=== PATIENT | male | born 1990 | race Caucasian/White ===

== ENCOUNTER 2021-06-26 12:03 | Inpatient (IN) | payer OTHER, SELFPAY ==
--- NOTE | 2021-06-26 12:58 | ED_ITS ---
HPI - General Adult General Chief complaint: Psychiatric Symptoms Stated complaint: SI Time Seen by Provider: 06/26/21 12:54 Source: patient Mode of arrival: ambulatory Limitations: no limitations History of Present Illness HPI narrative: 30-year-old male presents to ED for suicidal ideation with no plan. Patient states history of depression. Patient admits to stop taking his meds. Patient likes to be placed in halfway, of psych was dental program. Related Data Allergies Allergy/AdvReac Type Severity Reaction Status Date / Time No Known Allergies Allergy Verified 06/26/21 12:54 Review of Systems Review of Systems: Suicidal ideation. depression Yes all other systems are reviewed and are negative [facility] Social History Social History Advance Directives: No Advance Directives Information Provided: No Physical Exam ED Vital Signs: Vital Signs - 24 hr 06/26/21 13:13 Temperature 98 F Pulse Rate 65 Respiratory Rate 18 Blood Pressure 99/65 Pulse Oximetry 96 BMI result Body Mass Index 22.0 Const General: cooperative, healthy appearing, comfortable, no acute distress, well developed, alert, awake and Physically active Orientation/consciousness: patient oriented x3 HENMT Head: Yes normal to inspection, Yes No palpable skull fracture present, Yes normocephalic, Yes atraumatic and No abrasion Eyes General: appearance normal, both eyes and all related structures Neck Neck: Yes normal visual inspection, Yes full ROM, Yes no lymphadenopathy, Yes no meningeal signs, Yes trachea midline, Yes supple, No anterior neck swelling and No tender Chest Chest palpation & inspection: normal inspection of the chest and normal palpation of entire chest wall Resp Effort & Inspection: normal respiratory effort and able to speak in complete sentences Auscultation: clear to auscultation bilaterally Cardio Jugular venous distension: no JVD Heart sounds: S1 normal heart sound present and S2 normal heart sound present GI Inspection: Yes normal to inspection and No abdominal wall ecchymosis Palpation (GI): Soft to palpation, not firm, nontender, no guarding and not rigid General: No CVA tenderness and Yes no CVA tenderness Back/Spine/Pelvis Back: no CVA tenderness, No CVA tenderness and No back tenderness Skin General skin exam: no rashes or lesions noted and elasticity normal Neuro General: patient oriented x3, gait normal, no meningeal signs and CN's II-XI intact bilaterally Cranial nerves: Yes CN's II-XII intact bilaterally Extrem General: Yes normal to inspection and Yes full ROM Psych Appearance: grossly normal, well kempt and not disheveled Course Course Course Narrative: Will order basic labs and N consutl Reevaluation(s) Reevaluation #1: Patient was seen in the community by [facility] and is a bed search Section 12 Time: 17:00 Medical Decision Making MDM Narrative Medical decision making narrative: Depression Lab Data Labs: Lab Results 06/26/21 Range/Units 16:32 Urine Opiates Screen Not Detected (Not Detect) Urine Fentanyl Screen Not Detected (Not Detect) Ur Barbiturates Screen Not Detected (Not Detect) Ur Phencyclidine Scrn Not Detected (Not Detect) Ur Amphetamines Screen Not Detected (Not Detect) U Benzodiazepines Scrn Not Detected (Not Detect) Urine Cocaine Screen POSITIVE H (Not Detect) U Marijuana (THC) Screen Not Detected (Not Detect) Discharge Plan Discharge Clinical Impression: Depression Patient Disposition: Still a Patient Instructions: Depression (DC)
[2021-06-26 13:13] VITALS: BP 107/64; BP 99/65; PULSE 65; PULSE 84; RESP 18; TEMP 36.6; O2SAT 96; O2SAT 97; BMI 22.0
--- NOTE | 2021-06-26 16:35 | PC.NURSE ---
t/w was informed pt refused all labs upon arriving to the pod. t/w approached pt and asked consent to get covid swab, urine sample, and bloodwork. pt agreed to provide swab and urine. pt refused bloodwork. josey.
[2021-06-26 16:52] LABS: Amphetamine Screen Urine Not Detected (Not Detect); Barbiturates, Urine Not Detected (Not Detect); Benzodiazepines Screen Urine Not Detected (Not Detect); Cannabinoid Screen Urine Not Detected (Not Detect); Cocaine Screen Urine POSITIVE (Not Detect); Fentanyl, urine Not Detected (Not Detect); Opiate Screen Urine Not Detected (Not Detect); Phencyclidine Screen Urine Not Detected (Not Detect)
[2021-06-26 17:07] LABS: COVID-19 Test Negative (Negative)
--- NOTE | 2021-06-26 21:07 | PC.NURSE ---
Patient refused lab draw times 3.
[2021-06-26 23:36] LABS: MANUAL DIFF FLAG NO
[2021-06-26 23:37] LABS: Basophils Percent Auto 0.5 % (0-2); Eosinophils Absolute Auto 0.2 X10*3/uL (0.0-0.4); Eosinophils Percent Auto 2.5 % (0-4); Hematocrit 41.2 % (42.0-52.0); Hemoglobin 13.3 g/dl (14.0-18.0); Imm Gran Abs Auto 0.01 X10*3/uL (0.00-0.03); Imm Gran Pct Auto 0.1 % (0.0-0.4); Lymphocytes Absolute Auto 2.6 X10*3/uL (1.2-4.9); Lymphocytes Percent Auto 34.3 % (20-40); Mean Corpuscular HGB Conc 32.3 g/dl (31.0-36.0); Mean Corpuscular Hemoglobin 29.6 pg (27.0-33.0); Mean Corpuscular Volume 91.6 fL (80.0-98.0); Mean Platelet Volume 10.7 fL (9.4-12.4); Monocytes Absolute Auto 0.8 X10*3/uL (0.1-1.2); Monocytes Percent Auto 10.4 % (2-11); Neutrophils Absolute Auto 3.9 x10*3/uL (2.0-8.3); Neutrophils Percent Auto 52.2 % (45-73); Platelet Count 271 X10*3/uL (160-400); Red Cell Distribution Width 13.4 % (11.0-16.0); White Blood Count 7.6 X10*3/uL (4.8-10.8)
[2021-06-26 23:55] LABS: Ethanol < 10 mg/dL
[2021-06-26 23:56] LABS: Anion Gap 12 (12-20); Blood Urea Nitrogen 14 mg/dL (9-16); Carbon Dioxide 28 mmol/L (22-29); Chloride 104 mmol/L (96-108); Creatinine Clr Calc Pharmacy 115.5; Estimated Glomerular Filt Rate > 60; Glucose Random 117 mg/dL (60-115); Potassium 4.1 mmol/L (3.3-5.1); Sodium 140 mmol/L (135-145)
--- NOTE | 2021-06-27 05:36 | PC.NURSE ---
Patient slept though the night, no distress observed/reported, finally agreed to lab draw, patient's disposition per [facility] is section 12 inpatient bed search, behavior non concerning, will continue to monitor.
--- NOTE | 2021-06-27 11:15 | PC.NURSE ---
Pt calm, cooperative. TO GO TO M5 LATER
[2021-06-27 12:33] VITALS: BP 113/68; PULSE 63; RESP 16; O2SAT 97
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
[2021-06-27 20:25] VITALS: BP 96/51; PULSE 86; RESP 16; TEMP 36.4; O2SAT 97
--- NOTE | 2021-06-27 21:57 | PC.NURSE ---
Pt signed 3 day notice up on 07/02/2021
--- NOTE | 2021-06-28 | ECG_ITS ---
Test Reason : cp Blood Pressure : / mmHG Vent. Rate : 061 BPM Atrial Rate : 061 BPM P-R Int : 138 ms QRS Dur : 088 ms QT Int : 386 ms P-R-T Axes : 043 068 042 degrees QTc Int : 388 ms Normal sinus rhythm Normal ECG When compared with ECG of 27-JUN-2021 12:32, No significant change was found Referred By: Sandra Espino Electronically Signed By:Job Thomson
[2021-06-28 06:00] VITALS: BP 112/75; PULSE 78; RESP 16; TEMP 36.6; O2SAT 100
[2021-06-28 19:30] VITALS: BP 109/55; PULSE 73; TEMP 36.9
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
[2021-06-29 09:08] VITALS: BP 107/57; PULSE 90; RESP 18; TEMP 36.4; O2SAT 99
--- NOTE | 2021-06-29 09:28 | P.PNPSI_ITS ---
Subjective Subjective Date of Service: 06/29/21 Reason For Visit: Depression, SI, cocaine use disorder Subjective Notes: Conditional Voluntary and 3 Day Interim History: Patient was seen and discussed in rounds today. She is settling in. She has been visible blood mostly in her room. Attending some groups. Little communication. She has been refusing meds and labs. Eating and sleeping adequately. She has a 3 day notice in. Not to open in discussing medications, stating that she is not going to be here long. No changes were made today Mental Status Exam Mental Status Exam Narrative: In today's visit she is alert, oriented and pleasant. Speech is normal. Little to no eye contact. Affect is appropriate and subdued. Mood is constricted. No acute signs of psychosis. No SI/HI. Cognitively she has slow thought processes. Judgment is mostly intact Diagnostics Vital Signs (24Hr): Vital Signs - 24 hr 06/28/21 19:30 06/29/21 09:08 Temperature 98.4 F 97.6 F Pulse Rate 73 90 Respiratory Rate 18 Blood Pressure 109/55 L 107/57 L Pulse Oximetry 99 BMI result Body Mass Index 22.0 Labs Results: 06/26/21 23:31 06/26/21 23:31 Medications Medications Current Medications Acetaminophen (Acetaminophen 325 Mg Tablet) 650 mg PO Q6H PRN PRN Reason: Headache/Pain Mild Scale (1-3) Al Hydroxide/Mg Hydroxide (Magnesium Hydrox/Alum Hydrox 30 Ml Oral.Susp) 30 ml PO Q6H PRN PRN Reason: Heartburn/Nausea Hydroxyzine HCl (Hydroxyzine Hcl 25 Mg Tablet) 25 mg PO BEDTIME PRN PRN Reason: Anxiety Ibuprofen (Ibuprofen 600 Mg Tablet) 600 mg PO Q6H PRN PRN Reason: mild-mod pain Magnesium Hydroxide (Milk Of Magnesia 30 Ml Oral.Susp) 30 ml PO DAILY PRN PRN Reason: Constipation Olanzapine (Olanzapine 10 Mg Tablet) 10 mg PO BEDTIME JAKE Last Admin: 06/28/21 22:43 Dose: Not Given Documented by: Trazodone HCl (Trazodone Hcl 50 Mg Tablet) 50 mg PO BEDTIME PRN PRN Reason: Insomnia Allergies Allergies Allergy/AdvReac Type Severity Reaction Status Date / Time No Known Allergies Allergy Verified 06/26/21 12:54 Assessment & Plan Assessment & Plan (1) Bipolar 1 disorder: Status: Acute Code(s): F31.9 - Bipolar disorder, unspecified Plan Nicole is a 30 y.o. Male, prefers he/ him pronouns, who carries a dx of Bipolar I DO. He presented to [facility] on 06/26/21 after calling 911 due to SI, depression, and paranoid ideation that someone is following him but unable to state who this person is. Pt says he only takes psych medications while inpatient. Utox was positive for crack cocaine, uses daily. Per crisis eval, pt?s Mom reports that he has been off his meds and ?causing havoc in the house,? i.e. throwing her things away, wont let her sleep. Plan: Will restart zyprexa at 10 mg QHS for sx of depression, paranoia, as pt reports this has helped him in the past and he tolerates it. Pt declined to meet with addiction specilaists. 06/29/2021: Continue current regimen and plans. Encouraged to be compliant with her medication. No changes implemented today I spent minutes with the patient and/or on the patient floor today, greater than?50% of which was spent counseling/coordinating care. Reason for contiued inpatient stay Substantial Risk for: other
[2021-06-29 18:00] VITALS: BP 112/55; PULSE 58; RESP 18; TEMP 37.2
[2021-06-29] MEDS: OLANZapine 10 MG TABLET PO (21:03)
[2021-06-30 06:00] VITALS: BP 110/63; PULSE 69; RESP 18; TEMP 36.7; O2SAT 100
--- NOTE | 2021-06-30 09:26 | P.PNPSI_ITS ---
Subjective Subjective Date of Service: 06/30/21 Reason For Visit: Depression, SI, cocaine use disorder Subjective Notes: Conditional Voluntary and 3 Day Interim History: Patient was seen and discussed in rounds today. Records were reviewed. He has been stating that he would like to remain ?mail?. He has been a little more social and less isolative but still in his room a lot. Depression persisting. No auditory or visual hallucinations. No suicidal ideations. No medications taken. No changes were implemented today Medication Compliance: No Review of Systems Review of Systems Depression Yes all other systems are reviewed and are negative Diagnostics Vital Signs (24Hr): Vital Signs - 24 hr 06/29/21 18:00 06/30/21 06:00 Temperature 99 F 98.1 F Pulse Rate 58 69 Respiratory Rate 18 18 Blood Pressure 112/55 L 110/63 Pulse Oximetry 100 BMI result Body Mass Index 22.0 Labs Results: 06/26/21 23:31 06/26/21 23:31 Medications Medications Current Medications Acetaminophen (Acetaminophen 325 Mg Tablet) 650 mg PO Q6H PRN PRN Reason: Headache/Pain Mild Scale (1-3) Al Hydroxide/Mg Hydroxide (Magnesium Hydrox/Alum Hydrox 30 Ml Oral.Susp) 30 ml PO Q6H PRN PRN Reason: Heartburn/Nausea Hydroxyzine HCl (Hydroxyzine Hcl 25 Mg Tablet) 25 mg PO BEDTIME PRN PRN Reason: Anxiety Ibuprofen (Ibuprofen 600 Mg Tablet) 600 mg PO Q6H PRN PRN Reason: mild-mod pain Magnesium Hydroxide (Milk Of Magnesia 30 Ml Oral.Susp) 30 ml PO DAILY PRN PRN Reason: Constipation Olanzapine (Olanzapine 10 Mg Tablet) 10 mg PO BEDTIME JAKE Last Admin: 06/29/21 21:03 Dose: 10 mg Documented by: Trazodone HCl (Trazodone Hcl 50 Mg Tablet) 50 mg PO BEDTIME PRN PRN Reason: Insomnia Allergies Allergies Allergy/AdvReac Type Severity Reaction Status Date / Time No Known Allergies Allergy Verified 06/26/21 12:54 Assessment & Plan Assessment & Plan (1) Bipolar 1 disorder: Status: Acute Code(s): F31.9 - Bipolar disorder, unspecified Plan Nicole is a 30 y.o. Male, prefers he/ him pronouns, who carries a dx of Bipolar I DO. He presented to [facility] on 06/26/21 after calling 911 due to SI, depression, and paranoid ideation that someone is following him but unable to state who this person is. Pt says he only takes psych medications while inpatient. Utox was positive for crack cocaine, uses daily. Per crisis eval, pt?s Mom reports that he has been off his meds and ?causing havoc in the house,? i.e. throwing her things away, wont let her sleep. Plan: Will restart zyprexa at 10 mg QHS for sx of depression, paranoia, as pt reports this has helped him in the past and he tolerates it. Pt declined to meet with addiction specilaists. 06/29/2021: Continue current regimen and plans. Encouraged to be compliant with her medication. No changes implemented today 06/30/2021: Continue plans and regimen. No changes were done today I spent minutes with the patient and/or on the patient floor today, greater than?50% of which was spent counseling/coordinating care. Reason for contiued inpatient stay Substantial Risk for: harm to self
[2021-06-30 18:00] VITALS: BP 103/66; PULSE 60; RESP 18; TEMP 36.8; O2SAT 98
[2021-06-30] MEDS: OLANZapine 10 MG TABLET PO (20:49)
[2021-07-01 06:00] VITALS: BP 106/58; PULSE 67; RESP 18; TEMP 37; O2SAT 100
--- NOTE | 2021-07-01 09:31 | PC.NURSE ---
Pt retracted 3-day notice today - Thursday, July 01, 2021
[2021-07-01 17:35] VITALS: BP 114/71; PULSE 69; TEMP 37.1
[2021-07-01] MEDS: OLANZapine 7.5 MG TABLET 15 MG PO (21:46)
[2021-07-01] MEDS: Melatonin 3 MG TABLET 6 MG PO (21:47)
--- NOTE | 2021-07-01 21:59 | HO.PSYCHPN ---
Subjective Subjective Date of Service: 07/01/21 Reason For Visit: Depression, SI, cocaine use disorder Interim History: pt reports that he is still depressed and that he feels no better than on admission. He says he still has depression and that he goes deep into his negative thoughts and has a lot of negativity. Pt said he is not suicidal now however to another staff person he mentioned he still felt suicidal. Patient did tell typewriter repairer he thinks that the food might be poisoned sometimes and so he is careful about what he eats. [employer] discussed medications and patient said he would like his Zyprexa dose increased. Mental Status Exam Mental Status Exam Narrative: Pt is alert and oriented; behavior is cooperative, friendly and calm; patient is not in distress; dressed in casual attire, lying on bed, tatoo neck, dyed blond hair; mood is described as not that good and affect odd; eye contact adequate; Speech is normal rate, volume and prosody and not pressured; no psychomotor agitation/retardation present; thought process is goal directed; Thought content is on depression, delusional ideas of poisoned food; otherwise pertinent to relevant topics; intermittent SI, sometimes with plan; Denies AVH. Patients insight and judgment are impaired Diagnostics Vital Signs (24Hr): Vital Signs - 24 hr 07/01/21 06:00 Temperature 98.6 F Pulse Rate 67 Respiratory Rate 18 Blood Pressure 106/58 L Pulse Oximetry 100 BMI result Body Mass Index 22.0 Labs Results: 06/26/21 23:31 06/26/21 23:31 Medications Medications Current Medications Acetaminophen (Acetaminophen 325 Mg Tablet) 650 mg PO Q6H PRN PRN Reason: Headache/Pain Mild Scale (1-3) Al Hydroxide/Mg Hydroxide (Magnesium Hydrox/Alum Hydrox 30 Ml Oral.Susp) 30 ml PO Q6H PRN PRN Reason: Heartburn/Nausea Hydroxyzine HCl (Hydroxyzine Hcl 25 Mg Tablet) 25 mg PO BEDTIME PRN PRN Reason: Anxiety Ibuprofen (Ibuprofen 600 Mg Tablet) 600 mg PO Q6H PRN PRN Reason: mild-mod pain Magnesium Hydroxide (Milk Of Magnesia 30 Ml Oral.Susp) 30 ml PO DAILY PRN PRN Reason: Constipation Melatonin (Melatonin 3 Mg Tablet) 6 mg PO BEDTIME PRN PRN Reason: insomnia Last Admin: 07/01/21 21:47 Dose: 6 mg Documented by: Olanzapine (Olanzapine 7.5 Mg Tablet) 15 mg PO BEDTIME JAKE Last Admin: 07/01/21 21:46 Dose: 15 mg Documented by: Trazodone HCl (Trazodone Hcl 50 Mg Tablet) 50 mg PO BEDTIME PRN PRN Reason: Insomnia Allergies Allergies Allergy/AdvReac Type Severity Reaction Status Date / Time No Known Allergies Allergy Verified 06/26/21 12:54 Assessment & Plan Assessment & Plan (1) Bipolar 1 disorder: Status: Acute Code(s): F31.9 - Bipolar disorder, unspecified Plan Nicole is a 30 y.o. Male, prefers he/ him pronouns, who carries a dx of Bipolar I DO. He presented to [facility] on 06/26/21 after calling 911 due to SI, depression, and paranoid ideation that someone is following him but unable to state who this person is. Pt says he only takes psych medications while inpatient. Utox was positive for crack cocaine, uses daily. Per crisis eval, pt?s Mom reports that he has been off his meds and ?causing havoc in the house,? i.e. throwing her things away, wont let her sleep. 07/01 continue paranoid, odd affect, intermittent SI sometimes reporting plans [employer] needs additional collateral to better understand patient's presentation Plan: Increased zyprexa to 15 mg QHS for sx of depression, paranoia, as pt reports this has helped him in the past and he tolerates it. Pt declined to meet with addiction specilaists. I spent minutes with the patient and/or on the patient floor today, greater than?50% of which was spent counseling/coordinating care. Reason for contiued inpatient stay Substantial Risk for: harm to self and rapid decompensation
[2021-07-02 18:00] VITALS: BP 112/69; PULSE 92; RESP 16; TEMP 36.4; O2SAT 99
--- NOTE | 2021-07-02 18:04 | P.PNPSI_ITS ---
Subjective Subjective Date of Service: 07/02/21 Reason For Visit: Depression, SI, cocaine use disorder Interim History: Patient said that he thinks he needs to be committed to a state hospital. He says that he is not able to be be in the community but has difficult time articulating why this is so. At 1st, He says that he is suicidal with a plan to hurt himself however upon further inquiry he says that he would only be suicidal if he went back into the community and things did not go well. Patient denies any AVH and he says he is sleeping well. Mental Status Exam Mental Status Exam Narrative: Pt is alert and oriented; behavior is cooperative, friendly and calm; patient is not in distress; dressed in casual attire, tatoo neck, dyed blond hair; mood is described as depressed and affect odd; eye contact adequate; Speech is normal rate, volume and prosody and not pressured; no psychomotor agitation/retardation present; thought process is goal directed; Thought content is on depression, delusional ideas of poisoned food; otherwise pertinent to relevant topics; intermittent SI, sometimes with plan; Denies AVH. Patients insight and judgment are impaired Diagnostics Vital Signs (24Hr): BMI result Body Mass Index 22.0 Labs Results: 06/26/21 23:31 06/26/21 23:31 Medications Medications Current Medications Acetaminophen (Acetaminophen 325 Mg Tablet) 650 mg PO Q6H PRN PRN Reason: Headache/Pain Mild Scale (1-3) Al Hydroxide/Mg Hydroxide (Magnesium Hydrox/Alum Hydrox 30 Ml Oral.Susp) 30 ml PO Q6H PRN PRN Reason: Heartburn/Nausea Hydroxyzine HCl (Hydroxyzine Hcl 25 Mg Tablet) 25 mg PO BEDTIME PRN PRN Reason: Anxiety Ibuprofen (Ibuprofen 600 Mg Tablet) 600 mg PO Q6H PRN PRN Reason: mild-mod pain Magnesium Hydroxide (Milk Of Magnesia 30 Ml Oral.Susp) 30 ml PO DAILY PRN PRN Reason: Constipation Melatonin (Melatonin 3 Mg Tablet) 6 mg PO BEDTIME PRN PRN Reason: insomnia Last Admin: 07/01/21 21:47 Dose: 6 mg Documented by: Olanzapine (Olanzapine 7.5 Mg Tablet) 15 mg PO BEDTIME JAKE Last Admin: 07/01/21 21:46 Dose: 15 mg Documented by: Trazodone HCl (Trazodone Hcl 50 Mg Tablet) 50 mg PO BEDTIME PRN PRN Reason: Insomnia Allergies Allergies Allergy/AdvReac Type Severity Reaction Status Date / Time No Known Allergies Allergy Verified 06/26/21 12:54 Assessment & Plan Assessment & Plan (1) Bipolar 1 disorder: Status: Acute Code(s): F31.9 - Bipolar disorder, unspecified Plan Niocle is a 30 y.o. Male, prefers he/ him pronouns, who carries a dx of Bipolar I DO. He presented to [facility] on 06/26/21 after calling 911 due to SI, depression, and paranoid ideation that someone is following him but unable to st ate who this person is. Pt says he only takes psych medications while inpatient. Utox was positive for crack cocaine, uses daily. Per crisis eval, pt?s Mom reports that he has been off his meds and ?causing havoc in the house,? i.e. throwing her things away, wont let her sleep. 07/01 continue paranoid, odd affect, intermittent SI sometimes reporting plans Recreation Therapist needs additional collateral to better understand patient's presentation Plan: Increased zyprexa to 15 mg QHS for sx of depression, paranoia, as pt reports this has helped him in the past and he tolerates it. Pt declined to meet with addiction specilaists. I spent minutes with the patient and/or on the patient floor today, greater than?50% of which was spent counseling/coordinating care. Reason for contiued inpatient stay Substantial Risk for: harm to self and rapid decompensation
[2021-07-02] MEDS: OLANZapine 7.5 MG TABLET 15 MG PO (22:13)
[2021-07-03 06:55] VITALS: BP 118/54; PULSE 58; RESP 16; TEMP 36.8; O2SAT 98
--- NOTE | 2021-07-03 11:31 | HO.PSYCHPN ---
Subjective Subjective Date of Service: 07/03/21 Reason For Visit: Depression, SI, cocaine use disorder Interim History: met with pt and sw pt gave pt/sw permission to discuss case with his 3 sisters, Tiffanie, Coreen and Manohar (and gave phone number); however he says that they will say he is crazy; he then says They envy me..twin me a little bit. He says that he is stressed a lot and not ready to go to the Community. He says he the [facility]. Patient talked about when crisis and the police came that another car pulled up and drove by slowly that was iffy. He said are they recording me? are they taking pictures of me. Patient endorses parnaoid delusions about being attacked spiritually; he thinks that there is a presence that comes to the unit and may be poisoning food; thus he is careful about what he eats and so only eat things in small portions. He denies any AVH, though can appear internally preoccupied. He reiterates however that this is serous that his life is in danger because someone is following him or that they are persecuting him; when promotion writer asked to who they refers to, patient vaguely indicates that they is some spiritual force. He says that he is so scared to go out into the community. He repeats this is serious...this is not a joke... this is serious. River Boat Captain asked if patient ever felt more calm or less anxious or worried or more stable at some point and whether medications were helpful. Patient is willing to continue taking medication and agrees to increase Zyprexa however he says this is not just about medication. . . I still need to think to stay safe... Indicating he does not want medication to curb his ability to think since he relies on this to avoid persecution. Patient could not really articulate a time in the past where he felt a relief from these current symptoms and even struggled to understand the question. He endorses intermittent SI worried about suffering alone in this world, but does not want to kill himself; rather wants to be able to work, have an apartment, adopt some day. He says he wants to be sober and to stop prostituting himself for drugs. He says that killing himself would be an option if he was feeling unsafe in the community. Mental Status Exam Mental Status Exam Narrative: Pt is alert and oriented; behavior is cooperative, mostly calm; he has dyed blond hair, neck tatoo; dressed in casual attire with adequate; mood is described as depressed. He has an affect odd and sometimes laughs innappropriately; eye contact adequate; Speech is affected, but with normal rate, volume and prosody and not pressured; no psychomotor agitation/retardation present; thought process is goal directed; Thought content is on depression and delusional, persecutory fears of a spiritual threatening force; delusional ideas that food is poisoned;otherwise pertinent to relevant topics; intermittent SI, sometimes with plan as an option if unsafe in the community; no HI. Denies AVH. Patients insight and judgment are impaired Diagnostics Vital Signs (24Hr): Vital Signs - 24 hr 07/02/21 18:00 07/03/21 06:55 Temperature 97.6 F 98.2 F Pulse Rate 92 58 Respiratory Rate 16 16 Blood Pressure 112/69 118/54 L Pulse Oximetry 99 98 BMI result Body Mass Index 22.0 Labs Results: 06/26/21 23:31 06/26/21 23:31 Medications Medications Current Medications Acetaminophen (Acetaminophen 325 Mg Tablet) 650 mg PO Q6H PRN PRN Reason: Headache/Pain Mild Scale (1-3) Al Hydroxide/Mg Hydroxide (Magnesium Hydrox/Alum Hydrox 30 Ml Oral.Susp) 30 ml PO Q6H PRN PRN Reason: Heartburn/Nausea Hydroxyzine HCl (Hydroxyzine Hcl 25 Mg Tablet) 25 mg PO BEDTIME PRN PRN Reason: Anxiety Ibuprofen (Ibuprofen 600 Mg Tablet) 600 mg PO Q6H PRN PRN Reason: mild-mod pain Magnesium Hydroxide (Milk Of Magnesia 30 Ml Oral.Susp) 30 ml PO DAILY PRN PRN Reason: Constipation Melatonin (Melatonin 3 Mg Tablet) 6 mg PO BEDTIME PRN PRN Reason: insomnia Last Admin: 07/01/21 21:47 Dose: 6 mg Documented by: Olanzapine (Olanzapine 10 Mg Tablet) 20 mg PO BEDTIME JAKE Trazodone HCl (Trazodone Hcl 50 Mg Tablet) 50 mg PO BEDTIME PRN PRN Reason: Insomnia Allergies Allergies Allergy/AdvReac Type Severity Reaction Status Date / Time No Known Allergies Allergy Verified 06/26/21 12:54 Assessment & Plan Assessment & Plan (1) Schizoaffective disorder: Status: Acute Code(s): F25.9 - Schizoaffective disorder, unspecified Plan Nicole is a 30 y.o. Male, prefers he/ him pronouns, who carries a dx of Bipolar I DO. He presented to [facility] on 06/26/21 after calling 911 due to SI, depression, and paranoid ideation that someone is following him but unable to state who this person is. Pt says he only takes psych medications while inpatient. Utox was positive for crack cocaine, uses daily. Per crisis eval, pt?s Mom reports that he has been off his meds and ?causing havoc in the house,? i.e. throwing her things away, wont let her sleep. On the unit, patient remained with psychotic symptoms. Diagnosis however changed to schizoaffective disorder to incorporate other providers concern for history of manic behavior, however given that psychotic symptoms remain independent of kanwal or organic depression, schizoaffective disorder is more likely (patient does report he feels depressed, however depression is moderate and seems to be due to feeling exhausted from chronic delusional worries about being persecuted; similarly his intermittent SI seems to be due to his way of escaping his imagined persecutors). 07/01 continue paranoid, odd affect, intermittent SI sometimes reporting plans River Boat Captain needs additional collateral to better understand patient's presentation 07/02 patient gave verbal permission to this promotion writer and professor of social work Finn to discuss his case with his 3 sisters, providing the phone number; he remains with paranoid persecutory delusions and intermittent SI with a plan if he feels unsafe in the community. Patient has no insight. He denies AVH. Patient does not present with any manic symptoms, is generally sleeping at night, though with some nightmares. River Boat Captain will change diagnosis to schizoaffective disorder to incorporate other providers concern for history of manic behavior, however given that psychotic symptoms remain independent of kanwal or organic depression, schizoaffective disorder is more likely. Patient could not articulate a time in the past where he felt a relief from these current symptoms and even struggled to understand the question. -likely PtSD but so far difficult to discuss with patient who is focused on spiritual persecution. Plan: -Increased zyprexa to 20 mg QHS for sx of depression, paranoia, as pt reports this has helped him in the past and he tolerates it; however if there is no symptom relief, will consider a higher potency antipsychotic Prazosin for nightmares -Pt declined to meet with addiction specilaists. I spent minutes with the patient and/or on the patient floor today, greater than?50% of which was spent counseling/coordinating care. Patient educated on: diagnosis and substance abuse Informed Consent: further education needed Reason for contiued inpatient stay Substantial Risk for: harm to self, inability to function and rapid decompensation
[2021-07-03 20:22] VITALS: BP 106/67; PULSE 71; TEMP 36.6; O2SAT 97
[2021-07-03] MEDS: Melatonin 3 MG TABLET 6 MG PO (21:55)
[2021-07-03] MEDS: OLANZapine 10 MG TABLET 20 MG PO (21:55)
[2021-07-04 06:00] VITALS: BP 114/73; PULSE 62; RESP 18; TEMP 36.9; O2SAT 97
[2021-07-04 18:00] VITALS: BP 133/72; PULSE 64
[2021-07-04] MEDS: OLANZapine 10 MG TABLET 20 MG PO (21:10)
[2021-07-05 06:00] VITALS: BP 121/77; PULSE 68; RESP 18; TEMP 36.6; O2SAT 97
--- NOTE | 2021-07-05 11:56 | HO.PSYCHPN ---
Subjective Subjective Date of Service: 07/05/21 Reason For Visit: Depression, SI, cocaine use disorder Interim History: Late entry for patient seen on 07/04 Patient remains with delusional persecutory worries. He says he is overall sleeping for long enough but has nightmares and agrees to prazosin. Patient says he does not feel safe to leave and reiterates he thinks he needs a state hospital. 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 Patient reports he is no longer taking spironolactone or Valcyclovir. Patient said he wanted to discuss his orientation and said that I am now a boy...i'm not transexual anymore...i'm parks... Mental Status Exam Mental Status Exam Narrative: Pt is alert and oriented; behavior is cooperative, mostly calm; he has dyed blond hair, neck tatoo; dressed in casual attire with adequate; mood is described as depressed. He has an affect odd and sometimes laughs inappropriately; eye contact adequate; Speech is affected, but with normal rate, volume and prosody and not pressured; no psychomotor agitation/retardation present; thought process is goal directed; Thought content is on depression and delusional, persecutory fears of a spiritual threatening force; delusional ideas that food is poisoned;otherwise pertinent to relevant topics; intermittent SI, sometimes with plan as an option if unsafe in the community; no HI.? Denies AVH. Patients insight and judgment are impaired Diagnostics Vital Signs (24Hr): Vital Signs - 24 hr 07/04/21 18:00 07/05/21 06:00 Temperature 97.9 F Pulse Rate 64 68 Respiratory Rate 18 Blood Pressure 133/72 121/77 Pulse Oximetry 97 BMI result Body Mass Index 22.0 Labs Results: 06/26/21 23:31 06/26/21 23:31 Medications Medications Current Medications Acetaminophen (Acetaminophen 325 Mg Tablet) 650 mg PO Q6H PRN PRN Reason: Headache/Pain Mild Scale (1-3) Al Hydroxide/Mg Hydroxide (Magnesium Hydrox/Alum Hydrox 30 Ml Oral.Susp) 30 ml PO Q6H PRN PRN Reason: Heartburn/Nausea Hydroxyzine HCl (Hydroxyzine Hcl 25 Mg Tablet) 25 mg PO BEDTIME PRN PRN Reason: Anxiety Ibuprofen (Ibuprofen 600 Mg Tablet) 600 mg PO Q6H PRN PRN Reason: mild-mod pain Magnesium Hydroxide (Milk Of Magnesia 30 Ml Oral.Susp) 30 ml PO DAILY PRN PRN Reason: Constipation Melatonin (Melatonin 3 Mg Tablet) 6 mg PO BEDTIME PRN PRN Reason: insomnia Last Admin: 07/03/21 21:55 Dose: 6 mg Documented by: Olanzapine (Olanzapine 10 Mg Tablet) 20 mg PO BEDTIME JAKE Last Admin: 07/04/21 21:10 Dose: 20 mg Documented by: Trazodone HCl (Trazodone Hcl 50 Mg Tablet) 50 mg PO BEDTIME PRN PRN Reason: Insomnia Allergies Allergies Allergy/AdvReac Type Severity Reaction Status Date / Time No Known Allergies Allergy Verified 06/26/21 12:54 Assessment & Plan Assessment & Plan (1) Schizoaffective disorder: Status: Acute Code(s): F25.9 - Schizoaffective disorder, unspecified Plan Nicole is a 30 y.o. Male, prefers he/ him pronouns, who carries a dx of Bipolar I DO. He presented to [facility] on 06/26/21 after calling 911 due to SI, depression, and paranoid ideation that someone is following him but unable to state who this person is. Pt says he only takes psych medications while inpatient. Utox was positive for crack cocaine, uses daily. Per crisis eval, pt?s Mom reports that he has been off his meds and ?causing havoc in the house,? i.e. throwing her things away, wont let her sleep. On the unit, patient remained with psychotic symptoms. Diagnosis however changed to schizoaffective disorder to incorporate other providers concern for history of manic behavior, however given that psychotic symptoms remain independent of kanwal or organic depression, schizoaffective disorder is more likely (patient does report he feels depressed, however depression is moderate and seems to be due to feeling exhausted from chronic delusional worries about being persecuted; similarly his intermittent SI seems to be due to his way of escaping his imagined persecutors). 07/01 continue paranoid, odd affect, intermittent SI sometimes reporting plans Leather Cutter needs additional collateral to better understand patient's presentation 07/03 (not 07/02) patient gave verbal permission to this marine underwriter and social and human services assistant Finn to discuss his case with his 3 sisters, providing the phone number; he remains with paranoid persecutory delusions and intermittent SI with a plan if he feels unsafe in the community. Patient has no insight. He denies AVH. Patient does not present with any manic symptoms, is generally sleeping at night, though with some nightmares. Leather Cutter will change diagnosis to schizoaffective disorder to incorporate other providers concern for history of manic behavior, however given that psychotic symptoms remain independent of kanwal or organic depression, schizoaffective disorder is more likely. Patient could not articulate a time in the past where he felt a relief from these current symptoms and even struggled to understand the question. -likely PtSD but so far difficult to discuss with patient who is focused on spiritual persecution. 07/04 remains with psychotic, paranoid delusions; patient volunteers that he is no longer transsexual but that he is a boy and parks. Plan: -Increased zyprexa to 20 mg QHS for sx of depression, paranoia, as pt reports this has helped him in the past and he tolerates it; however if there is no symptom relief, will consider a higher potency antipsychotic Prazosin for nightmares -Pt declined to meet with addiction specilaists. I spent minutes with the patient and/or on the patient floor today, greater than?50% of which was spent counseling/coordinating care. Patient educated on: medication risk/benefits and substance abuse Informed Consent: understands Reason for contiued inpatient stay Substantial Risk for: harm to self and inability to function
--- NOTE | 2021-07-05 12:02 | P.PNPSI_ITS ---
Subjective Subjective Date of Service: 07/05/21 Reason For Visit: Depression, SI, cocaine use disorder Subjective Notes: Section 8 Interim History: Pt says he's not good and i don't think i'm going to be ready to go out into the community... He reports ongoing worries about being followed, persecuted; still worried that food on unit is intermittently getting poisoned. Pt also says he does not know where apple juice is coming from and worries that it might be distilled from someone's pee. Field Services Director does some reality testing about source of apple juice but pt responds with an emphatic i dont' want to drink someones pee. Field Services Director discussed how patients psychiatric illness can cause the mind to play tricks (cause delusions) and seemed to entertain this as an actuality, agreeing that some of his worries might not be true, however, he quickly reverts back to concern for his safety. Denies any AVH or hx of. Despite continued delusions, pt feels zyprexa is helping him be calmer and not as anxious Review of med hx, pt says abilify was helpful but on it, still had persecutory delusions (max dose was 15mg); Risperdal doesn't help and he does not like it. Pt asked to get back on Spirinolactone for it's androgen blocking properities and valcyclovir. Discusse addiction issues more Mental Status Exam Mental Status Exam Narrative: Pt is alert and oriented; behavior is cooperative, mostly calm; he has dyed blond hair, neck tatoo; dressed in casual attire with adequate; mood is described as depressed. He has an affect odd and sometimes laughs inapp ropriately; eye contact adequate; Speech is affected, but with normal rate, volume and prosody and not pressured; no psychomotor agitation/retardation present; thought process is goal directed; Thought content is on depression and delusional, persecutory fears of a spiritual threatening force; delusional ideas that food is poisoned;otherwise pertinent to relevant topics; intermittent SI, sometimes with plan as an option if unsafe in the community; no HI.? Denies AVH. Patients insight and judgment are impaired Diagnostics Vital Signs (24Hr): Vital Signs - 24 hr 07/04/21 18:00 07/05/21 06:00 Temperature 97.9 F Pulse Rate 64 68 Respiratory Rate 18 Blood Pressure 133/72 121/77 Pulse Oximetry 97 BMI result Body Mass Index 22.0 Labs Results: 06/26/21 23:31 06/26/21 23:31 Medications Medications Current Medications Acetaminophen (Acetaminophen 325 Mg Tablet) 650 mg PO Q6H PRN PRN Reason: Headache/Pain Mild Scale (1-3) Al Hydroxide/Mg Hydroxide (Magnesium Hydrox/Alum Hydrox 30 Ml Oral.Susp) 30 ml PO Q6H PRN PRN Reason: Heartburn/Nausea Hydroxyzine HCl (Hydroxyzine Hcl 25 Mg Tablet) 25 mg PO BEDTIME PRN PRN Reason: Anxiety Ibuprofen (Ibuprofen 600 Mg Tablet) 600 mg PO Q6H PRN PRN Reason: mild-mod pain Magnesium Hydroxide (Milk Of Magnesia 30 Ml Oral.Susp) 30 ml PO DAILY PRN PRN Reason: Constipation Melatonin (Melatonin 3 Mg Tablet) 6 mg PO BEDTIME PRN PRN Reason: insomnia Last Admin: 07/03/21 21:55 Dose: 6 mg Documented by: Olanzapine (Olanzapine 10 Mg Tablet) 20 mg PO BEDTIME JAKE Last Admin: 07/04/21 21:10 Dose: 20 mg Documented by: Trazodone HCl (Trazodone Hcl 50 Mg Tablet) 50 mg PO BEDTIME PRN PRN Reason: Insomnia Allergies Allergies Allergy/AdvReac Type Severity Reaction Status Date / Time No Known Allergies Allergy Verified 06/26/21 12:54 Assessment & Plan Assessment & Plan (1) Schizoaffective disorder: Status: Acute Code(s): F25.9 - Schizoaffective disorder, unspecified Plan Nicole is a 30 y.o. Male, prefers he/ him pronouns, who carries a dx of Bipolar I DO. He presented to [facility] on 06/26/21 after calling 911 due to SI, depression, and paranoid ideation that someone is following him but unable to state who this person is. Pt says he only takes psych medications while inpatient. Utox was positive for crack cocaine, uses daily. Per crisis eval, pt?s Mom reports that he has been off his meds and ?causing havoc in the house,? i.e. throwing her things away, wont let her sleep. On the unit, patient remained with psychotic symptoms. Diagnosis however changed to schizoaffective disorder to incorporate other providers concern for history of manic behavior, however given that psychotic symptoms remain independent of kanwal or organic depression, schizoaffective disorder is more likely (patient does report he feels depressed, however depression is moderate and seems to be due to feeling exhausted from chronic delusional worries about being persecuted; similarly his intermittent SI seems to be due to his way of escaping his imagined persecutors). 07/01 continue paranoid, odd affect, intermittent SI sometimes reporting plans Field Services Director needs additional collateral to better understand patient's presentation 07/03 (not 07/02) patient gave verbal permission to this lead technical writer and social service agency director Finn to discuss his case with his 3 sisters, providing the phone number; he remains with paranoid persecutory delusions and intermittent SI with a plan if he feels unsafe in the community. Patient has no insight. He denies AVH. Patient does not present with any manic symptoms, is generally sleeping at night, though with some nightmares. Field Services Director will change diagnosis to schizoaffective disorder to incorporate other providers concern for history of manic behavior, however given that psychotic symptoms remain independent of kanwal or organic depression, schizoaffective disorder is more likely. Patient could not articulate a time in the past where he felt a relief from these current symptoms and even struggled to understand the question. -likely PtSD but so far difficult to discuss with patient who is focused on spiritual persecution. 07/04 remains with psychotic, paranoid delusions; patient volunteers that he is no longer transsexual but that he is a boy and parks. Plan: -Increased zyprexa to 25 mg QHS for sx of depression, paranoia, as pt reports this has helped him in the past and he tolerates it; however if there is no symptom relief, will consider a higher potency antipsychotic or retrial of Abilfy Prazosin for nightmares -Pt declined to meet with addiction specialists. I spent minutes with the patient and/or on the patient floor today, greater than?50% of which was spent counseling/coordinating care. Patient educated on: diagnosis and substance abuse Informed Consent: understands Reason for contiued inpatient stay Substantial Risk for: harm to self, inability to function and rapid decompensation
[2021-07-05 16:38] VITALS: BP 128/77; PULSE 63; RESP 14; TEMP 36.8; O2SAT 98
[2021-07-05] MEDS: Prazosin HCL 1 MG CAPSULE PO (21:07)
[2021-07-05] MEDS: OLANZapine 5 MG TABLET 25 MG PO (21:08)
[2021-07-05] MEDS: Melatonin 3 MG TABLET 6 MG PO (21:09)
[2021-07-06 10:02] VITALS: BP 143/70; PULSE 83; TEMP 36.9; O2SAT 98
--- NOTE | 2021-07-06 17:53 | P.PNPSI_ITS ---
Subjective Subjective Date of Service: 07/06/21 Reason For Visit: Depression, SI, cocaine use disorder Interim History: Patient seen and discussed with team. Patient evaluated today and upon interview he reports he is still depressed, doesnt want to talk about why. Per RN, pt was tearful during interview. Sleep and appetite are good. No questions or concerns. Says he is feeling safe and otherwise fine. In the milieu, patient is safe in behavior. Denies SI/SIB/HI upon inquiry. De nies irritability or assaultive ideation. Says he feels safe. Medication Compliance: Yes Side effects from medications: No Attending Groups: Yes Review of Systems Acute medical concerns: No Medical Review of Systems: unchanged Mental Status Exam Mental Status Exam Narrative: Pt is alert and oriented; behavior is cooperative, mostly calm; he has dyed bl ond hair, neck tatoo; dressed in casual attire with adequate; mood is described as depressed. He has an affect odd and sometimes laughs inappropriately; eye contact adequate; Speech is affected, but with normal rate, volume and prosody and not pressured; no psychomotor agitation/retardation present; thought process is goal directed; Thought content is on depression and delusional, persecutory fears of a spiritual threatening force; delusional ideas that food is poisoned;otherwise pertinent to relevant topics; intermittent SI, sometimes with plan as an option if unsafe in the community; no HI.? Denies AVH. Patients insight and judgment are impaired Diagnostics Vital Signs (24Hr): Vital Signs - 24 hr 07/07/21 08:24 07/07/21 18:00 Temperature 98.5 F 98 F Pulse Rate 62 Respiratory Rate 16 Blood Pressure 119/73 132/71 Pulse Oximetry 98 99 BMI result Body Mass Index 22.0 Labs Results: 06/26/21 23:31 06/26/21 23:31 Medications Medications Current Medications Acetaminophen (Acetaminophen 325 Mg Tablet) 650 mg PO Q6H PRN PRN Reason: Headache/Pain Mild Scale (1-3) Al Hydroxide/Mg Hydroxide (Magnesium Hydrox/Alum Hydrox 30 Ml Oral.Susp) 30 ml PO Q6H PRN PRN Reason: Heartburn/Nausea Hydroxyzine HCl (Hydroxyzine Hcl 25 Mg Tablet) 25 mg PO BEDTIME PRN PRN Reason: Anxiety Ibuprofen (Ibuprofen 600 Mg Tablet) 600 mg PO Q6H PRN PRN Reason: mild-mod pain Magnesium Hydroxide (Milk Of Magnesia 30 Ml Oral.Susp) 30 ml PO DAILY PRN PRN Reason: Constipation Melatonin (Melatonin 3 Mg Tablet) 6 mg PO BEDTIME PRN PRN Reason: insomnia Last Admin: 07/05/21 21:09 Dose: 6 mg Documented by: Olanzapine (Olanzapine 10 Mg Tablet) 30 mg PO BEDTIME JAKE Last Admin: 07/07/21 20:27 Dose: 30 mg Documented by: Prazosin HCl (Prazosin Hcl 1 Mg Capsule) 1 mg PO BEDTIME JAKE; Protocol Last Admin: 07/07/21 20:26 Dose: 1 mg Documented by: Trazodone HCl (Trazodone Hcl 50 Mg Tablet) 50 mg PO BEDTIME PRN PRN Reason: Insomnia Allergies Allergies Allergy/AdvReac Type Severity Reaction Status Date / Time No Known Allergies Allergy Verified 06/26/21 12:54 Assessment & Plan Assessment & Plan (1) Schizoaffective disorder: Status: Acute Code(s): F25.9 - Schizoaffective disorder, unspecified Plan Nicole is a 30 y.o. Male, prefers he/ him pronouns, who carries a dx of Bipolar I DO. He presented to [facility] ED on 06/26/21 after calling 911 due to SI, depression, and paranoid ideation that someone is following him but unable to state who this person is. Pt says he only takes psych medications while inpatient. Utox was positive for crack cocaine, uses daily. Per crisis eval, pt?s Mom reports that he has been off his meds and ?causing havoc in the house,? i.e. throwing her things away, wont let her sleep. On the unit, patient remained with psychotic symptoms. Diagnosis however changed to schizoaffective disorder to incorporate other providers concern for history of manic behavior, however given that psychotic symptoms remain independent of kanwal or organic depression, schizoaffective disorder is more likely (patient does report he feels depressed, however depression is moderate and seems to be due to feeling exhausted from chronic delusional worries about being persecuted; similarly his intermittent SI seems to be due to his way of escaping his imagined persecutors). 07/01 continue paranoid, odd affect, intermittent SI sometimes reporting plans American Sign Language Interpreter needs additional collateral to better understand patient's presentation 07/03 (not 07/02) patient gave verbal permission to this loan underwriter and renal social worker Finn to discuss his case with his 3 sisters, providing the phone number; he r emains with paranoid persecutory delusions and intermittent SI with a plan if he feels unsafe in the community. Patient has no insight. He denies AVH. Patient does not present with any manic symptoms, is generally sleeping at night, though with some nightmares. American Sign Language Interpreter will change diagnosis to schizoaffective disorder to incorporate other providers concern for history of manic behavior, however given that psychotic symptoms remain independent of kanwal or organic depression, schizoaffective disorder is more likely. Patient could not articulate a time in the past where he felt a relief from these current symptoms and even struggled to understand the question. -likely PtSD but so far difficult to discuss with patient who is focused on spiritual persecution. 07/04 remains with psychotic, paranoid delusions; patient volunteers that he is no longer transsexual but that he is a boy and parks. 07/06 no medication changes, pt says he is depressed, tearful at times but does not want to engage in conversation. feels safe. Plan: -Increased zyprexa to 25 mg QHS for sx of depression, paranoia, as pt reports this has helped him in the past and he tolerates it; however if there is no symp caprice relief, will consider a higher potency antipsychotic or retrial of Abilfy Prazosin for nightmares -Pt declined to meet with addiction specialists. I spent minutes with the patient and/or on the patient floor today, greater than?50% of which was spent counseling/coordinating care. Reason for contiued inpatient stay Substantial Risk for: rapid decompensation and med/psych decompensation
[2021-07-06 18:00] VITALS: BP 140/84; PULSE 74; TEMP 37.1; O2SAT 97
[2021-07-06] MEDS: Prazosin HCL 1 MG CAPSULE PO (20:21)
[2021-07-06] MEDS: OLANZapine 5 MG TABLET 25 MG PO (20:22)
[2021-07-07 08:24] VITALS: BP 119/73; PULSE 62; TEMP 36.9; O2SAT 98
[2021-07-07 18:00] VITALS: BP 132/71; RESP 16; TEMP 36.6; O2SAT 99
--- NOTE | 2021-07-07 19:03 | HO.PSYCHPN ---
Subjective Subjective Date of Service: 07/07/21 Reason For Visit: Depression, SI, cocaine use disorder Interim History: Patient seen and discussed with team. Patient evaluated today and upon interview he reports he is feeling horrible, like there is a cloud on top of me. Says there is a cloud directly on top of the hospital. Pt has loose associations, delusional. Says the past few years has been extremely hard, the jerad has been absolutely yucky. I dont know whats going on, but i'm really scared. Says he is paranoid, thinks the creamer and coffee are poisoned on the unit, causing people to have nightmares. Worries there is a person who is behind this and who has access to the hospital, worried about if they are behind counter as staff person. Says he believes in humans, demons, and angels. Says his mind is all over the place right now. Sleep is okay. In the milieu, patient is safe and social in behavior, playing a board game with peers. Denies SI/SIB/HI upon inquiry. Says he feels safe. Medication Compliance: Yes Side effects from medications: No Attending Groups: Intermittent Review of Systems Acute medical concerns: No Medical Review of Systems: unchanged Mental Status Exam Mental Status Exam Narrative: Pt is alert and oriented; behavior is cooperative, mostly calm; he has dyed blond hair, neck tatoo; dressed in casual attire with adequate; mood is described as depressed. He has an affect odd and sometimes laughs inappropriately; eye contact adequate; Speech is affected, but with normal rate, volume and prosody and not pressured; no psychomotor agitation/retardation present; thought process is goal directed; Thought content is on depression and delusional, persecutory fears of a spiritual threatening force; delusional ideas that food is poisoned;otherwise pertinent to relevant topics; intermittent SI, sometimes with plan as an option if unsafe in the community; no HI.? Denies AVH. Patients insight and judgment are impaired Diagnostics Vital Signs (24Hr): Vital Signs - 24 hr 07/07/21 18:00 07/08/21 06:00 Temperature 98 F 98.5 F Pulse Rate 83 Respiratory Rate 16 Blood Pressure 132/71 134/71 Pulse Oximetry 99 99 BMI result Body Mass Index 22.0 Labs Results: 06/26/21 23:31 06/26/21 23:31 Medications Medications Current Medications Acetaminophen (Acetaminophen 325 Mg Tablet) 650 mg PO Q6H PRN PRN Reason: Headache/Pain Mild Scale (1-3) Al Hydroxide/Mg Hydroxide (Magnesium Hydrox/Alum Hydrox 30 Ml Oral.Susp) 30 ml PO Q6H PRN PRN Reason: Heartburn/Nausea Hydroxyzine HCl (Hydroxyzine Hcl 25 Mg Tablet) 25 mg PO BEDTIME PRN PRN Reason: Anxiety Ibuprofen (Ibuprofen 600 Mg Tablet) 600 mg PO Q6H PRN PRN Reason: mild-mod pain Magnesium Hydroxide (Milk Of Magnesia 30 Ml Oral.Susp) 30 ml PO DAILY PRN PRN Reason: Constipation Melatonin (Melatonin 3 Mg Tablet) 6 mg PO BEDTIME PRN PRN Reason: insomnia Last Admin: 07/05/21 21:09 Dose: 6 mg Documented by: Olanzapine (Olanzapine 10 Mg Tablet) 30 mg PO BEDTIME JAKE Last Admin: 07/07/21 20:27 Dose: 30 mg Documented by: Prazosin HCl (Prazosin Hcl 1 Mg Capsule) 1 mg PO BEDTIME JAKE; Protocol Last Admin: 07/07/21 20:26 Dose: 1 mg Documented by: Trazodone HCl (Trazodone Hcl 50 Mg Tablet) 50 mg PO BEDTIME PRN PRN Reason: Insomnia Allergies Allergies Allergy/AdvReac Type Severity Reaction Status Date / Time No Known Allergies Allergy Verified 06/26/21 12:54 Assessment & Plan Assessment & Plan (1) Schizoaffective disorder: Status: Acute Code(s): F25.9 - Schizoaffective disorder, unspecified Plan Nicole is a 30 y.o. Male, prefers he/ him pronouns, who carries a dx of Bipolar I DO. He presented to [facility] [place] [place] ED on 06/26/21 after calling 911 due to SI, depression, and paranoid ideation that someone is following him but unable to state who this person is. Pt says he only takes psych medications while inpatient. Utox was positive for crack cocaine, uses daily. Per crisis eval, pt?s Mom reports that he has been off his meds and ?causing havoc in the house,? i.e. throwing her things away, wont let her sleep. On the unit, patient remained with psychotic symptoms. Diagnosis however changed to schizoaffective disorder to incorporate other providers concern for history of manic behavior, however given that psychotic symptoms remain independent of kanwal or organic depression, schizoaffective disorder is more likely (patient does report he feels depressed, however depression is moderate and seems to be due to feeling exhausted from chronic delusional worries about being persecuted; similarly his intermittent SI seems to be due to his way of escaping his imagined persecutors). 07/01 continue paranoid, odd affect, intermittent SI sometimes reporting plans Fountain Roller Assembler needs additional collateral to better understand patient's presentation 07/03 (not 07/02) patient gave verbal permission to this life insurance underwriter and medical social worker Finn to discuss his case with his 3 sisters, providing the phone number; he remains with paranoid persecutory delusions and intermittent SI with a plan if he feels unsafe in the community. Patient has no insight. He denies AVH. Patient does not present with any manic symptoms, is generally sleeping at night, though with some nightmares. Fountain Roller Assembler will change diagnosis to schizoaffective disorder to incorporate other providers concern for history of manic behavior, however given that psychotic symptoms remain independent of kanwal or organic depression, schizoaffective disorder is more likely. Patient could not articulate a time in the past where he felt a relief from these current symptoms and even struggled to understand the question. -likely PtSD but so far difficult to discuss with patient who is focused on spiritual persecution. 07/04 remains with psychotic, paranoid delusions; patient volunteers that he is no longer transsexual but that he is a boy and parks. 07/06 no medication changes, pt says he is depressed, tearful at times but does not want to engage in conversation. feels safe. 07/07 increase olanzapine to 30 mg QHS for paranoid, disorganized thoughts Plan: -Increased zyprexa to 25 mg QHS for sx of depression, paranoia, as pt reports this has helped him in the past and he tolerates it; however if there is no symptom relief, will consider a higher potency antipsychotic or retrial of Abilfy Prazosin for nightmares -Pt declined to meet with addiction specialists. I spent minutes with the patient and/or on the patient floor today, greater than?50% of which was spent counseling/coordinating care. Patient educated on: medication risk/benefits Reason for contiued inpatient stay Substantial Risk for: inability to function, rapid decompensation and med/psych decompensation
[2021-07-07] MEDS: Prazosin HCL 1 MG CAPSULE PO (20:26)
[2021-07-07] MEDS: OLANZapine 10 MG TABLET 30 MG PO (20:27)
[2021-07-08 06:00] VITALS: BP 134/71; PULSE 83; TEMP 36.9; O2SAT 99
--- NOTE | 2021-07-08 17:06 | P.PNPSI_ITS ---
Subjective Subjective Date of Service: 07/08/21 Reason For Visit: Depression, SI, cocaine use disorder Interim History: Pt remains delusional; he expressed concerns that new patients on the unit might be possessed or somehow a part of the spiritual entity the stalks him. He says because of this he can't be himself, something he often says; he remains worried about poisoned food. He says he still has nightmares; his description is hard to follow as it's convoluted, rambly; he agrees to increase in Prazosin and agrees to trial of additional anti-psychotic, Prolixin but reminds magazine writer that this is serious and beyond a medication issue. Mental Status Exam Mental Status Exam Narrative: Pt is alert and oriented; behavior is cooperative, mostly calm; he has dyed blond hair, neck tatoo; dressed in casual attire with adequate; mood is described as depressed. He has an affect odd and laughs inappropriately; eye contact adequate; Speech is affected; pt is a little hyperverbal, but not really pressured and with normal volume and prosody; no psychomotor agitation/retardation present; thought process can be goal directed but also circumstantial and intermittently disorganized with loosely connected ideas; Thought content is on depression and bizzare, delusional, persecutory fears of a spiritual threatening force; delusional ideas that food is poisoned;otherwise pertinent to relevant topics; intermittent SI, sometimes with plan as an option if unsafe in the community; no HI.? Denies AVH. Patients insight and judgment are impaired Diagnostics Vital Signs (24Hr): Vital Signs - 24 hr 07/07/21 18:00 07/08/21 06:00 Temperature 98 F 98.5 F Pulse Rate 83 Respiratory Rate 16 Blood Pressure 132/71 134/71 Pulse Oximetry 99 99 BMI result Body Mass Index 22.0 Labs Results: 06/26/21 23:31 06/26/21 23:31 Medications Medications Current Medications Acetaminophen (Acetaminophen 325 Mg Tablet) 650 mg PO Q6H PRN PRN Reason: Headache/Pain Mild Scale (1-3) Al Hydroxide/Mg Hydroxide (Magnesium Hydrox/Alum Hydrox 30 Ml Oral.Susp) 30 ml PO Q6H PRN PRN Reason: Heartburn/Nausea Hydroxyzine HCl (Hydroxyzine Hcl 25 Mg Tablet) 25 mg PO BEDTIME PRN PRN Reason: Anxiety Ibuprofen (Ibuprofen 600 Mg Tablet) 600 mg PO Q6H PRN PRN Reason: mild-mod pain Magnesium Hydroxide (Milk Of Magnesia 30 Ml Oral.Susp) 30 ml PO DAILY PRN PRN Reason: Constipation Melatonin (Melatonin 3 Mg Tablet) 6 mg PO BEDTIME PRN PRN Reason: insomnia Last Admin: 07/05/21 21:09 Dose: 6 mg Documented by: Olanzapine (Olanzapine 10 Mg Tablet) 30 mg PO BEDTIME JAKE Last Admin: 07/07/21 20:27 Dose: 30 mg Documented by: Prazosin HCl (Prazosin Hcl 1 Mg Capsule) 2 mg PO BEDTIME JAKE; Protocol Trazodone HCl (Trazodone Hcl 50 Mg Tablet) 50 mg PO BEDTIME PRN PRN Reason: Insomnia Allergies Allergies Allergy/AdvReac Type Severity Reaction Status Date / Time No Known Allergies Allergy Verified 06/26/21 12:54 Assessment & Plan Assessment & Plan (1) Schizoaffective disorder: Status: Acute Code(s): F25.9 - Schizoaffective disorder, unspecified Plan Nicole is a 30 y.o. Male, prefers he/ him pronouns, who carries a dx of Bipolar I DO. He presented [place] [facility] [place] [facility] [place] on [place]21 after calling 911 due to SI, depres chichi, and paranoid ideation that someone is following him but unable to state who this person is. Pt says he only takes psych medications while inpatient. Utox was positive for crack cocaine, uses daily. Per crisis eval, pt?s Mom reports that he has been off his meds and ?causing havoc in the house,? i.e. throwing her things away, wont let her sleep. On the unit, patient remained with psychotic symptoms. Diagnosis however changed to schizoaffective disorder to incorporate other providers concern for history of manic behavior, however given that psychotic symptoms remain independent of kanwal or organic depression, schizoaffective disorder is more likely (patient does report he feels depressed, however depression is moderate and seems to be due to feeling exhausted from chronic delusional worries about being persecuted; similarly his intermittent SI seems to be due to his way of escaping his imagined persecutors). 07/01 continue paranoid, odd affect, intermittent SI sometimes reporting plans Bodywork Therapist needs additional collateral to better understand patient's presentation 07/03 (not 07/02) patient gave verbal permission to this magazine writer and social media strategist Finn to discuss his case with his 3 sisters, providing the phone number; he remains with paranoid persecutory delusions and intermittent SI with a plan if he feels unsafe in the community. Patient has no insight. He denies AVH. Ramirez anne does not present with any manic symptoms, is generally sleeping at night, though with some nightmares. Bodywork Therapist will change diagnosis to schizoaffective disorder to incorporate other providers concern for history of manic behavior, however given that psychotic symptoms remain independent of kanwal or organic depression, schizoaffective disorder is more likely. Patient could not articulate a time in the past where he felt a relief from these current symptoms and even struggled to understand the question. -likely PtSD but so far difficult to discuss with patient who is focused on spiritual persecution. 07/04 remains with psychotic, paranoid delusions; patient volunteers that he is no longer transsexual but that he is a boy and parks. 07/06 no medication changes, pt says he is depressed, tearful at times but does not want to engage in conversation. feels safe. 07/07 increase olanzapine to 30 mg QHS for paranoid, disorganized thoughts 07/08 remains floridly delusional; while he says he feels calmer on olanzapine, it has done nothing to reduce psychotic symptoms. He agrees to trial of Prolixin chosen since may respond better to higher potency medication which comes in [place] Plan: START Prolixin 1mg BID; will tritrate as clinically determined. If effective, will try to taper and dc zyprexa -weekend provider Increased zyprexa to 30 mg QHS for sx of depression, paranoia, as pt reports this has helped him in the past and he tolerates it; however if there is no symptom relief, will consider a higher potency antipsychotic or retrial of Abilfy Prazosin for nightmares -Pt declined to meet with addiction specialists. I spent minutes with the patient and/or on the patient floor today, greater than?50% of which was spent counseling/coordinating care. Patient educated on: diagnosis and medication risk/benefits Informed Consent: further education needed Reason for contiued inpatient stay Substantial Risk for: harm to self, rapid decompensation and med/psych decompensation
[2021-07-08 20:13] VITALS: BP 123/81; PULSE 78; RESP 18; TEMP 37.4; O2SAT 98
[2021-07-08 22:15] VITALS: BP 126/70
[2021-07-08] MEDS: OLANZapine 10 MG TABLET 30 MG PO (22:15)
[2021-07-08] MEDS: Prazosin HCL 1 MG CAPSULE 2 MG PO (22:16)
[2021-07-09 06:00] VITALS: BP 127/82; PULSE 64; RESP 16; TEMP 37.1; O2SAT 99
[2021-07-09] MEDS: fluPHENAZine HCl 1 MG TABLET PO (12:15)
--- NOTE | 2021-07-09 19:41 | P.PNPSI_ITS ---
Subjective Subjective Date of Service: 07/09/21 Reason For Visit: Depression, SI, cocaine use disorder Interim History: Before automobile service writer met with patient, he told staff that he wants to be a woman so he can be romantic with this automobile service writer and that also, he wants to rip writers face off. Patient has intermittently been sexually preoccupied on the unit and so automobile service writer only ever stood in doorway of patients room with the door open to talk or met in treatment room in [facility]. Cellar Packer met with patient in large interview room; pt was calm and in no way threatening. Cellar Packer gently broached this topic with patient who said he has no problem with this automobile service writer but wanted to explain his concerns, which he did in a disorganized way that was hard to follow, often did not make sense and involved references to being sexually possessed. He referred to [employer], a spiritual force in the cafeteria and the concern that someone could be filling the fruit with seemen. Earlier in day, pt observed by staff trying to make himself vomit which pt confirmed saying he was trying to vomit up an orange he had eaten concerned it was poisoned. Pt expressed gratitude for automobile service writer listening and for treatment, agreeing to medication regimen. Mental Status Exam Mental Status Exam Narrative: Pt is alert and oriented; behavior is cooperative, mostly calm; he has dyed blond hair, neck tatoo; dressed in casual attire with adequate; mood is described as ok. He has an affect odd and laughs inappropriately; eye contact adequate; Speech is affected; pt is a little hyperverbal, but not really pressured and with normal volume and prosody; no psychomotor agitation/retardation present; thought process can be goal directed but also circumstantial and intermittently disorganized with loosely connected ideas; Thought content is on depression and bizzare, delusional, persecutory fears of a spiritually threatening force; delusional ideas that food is poisoned,;otherwise pertinent to relevant topics; intermittent SI, sometimes with plan as an option if unsafe in the community; no HI.? Denies AVH. Patients insight and judgment are impaired Diagnostics Vital Signs (24Hr): Vital Signs - 24 hr 07/08/21 20:13 07/08/21 22:15 07/09/21 06:00 Temperature 99.4 F 98.7 F Pulse Rate 78 64 Respiratory Rate 18 16 Blood Pressure 123/81 126/70 127/82 Pulse Oximetry 98 99 BMI result Body Mass Index 22.0 Labs Results: 06/26/21 23:31 06/26/21 23:31 Medications Medications Current Medications Acetaminophen (Acetaminophen 325 Mg Tablet) 650 mg PO Q6H PRN PRN Reason: Headache/Pain Mild Scale (1-3) Al Hydroxide/Mg Hydroxide (Magnesium Hydrox/Alum Hydrox 30 Ml Oral.Susp) 30 ml PO Q6H PRN PRN Reason: Heartburn/Nausea Fluphenazine HCl (Fluphenazine Hcl 1 Mg Tablet) 1 mg PO BID JAKE Hydroxyzine HCl (Hydroxyzine Hcl 25 Mg Tablet) 25 mg PO BEDTIME PRN PRN Reason: Anxiety Ibuprofen (Ibuprofen 600 Mg Tablet) 600 mg PO Q6H PRN PRN Reason: mild-mod pain Magnesium Hydroxide (Milk Of Magnesia 30 Ml Oral.Susp) 30 ml PO DAILY PRN PRN Reason: Constipation Melatonin (Melatonin 3 Mg Tablet) 6 mg PO BEDTIME PRN PRN Reason: insomnia Last Admin: 07/05/21 21:09 Dose: 6 mg Documented by: Olanzapine (Olanzapine 10 Mg Tablet) 30 mg PO BEDTIME JAKE Last Admin: 07/08/21 22:15 Dose: 30 mg Documented by: Prazosin HCl (Prazosin Hcl 1 Mg Capsule) 2 mg PO BEDTIME JAKE; Protocol Last Admin: 07/08/21 22:16 Dose: 2 mg Documented by: Trazodone HCl (Trazodone Hcl 50 Mg Tablet) 50 mg PO BEDTIME PRN PRN Reason: Insomnia Allergies Allergies Allergy/AdvReac Type Severity Reaction Status Date / Time No Known Allergies Allergy Verified 06/26/21 12:54 Assessment & Plan Assessment & Plan (1) Schizoaffective disorder: Status: Acute Code(s): F25.9 - Schizoaffective disorder, unspecified Plan Nicole is a 30 y.o. Male, prefers he/ him pronouns, who carries a dx of Bipolar I DO. He presented to [facility] ED on 06/26/21 after calling 911 due to SI, depression, and paranoid ideation that someone is following him but unable to state who this person is. Pt says he only takes psych medications while inpatient. Utox was positive for crack cocaine, uses daily. Per crisis eval, pt?s Mom reports that he has been off his meds and ?causing havoc in the house,? i.e. throwing her things away, wont let her sleep. On the unit, patient remained with psychotic symptoms. Diagnosis however changed to schizoaffective disorder to incorporate other providers concern for history of manic behavior, however given that psychotic symptoms remain independent of kanwal or organic depression, schizoaffective disorder is more likely (patient does report he feels depressed, however depression is moderate and seems to be due to feeling exhausted from chronic delusional worries about being persecuted; similarly his intermittent SI seems to be due to his way of escaping his imagined persecutors). 07/01 continue paranoid, odd affect, intermittent SI sometimes reporting plans Cellar Packer needs additional collateral to better understand patient's presentation 07/03 (not 07/02) patient gave verbal permission to this automobile service writer and social worker aide Finn to discuss his case with his 3 sisters, providing the phone number; he remains with paranoid persecutory delusions and intermittent SI with a plan if he feels unsafe in the community. Patient has no insight. He denies AVH. Patient does not present with any manic symptoms, is generally sleeping at night, though with some nightmares. Cellar Packer will change diagnosis to schizoaffective disorder to incorporate other providers concern for history of manic behavior, however given that psychotic symptoms remain independent of kanwal or organic depression, schizoaffective disorder is more likely. Patient could not articulate a time in the past where he felt a relief from these current symptoms and even struggled to understand the question. -likely PtSD but so far difficult to discuss with patient who is focused on spiritual persecution. 07/04 remains with psychotic, paranoid delusions; patient volunteers that he is no longer transsexual but that he is a boy and parks. 07/06 no medication changes, pt says he is depressed, tearful at times but does not want to engage in conversation. feels safe. 07/07 increase olanzapine to 30 mg QHS for paranoid, disorganized thoughts 07/08 remains floridly delusional; while he says he feels calmer on olanzapine, it has done nothing to reduce psychotic symptoms. He agrees to trial of Prolixin chosen since may respond better to higher potency medication which comes in [place] 07/09 remains psychotic; some hostile sexualized feelings expressed toward TW, however pt remains in appropriate behavioral control. Agrees to titration of medication Plan:? Increase to Prolixin 1mg daily and 2mg Qhs; will tritrate as clinically determined. If effective, will try to taper and dc zyprexa -weekend provider Increased zyprexa to 30 mg QHS for sx of depression, paranoia, as pt reports this has helped him in the past and he tolerates it; however if there is no symptom relief, will consider a higher potency antipsychotic or retrial of Abilfy Prazosin for nightmares -Pt declined to meet with addiction specialists. I spent minutes with the patient and/or on the patient floor today, greater than?50% of which was spent counseling/coordinating care. Patient educated on: therapeutic strategies Informed Consent: understands Reason for contiued inpatient stay Substantial Risk for: harm to self and rapid decompensation
[2021-07-09 22:30] VITALS: BP 127/71; PULSE 63; TEMP 36.3
[2021-07-09] MEDS: fluPHENAZine HCl 1 MG TABLET 2 MG PO (22:46)
[2021-07-09] MEDS: Prazosin HCL 1 MG CAPSULE 2 MG PO (22:47)
[2021-07-09] MEDS: OLANZapine 10 MG TABLET 30 MG PO (22:48)
[2021-07-10] MEDS: fluPHENAZine HCl 1 MG TABLET PO (09:00)
[2021-07-10 09:02] VITALS: BP 120/70; PULSE 74; TEMP 36.9; O2SAT 99
[2021-07-10] MEDS: Throat Lozenge, Medicated LOZENGE 1 LOZENGE MUCOUS MEM ×2 (12:08→20:39)
[2021-07-10 12:56] LABS: COVID-19 Test Negative (Negative)
--- NOTE | 2021-07-10 18:24 | HO.PSYCHPN ---
Subjective Subjective Date of Service: 07/10/21 Reason For Visit: Depression, SI, cocaine use disorder Interim History: Pt says he's not good. Pt remains delusional, repeating his concerns that he is being spiritually attacked and duplicated by a spiritual force. Pt had sore throat (covid negative) which he thinks is from eating poisoned orange the other day. Continues to laugh inappropriately. Ambivalent about drinking Ensure, saying he is not sure if he should trust the people make it Mental Status Exam Mental Status Exam Narrative: Pt is alert and oriented; behavior is cooperative, mostly calm; he has dyed blond hair, neck tattoo; dressed in casual attire with adequate; mood is described as not good. He has an affect odd and laughs inappropriately; eye contact adequate; Speech is affected; pt is a little hyperverbal, but not really pressured and with normal volume and prosody; no psychomotor agitation/retardation present; thought process can be goal directed but also circumstantial and intermittently disorganized with loosely connected ideas; Thought content is on depression and bizzare, delusional, persecutory fears of a spiritually threatening force; delusional ideas that food is poisoned,;otherwise pertinent to relevant topics; intermittent SI, sometimes with plan as an option if unsafe in the community; no HI.? Denies AVH. Patients insight and judgment are impaired Diagnostics Vital Signs (24Hr): Vital Signs - 24 hr 07/09/21 22:30 07/10/21 09:02 Temperature 97.3 F 98.5 F Pulse Rate 63 74 Blood Pressure 127/71 120/70 Pulse Oximetry 99 BMI result Body Mass Index 22.0 Labs Results: 06/26/21 23:31 06/26/21 23:31 Labs: Laboratory Results - last 48 hr 07/10/21 12:25 COVID-19 ([facility]) Negative COVID-19 Clin Com See Note Medications Medications Current Medications Acetaminophen (Acetaminophen 325 Mg Tablet) 650 mg PO Q6H PRN PRN Reason: Headache/Pain Mild Scale (1-3) Al Hydroxide/Mg Hydroxide (Magnesium Hydrox/Alum Hydrox 30 Ml Oral.Susp) 30 ml PO Q6H PRN PRN Reason: Heartburn/Nausea Benzocaine (Throat Lozenge, Medicated Lozenge) 1 lozenge MUCOUS MEM Q2H PRN PRN Reason: Sore Throat Last Admin: 07/10/21 12:08 Dose: 1 lozenge Documented by: Fluphenazine HCl (Fluphenazine Hcl 1 Mg Tablet) 1 mg PO DAILY JAKE Last Admin: 07/10/21 09:00 Dose: 1 mg Documented by: Fluphenazine HCl (Fluphenazine Hcl 1 Mg Tablet) 4 mg PO BEDTIME JAKE Hydroxyzine HCl (Hydroxyzine Hcl 25 Mg Tablet) 25 mg PO BEDTIME PRN PRN Reason: Anxiety Ibuprofen (Ibuprofen 600 Mg Tablet) 600 mg PO Q6H PRN PRN Reason: mild-mod pain Magnesium Hydroxide (Milk Of Magnesia 30 Ml Oral.Susp) 30 ml PO DAILY PRN PRN Reason: Constipation Melatonin (Melatonin 3 Mg Tablet) 6 mg PO BEDTIME PRN PRN Reason: insomnia Last Admin: 07/05/21 21:09 Dose: 6 mg Documented by: Multi-Ingred Medicated Throat [place] (Throat [place], Medicated 20 Ml Bottle) 1 spray MUCOUS MEM Q2H PRN PRN Reason: Sore Throat Olanzapine (Olanzapine 10 Mg Tablet) 30 mg PO BEDTIME JAKE Last Admin: 07/09/21 22:48 Dose: 30 mg Documented by: Prazosin HCl (Prazosin Hcl 1 Mg Capsule) 2 mg PO BEDTIME JAKE; Protocol Last Admin: 07/09/21 22:47 Dose: 2 mg Documented by: Trazodone HCl (Trazodone Hcl 50 Mg Tablet) 50 mg PO BEDTIME PRN PRN Reason: Insomnia Allergies Allergies Allergy/AdvReac Type Severity Reaction Status Date / Time No Known Allergies Allergy Verified 06/26/21 12:54 Assessment & Plan Assessment & Plan (1) Schizoaffective disorder: Status: Acute Code(s): F25.9 - Schizoaffective disorder, unspecified Plan Nicole is a 30 y.o. Male, prefers he/ him pronouns, who carries a dx of Bipolar I DO. He presented to [facility] ED on 06/26/21 after calling 911 due to SI, depression, and paranoid ideation that someone is following him but unable to state who this person is. Pt says he only takes psych medications while inpatient. Utox was positive for crack cocaine, uses daily. Per crisis eval, pt?s Mom reports that he has been off his meds and ?causing havoc in the house,? i.e. throwing her things away, wont let her sleep. On the unit, patient remained with psychotic symptoms. Diagnosis however changed to schizoaffective disorder to incorporate other providers concern for history of manic behavior, however given that psychotic symptoms remain independent of kanwal or organic depression, schizoaffective disorder is more likely (patient does report he feels depressed, however depression is moderate and seems to be due to feeling exhausted from chronic delusional worries about being persecuted; similarly his intermittent SI seems to be due to his way of escaping his imagined persecutors). 07/01 continue paranoid, odd affect, intermittent SI sometimes reporting plans Folded Cloth Taper needs additional collateral to better understand patient's presentation 07/03 (not 07/02) patient gave verbal permission to this newspaper writer and social work faculty member Finn to discuss his case with his 3 sisters, providing the phone number; he remains with paranoid persecutory delusions and intermittent SI with a plan if he feels unsafe in the community. Patient has no insight. He denies AVH. Patient does not present with any manic symptoms, is generally sleeping at night, though with some nightmares. Folded Cloth Taper will change diagnosis to schizoaffective disorder to incorporate other providers concern for history of manic behavior, however given that psychotic symptoms remain independent of kanwal or organic depression, schizoaffective disorder is more likely. Patient could not articulate a time in the past where he felt a relief from these current symptoms and even struggled to understand the question. -likely PtSD but so far difficult to discuss with patient who is focused on spiritual persecution. 07/04 remains with psychotic, paranoid delusions; patient volunteers that he is no longer transsexual but that he is a boy and parks. 07/06 no medication changes, pt says he is depressed, tearful at times but does not want to engage in conversation. feels safe. 07/07 increase olanzapine to 30 mg QHS for paranoid, disorganized thoughts 07/08 remains floridly delusional; while he says he feels calmer on olanzapine, it has done nothing to reduce psychotic symptoms. He agrees to trial of Prolixin chosen since may respond better to higher potency medication which comes in [place] 07/09 remains psychotic; some hostile sexualized feelings expressed toward TW, however pt remains in appropriate behavioral control. Agrees to titration of medication Plan:? CV q15 min checks -Increased Prolixin to 10mg qhs; pt denies side-effects; If effective, will try to taper and dc zyprexa -Continue Zyprexa to 30 mg QHS for sx of depression, paranoia; pt reports feeling calmer on this but there is no reduction in psychotic symptoms; if Prolixin effective, will taper and plan to dc Zyprexa -Prazosin for nightmares -Pt declined to meet with addiction specialists. I spent minutes with the patient and/or on the patient floor today, greater than?50% of which was spent counseling/coordinating care. Patient educated on: diagnosis Informed Consent: further education needed Reason for contiued inpatient stay Substantial Risk for: harm to self and rapid decompensation
[2021-07-10 21:55] VITALS: BP 113/71; PULSE 65; TEMP 36.6; O2SAT 98
[2021-07-10] MEDS: fluPHENAZine HCl 1 MG TABLET 4 MG PO (22:07)
[2021-07-10] MEDS: OLANZapine 10 MG TABLET 30 MG PO (22:08)
[2021-07-10] MEDS: Prazosin HCL 1 MG CAPSULE 2 MG PO (22:08)
[2021-07-11] MEDS: fluPHENAZine HCl 1 MG TABLET PO (09:11)
[2021-07-11 18:00] VITALS: BP 118/75; PULSE 72; RESP 16; TEMP 36.4; O2SAT 99
--- NOTE | 2021-07-11 18:11 | P.PNPSI_ITS ---
Subjective Subjective Date of Service: 07/11/21 Reason For Visit: Depression, SI, cocaine use disorder Interim History: Continues with worried thoughts about spirits following him, duplicating him, laughing inappropriately Mental Status Exam Mental Status Exam Narrative: Pt is alert and oriented; behavior is cooperative, mostly calm; he has dyed blond hair, neck tattoo; dressed in casual attire with adequate; mood is described as not good. He has an affect odd and laughs inappropriately; eye contact adequate; Speech is affected; pt is a little hyperverbal, but not really pressured and with normal volume and prosody; no psychomotor agitation/retardation present; thought process can be goal directed but also circumstantial and intermittently disorganized with loosely connected ideas; Thought content is on depression and bizzare, delusional, persecutory fears of a spiritually threatening force; delusional ideas that food is poisoned,;otherwise pertinent to relevant topics; intermittent SI, sometimes with plan as an option if unsafe in the community; no HI.? Denies AVH. Patients insight and judgment are impaired Diagnostics Vital Signs (24Hr): Vital Signs - 24 hr 07/10/21 21:55 07/11/21 18:00 Temperature 98 F 97.6 F Pulse Rate 65 72 Respiratory Rate 16 Blood Pressure 113/71 118/75 Pulse Oximetry 98 99 BMI result Body Mass Index 22.0 Labs Results: 06/26/21 23:31 06/26/21 23:31 Labs: Laboratory Results - last 48 hr 07/10/21 12:25 COVID-19 ([facility]) Negative COVID-19 Clin Com See Note Medications Medications Current Medications Acetaminophen (Acetaminophen 325 Mg Tablet) 650 mg PO Q6H PRN PRN Reason: Headache/Pain Mild Scale (1-3) Al Hydroxide/Mg Hydroxide (Magnesium Hydrox/Alum Hydrox 30 Ml Oral.Susp) 30 ml PO Q6H PRN PRN Reason: Heartburn/Nausea Benzocaine (Throat Lozenge, Medicated Lozenge) 1 lozenge MUCOUS MEM Q2H PRN PRN Reason: Sore Throat Last Admin: 07/10/21 20:39 Dose: 1 lozenge Documented by: Fluphenazine HCl (Fluphenazine Hcl 5 Mg Tablet) 10 mg PO BEDTIME JAKE Hydroxyzine HCl (Hydroxyzine Hcl 25 Mg Tablet) 25 mg PO BEDTIME PRN PRN Reason: Anxiety Ibuprofen (Ibuprofen 600 Mg Tablet) 600 mg PO Q6H PRN PRN Reason: mild-mod pain Magnesium Hydroxide (Milk Of Magnesia 30 Ml Oral.Susp) 30 ml PO DAILY PRN PRN Reason: Constipation Melatonin (Melatonin 3 Mg Tablet) 6 mg PO BEDTIME PRN PRN Reason: insomnia Last Admin: 07/05/21 21:09 Dose: 6 mg Documented by: Multi-Ingred Medicated Throat [place] (Throat [place], Medicated 20 Ml Bottle) 1 spray MUCOUS MEM Q2H PRN PRN Reason: Sore Throat Olanzapine (Olanzapine 10 Mg Tablet) 30 mg PO BEDTIME JAKE Last Admin: 07/10/21 22:08 Dose: 30 mg Documented by: Prazosin HCl (Prazosin Hcl 1 Mg Capsule) 2 mg PO BEDTIME JAKE; Protocol Last Admin: 07/10/21 22:08 Dose: 2 mg Documented by: Trazodone HCl (Trazodone Hcl 50 Mg Tablet) 50 mg PO BEDTIME PRN PRN Reason: Insomnia Allergies Allergies Allergy/AdvReac Type Severity Reaction Status Date / Time No Known Allergies Allergy Verified 06/26/21 12:54 Assessment & Plan Assessment & Plan (1) Schizoaffective disorder: Status: Acute Code(s): F25.9 - Schizoaffective disorder, unspecified Plan Nicole is a 30 y.o. Male, prefers he/ him pronouns, who carries a dx of Bipolar I DO. He presented to [facility] ED on 06/26/21 after calling 911 due to SI, depression, and paranoid ideation that someone is following him but unable to state who this person is. Pt says he only takes psych medications while inpatient. Utox was positive for crack cocaine, uses daily. Per crisis eval, pt?s Mom reports that he has been off his meds and ?causing havoc in the house,? i.e. throwing her things away, wont let her sleep. On the unit, patient remain ed with psychotic symptoms. Diagnosis however changed to schizoaffective disorder to incorporate other providers concern for history of manic behavior, however given that psychotic symptoms remain independent of kanwal or organic depression, schizoaffective disorder is more likely (patient does report he feels depressed, however depression is moderate and seems to be due to feeling exhausted from chronic delusional worries about being persecuted; similarly his intermittent SI seems to be due to his way of escaping his imagined persecutors). 07/01 continue paranoid, odd affect, intermittent SI sometimes reporting plans [employer] needs additional collateral to better understand patient's presentation 07/03 (not 07/02) patient gave verbal permission to this group underwriter and child welfare social worker Finn to discuss his case with his 3 sisters, providing the phone number; he remains with paranoid persecutory delusions and intermittent SI with a plan if he feels unsafe in the community. Patient has no insight. He denies AVH. Patient does not present with any manic symptoms, is generally sleeping at night, though with some nightmares. [employer] will change diagnosis to schizoaffective disorder to incorporate other providers concern for history of manic behavior, however given that psychotic symptoms remain independent of kanwal or organic depression, schizoaffective disorder is more likely. Patient could not articulate a time in the past where he felt a relief from these current symptoms and even struggled to understand the question. -likely PtSD but so far difficult to discuss with patient who is focused on spiritual persecution. 07/04 remains with psychotic, paranoid delusions; patient volunteers that he is no longer transsexual but that he is a boy and parks. 07/06 no medication changes, pt says he is depressed, tearful at times but does not want to engage in conversation. feels safe. 07/07 increase olanzapine to 30 mg QHS for paranoid, disorganized thoughts 07/08 remains floridly delusional; while he says he feels calmer on olanzapine, it has done nothing to reduce psychotic symptoms. He agrees to trial of Prolixin chosen since may respond better to higher potency medication which comes in [place] 07/09 remains psychotic; some hostile sexualized feelings expressed toward TW, however pt remains in appropriate behavioral control. Agrees to titration of medication Plan:? CV q15 min checks -Increased Prolixin to 10mg qhs; pt denies side-effects; If effective, will try to taper and dc zyprexa -Continue Zyprexa to 30 mg QHS for sx of depression, paranoia; pt reports feeling calmer on this but there is no reduction in psychotic symptoms; if Prolixin effective, will taper and plan to dc Zyprexa -Prazosin for nightmares -Pt declined to meet with addiction specialists. I spent minutes with the patient and/or on the patient floor today, greater than?50% of which was spent counseling/coordinating care. Reason for contiued inpatient stay Substantial Risk for: inability to function and rapid decompensation
[2021-07-11] MEDS: Prazosin HCL 1 MG CAPSULE 2 MG PO (21:34)
[2021-07-11] MEDS: OLANZapine 10 MG TABLET 30 MG PO (21:35)
[2021-07-11] MEDS: fluPHENAZine HCl 5 MG TABLET 10 MG PO (21:35)
--- NOTE | 2021-07-12 11:40 | P.PNPSI_ITS ---
Subjective Subjective Date of Service: 07/12/21 Reason For Visit: Depression, SI, cocaine use disorder Interim History: LATE ENTRY NOTE FOR PATIENT SEEN BY WRAPPING MACHINE HELPER ON 07/12/21 pt remains delusional, focused on spirit possession; says certain staff are working with evil spirit. Staff reports patient testing some limits. he says he does not want to take Prolixin any more since when he took tablet yesterday it tasted like blood and so he spit it out (nursing corroborates). He agrees to trial of Haldol reviewed dc summary from [facility] last month Mental Status Exam Mental Status Exam Narrative: Pt is alert and oriented; behavior is cooperative, mostly calm; he has dyed blond hair, neck tattoo; dressed in casual attire with adequate; mood is described as not good. He has an affect odd and laughs inappropriately; eye contact adequate; Speech is affected; pt is a little hyperverbal, but not really pressured and with normal volume and prosody; no psychomotor agitation/retardat ion present; thought process can be goal directed but also circumstantial and intermittently disorganized with loosely connected ideas; Thought content is on depression and bizzare, delusional, persecutory fears of a spiritually threatening force; delusional ideas that food is poisoned,;otherwise pertinent to relevant topics; intermittent SI, sometimes with plan as an option if unsafe in the community; no HI.? Denies AVH. Patients insight and judgment are impaired Diagnostics Vital Signs (24Hr): Vital Signs - 24 hr 07/12/21 22:10 07/13/21 06:00 Temperature 98.4 F 98.1 F Pulse Rate 63 67 Respiratory Rate 18 Blood Pressure 121/63 120/67 Pulse Oximetry 98 BMI result Body Mass Index 22.0 Labs Results: 06/26/21 23:31 06/26/21 23:31 Medications Medications Current Medications Acetaminophen (Acetaminophen 325 Mg Tablet) 650 mg PO Q6H PRN PRN Reason: Headache/Pain Mild Scale (1-3) Al Hydroxide/Mg Hydroxide (Magnesium Hydrox/Alum Hydrox 30 Ml Oral.Susp) 30 ml PO Q6H PRN PRN Reason: Heartburn/Nausea Benzocaine (Throat Lozenge, Medicated Lozenge) 1 lozenge MUCOUS MEM Q2H PRN PRN Reason: Sore Throat Last Admin: 07/10/21 20:39 Dose: 1 lozenge Documented by: Haloperidol (Haloperidol 5 Mg Tablet) 5 mg PO BEDTIME JAKE Last Admin: 07/12/21 22:08 Dose: 5 mg Documented by: Hydroxyzine HCl (Hydroxyzine Hcl 25 Mg Tablet) 25 mg PO BEDTIME PRN PRN Reason: Anxiety Ibuprofen (Ibuprofen 600 Mg Tablet) 600 mg PO Q6H PRN PRN Reason: mild-mod pain Magnesium Hydroxide (Milk Of Magnesia 30 Ml Oral.Susp) 30 ml PO DAILY PRN PRN Reason: Constipation Melatonin (Melatonin 3 Mg Tablet) 6 mg PO BEDTIME PRN PRN Reason: insomnia Last Admin: 07/05/21 21:09 Dose: 6 mg Documented by: Multi-Ingred Medicated Throat [place] (Throat [place], Medicated 20 Ml Bottle) 1 spray MUCOUS MEM Q2H PRN PRN Reason: Sore Throat Olanzapine (Olanzapine 10 Mg Tablet) 30 mg PO BEDTIME JAKE Last Admin: 07/12/21 22:07 Dose: 30 mg Documented by: Prazosin HCl (Prazosin Hcl 1 Mg Capsule) 2 mg PO BEDTIME JAKE; Protocol Last Admin: 07/12/21 22:08 Dose: 2 mg Documented by: Trazodone HCl (Trazodone Hcl 50 Mg Tablet) 50 mg PO BEDTIME PRN PRN Reason: Insomnia Allergies Allergies Allergy/AdvReac Type Severity Reaction Status Date / Time No Known Allergies Allergy Verified 06/26/21 12:54 Assessment & Plan Assessment & Plan (1) Schizoaffective disorder: Status: Acute Code(s): F25.9 - Schizoaffective disorder, unspecified Plan Nicole is a 30 y.o. Male, prefers he/ him pronouns, who carries a dx of Bipolar I DO. He presented to [facility] ED on 06/26/21 after calling 911 due to SI, depression, and paranoid ideation that someone is following him but unable to state who this person is. Pt says he only takes psych medications while inpatient. Utox was positive for crack cocaine, uses daily. Per crisis eval, pt?s Mom reports that he has been off his meds and ?causing havoc in the house,? i.e. throwing her things away, wont let her sleep. On the unit, patient remained with psychotic symptoms. Diagnosis however changed to schizoaffective disorder to incorporate other providers concern for history of manic behavior, however given that psychotic symptoms remain independent of kanwal or organic depression, schizoaffective disorder is more likely (patient does report he fee ls depressed, however depression is moderate and seems to be due to feeling exhausted from chronic delusional worries about being persecuted; similarly his intermittent SI seems to be due to his way of escaping his imagined persecutors). 07/01 continue paranoid, odd affect, intermittent SI sometimes reporting plans Freight Unloader needs additional collateral to better understand patient's presentation 07/03 (not 07/02) patient gave verbal permission to this rfp writer and medical social worker Finn to discuss his case with his 3 sisters, providing the phone number; he remains with paranoid persecutory delusions and intermittent SI with a plan if he feels unsafe in the community. Patient has no insight. He denies AVH. Patient does not present with any manic symptoms, is generally sleeping at night, though with some nightmares. Freight Unloader will change diagnosis to schizoaffective disorder to incorporate other providers concern for history of manic behavior, however given that psychotic symptoms remain independent of kanwal or organic depression, schizoaffective disorder is more likely. Patient could not articulate a time in the past where he felt a relief from these current symptoms and even struggled to understand the question. -likely PtSD but so far difficult to discuss with patient who is focused on spiritual persecution. 07/04 remains with psychotic, paranoid delusions; patient volunteers that he is no longer transsexual but that he is a boy and parks. 07/06 no medication changes, pt says he is depressed, tearful at times but does not want to engage in conversation. feels safe. 07/07 increase olanzapine to 30 mg QHS for paranoid, disorganized thoughts 07/08 remains floridly delusional; while he says he feels calmer on olanzapine, it has done nothing to reduce psychotic symptoms. He agrees to trial of Prolixin chosen since may respond better to higher potency medication which comes in [place] 07/09 remains psychotic; some hostile sexualized feelings expressed toward TW, however pt remains in appropriate behavioral control. Agrees to titration of medication 07/12 remains delusional; agrees to trial of Haldol (refusing prolixin) reviewed DC summary from [facility] 04/25/21 to 05/09/21; summary mentions concerns for malingering, checking medication and additional dx of borderline personality disorder. Summary says staff did not think patient was psychotic or at least, that symptoms were not due to psychotic illness, but ptsd/personality disorder Plan:? CV q15 min checks -DC Prolixin: pt refuses to take; says taste like blood START Haldol 5mg qhs; If effective, will try to taper and dc zyprexa -Continue Zyprexa to 30 mg QHS for sx of depression, paranoia; pt reports feeling calmer on this but there is no reduction in psychotic symptoms; if Prolixin effective, will taper and plan to dc Zyprexa -Prazosin for nightmares -Pt declined to meet with addiction specialists. I spent minutes with the patient and/or on the patient floor today, greater than?50% of which was spent counseling/coordinating care. Patient educated on: medication risk/benefits Informed Consent: understands Reason for contiued inpatient stay Substantial Risk for: harm to self and rapid decompensation
[2021-07-12] MEDS: OLANZapine 10 MG TABLET 30 MG PO (22:07)
[2021-07-12] MEDS: HaloperidoL 5 MG TABLET PO (22:08)
[2021-07-12] MEDS: Prazosin HCL 1 MG CAPSULE 2 MG PO (22:08)
[2021-07-12 22:10] VITALS: BP 121/63; PULSE 63; TEMP 36.9
[2021-07-13 06:00] VITALS: BP 120/67; PULSE 67; RESP 18; TEMP 36.7; O2SAT 98
--- NOTE | 2021-07-13 13:07 | P.PNPSI_ITS ---
Subjective Subjective Date of Service: 07/13/21 Reason For Visit: Depression, SI, cocaine use disorder Interim History: Patient seen and discussed with nursing Patient reports he has a groin/left inner thigh rash that started 2 days ago. He says it is itchy. No fevers/chills/distress. He says he feels stressed with my thoughts sometimes and I think of things I shouldn't be thinking about . He reports these are spiritual thoughts and doesn't want to elaborate. pt remains delusional Says he feels the medications are helpful. Medication Compliance: Yes Review of Systems Review of Systems Depression Yes all other systems are reviewed and are negative Mental Status Exam Mental Status Exam Narrative: Pt is alert and oriented; behavior is cooperative, mostly calm; he has dyed blond hair, neck tattoo; dressed in casual attire with adequate; mood is described as stressed. He has an affect odd and laughs inappropriately; eye contact adequate; Speech is affected; pt is a little hyperverbal, but not really pressured and with normal volume and prosody; no psychomotor agitati on/retardation present; thought process can be goal directed but also circumstantial and intermittently disorganized with loosely connected ideas; Thought content is on depression and bizzare, delusional, persecutory fears of a spiritually threatening force; delusional ideas that food is poisoned,;otherwise pertinent to relevant topics; intermittent SI, sometimes with plan as an option if unsafe in the community; no HI.? Denies AVH. Patients insight and judgment are impaired Diagnostics Vital Signs (24Hr): Vital Signs - 24 hr 07/12/21 22:10 07/13/21 06:00 Temperature 98.4 F 98.1 F Pulse Rate 63 67 Respiratory Rate 18 Blood Pressure 121/63 120/67 Pulse Oximetry 98 BMI result Body Mass Index 22.0 Labs Results: 06/26/21 23:31 06/26/21 23:31 Medications Medications Current Medications Acetaminophen (Acetaminophen 325 Mg Tablet) 650 mg PO Q6H PRN PRN Reason: Headache/Pain Mild Scale (1-3) Al Hydroxide/Mg Hydroxide (Magnesium Hydrox/Alum Hydrox 30 Ml Oral.Susp) 30 ml PO Q6H PRN PRN Reason: Heartburn/Nausea Benzocaine (Throat Lozenge, Medicated Lozenge) 1 lozenge MUCOUS MEM Q2H PRN PRN Reason: Sore Throat Last Admin: 07/10/21 20:39 Dose: 1 lozenge Documented by: Haloperidol (Haloperidol 5 Mg Tablet) 5 mg PO BEDTIME JAKE Last Admin: 07/12/21 22:08 Dose: 5 mg Documented by: Hydroxyzine HCl (Hydroxyzine Hcl 25 Mg Tablet) 25 mg PO BEDTIME PRN PRN Reason: Anxiety Ibuprofen (Ibuprofen 600 Mg Tablet) 600 mg PO Q6H PRN PRN Reason: mild-mod pain Magnesium Hydroxide (Milk Of Magnesia 30 Ml Oral.Susp) 30 ml PO DAILY PRN PRN Reason: Constipation Melatonin (Melatonin 3 Mg Tablet) 6 mg PO BEDTIME PRN PRN Reason: insomnia Last Admin: 07/05/21 21:09 Dose: 6 mg Documented by: Multi-Ingred Medicated Throat [place] (Throat [place], Medicated 20 Ml Bottle) 1 spray MUCOUS MEM Q2H PRN PRN Reason: Sore Throat Olanzapine (Olanzapine 10 Mg Tablet) 30 mg PO BEDTIME JAKE Last Admin: 07/12/21 22:07 Dose: 30 mg Documented by: Prazosin HCl (Prazosin Hcl 1 Mg Capsule) 2 mg PO BEDTIME JAKE; Protocol Last Admin: 07/12/21 22:08 Dose: 2 mg Documented by: Trazodone HCl (Trazodone Hcl 50 Mg Tablet) 50 mg PO BEDTIME PRN PRN Reason: Insomnia Allergies Allergies Allergy/AdvReac Type Severity Reaction Status Date / Time No Known Allergies Allergy Verified 06/26/21 12:54 Assessment & Plan Assessment & Plan (1) Schizoaffective disorder: Status: Acute Code(s): F25.9 - Schizoaffective disorder, unspecified Plan Nicole is a 30 y.o. Male, prefers he/ him pronouns, who carries a dx of Bipolar I DO. He presented to [facility] on 06/26/21 after calling 911 due to SI, depression, and paranoid ideation that someone is following him but unable to state who this person is. Pt says he only takes psych medications while inpatient. Utox was positive for crack cocaine, uses daily. Per crisis eval, pt?s Mom reports that he has been off his meds and ?causing havoc in the house,? i.e. throwing her things away, wont let her sleep. On the unit, patient jessica ined with psychotic symptoms. Diagnosis however changed to schizoaffective disorder to incorporate other providers concern for history of manic behavior, however given that psychotic symptoms remain independent of kanwal or organic depression, schizoaffective disorder is more likely (patient does report he feels depressed, however depression is moderate and seems to be due to feeling exhausted from chronic delusional worries about being persecuted; similarly his intermittent SI seems to be due to his way of escaping his imagined persecutors). 07/01 continue paranoid, odd affect, intermittent SI sometimes reporting plans Mold Making Supervisor needs additional collateral to better understand patient's presentation 07/03 (not 07/02) patient gave verbal permission to this customs entry writer and social media strategist Finn to discuss his case with his 3 sisters, providing the phone number; he remains with paranoid persecutory delusions and intermittent SI with a plan if he feels unsafe in the community. Patient has no insight. He denies AVH. Patient does not present with any manic symptoms, is generally sleeping at night, though with some nightmares. Mold Making Supervisor will change diagnosis to schizoaffective disorder to incorporate other providers concern for history of manic behavior, however given that psychotic symptoms remain independent of kanwal or organic depression, schizoaffective disorder is more likely. Patient could not articulate a time in the past where he felt a relief from these current symptoms and even struggled to understand the question. -likely PtSD but so far difficult to discuss with patient who is focused on spiritual persecution. 07/04 remains with psychotic, paranoid delusions; patient volunteers that he is no longer transsexual but that he is a boy and parks. 07/06 no medication changes, pt says he is depressed, tearful at times but does not want to engage in conversation. feels safe. 07/07 increase olanzapine to 30 mg QHS for paranoid, disorganized thoughts 07/08 remains floridly delusional; while he says he feels calmer on olanzapine, it has done nothing to reduce psychotic symptoms. He agrees to trial of Prolixin chosen since may respond better to higher potency medication which comes in [place] 07/09 remains psychotic; some hostile sexualized feelings expressed toward TW, however pt remains in appropriate behavioral control. Agrees to titration of medication 07/12 remains delusional; agrees to trial of Haldol (refusing prolixin) reviewed DC summary from [facility] 04/25/21 to 05/09/21; summary mentions concerns for malingering, checking medication and additional dx of borderline personality disorder. Summary says staff did not think patient was psychotic or at least, that symptoms were not due to psychotic illness, but ptsd/personality disorder 07/13: Agreed to take Haldol last night. Denies side effects. Plan:? CV q15 min checks Haldol 5mg qhs; If effective, will try to taper and dc zyprexa -Continue Zyprexa to 30 mg QHS for sx of depression, paranoia; pt reports feeli ng calmer on this but there is no reduction in psychotic symptoms; -Prazosin for nightmares -Pt declined to meet with addiction specialists. I spent minutes with the patient and/or on the patient floor today, greater than?50% of which was spent counseling/coordinating care. Reason for contiued inpatient stay Substantial Risk for: harm to others and rapid decompensation
[2021-07-13 22:45] VITALS: BP 131/79; PULSE 64; TEMP 36.8
[2021-07-13] MEDS: OLANZapine 10 MG TABLET 30 MG PO (22:52)
[2021-07-13] MEDS: HaloperidoL 5 MG TABLET PO (22:52)
[2021-07-13] MEDS: Prazosin HCL 1 MG CAPSULE 2 MG PO (22:53)
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
[2021-07-14] MEDS: Divalproex Sodium ER 500 MG TAB.ER.24H PO (21:53)
[2021-07-14] MEDS: OLANZapine 10 MG TABLET 30 MG PO (21:54)
[2021-07-14] MEDS: HaloperidoL 5 MG TABLET PO (21:54)
[2021-07-14] MEDS: Prazosin HCL 1 MG CAPSULE 2 MG PO (21:54)
[2021-07-14 21:55] VITALS: BP 136/63; PULSE 60; TEMP 36.9
[2021-07-14] MEDS: Clotrimazole 1 % Cream 15 GM TUBE 1 APPL TOPICAL (22:01)
[2021-07-15] MEDS: Clotrimazole 1 % Cream 15 GM TUBE 1 APPL TOPICAL ×2 (09:02→22:47)
--- NOTE | 2021-07-15 21:24 | HO.PSYCHPN ---
Subjective Subjective Date of Service: 07/15/21 Reason For Visit: Depression, SI, cocaine use disorder Interim History: remains taking about spirits and is hard to follow, laughing inappropriately. He refused blood draw today after starting depakote and upon inquiry said he does not like to give his blood out because he does not know what is done with it; production underwriter explained but patient remained worried about it; however, when production underwriter said that this will get in the way of treatment w/ medication, pt said he would allow it. He said he thought about suicide today but did not elaborate. Mental Status Exam Mental Status Exam Narrative: Pt is alert and oriented; behavior is cooperative, mostly calm; he has dyed blond hair, neck tattoo; dressed in casual attire with adequate; mood is described as not good. He has an affect odd and laughs inappropriately; eye contact adequate; Speech is affected; pt is a little hyperverbal, but not really pressured and with normal volume and prosody; no psychomotor agitation/retardation present; thought process can be goal directed but also circumstantial and intermittently disorganized with loosely connected ideas; Thought content is on depression and bizzare, delusional, persecutory fears of a spiritually threatening force; delusional ideas that food is poisoned,;otherwise pertinent to relevant topics; intermittent SI, sometimes with plan as an option if unsafe in the community; no HI.? Denies AVH. Patients insight and judgment are impaired Diagnostics Vital Signs (24Hr): Vital Signs - 24 hr 07/14/21 21:55 Temperature 98.4 F Pulse Rate 60 Blood Pressure 136/63 BMI result Body Mass Index 22.0 Labs Results: 06/26/21 23:31 06/26/21 23:31 Medications Medications Current Medications Acetaminophen (Acetaminophen 325 Mg Tablet) 650 mg PO Q6H PRN PRN Reason: Headache/Pain Mild Scale (1-3) Al Hydroxide/Mg Hydroxide (Magnesium Hydrox/Alum Hydrox 30 Ml Oral.Susp) 30 ml PO Q6H PRN PRN Reason: Heartburn/Nausea Benzocaine (Throat Lozenge, Medicated Lozenge) 1 lozenge MUCOUS MEM Q2H PRN PRN Reason: Sore Throat Last Admin: 07/10/21 20:39 Dose: 1 lozenge Documented by: Clotrimazole (Clotrimazole 1 % Cream 15 Gm Tube) 1 appl TOPICAL BID JAKE; Protocol Last Admin: 07/15/21 09:02 Dose: 1 appl Documented by: Divalproex Sodium (Divalproex Sodium Er 500 Mg Tab.Er.24h) 500 mg PO BEDTIME JAKE Last Admin: 07/14/21 21:53 Dose: 500 mg Documented by: Haloperidol (Haloperidol 5 Mg Tablet) 10 mg PO BEDTIME JAKE Hydroxyzine HCl (Hydroxyzine Hcl 25 Mg Tablet) 25 mg PO BEDTIME PRN PRN Reason: Anxiety Ibuprofen (Ibuprofen 600 Mg Tablet) 600 mg PO Q6H PRN PRN Reason: mild-mod pain Magnesium Hydroxide (Milk Of Magnesia 30 Ml Oral.Susp) 30 ml PO DAILY PRN PRN Reason: Constipation Melatonin (Melatonin 3 Mg Tablet) 6 mg PO BEDTIME PRN PRN Reason: insomnia Last Admin: 07/05/21 21:09 Dose: 6 mg Documented by: Multi-Ingred Medicated Throat [place] (Throat [place], Medicated 20 Ml Bottle) 1 spray MUCOUS MEM Q2H PRN PRN Reason: Sore Throat Olanzapine (Olanzapine 10 Mg Tablet) 30 mg PO BEDTIME JAKE Last Admin: 07/14/21 21:54 Dose: 30 mg Documented by: Prazosin HCl (Prazosin Hcl 1 Mg Capsule) 2 mg PO BEDTIME JAKE; Protocol Last Admin: 07/14/21 21:54 Dose: 2 mg Documented by: Trazodone HCl (Trazodone Hcl 50 Mg Tablet) 50 mg PO BEDTIME PRN PRN Reason: Insomnia Allergies Allergies Allergy/AdvReac Type Severity Reaction Status Date / Time No Known Allergies Allergy Verified 06/26/21 12:54 Assessment & Plan Assessment & Plan (1) Schizoaffective disorder: Status: Acute Code(s): F25.9 - Schizoaffective disorder, unspecified Plan Nicole is a 30 y.o. Male, prefers he/ him pronouns, who carries a dx of Bipolar I DO. He presented to [facility] on 06/26/21 after calling 911 due to SI, depression, and paranoid ideation that someone is following him but unable to state who this person is. Pt says he only takes psych medications while inpatient. Utox was positive for crack cocaine, uses daily. Per crisis eval, pt?s Mom reports that he has been off his meds and ?causing havoc in the house,? i.e. throwing her things away, wont let her sleep. On the unit, patient remained with psychotic symptoms. Diagnosis however changed to schizoaffective disorder to incorporate other providers concern for history of manic behavior, however given that psychotic symptoms remain independent of kanwal or organic depression, schizoaffective disorder is more likely (patient does report he feels depressed, however depression is moderate and seems to be due to feeling exhausted from chronic delusional worries about being persecuted; similarly his intermittent SI seems to be due to his way of escaping his imagined persecutors). 07/01 continue paranoid, odd affect, intermittent SI sometimes reporting plans Vending Service Technician needs additional collateral to better understand patient's presentation 07/03 (not 07/02) patient gave verbal permission to this production underwriter and high school social science teacher Finn to discuss his case with his 3 sisters, providing the phone number; he remains with paranoid persecutory delusions and intermittent SI with a plan if he feels unsafe in the community. Patient has no insight. He denies AVH. Patient does not present with any manic symptoms, is generally sleeping at night, though with some nightmares. Vending Service Technician will change diagnosis to schizoaffective disorder to incorporate other providers concern for history of manic behavior, however given that psychotic symptoms remain independent of kanwal or organic depression, schizoaffective disorder is more likely. Patient could not articulate a time in the past where he felt a relief from these current symptoms and even struggled to understand the question. -likely PtSD but so far difficult to discuss with patient who is focused on spiritual persecution. 07/04 remains with psychotic, paranoid delusions; patient volunteers that he is no longer transsexual but that he is a boy and parks. 07/06 no medication changes, pt says he is depressed, tearful at times but does not want to engage in conversation. feels safe. 07/07 increase olanzapine to 30 mg QHS for paranoid, disorganized thoughts 07/08 remains floridly delusional; while he says he feels calmer on olanzapine, it has done nothing to reduce psychotic symptoms. He agrees to trial of Prolixin chosen since may respond better to higher potency medication which comes in [place] 07/09 remains psychotic; some hostile sexualized feelings expressed toward TW, however pt remains in appropriate behavioral control. Agrees to titration of medication 07/12 remains delusional; agrees to trial of Haldol (refusing prolixin) reviewed DC summary from [facility] 04/25/21 to 05/09/21; summary mentions concerns for malingering, checking medication and additional dx of borderline personality disorder. Summary says staff did not think patient was psychotic or at least, that symptoms were not due to psychotic illness, but ptsd/personality disorder 07/13: Agreed to take Haldol last night. Denies side effects. 07/14 Start Depakote ER 500 mg HS. . Add Clotrimazole for his rash. 07/15 refused labs but said he will get; Plan:? CV q15 min checks increased to Haldol 10mg qhs; If effective, will try to taper and dc zyprexa -Continue Zyprexa to 30 mg QHS for sx of depression, paranoia; pt reports feeling calmer on this but there is no reduction in psychotic symptoms; -Prazosin for nightmares -Pt declined to meet with addiction specialists. I spent minutes with the patient and/or on the patient floor today, greater than?50% of which was spent counseling/coordinating care. Patient educated on: medication risk/benefits Informed Consent: understands Reason for contiued inpatient stay Substantial Risk for: med/psych decompensation
[2021-07-15 22:30] VITALS: BP 148/97; PULSE 61; TEMP 36.9
[2021-07-15] MEDS: Prazosin HCL 1 MG CAPSULE 2 MG PO (22:45)
[2021-07-15] MEDS: Divalproex Sodium ER 500 MG TAB.ER.24H PO (22:46)
[2021-07-15] MEDS: OLANZapine 10 MG TABLET 30 MG PO (22:46)
[2021-07-15] MEDS: HaloperidoL 5 MG TABLET 10 MG PO (22:46)
[2021-07-16 06:00] VITALS: BP 120/68; PULSE 62; RESP 16; TEMP 37; O2SAT 97
--- NOTE | 2021-07-16 09:40 | HO.PSYCHPN ---
Subjective Subjective Date of Service: 07/16/21 Reason For Visit: Depression, SI, cocaine use disorder Interim History: Foreign Banknote Teller Trader met with patient and social studies department chair. Regarding patient's mood, he says i'm better. Patient says that he has to continue to fight through his issues but that he is no longer suicidal. Patient said that he would like to discharge to shelter and if 1 were available he feels safe to discharge this week. Patient continues to have paranoid delusions about food and about being attacked spiritually but he has increased confidence is inability to cope. Patient changed his mind again and says he does not want any blood draw. He said he is okay with going off the Depakote and the only reason he wanted to be on in the 1st place was to gain weight. He agrees to being on both Haldol and Zyprexa since he has been feeling better on this regimen. Patient still struggles with insight. He agrees that his mind might be playing some tricks on him but mostly he believes that his delusional worries are real threats and not delusions Mental Status Exam Mental Status Exam Narrative: Pt is alert and oriented; behavior is cooperative, mostly calm; he has dyed blond hair, neck tattoo; dressed in casual attire with adequate; mood is described as better. He has an affect odd and laughs inappropriately; eye contact adequate; Speech is affected; pt is a little hyperverbal, but not pressured and with normal volume and prosody; no psychomotor agitation/retardation present; thought process can be goal directed but also circumstantial; intermittently tangential but less so; Thought content is on treatment, aftercare and bizzare, delusional, worries about a spiritually threatening force; some remaining delusional ideas that food is poisoned,;otherwise pertinent to relevant topics; denies SI; no HI.? Denies AVH. Patients insight and judgment are impaired but improved. Diagnostics Vital Signs (24Hr): Vital Signs - 24 hr 07/15/21 22:30 07/16/21 06:00 Temperature 98.4 F 98.6 F Pulse Rate 61 62 Respiratory Rate 16 Blood Pressure 148/97 H 120/68 Pulse Oximetry 97 BMI result Body Mass Index 22.0 Labs Results: 06/26/21 23:31 06/26/21 23:31 Medications Medications Current Medications Acetaminophen (Acetaminophen 325 Mg Tablet) 650 mg PO Q6H PRN PRN Reason: Headache/Pain Mild Scale (1-3) Al Hydroxide/Mg Hydroxide (Magnesium Hydrox/Alum Hydrox 30 Ml Oral.Susp) 30 ml PO Q6H PRN PRN Reason: Heartburn/Nausea Benzocaine (Throat Lozenge, Medicated Lozenge) 1 lozenge MUCOUS MEM Q2H PRN PRN Reason: Sore Throat Last Admin: 07/10/21 20:39 Dose: 1 lozenge Documented by: Clotrimazole (Clotrimazole 1 % Cream 15 Gm Tube) 1 appl TOPICAL BID JAKE; Protocol Last Admin: 07/15/21 22:47 Dose: 1 appl Documented by: Divalproex Sodium (Divalproex Sodium Er 500 Mg Tab.Er.24h) 500 mg PO BEDTIME JAKE Last Admin: 07/15/21 22:46 Dose: 500 mg Documented by: Haloperidol (Haloperidol 5 Mg Tablet) 10 mg PO BEDTIME JAKE Last Admin: 07/15/21 22:46 Dose: 10 mg Documented by: Hydroxyzine HCl (Hydroxyzine Hcl 25 Mg Tablet) 25 mg PO BEDTIME PRN PRN Reason: Anxiety Ibuprofen (Ibuprofen 600 Mg Tablet) 600 mg PO Q6H PRN PRN Reason: mild-mod pain Magnesium Hydroxide (Milk Of Magnesia 30 Ml Oral.Susp) 30 ml PO DAILY PRN PRN Reason: Constipation Melatonin (Melatonin 3 Mg Tablet) 6 mg PO BEDTIME PRN PRN Reason: insomnia Last Admin: 07/05/21 21:09 Dose: 6 mg Documented by: Multi-Ingred Medicated Throat [place] (Throat [place], Medicated 20 Ml Bottle) 1 spray MUCOUS MEM Q2H PRN PRN Reason: Sore Throat Olanzapine (Olanzapine 10 Mg Tablet) 30 mg PO BEDTIME JAKE Last Admin: 07/15/21 22:46 Dose: 30 mg Documented by: Prazosin HCl (Prazosin Hcl 1 Mg Capsule) 2 mg PO BEDTIME JAKE; Protocol Last Admin: 07/15/21 22:45 Dose: 2 mg Documented by: Trazodone HCl (Trazodone Hcl 50 Mg Tablet) 50 mg PO BEDTIME PRN PRN Reason: Insomnia Allergies Allergies Allergy/AdvReac Type Severity Reaction Status Date / Time No Known Allergies Allergy Verified 06/26/21 12:54 Assessment & Plan Assessment & Plan (1) Schizoaffective disorder: Status: Acute Code(s): F25.9 - Schizoaffective disorder, unspecified Plan Nicole is a 30 y.o. Male, prefers he/ him pronouns, who carries a dx of Bipolar I DO. He presented to [facility] on 06/26/21 after calling 911 due to SI, depression, and paranoid ideation that someone is following him but unable to state who this person is. Pt says he only takes psych medications while inpatient. Utox was positive for crack cocaine, uses daily. Per crisis eval, pt?s Mom reports that he has been off his meds and ?causing havoc in the house,? i.e. throwing her things away, wont let her sleep. On the unit, patient remained with psychotic symptoms. Diagnosis however changed to schizoaffective disorder to incorporate other providers concern for history of manic behavior, however given that psychotic symptoms remain independent of kanwal or organic depression, schizoaffective disorder is more likely (patient does report he feels depressed, however depression is moderate and seems to be due to feeling exhausted from chronic delusional worries about being persecuted; similarly his intermittent SI seems to be due to his way of escaping his imagined persecutors). 07/01 continue paranoid, odd affect, intermittent SI sometimes reporting plans Foreign Banknote Teller Trader needs additional collateral to better understand patient's presentation 07/03 (not 07/02) patient gave verbal permission to this credit underwriter and social studies department chair Finn to discuss his case with his 3 sisters, providing the phone number; he remains with paranoid persecutory delusions and intermittent SI with a plan if he feels unsafe in the community. Patient has no insight. He denies AVH. Patient does not present with any manic symptoms, is generally sleeping at night, though with some nightmares. Foreign Banknote Teller Trader will change diagnosis to schizoaffective disorder to incorporate other providers concern for history of manic behavior, however given that psychotic symptoms remain independent of kanwal or organic depression, schizoaffective disorder is more likely. Patient could not articulate a time in the past where he felt a relief from these current symptoms and even struggled to understand the question. -likely PtSD but so far difficult to discuss with patient who is focused on spiritual persecution. 07/04 remains with psychotic, paranoid delusions; patient volunteers that he is no longer transsexual but that he is a boy and parks. 07/06 no medication changes, pt says he is depressed, tearful at times but does not want to engage in conversation. feels safe. 07/07 increase olanzapine to 30 mg QHS for paranoid, disorganized thoughts 07/08 remains floridly delusional; while he says he feels calmer on olanzapine, it has done nothing to reduce psychotic symptoms. He agrees to trial of Prolixin chosen since may respond better to higher potency medication which comes in [place] 07/09 remains psychotic; some hostile sexualized feelings expressed toward TW, however pt remains in appropriate behavioral control. Agrees to titration of medication 07/12 remains delusional; agrees to trial of Haldol (refusing prolixin) -reviewed DC summary from [facility] 04/25/21 to 05/09/21; summary mentions concerns for malingering, checking medication and additional dx of borderline personality disorder. Summary says staff did not think patient was psychotic or at least, that symptoms were not due to psychotic illness, but ptsd/personality disorder 07/13: Agreed to take Haldol last night. Denies side effects. 07/14 Start Depakote ER 500 mg HS. . Add Clotrimazole for? his rash. 07/15 refused labs but said he will get; 07/16 patient remains with delusion all ideas a being persecuted. However he says his mood is better and he denies any SI. He also says that if he were able to go to a shelter he believes he would be safe and would not be at risk for self-harm. Will discontinue Depakote since patient refuses labs, anxious about giving blood; he agrees to continue with both Haldol and Zyprexa. Will see if Haldol can be lowered back to 20 mg since the jump from 20 to 30mg did not seem to make much difference and lowest dose needed is preferable. Foreign Banknote Teller Trader and and team, including social studies department chair Finn Freitas discussed case and have a different conclusion than summary from [facility]; team agrees that patient does have psychotic symptoms and is struggling with paranoid delusions. It is also agreed that there is likely a personality component that complicates his presentation. Patient's suicidality seems only related to his housing situation. Foreign Banknote Teller Trader does not conclude the patient is malingering; rather it seems that this patient has limited coping skills and is doing his best to get his needs met. Foreign Banknote Teller Trader is discontinuing Depakote since patient refuses labs; also will lower Zyprexa. Hopefully patient's improved mood and resolution of SI will remain given this med change and will be monitored over the next couple days. Patient remains with limited insight but agrees medications are helpful. Plan:? CV q15 min checks -Continue to Haldol 10mg qhs; If effective, will try to taper and dc zyprexa -LOWER Zyprexa to 20 mg QHS; this medication has been partially effective so given patient's stability, do not want to discontinue it in favor of Haldol at least not at this time. However there does not seem to have been much improvement going from 20 mg to 30 mg and further improvement seems only to have been made with addition of Haldol. -Prazosin for nightmares -DC'd Prolixin due to paranoid ideation about the taste of this particular medication -DC'd depakote: Refuses blood draws due to paranoid ideation; it's unclear if this was helpful or if the increase in Haldol is what helped patient's stability -Pt declined to meet with addiction specialists. -continue to work on getting [facility] services -struggling to connect with patient's mother for more collateral I spent minutes with the patient and/or on the patient floor today, greater than?50% of which was spent counseling/coordinating care. Patient educated on: medication risk/benefits Informed Consent: understands Reason for contiued inpatient stay Substantial Risk for: rapid decompensation
[2021-07-16] MEDS: Clotrimazole 1 % Cream 15 GM TUBE 1 APPL TOPICAL (11:24)
[2021-07-16 18:00] VITALS: BP 123/75; PULSE 70; RESP 14; TEMP 36.9; O2SAT 97
[2021-07-16] MEDS: Prazosin HCL 1 MG CAPSULE 2 MG PO (21:21)
[2021-07-16] MEDS: OLANZapine 10 MG TABLET 20 MG PO (21:21)
[2021-07-16] MEDS: HaloperidoL 5 MG TABLET 10 MG PO (21:21)
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
[2021-07-17] MEDS: Clotrimazole 1 % Cream 15 GM TUBE 1 APPL TOPICAL ×2 (13:00→22:08)
[2021-07-17] MEDS: HaloperidoL 1 MG TABLET 2 MG PO (13:04)
[2021-07-17 21:35] VITALS: BP 131/71; PULSE 67; TEMP 36.7
[2021-07-17] MEDS: OLANZapine 10 MG TABLET 20 MG PO (22:00)
[2021-07-17] MEDS: Prazosin HCL 1 MG CAPSULE 2 MG PO (22:01)
[2021-07-17] MEDS: HaloperidoL 5 MG TABLET 10 MG PO (22:01)
[2021-07-18 09:00] VITALS: BP 116/71; PULSE 78; TEMP 37.1
[2021-07-18] MEDS: Clotrimazole 1 % Cream 15 GM TUBE 1 APPL TOPICAL (11:40)
[2021-07-18] MEDS: HaloperidoL 5 MG TABLET PO (11:40)
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
[2021-07-18 22:55] VITALS: BP 121/56; PULSE 61; RESP 16; TEMP 36.7; O2SAT 98
[2021-07-18] MEDS: Prazosin HCL 1 MG CAPSULE 2 MG PO (23:03)
[2021-07-18] MEDS: HaloperidoL 5 MG TABLET 10 MG PO (23:04)
[2021-07-18] MEDS: OLANZapine 10 MG TABLET 20 MG PO (23:04)
[2021-07-19 06:00] VITALS: BP 116/73; PULSE 66; RESP 16; TEMP 36.9; O2SAT 97
[2021-07-19] MEDS: HaloperidoL 5 MG TABLET PO (08:59)
[2021-07-19 18:00] VITALS: BP 114/72; PULSE 61; TEMP 36.8
[2021-07-19] MEDS: Prazosin HCL 1 MG CAPSULE 2 MG PO (20:28)
[2021-07-19] MEDS: HaloperidoL 5 MG TABLET 15 MG PO (20:29)
[2021-07-19] MEDS: OLANZapine 10 MG TABLET 20 MG PO (20:29)
[2021-07-20 08:30] VITALS: BP 90/56; PULSE 59; TEMP 36.6
[2021-07-20] MEDS: Clotrimazole 1 % Cream 15 GM TUBE 1 APPL TOPICAL (09:21)
[2021-07-20] MEDS: HaloperidoL 5 MG TABLET PO (09:21)
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
[2021-07-20 18:00] VITALS: BP 116/72; PULSE 72; RESP 20; TEMP 36.9; O2SAT 99
[2021-07-20] MEDS: OLANZapine 10 MG TABLET 20 MG PO (22:15)
[2021-07-20] MEDS: Prazosin HCL 1 MG CAPSULE 2 MG PO (22:16)
[2021-07-20] MEDS: HaloperidoL 5 MG TABLET 15 MG PO (22:16)
[2021-07-21 06:00] VITALS: BP 91/56; PULSE 62; TEMP 37.2
[2021-07-21] MEDS: Clotrimazole 1 % Cream 15 GM TUBE 1 APPL TOPICAL (09:14)
[2021-07-21] MEDS: HaloperidoL 5 MG TABLET PO (09:15)
[2021-07-21 14:31] VITALS: BMI 23.7
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
[2021-07-21 18:00] VITALS: BP 110/66; PULSE 70; RESP 18; TEMP 36.9; O2SAT 98
[2021-07-22 06:00] VITALS: BP 89/54; PULSE 60; RESP 18; TEMP 36.6; O2SAT 95
[2021-07-22] MEDS: HaloperidoL 5 MG TABLET PO (08:45)
[2021-07-22] MEDS: Clotrimazole 1 % Cream 15 GM TUBE 1 APPL TOPICAL ×2 (08:45→22:00)
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
[2021-07-22] MEDS: Ondansetron ODT 4 MG TAB.RAPDIS TRANSLINGU ×2 (17:18→23:41)
[2021-07-22 21:30] VITALS: BP 135/79; PULSE 68; TEMP 37.1
[2021-07-22] MEDS: Prazosin HCL 1 MG CAPSULE 2 MG PO (21:56)
[2021-07-22] MEDS: HaloperidoL 5 MG TABLET 15 MG PO (21:58)
[2021-07-22] MEDS: OLANZapine 10 MG TABLET 20 MG PO (21:58)
--- NOTE | 2021-07-23 | ECG_ITS ---
Test Reason : CK QT Blood Pressure : / mmHG Vent. Rate : 058 BPM Atrial Rate : 058 BPM P-R Int : 140 ms QRS Dur : 088 ms QT Int : 384 ms P-R-T Axes : 026 062 025 degrees QTc Int : 376 ms Sinus bradycardia Otherwise normal ECG When compared with ECG of 28-JUN-2021 21:13, No significant change was found Referred By: Vipin Stewart Electronically Signed By:Job Thomson
[2021-07-23 06:00] VITALS: BP 88/53; PULSE 74; RESP 16; TEMP 37.1; O2SAT 97
[2021-07-23] MEDS: HaloperidoL 5 MG TABLET PO (08:57)
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
[2021-07-23] MEDS: Ondansetron ODT 4 MG TAB.RAPDIS TRANSLINGU (11:13)
[2021-07-23 16:30] VITALS: BP 132/83; PULSE 65; TEMP 36.6
[2021-07-23] MEDS: HaloperidoL 5 MG TABLET 20 MG PO (22:29)
[2021-07-23] MEDS: Prazosin HCL 1 MG CAPSULE 2 MG PO (22:30)
[2021-07-23] MEDS: OLANZapine 10 MG TABLET 20 MG PO (22:30)
[2021-07-23] MEDS: Clotrimazole 1 % Cream 15 GM TUBE 1 APPL TOPICAL (22:32)
[2021-07-24] MEDS: traZODone HCL 50 MG TABLET PO (01:25)
[2021-07-24] MEDS: Melatonin 3 MG TABLET 6 MG PO (02:30)
[2021-07-24] MEDS: Ondansetron ODT 4 MG TAB.RAPDIS TRANSLINGU (02:40)
[2021-07-24] MEDS: HaloperidoL 5 MG TABLET PO (09:07)
[2021-07-24 09:12] VITALS: BP 87/51; PULSE 67; RESP 18; TEMP 36.7; O2SAT 96
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
[2021-07-24 19:45] VITALS: BP 116/70; PULSE 71; TEMP 37; O2SAT 97
[2021-07-24] MEDS: Prazosin HCL 1 MG CAPSULE 2 MG PO (22:06)
[2021-07-24] MEDS: OLANZapine 10 MG TABLET 20 MG PO (22:07)
[2021-07-24] MEDS: HaloperidoL 5 MG TABLET 20 MG PO (22:07)
[2021-07-25] MEDS: HaloperidoL 5 MG TABLET PO (09:10)
[2021-07-25 09:13] VITALS: BP 111/68; PULSE 96; RESP 16; TEMP 36.8; O2SAT 98
[2021-07-25 09:14] VITALS: BMI 23.6
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
[2021-07-25 20:48] VITALS: BP 129/78; PULSE 72
[2021-07-25] MEDS: OLANZapine 7.5 MG TABLET 15 MG PO (21:21)
[2021-07-25] MEDS: Mirtazapine 7.5 MG TABLET PO (21:21)
[2021-07-25] MEDS: HaloperidoL 5 MG TABLET 20 MG PO (21:21)
[2021-07-25] MEDS: Prazosin HCL 1 MG CAPSULE 2 MG PO (21:21)
[2021-07-26 06:00] VITALS: BP 118/68; PULSE 90; RESP 16; TEMP 36.3; O2SAT 98
[2021-07-26] MEDS: HaloperidoL 5 MG TABLET PO (08:57)
[2021-07-26] MEDS: Clotrimazole 1 % Cream 15 GM TUBE 1 APPL TOPICAL (09:08)
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
[2021-07-26 21:50] VITALS: BP 122/72; PULSE 65; RESP 17; TEMP 36.1; O2SAT 98
[2021-07-26] MEDS: HaloperidoL 5 MG TABLET 20 MG PO (21:58)
[2021-07-26] MEDS: OLANZapine 7.5 MG TABLET 15 MG PO (21:59)
[2021-07-26] MEDS: Prazosin HCL 1 MG CAPSULE 2 MG PO (21:59)
[2021-07-26] MEDS: Mirtazapine 7.5 MG TABLET PO (21:59)
[2021-07-27 06:00] VITALS: BP 93/55; PULSE 69; RESP 18; TEMP 37; O2SAT 98
[2021-07-27] MEDS: HaloperidoL 5 MG TABLET PO (09:37)
--- NOTE | 2021-07-27 17:41 | PC.NURSE ---
Pt held a safety razor in hand as he exited a shower. Pt had not been supervised to shave Pt gave the safety razor to staff when asked. When staff asked pt how he came to possess the razor, pt offered several different, factually incompatible explanations.
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
[2021-07-27 20:40] VITALS: BP 116/80; PULSE 80; TEMP 36.6
[2021-07-27] MEDS: HaloperidoL 5 MG TABLET 20 MG PO (20:55)
[2021-07-27] MEDS: Prazosin HCL 1 MG CAPSULE 2 MG PO (20:55)
[2021-07-27] MEDS: OLANZapine 7.5 MG TABLET 15 MG PO (20:56)
[2021-07-27] MEDS: Mirtazapine 7.5 MG TABLET PO (20:56)
[2021-07-28 06:00] VITALS: BP 112/76; PULSE 77; RESP 18; TEMP 36.8; O2SAT 98
[2021-07-28] MEDS: HaloperidoL 5 MG TABLET PO (09:28)
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
[2021-07-28 19:45] VITALS: BP 127/76; PULSE 73
[2021-07-28] MEDS: Prazosin HCL 1 MG CAPSULE 2 MG PO (19:57)
[2021-07-28] MEDS: Mirtazapine 7.5 MG TABLET PO (19:58)
[2021-07-28] MEDS: OLANZapine 7.5 MG TABLET 15 MG PO (19:58)
[2021-07-28] MEDS: HaloperidoL 5 MG TABLET 20 MG PO (19:58)
[2021-07-29 06:00] VITALS: BP 101/56; PULSE 66; RESP 14; TEMP 36.3; O2SAT 98
[2021-07-29] MEDS: HaloperidoL 5 MG TABLET PO (09:04)
[2021-07-29] MEDS: OLANZapine 5 MG TABLET PO (12:17)
[2021-07-29 18:00] VITALS: BP 128/79; PULSE 73; RESP 18; TEMP 36.6; O2SAT 100
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
[2021-07-29] MEDS: OLANZapine 10 MG TABLET 20 MG PO (20:34)
[2021-07-29] MEDS: HaloperidoL 5 MG TABLET 20 MG PO (20:34)
[2021-07-29] MEDS: Mirtazapine 7.5 MG TABLET PO (20:35)
[2021-07-29] MEDS: Prazosin HCL 1 MG CAPSULE 2 MG PO (20:35)
[2021-07-29] MEDS: Melatonin 3 MG TABLET 6 MG PO (20:48)
[2021-07-30] MEDS: HaloperidoL 5 MG TABLET PO (09:16)
[2021-07-30 09:17] VITALS: BP 136/70; PULSE 89; RESP 16; TEMP 36.7; O2SAT 96
[2021-07-30] MEDS: Clotrimazole 1 % Cream 15 GM TUBE 1 APPL TOPICAL (09:39)
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
[2021-07-30 17:28] VITALS: BP 133/89; PULSE 70; RESP 18; TEMP 36.6; O2SAT 97
[2021-07-30] MEDS: Mirtazapine 15 MG TABLET PO (21:41)
[2021-07-30] MEDS: HaloperidoL 5 MG TABLET 20 MG PO (21:41)
[2021-07-30] MEDS: Prazosin HCL 1 MG CAPSULE 2 MG PO (21:42)
[2021-07-30] MEDS: OLANZapine 10 MG TABLET 20 MG PO (21:42)
[2021-07-31 06:53] VITALS: BP 98/54; PULSE 66; RESP 16; TEMP 37.2; O2SAT 98
[2021-07-31] MEDS: HaloperidoL 5 MG TABLET PO (10:56)
[2021-07-31 18:00] VITALS: BP 133/75; PULSE 69; RESP 16; TEMP 36.9
[2021-07-31] MEDS: HaloperidoL 5 MG TABLET 20 MG PO (20:28)
[2021-07-31] MEDS: OLANZapine 10 MG TABLET 20 MG PO (20:28)
[2021-07-31] MEDS: Prazosin HCL 1 MG CAPSULE 2 MG PO (20:28)
[2021-07-31] MEDS: Mirtazapine 15 MG TABLET PO (20:29)
[2021-07-31] MEDS: traZODone HCL 50 MG TABLET PO (20:30)
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
[2021-08-01] MEDS: HaloperidoL 5 MG TABLET PO (09:07)
[2021-08-01 18:00] VITALS: BP 136/78; PULSE 72; RESP 18; TEMP 36.4; O2SAT 97
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
[2021-08-01] MEDS: Mirtazapine 15 MG TABLET PO (21:39)
[2021-08-01] MEDS: HaloperidoL 5 MG TABLET 20 MG PO (21:39)
[2021-08-01] MEDS: OLANZapine 10 MG TABLET 20 MG PO (21:39)
[2021-08-01] MEDS: Prazosin HCL 1 MG CAPSULE 2 MG PO (21:40)
[2021-08-02] MEDS: Clotrimazole 1 % Cream 15 GM TUBE 1 APPL TOPICAL (09:18)
[2021-08-02] MEDS: HaloperidoL 5 MG TABLET PO (09:18)
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
[2021-08-02 20:25] VITALS: BP 137/90; PULSE 74; TEMP 36.7
[2021-08-02] MEDS: Mirtazapine 15 MG TABLET PO (20:44)
[2021-08-02] MEDS: OLANZapine 10 MG TABLET 20 MG PO (20:44)
[2021-08-02] MEDS: Prazosin HCL 1 MG CAPSULE 2 MG PO (20:44)
[2021-08-02] MEDS: HaloperidoL 5 MG TABLET 20 MG PO (20:44)
[2021-08-03] MEDS: HaloperidoL 5 MG TABLET PO (10:35)
[2021-08-03] MEDS: Clotrimazole 1 % Cream 15 GM TUBE 1 APPL TOPICAL ×2 (10:35→20:03)
[2021-08-03 19:55] VITALS: BP 126/84; PULSE 73; TEMP 36.8; O2SAT 99
[2021-08-03] MEDS: OLANZapine 10 MG TABLET 20 MG PO (20:02)
[2021-08-03] MEDS: Mirtazapine 15 MG TABLET PO (20:02)
[2021-08-03] MEDS: Prazosin HCL 1 MG CAPSULE 2 MG PO (20:02)
[2021-08-03] MEDS: HaloperidoL 5 MG TABLET 20 MG PO (20:03)
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
[2021-08-04 06:00] VITALS: BP 109/81; PULSE 82; RESP 16; TEMP 36.6; O2SAT 100
[2021-08-04] MEDS: Clotrimazole 1 % Cream 15 GM TUBE 1 APPL TOPICAL ×2 (09:29→21:54)
[2021-08-04] MEDS: HaloperidoL 5 MG TABLET PO (09:29)
[2021-08-04] MEDS: Prazosin HCL 1 MG CAPSULE 2 MG PO (21:37)
[2021-08-04] MEDS: Mirtazapine 15 MG TABLET PO (21:38)
[2021-08-04] MEDS: HaloperidoL 5 MG TABLET 20 MG PO (21:39)
[2021-08-04 21:40] VITALS: BP 118/81; PULSE 76; TEMP 36.8; O2SAT 98
[2021-08-04] MEDS: OLANZapine 10 MG TABLET 20 MG PO (21:40)
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
[2021-08-04] MEDS: traZODone HCL 50 MG TABLET PO (23:29)
[2021-08-05] MEDS: HaloperidoL 5 MG TABLET PO (08:43)
[2021-08-05] MEDS: Clotrimazole 1 % Cream 15 GM TUBE 1 APPL TOPICAL (08:46)
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
[2021-08-05 20:15] VITALS: BP 143/73; PULSE 84; TEMP 36.7; O2SAT 96
[2021-08-05] MEDS: Prazosin HCL 1 MG CAPSULE 2 MG PO (20:29)
[2021-08-05] MEDS: HaloperidoL 5 MG TABLET 20 MG PO (20:30)
[2021-08-05] MEDS: OLANZapine 10 MG TABLET 20 MG PO (20:30)
[2021-08-05] MEDS: Mirtazapine 15 MG TABLET PO (20:30)
[2021-08-05] MEDS: Lithium Carbonate ER 300 MG TABLET.ER PO (20:30)
[2021-08-06 06:00] VITALS: BP 112/82; PULSE 76; RESP 18; TEMP 37; O2SAT 97
[2021-08-06] MEDS: Clotrimazole 1 % Cream 15 GM TUBE 1 APPL TOPICAL ×2 (08:59→20:37)
[2021-08-06] MEDS: HaloperidoL 5 MG TABLET PO (09:21)
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
[2021-08-06 18:00] VITALS: BP 119/81; PULSE 81; TEMP 36.6; O2SAT 98
[2021-08-06] MEDS: Mirtazapine 15 MG TABLET PO (20:24)
[2021-08-06] MEDS: Prazosin HCL 1 MG CAPSULE 2 MG PO (20:24)
[2021-08-06] MEDS: HaloperidoL 5 MG TABLET 20 MG PO (20:24)
[2021-08-06] MEDS: OLANZapine 10 MG TABLET 20 MG PO (20:24)
[2021-08-06] MEDS: traZODone HCL 50 MG TABLET PO (22:03)
[2021-08-06] MEDS: hydrOXYzine HCL 25 MG TABLET PO (22:03)
[2021-08-07 04:56] VITALS: BP 102/71; PULSE 80; RESP 16; TEMP 36.5; O2SAT 95
[2021-08-07] MEDS: Clotrimazole 1 % Cream 15 GM TUBE 1 APPL TOPICAL (08:59)
[2021-08-07] MEDS: HaloperidoL 5 MG TABLET PO (09:16)
[2021-08-07] MEDS: Lithium Carbonate ER 300 MG TABLET.ER PO (09:16)
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
--- NOTE | 2021-08-07 18:56 | PC.NURSE ---
Patient is asking what happened to his other phone. He said that he had two phone downstairs in the POD and remembered someone on [employer] putting a phone into a clear bag and putting it on the counter. This chief writer looked for the phone but was unable to locate the phone. There is one cell phone with broken screen in the b
--- NOTE | 2021-08-07 18:59 | PC.NURSE ---
Patient is missing a phone. The phone that is in the envelope is not the one patient said was missing. He said he remembered having two (2) phone in the POD. Patient said that someone checked in his belongings on [employer] and had put one phone in a white envelope and another one was put in a clear bag and put on the counter . This handbook writer was unable to locate the phone in the clear bag.
[2021-08-07 20:15] VITALS: BP 127/86; PULSE 87; TEMP 36.6; O2SAT 98
[2021-08-07] MEDS: Prazosin HCL 1 MG CAPSULE 2 MG PO (20:19)
[2021-08-07] MEDS: Mirtazapine 15 MG TABLET PO (20:20)
[2021-08-07] MEDS: HaloperidoL 5 MG TABLET 20 MG PO (20:20)
[2021-08-07] MEDS: OLANZapine 10 MG TABLET 20 MG PO (20:20)
[2021-08-07] MEDS: QUEtiapine Fumarate 50 MG TABLET PO (20:20)
[2021-08-07] MEDS: hydrOXYzine HCL 25 MG TABLET PO (20:26)
[2021-08-08] MEDS: Lithium Carbonate ER 300 MG TABLET.ER PO (08:30)
[2021-08-08 09:12] LABS: Estimated Average Glucose 103 mg/dL; Hemoglobin A1c % 5.2 %
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
[2021-08-08 10:13] LABS: Lithium < 0.10 mmol/L (0.60-1.20)
[2021-08-08 10:21] LABS: Blood Urea Nitrogen 20 mg/dL (9-16); Cholesterol 143 mg/dL; Creatinine Clr Calc Pharmacy 124.9; Estimated Glomerular Filt Rate > 60; HDL Cholesterol 41 mg/dL; LDL Cholesterol Calculated 83 mg/dl; Triglycerides 97 mg/dL
[2021-08-08 10:37] LABS: TSH reflex Free T4 0.68 uIU/mL (0.32-4.0)
[2021-08-08 13:52] LABS: Reflex LDLD? No
== END 2021-08-08 13:13 | DRG 750 ==
LOC: HO.ED 17:00 → HO.PM5 06-27 13:20
PROVIDERS: Physician Assistant; Admitting Provider Clinical Nurse Specialist Psychiatric/Mental Health, Adult; Emergency Provider Emergency Medicine; Visit Provider Psychiatry & Neurology Psychiatry
DX: F25.9 Schizoaffective disorder, unspecified (principal); R45.851 Suicidal ideations; F31.9 Bipolar disorder, unspecified; F14.10 Cocaine abuse, uncomplicated; F17.210 Nicotine dependence, cigarettes, uncomplicated; Z20.822 Contact with and (suspected) exposure to COVID-19; Z71.6 Tobacco abuse counseling; Z62.810 Personal history of physical and sexual abuse in childhood; Z79.899 Other long term (current) drug therapy
CPT/HCPCS: 36415; 80048; 80061; 80178; 80307; 82077; 82565; 83036; 84443; 84520; 85025; 87071; 87635; 93005; 99285

== ENCOUNTER 2022-03-03 12:03 | Inpatient (IN) | payer OTHER, SELFPAY ==
[2022-03-03 12:07] VITALS: BP 120/80; BP 147/90; PULSE 68; PULSE 78; RESP 18; TEMP 37.2; O2SAT 98; O2SAT 99; BMI 20.9
--- NOTE | 2022-03-03 12:11 | ED.PSYCH ---
HPI - Psych General Chief Complaint: Psychiatric Symptoms <Missy Vogt NP - Last Filed: 03/03/22 16:53> Stated Complaint: SI W/PLAN <Missy Vogt NP - Last Filed: 03/03/22 16:53> Time Seen by Provider: 03/03/22 12:10 <Missy Vogt NP - Last Filed: 03/03/22 16:53> Source: patient <Missy Vogt NP - Last Filed: 03/03/22 16:53> Mode of arrival: EMS <Missy Vogt NP - Last Filed: 03/03/22 16:53> Limitations: no limitations <Missy Vogt NP - Last Filed: 03/03/22 16:53> History of Present Illness HPI Narrative: 31-year-old assigned male at , using he/him pronouns, with past medical history bipolar 1, schizoaffective disorder, anxiety, and past psychiatric admission (last 08/2021) voluntarily presents to the emergency department by EMS complaining of SI with a plan. He endorses multiple different plans including drowning, stabbing himself. He states that he feels something spiritually following him that will specifically harm him through his blood. Patient is hyperverbal during exam. He denies any visual or auditory hallucinations, however; he believes that he is being followed by a spiritual being, since he was a toddler, that is looking to physically harm him through his blood. Patient endorses use of crack cocaine. Has 2 intimate partners states he is using safe sex practices, declines to provide specifics on gender of partners. <Missy Vogt NP - Last Filed: 03/03/22 16:53> Related Data Home Medications: Home Medications Medication Instructions Recorded Confirmed No Known Home Meds 03/03/22 03/03/22 <Missy Vogt NP - Last Filed: 03/03/22 16:53> Allergies/Adverse Reactions: Allergies Allergy/AdvReac Type Severity Reaction Status Date / Time No Known Allergies Allergy Verified 06/26/21 12:54 <Missy Vogt NP - Last Filed: 03/03/22 16:53> Review of Systems Review of Systems: Yes all other systems are reviewed and are negative <Missy Vogt, COMPANY CONTROLLER - Last Filed: 03/03/22 16:53> Constitutional: Constitutional: Reports no additional constitutional complaints, Denies chills, Denies fever(s), Denies headache(s), Denies weight gain and Denies weight loss <Missy Vogt, COMPANY CONTROLLER - Last Filed: 03/03/22 16:53> Eyes: Eyes: Reports no additional eye complaints and Denies change in vision <Missyelsa Vogt, COMPANY CONTROLLER - Last Filed: 03/03/22 16:53> ENT: Reports system reviewed and no additional complaints, except as documented, Reports Normal hearing present, Denies dysphagia, Denies vertigo, Denies dizziness, Denies headache(s), Denies nasal congestion and Denies nasal discharge <Missyelsa Vogt, COMPANY CONTROLLER - Last Filed: 03/03/22 16:53> Cardiovascular: Cardiovascular: Reports no additional cardiovascular complaints, Denies chest pain and Denies dyspnea <Missy Vogt, COMPANY CONTROLLER - Last Filed: 03/03/22 16:53> Respiratory: Respiratory: Reports no additional respiratory complaints and Denies dyspnea <Missycristian Vogt, COMPANY CONTROLLER - Last Filed: 03/03/22 16:53> Gastrointestinal: Gastrointestinal: Reports no additional gastrointestinal complaints, Denies melena, Denies hematochezia, Denies change in bowel habits and Denies dysphagia <Missyelsa Vogt, COMPANY CONTROLLER - Last Filed: 03/03/22 16:53> Genitourinary: Genitourinary: Reports no additional male genitourinary complaints, Denies difficulty urinating and Denies genital pain <Missyelsa Vogt, COMPANY CONTROLLER - Last Filed: 03/03/22 16:53> Musculoskeletal: Musculoskeletal: Reports no additional musculoskeletal complaints, Denies myalgias, Denies numbness and Denies tingling <Missyelsa Vogt, COMPANY CONTROLLER - Last Filed: 03/03/22 16:53> Integumentary/Breasts: Skin/Breast: Reports system reviewed and no additional complaints, except as docu, Denies lesions, Denies rash and Denies sores <Missy Vogt, COMPANY CONTROLLER - Last Filed: 03/03/22 16:53> Neurologic: Reports system reviewed and no additional complaints, except as documented, Reports Normal hearing present, Denies vertigo, Denies dizziness, Denies headache(s), Denies numbness and Denies tingling <Missy Vogt NP - Last Filed: 03/03/22 16:53> Psychiatric: Psychiatric: Reports no additional psychiatric complaints, Reports anxiety, Denies auditory hallucinations, Denies visual hallucinations, Denies homicidal ideation and Reports suicidal ideation <Missy Vogt NP - Last Filed: 03/03/22 16:53> Endocrine: Endocrine: Reports no additional endocrine complaints, Denies change in body appearance, Denies polyphagia, Denies polydipsia and Denies polyuria <Missy Vogt NP - Last Filed: 03/03/22 16:53> [facility] Past Medical History Attestation statement: The following information was validated with the patient. <Missy Vogt NP - Last Filed: 03/03/22 16:53> Source: old records reviewed <Missy Vogt NP - Last Filed: 03/03/22 16:53> Medical History: Medical History Schizoaffective disorder <Missy Vogt NP - Last Filed: 03/03/22 16:53> Social History Social History: Social History Household Members: None Housing: Apartment Housing Other:: moms apartment. Do you presently have visiting nurse or other home services: No Alcohol intake: unknown Patient Tobacco Use Status: Current everyday Tobacco user Tobacco use type: Cigarette Cigarettes Per Day: 3 Smoked in Last 30 Days: No e-Cigarette/Vaping Use: Former Use Use of substances other than those prescribed or required for medical reasons: No Substance Use Type: Crack/Cocaine Advance Directives: No Advance Directives Information Provided: No Guardian: No service: No Sexual orientation: Don't Know <Missy Vogt NP - Last Filed: 03/03/22 16:53> Physical Exam Vital Signs: Vital Signs: Last Vital Signs Temp 99.0 F 03/04/22 06:30 Pulse 82 03/04/22 06:30 Resp 17 03/04/22 06:30 BP 147/87 H 03/04/22 06:30 Pulse Ox 97 03/04/22 06:30 O2 Del Method 03/04/22 06:30 BMI result Body Mass Index 20.9 <Missy Vogt COMPANY CONTROLLER - Last Filed: 03/03/22 16:53> Vital Signs: Last Vital Signs Temp 99.0 F 03/04/22 06:30 Pulse 82 03/04/22 06:30 Resp 17 03/04/22 06:30 BP 147/87 H 03/04/22 06:30 Pulse Ox 97 03/04/22 06:30 O2 Del Method 03/04/22 06:30 BMI result Body Mass Index 20.9 <Fallon Berry MD - Last Filed: 03/04/22 06:58> Const: General: cooperative, healthy appearing, alert and awake <Missy Vogt NP - Last Filed: 03/03/22 16:53> Nutritional Appearance: average body habitus <Misys Vogt COMPANY CONTROLLER - Last Filed: 03/03/22 16:53> Orientation/consciousness: patient oriented x3 <Missy Vogt NP - Last Filed: 03/03/22 16:53> Limitations: no limitations <Missy Vogt NP - Last Filed: 03/03/22 16:53> HEENT: Head: Yes normal to inspection and Yes atraumatic <Missy Vogt NP - Last Filed: 03/03/22 16:53> Ears: hearing grossly normal bilaterally and external ears normal <Missy Vogt COMPANY CONTROLLER - Last Filed: 03/03/22 16:53> General nose exam: Normal external nose present <Missy Vogt NP - Last Filed: 03/03/22 16:53> Face and sinus: Yes normal facial exam <Missy Vogt NP - Last Filed: 03/03/22 16:53> Eyes: General: appearance normal, both eyes and all related structures <iMssy Vogt NP - Last Filed: 03/03/22 16:53> Visual Solomon: normal visual solomon by confrontation <Missy Vogt, COMPANY CONTROLLER - Last Filed: 03/03/22 16:53> Alignment and Position: alignment normal <Missy Vogt, COMPANY CONTROLLER - Last Filed: 03/03/22 16:53> Periorbital: periorbital findings normal <Missy Vogt, COMPANY CONTROLLER - Last Filed: 03/03/22 16:53> Eyelids: Yes eyelids normal <Missy Vogt, COMPANY CONTROLLER - Last Filed: 03/03/22 16:53> Conjunctivae: conjunctivae normal <Missy Vogt, COMPANY CONTROLLER - Last Filed: 03/03/22 16:53> Sclerae: sclerae normal <Missy Vogt, COMPANY CONTROLLER - Last Filed: 03/03/22 16:53> Pupils: Equal, round and reactive pupils present <Missy Vogt, COMPANY CONTROLLER - Last Filed: 03/03/22 16:53> EOM: EOMs intact bilaterally <Missy Vogt, COMPANY CONTROLLER - Last Filed: 03/03/22 16:53> Neck: Neck: Yes normal visual inspection and Yes full ROM <Missy Vogt, COMPANY CONTROLLER - Last Filed: 03/03/22 16:53> Chest: Chest palpation & inspection: normal inspection of the chest <Missy Vogt, COMPANY CONTROLLER - Last Filed: 03/03/22 16:53> Resp: Effort & Inspection: normal respiratory effort and able to speak in complete sentences <Missy Vogt COMPANY CONTROLLER - Last Filed: 03/03/22 16:53> Auscultation: clear to auscultation bilaterally <Missy Vogt, COMPANY CONTROLLER - Last Filed: 03/03/22 16:53> Cardio: Rate: regular rate <Missy Vogt, COMPANY CONTROLLER - Last Filed: 03/03/22 16:53> Heart sounds: S1 normal heart sound present and S2 normal heart sound present <Missy Vogt, COMPANY CONTROLLER - Last Filed: 03/03/22 16:53> GI: Inspection: Yes normal to inspection <Missy Vogt, COMPANY CONTROLLER - Last Filed: 03/03/22 16:53> Rectal Exam - Male: Yes deferred and Yes visual inspection normal <Missycristian Vogt, COMPANY CONTROLLER - Last Filed: 03/03/22 16:53> Back/Spine/Pelvis: Cervical Spine: cervical ROM normal <Missycristian Vogt, COMPANY CONTROLLER - Last Filed: 03/03/22 16:53> Skin: General skin exam: no rashes or lesions noted <Missy Vgot, COMPANY CONTROLLER - Last Filed: 03/03/22 16:53> Neuro: General: patient oriented x3 <Missy Vogt, COMPANY CONTROLLER - Last Filed: 03/03/22 16:53> Cranial nerves: Yes Equal, round and reactive pupils present and Yes Normal hearing present <Missy Vogt, COMPANY CONTROLLER - Last Filed: 03/03/22 16:53> Cognition (Neuro): abnormal cognition <Missycristian Vogt, COMPANY CONTROLLER - Last Filed: 03/03/22 16:53> Motor exam (neuro): 5/5 motor strength present throughout <Missy Vogt, COMPANY CONTROLLER - Last Filed: 03/03/22 16:53> Extrem: General: Yes normal to inspection, Yes full ROM and Yes capillary refill normal <Missy Vogt, COMPANY CONTROLLER - Last Filed: 03/03/22 16:53> Psych: Appearance: grossly normal and well kempt <Missy Vogt, COMPANY CONTROLLER - Last Filed: 03/03/22 16:53> Speech and movement: Normal speech and movement present and Clear speech present <Missy Vogt COMPANY CONTROLLER - Last Filed: 03/03/22 16:53> Affect: Animated affect present <Missy Vogt, COMPANY CONTROLLER - Last Filed: 03/03/22 16:53> Attitude: cooperative <Missy Vogt, COMPANY CONTROLLER - Last Filed: 03/03/22 16:53> Thought process: Flight of ideas present, Illogical thought process present and Tangential thought process present <Missy Vogt, COMPANY CONTROLLER - Last Filed: 03/03/22 16:53> Thought content: Suicidality present and Paranoid delusions present <Missy Vogt, COMPANY CONTROLLER - Last Filed: 03/03/22 16:53> Insight: Poor insight present (Psych) <Missy Vogt NP - Last Filed: 03/03/22 16:53> Judgement: Poor judgement present (Psych) <Missy Vogt NP - Last Filed: 03/03/22 16:53> Course Reevaluation(s) Reevaluation #1: Patient is under physician after vacation, no event overnight reported by the nurse, patient has been evaluated under Section 12 and bed search is underway, will continue with physician observation status. <Fallon Berry MD - Last Filed: 03/04/22 06:58> Time: 06:57 <Fallon Berry MD - Last Filed: 03/04/22 06:58> MDM - Psych MDM Narrative Medical decision making narrative: 31-year-old assigned male at , presents to the emergency department behavioral health unit with suicidal ideations with stated plan. During interview, patient is sitting comfortably on the patient bed. His speech is hyperverbal and animated stating that he is unable to provide blood work due to a spiritual being following him that intends to harm him through his blood. He states he has had the delusion of being followed by spiritual and he since he was a toddler. On physical exam, white folded paper present in gluteal cleft. Patient states he uses it as a ?toilet?. Patient placed in physician observation pending disposition. Patient to remain inpatient with section [address] Patient continues to refuse blood draws at this time. <Missy Vogt NP - Last Filed: 03/03/22 16:53> Differential Diagnosis Differential diagnosis: Likely suicidal ideation, bipolar disorder and substance abuse <Missy Vogt NP - Last Filed: 03/03/22 16:53> Lab Data Labs: Lab Results 03/03/22 03/03/22 03/03/22 Range/Units 13:00 13:00 13:00 Urine Color Yellow Urine Appearance Clear Urine pH 8.5 (5.0-9.0) Ur Specific [place] 1.010 (1.005-1.025) Urine Protein Negative (Neg-Trace) mg/dL Urine Glucose (UA) Negative (Negative) mg/dL Urine Ketones Negative (Negative) mg/dL Urine Blood Negative (Negative) Urine Nitrite Negative (Negative) Ur Leukocyte Esterase Negative (Negative) Urine Opiates Screen Not Detected (Not Detect) Urine Fentanyl Screen Not Detected (Not Detect) Ur Barbiturates Screen Not Detected (Not Detect) Ur Phencyclidine Scrn Not Detected (Not Detect) Ur Amphetamines Screen Not Detected (Not Detect) U Benzodiazepines Scrn Not Detected (Not Detect) Urine Cocaine Screen Not Detected (Not Detect) U Marijuana (THC) Screen POSITIVE H (Not Detect) COVID-19 (JOVANNA) Negative (Negative) COVID-19 Clin Com See Note <Missy Vogt NP - Last Filed: 03/03/22 16:53> Lab Results 03/03/22 03/03/22 03/03/22 Range/Units 13:00 13:00 13:00 Urine Color Yellow Urine Appearance Clear Urine pH 8.5 (5.0-9.0) Ur Specific [place] 1.010 (1.005-1.025) Urine Protein Negative (Neg-Trace) mg/dL Urine Glucose (UA) Negative (Negative) mg/dL Urine Ketones Negative (Negative) mg/dL Urine Blood Negative (Negative) Urine Nitrite Negative (Negative) Ur Leukocyte Esterase Negative (Negative) Urine Opiates Screen Not Detected (Not Detect) Urine Fentanyl Screen Not Detected (Not Detect) Ur Barbiturates Screen Not Detected (Not Detect) Ur Phencyclidine Scrn Not Detected (Not Detect) Ur Amphetamines Screen Not Detected (Not Detect) U Benzodiazepines Scrn Not Detected (Not Detect) Urine Cocaine Screen Not Detected (Not Detect) U Marijuana (THC) Screen POSITIVE H (Not Detect) COVID-19 (JOVANNA) Negative (Negative) COVID-19 Clin Com See Note <Fallon Berry MD - Last Filed: 03/04/22 06:58> Discharge Plan Discharge Clinical Impression: Bipolar disorder, Schizoaffective disorder <Missy Vogt NP - Last Filed: 03/03/22 16:53> Patient Disposition: Still a Patient <Missy Vogt NP - Last Filed: 03/03/22 16:53> Prescriptions: No Action No Known Home Meds <Missy Vogt NP - Last Filed: 03/03/22 16:53> Interventions: [place]-Suicide Risk Severity Scale Last Done: 03/03/22 12:15 <Missy Vogt COMPANY CONTROLLER - Last Filed: 03/03/22 16:53>
--- NOTE | 2022-03-03 12:23 | PC.NURSE ---
Addendum entered by Jocelyne Nava 03/03/22 12:56: Refusing blood draw. Addendum entered by Jocelyne Nava 03/03/22 12:35: Per provider: non med compliant for months. Addendum entered by Jocelyne Nava 03/03/22 12:33: White tissue paper removed by provider. No substances noted in tissue paper. Disposed of. Original Note: During changeover ERT noticed a white plastic bag that was between butt cheeks/rectum. Pt has been shifting ? concealing items under clothing. Provider to bedside to evaluate
--- OUTSIDE RECORDS SUMMARY | 2022-03-03 12:56 | XMS_ITS | Continuity of Care Document ---
:1990 Author Organization [facility] Address [address] [place] [id number]- Care Team Providers Name Role Phone Gonzalo BOND, Katelin Caceres Primary Care Physician Encounter [facility] [place] Date(s): 12/05/19 - 01/28/20 [facility] [address] [place] [id number]- [facility] Attending Physician: Gonzalo BOND, Katelin Caceres Admitting Physician: Gonzalo BOND, Katelin Caceres Allergies, Adverse Reactions, Alerts Substance Reaction Severity Status NKA Active Immunizations Given and Recorded Vaccine Date Status Refusal Reason Human Papillomavirus Vaccine 01/16/20 Given influenza virus vaccine, inactivated 01/16/20 Given influenza virus vaccine, inactivated 05/19/17 Given tetanus/diphtheria/pertussis, acel(Tdap) 04/18/15 Given Medications Daily Nicanor oral tablet 1 tablet, By Mouth, Daily, # 30 tablet, 5 Refills, Maintenance, 05/06/19 17:08:00 EST, [facility], 1 tablet By Mouth Daily,x30 days, 175, cm, 02/08/19 9:27:00 EDT, Height Start Date: 05/06/19 Stop Date: 11/02/19 Status: Orderedestradiol valerate 20 mg/mL intramuscular solution = 20 mg, Intramuscular, Every 14 days, # 1 mL, 3 Refills, Maintenance, 01/16/20 14:45:00 EDT, [facility], 175, cm, 01/16/20 13:42:00 EDT, Height Start Date: 01/16/20 Status: Orderedspironolactone 100 mg oral tablet 100 mg, 1, tablet, By Mouth, 2 times a day, with meals-, # 60 tablet, Refills 3, Tot. Refills 3, Maintenance, 01/16/20 14:45:00 EDT, [facility] dose [facility], 175, cm, 01/16/20 13:42:00 EDT, Height Start Date: 01/16/20 Stop Date: 05/15/20 Status: OrderedvalACYclovir 500 mg oral tablet 500 mg, 1, tablet, By Mouth, Daily, # 90 tablet, Refills 3, Tot. Refills 3, Maintenance, 01/16/20 14:45:00 EDT, Route to Pharmacy Electronically, [facility] 175, cm, 01/16/20 13:42:00 EDT, Height Start Date: 01/16/20 Status: Ordered Problem List Condition Effective Dates Status Health Status Informant Genital herpes(Confirmed) Active Glaucoma(Confirmed)1 Active 1with history of retinal detachment. followed by Dr. Hadley. Social History Social History Type Response Tobacco Use: 4 or less cigarettes(le ss than 1/4 pack)/day in last 30 days. Sex Male
--- OUTSIDE RECORDS SUMMARY | 2022-03-03 12:56 | XMS_ITS | Continuity of Care Document ---
:1990 Author Organization [facility] Address [address] [place] [address]- Care Team Providers Name Role Phone Gonzalo BOND, Katelin Caceres Primary Care Physician Encounter [facility] [place] Date(s): 06/09/19 - 07/21/19 [facility] [address] [place] [address]- [facility] Attending Physician: Not on Staff, Attending MD Allergies, Adverse Reactions, Alerts Substance Reaction Severity Status NKA Active Immunizations Given and Recorded Vaccine Date Status Refusal Reason influenza virus vaccine, inactivated 05/19/17 Given tetanus/diphtheria/pertussis, acel(Tdap) 04/18/15 Given Medications 18 gauge 1 or 1.5 inch needles 18 gauge 1 or 1.5 inch needles, See Instructions, # 12 each, Refills 3, Tot. Refills 3, Maintenance,for use to draw estradiol valerate-, 05/06/19 17:08:00 EST, please dispense needle only, thanks!, Compound, 175, cm, 02/08/19 9:27:00 EDT, Height Start Date: 05/06/19 Status: [id number] gauge 5/8th inch needles with 1 cc tuberculin slip tip syringe 25 gauge 5/8th inch needles with 1 cc tuberculin slip tip syringe, See Instructions, # 12 each, Refills 2, Tot. Refills 2, Maintenance, for use with estradiol valerate, 05/06/19 17:08:00 EST, Compound,175, cm, 02/08/19 9:27:00 EDT, Height Start Date: 05/06/19 Status: OrderedDaily Nicanor oral tablet 1 tablet, By Mouth, Daily, # 30 tablet, 5 Refills, Maintenance, 05/06/19 17:08:00 EST, [facility], 1 tablet By Mouth Daily,x30 days, 175, cm, 02/08/19 9:27:00 EDT, Height Start Date: 05/06/19 Stop Date: 11/02/19 Status: Orderedestradiol valerate 20 mg/mL intramuscular solution = 20 mg, Intramuscular, Every 14 days, # 5 mL, 3 Refills, Maintenance, 03/31/19 20:41:00 EST, [facility], 175, cm, 02/08/19 9:27:00 EDT, Height Start Date: 03/31/19 Status: Orderedprogesterone 100 mg oral capsule 1 capsule, By Mouth, Daily at bedtime, # 30 capsule, 0 Refills, Acute, 05/10/19 7:58:00 EST, [facility], [facility], cm, 02/08/19 9:27:00 EDT, Height Start Date: 05/10/19 Status: OrderedSEROquel 25 mg oral tablet 25 mg, 1, tablet, By Mouth, Daily, # 30 tablet, Refills 1, Tot. Refills 1, Maintenance, 09/25/16 14:30:07, Route to Pharmacy Electronically, [id number], [facility]. Start Date: 09/25/16 Stop Date: 11/24/16 Status: Orderedspironolactone 100 mg oral tablet 100 mg, 1, tablet, By Mouth, 2 times a day, with meals-, # 60 tablet, Refills 7, Tot. Refills 7, Maintenance, 08/31/18 8:24:29 EDT, Route to Pharmacy Electronically, [id number], [facility], dose increase Start Date: 08/31/18 Stop Date: 04/28/19 Status: OrderedvalACYclovir 500 mg oral tablet 500 mg, 1, tablet, By Mouth, Daily, # 90 tablet, Refills 3, Tot. Refills 3, Maintenance, 08/10/18 11:10:00 EDT, Route to Pharmacy Electronically, [id number], [facility] Start Date: 08/10/18 Status: Ordered Problem List Condition Effective Dates Status Health Status Informant Genital herpes(Confirmed) Active Glaucoma(Confirmed)1 Active 1with history of retinal detachment. followed by Dr. Hadley. Social History Social History Type Response Tobacco Use: 4 or less cigarettes(le ss than 1/4 pack)/day in last 30 days. Sex Male
--- OUTSIDE RECORDS SUMMARY | 2022-03-03 12:56 | XMS_ITS | Continuity of Care Document ---
:1990 Author Organization [facility] Address [address] [place] [address]- Care Team Providers Name Role Phone Gonzalo BOND, Katelin Caceres Primary Care Physician [phone] Encounter [facility] [place] Date(s): 03/15/19 - 04/16/19 [facility] [address] [place] [address]- [facility] Attending Physician: Not on Staff, Attending MD [...] 3, Maintenance,for use to draw estradiol valerate-, 08/10/18 11:09:40 EDT, please dispense needle only, thanks!, Compound Start Date: 08/10/18 Status: [id number] gauge 5/8th inch needles with 1 cc tuberculin slip tip syringe 25 gauge 5/8th inch needles with 1 cc tuberculin slip tip syringe, See Instructions, # 12 each, Refills 2, Tot. Refills 2, Maintenance, for use with estradiol valerate, 08/30/18 15:39:10 EDT, Compound Start Date: 08/30/18 Status: OrderedDaily Nicanor oral tablet 1 tablet, By Mouth, Daily, # 30 tablet, 5 Refills, Maintenance, 08/30/18 15:36:02 EDT, 1 tablet By Mouth Daily,x30 days Start Date: 08/30/18 Stop Date: 02/26/19 Status: Orderedestradiol valerate 20 mg/mL intramuscular solution = 20 mg, Intramuscular, Every 14 days, # 5 mL, 3 Refills, Maintenance, 03/31/19 20:41:00 EST, [facility]., 175, cm, 02/08/19 9:27:00 EDT, Height Start Date: 03/31/19 Status: OrderedPrometrium 100 mg oral capsule 1 capsule = 100 mg, By Mouth, Daily at bedtime, for 30 days, # 30 capsule, 3 Refills, Acute 208:14:14 EST, 01/04/19 8:14:14 EDT Start Date: 01/04/19 Stop Date: 05/04/19 Status: OrderedSEROquel 25 mg oral tablet 25 mg, 1, tablet, By Mouth, Daily, # 30 tablet, Refills 1, Tot. Refills 1, Maintenance, 09/25/16 14:30:07, Route to Pharmacy Electronically, [id number], [facility]. Start Date: 09/25/16 Stop Date: 11/24/16 Status: Orderedspironolactone 100 mg oral tablet 100 mg, 1, tablet, By Mouth, 2 times a day, with meals-, # 60 tablet, Refills 7, Tot. Refills 7, Maintenance, 08/31/18 8:24:29 EDT, Route to Pharmacy Electronically, [id number], [facility], dose increase Start Date: 08/31/18 Stop Date: 04/28/19 Status: OrderedvalACYclovir 500 mg oral tablet 500 mg, 1, tablet, By Mouth, Daily, # 90 tablet, Refills 3, Tot. Refills 3, Maintenance, 08/10/18 11:10:00 EDT, Route to Pharmacy Electronically, [id number], [facility]. Start Date: 08/10/18 Status: Ordered Problem List Condition Effective Dates Status Health Status Informant Genital herpes(Confirmed) Active Glaucoma(Confirmed)1 Active 1with history of retinal detachment. followed by Dr. Hadley. Social History Social History Type Response Tobacco Use: 4 or less cigarettes(le ss than 1/4 pack)/day in last 30 days. Sex
--- OUTSIDE RECORDS SUMMARY | 2022-03-03 12:56 | XMS_ITS | Continuity of Care Document ---
:1990 Author Organization [facility] Address [address] [place] [address]- Care Team Providers Name Role Phone Gonzalo BOND, Katelin Caceres Primary Care Physician [phone] [facility] Date(s): 02/10/20 - 03/22/20 [facility] [address] [place] [address]- Attending Physician: Reese Jaeger MD Admitting Physician: Reese Jaeger MD Allergies, Adverse Reactions, Alerts Substance Reaction Severity Status NKA Active Immunizations Given and Recorded Vaccine Date Status Refusal Reason Human Papillomavirus Vaccine 01/16/20 Given influenza virus vaccine, inactivated 01/16/20 Given influenza virus vaccine, inactivated 05/19/17 Given tetanus/diphtheria/pertussis, acel(Tdap) 04/18/15 Given Medications Daily Nicanor oral tablet 1 tablet, By Mouth, Daily, # 30 tablet, 5 Refills, Maintenance, 05/06/19 17:08:00 EST, [facility], 1 tablet By Mouth Daily,x30 days, 175, cm, 02/08/19 9:27:00 EDT, Height Start Date: 05/06/19 Stop Date: 11/02/19 Status: Orderedestradiol valerate 20 mg/mL intramuscular solution = 20 mg, Intramuscular, Every 14 days, # 1 mL, 3 Refills, Maintenance, 01/16/20 14:45:00 EDT, [facility], 175, cm, 01/16/20 13:42:00 EDT, Height Start Date: 01/16/20 Status: Orderedspironolactone 100 mg oral tablet 100 mg, 1, tablet, By Mouth, 2 times a day, with meals-, # 60 tablet, Refills 3, Tot. Refills 3, Maintenance, 01/16/20 14:45:00 EDT, [facility] dose increase, 175, cm, 01/16/20 13:42:00 EDT, Height Start Date: 01/16/20 Stop Date: 05/15/20 Status: OrderedvalACYclovir 500 mg oral tablet 500 mg, 1, tablet, By Mouth, Daily, # 90 tablet, Refills 3, Tot. Refills 3, Maintenance, 01/16/20 14:45:00 EDT, Route to Pharmacy Electronically, [facility]., 175, cm, 01/16/20 13:42:00 EDT, Height [...]
--- OUTSIDE RECORDS SUMMARY | 2022-03-03 12:56 | XMS_ITS | Continuity of Care Document ---
:1990 Author Organization [facility] Address [address] [place] [address]- Care Team Providers Name Role Phone Gonzalo BOND, Katelin Caceres Primary Care Physician Encounter [facility] Date(s): 06/21/19 - 07/01/19 [facility] [address] [place] [address]- [place] Attending Physician: Admkristopher, Jann8 Admitting Physician: [id number] Referring Physician: Admtr, Ar8 Allergies, Adverse Reactions, Alerts Substance Reaction Severity [...] 9:27:00 EDT, Height Start Date: 05/06/19 Status: [id number] gauge 5/8th inch needles with 1 cc [...] tablet, 5 Refills, Maintenance, 05/06/19 17:08:00 EST, [facility], 1 tablet By Mouth Daily,x30 days, 175, cm, 02/08/19 9:27:00 EDT, Height Start Date: 05/06/19 Stop Date: 11/02/19 Status: Orderedestradiol valerate 20 mg/mL intramuscular solution = 20 mg, Intramuscular, Every 14 days, # 5 mL, 3 Refills, Maintenance, 03/31/19 20:41:00 EST, [facility]., 175, cm, 02/08/19 9:27:00 EDT, Height Start Date: 03/31/19 Status: Orderedprogesterone 100 mg oral capsule 1 capsule, By Mouth, Daily at bedtime, # 30 capsule, 0 Refills, Acute, 05/10/19 7:58:00 EST, [facility], 175, cm, 02/08/19 9:27:00 EDT, Height Start Date: 05/10/19 Status: OrderedSEROquel 25 mg oral tablet 25 mg, 1, tablet, By Mouth, Daily, # 30 tablet, Refills 1, Tot. Refills 1, Maintenance, 09/25/16 14:30:07, Route to Pharmacy Electronically, [id number], [facility]. Start Date: 09/25/16 Stop Date: 11/24/16 Status: Orderedspironolactone 100 mg oral tablet 100 mg, 1, tablet, By Mouth, 2 times a day, with meals-, # 60 tablet, Refills 7, Tot. Refills 7, Maintenance, 08/31/18 8:24:29 EDT, Route to Pharmacy Electronically, [id number], [facility], dose increase Start Date: 08/31/18 Stop Date: 04/28/19 Status: OrderedvalACYclovir 500 mg oral tablet 500 mg, 1, tablet, By Mouth, Daily, # 90 tablet, Refills 3, Tot. Refills 3, Maintenance, 08/10/18 11:10:00 EDT, Route to Pharmacy Electronically, [id number], [facility] Start Date: 08/10/18 Status: Ordered Problem List Condition Effective Dates Status Health Status Informant Genital herpes(Confirmed) Active Glaucoma(Confirmed)1 Active 1with history of retinal detachment. followed by Dr. Hadley. Social History Social History Type Response Tobacco Use: 4 or less cigarettes(le ss than 1/4 pack)/day in last 30 days. Sex Male
--- OUTSIDE RECORDS SUMMARY | 2022-03-03 12:57 | XMS_ITS | Continuity of Care Document ---
:1990 Author Organization [facility] Address [address] [place] [address]- Care Team Providers Name Role Phone Gonzalo BOND, Katelin Caceres Primary Care Physician [phone] Encounter [facility] [facility] Date(s): 08/27/21 - 08/29/[address] [address]- Encounter Diagnosis Depression (Final) - 08/28/21 Suicidal ideation (Final) - 08/28/21 Discharge Disposition: A-D/C Home Attending Physician: Oseas Ugarte DO Admitting Physician: Oseas Ugarte DO Referring Physician: Not on Staff, Referring MD Allergies, Adverse Reactions, Alerts No Known Allergies Immunizations Given and Recorded Vaccine Date Status Refusal Reason Human Papillomavirus Vaccine 01/16/20 Given influenza virus vaccine, inactivated 01/16/20 Given influenza virus vaccine, inactivated 05/19/17 Given tetanus/diphtheria/pertussis, acel(Tdap) 04/18/15 Given Medications Abilify 5 mg oral tablet 5 mg, 1, tablet, By Mouth, Daily, # 30 tablet, Refills 0, Tot. Refills 0, Maintenance, 04/15/21 10:25:00 EST, [id number] Partial fill upon patient request if the prescription is for a schedule II opioid drug.... Start Date: 04/15/21 Stop Date: 05/15/21 Status: OrderedARIPiprazole 5 mg oral tablet 5 mg, 1, tablet, By Mouth, Daily, # 30 tablet, Refills 0, Tot. Refills 0, Maintenance, 11/09/20 9:40:00 EDT, Route to Pharmacy Electronically, [facility]-, Partial fill upon patient request if the prescription is for a schedule... Start Date: 11/09/20 Status: OrderedDaily Nicanor oral tablet 1 tablet, By Mouth, Daily, # 30 tablet, 1 Refills, Maintenance, 11/08/20 17:59:00 EDT, [facility], 1 tablet By Mouth Daily,x30 days, 168, cm, 11/08/20 9:22:00 EDT, Height, 55.5,kg, 10/26/20 17:00:00 EDT, Dry Weight Start Date: 11/08/20 Stop Date: 01/07/21 Status: Ordered Problem List Condition Effective Dates Status Health Status Informant Genital herpes(Confirmed) Active Glaucoma(Confirmed)1 Active *Jade Hodges, care attendant, Active [facility] [phone](Confirmed) 1with history of retinal detachment. followed by Dr. Hadley. Vital Signs Most recent to oldest 1 2 3 [Reference Range]: Oxygen Saturation [94-100 %] 100 % 97 % 99 % (08/29/21 12:43 PM) (08/29/21 6:42 AM) (08/28/21 10 :57 PM) Pulse Rate [55-90 bpm] 80 bpm 65 bpm 62 bpm (08/29/21 12:43 PM) (08/29/21 6:42 AM) (08/28/21 10 :57 PM) Blood Pressure [90-138/55-84 149/60 mm Hg 98/79 mm Hg 120 /71 mm Hg mm Hg] *H* (08/29/21 6:42 AM) (08/28/21 10:57 PM) (08/29/21 12:43 PM) Respiratory Rate [16-30 18 br/min 16 br/min 16 br/mi n br/min] (08/29/21 12:43 PM) (08/29/21 6:42 AM) (08/28/21 10 :57 PM) Temperature [96.8-100.4 98.0 DegF 97.6 DegF 98.0 Deg F DegF] (08/29/21 12:43 PM) (08/29/21 6:42 AM) (08/28/21 10 :57 PM) Liters per Minute 0 L/min (08/27/21 11:15 PM) Mode of Delivery (Oxygen) Room air Room air Room a ir (08/29/21 12:43 PM) (08/28/21 10:57 PM) (08/28/21 5 :32 PM) Blood pressure sites Arm, right Arm, right Arm, right (08/29/21 12:43 PM) (08/29/21 6:42 AM) (08/28/21 10 :57 PM) Temperature Route Oral Oral Oral (08/29/21 12:43 PM) (08/29/21 6:42 AM) (08/28/21 10 :57 PM) Social History Social History Type Response Tobacco Use: 4 or less cigarettes(le ss than 1/4 pack)/day in last 30 days. Interested in cessatio n: No. No Sex
--- OUTSIDE RECORDS SUMMARY | 2022-03-03 12:57 | XMS_ITS | Continuity of Care Document ---
:1990 Author Organization [facility] [place] [address]- Care Team Providers Name Role Phone Gonzalo BOND, Katelin Caceres Primary Care Physician [phone] Encounter [facility] Date(s): 05/20/20 - 05/20/[address] [address]- Encounter Diagnosis Glaucoma (Final) - 05/20/20 Discharge Disposition: A-D/C Home Attending Physician: Oseas Ugarte DO Admitting Physician: Oseas Ugarte DO Referring Physician: Not on Staff, Referring MD Allergies, Adverse Reactions, Alerts Substance Reaction Severity Status NKA Active Immunizations Given and Recorded Vaccine Date Status Refusal Reason Human Papillomavirus Vaccine 01/16/20 Given influenza virus vaccine, inactivated 01/16/20 Given influenza virus vaccine, inactivated 05/19/17 Given tetanus/diphtheria/pertussis, acel(Tdap) 04/18/15 Given Medications BD 1 ML SYRINGE LUER-SHILOH TIP BD 1 ML SYRINGE LUER-SHILOH TIP, See Instructions, # 2 each, Refills 6, Tot. Refills 6, Maintenance, USE TO ADMINISTER ESTRADIOL VALERATE, 03/27/20 15:50:00 EST, Supply, 175, cm, 01/16/20 13:42:00 EDT, Height Start Date: 03/27/20 Status: OrderedBD PRECISIONGLIDE NEDDLE BD PRECISIONGLIDE NEDDLE, See Instructions, # 2 each, Refills 6, Tot. Refills 6, Maintenance, USE TOADMINESTER ESTRADIOL VALERATE, 03/27/20 15:52:00 EST, Supply, 175, cm, 01/16/20 13:42:00 EDT, Height Start Date: 03/27/20 Status: OrderedDaily Nicanor oral tablet 1 tablet, By Mouth, Daily, # 30 tablet, 5 Refills, Maintenance, 03/27/20 17:21:00 EST, [facility], 1 tablet By Mouth Daily,x30 days, 175, cm, 01/16/20 13:42:00 EDT, Height Start Date: 03/27/20 Stop Date: 09/23/20 Status: Orderedestradiol valerate 20 mg/mL intramuscular solution = 20 mg, Intramuscular, Every 14 days, # 1 mL, 3 Refills, Maintenance, 01/16/20 14:45:00 EDT, [facility], 175, cm, 01/16/20 13:42:00 EDT, Height Start Date: 01/16/20 Status: Orderedspironolactone 100 mg oral tablet 100 mg, 1, tablet, By Mouth, 2 times a day, with meals-, # 60 tablet, Refills 3, Tot. Refills 3, Maintenance, 01/16/20 14:45:00 EDT, Route to Pharmacy Electronically, [facility], dose increase, 175, cm, 01/16/20 13:42:00 EDT, Height Start Date: 01/16/20 Stop Date: 05/15/20 Status: OrderedvalACYclovir 500 mg oral tablet 500 mg, 1, tablet, By Mouth, Daily, # 90 tablet, Refills 3, Tot. Refills 3, Maintenance, 01/16/20 14:45:00 EDT, Route to Pharmacy Electronically, [facility], 175, cm, 01/16/20 13:42:00 EDT, Height Start Date: 01/16/20 Status: Ordered Problem List Condition Effective Dates Status Health Status Informant Genital herpes(Confirmed) Active Glaucoma(Confirmed)1 Active *Jade Hodges, critical care rn, Active [facility] [phone](Confirmed) 1with history of retinal detachment. followed by Dr. Hadley. Vital Signs Most recent to oldest [Reference Range]: 1 2 Oxygen Saturation [94-100 %] 100 % 100 % (05/20/20 11:02 AM) (05/20/20 6:38 AM) Pulse Rate [55-90 bpm] 70 bpm 68 bpm (05/20/20 11:02 AM) (05/20/20 6:38 AM) Blood Pressure [90-138/55-84 mm Hg] 108/68 mm Hg 114/ 73 mm Hg (05/20/20 11:02 AM) (05/20/20 6:38 AM) Respiratory Rate [16-30 br/min] 15 br/min 17 br/mi n *L* (05/20/20 6:38 AM) (05/20/20 11:02 AM) Temperature [96.8-100.4 DegF] 97.8 DegF (05/20/20 6:38 AM) Mode of Delivery (Oxygen) Room air (05/20/20 6:38 AM) Blood pressure sites Arm, left Arm, left (05/20/20 11:02 AM) (05/20/20 6:38 AM) Temperature Route Oral (05/20/20 6:38 AM) Social History Social History Type Response Tobacco Use: 4 or less cigarettes(le ss than 1/4 pack)/day in last 30 days. Sex Male
--- OUTSIDE RECORDS SUMMARY | 2022-03-03 12:57 | XMS_ITS | Continuity of Care Document ---
:1990 Author Organization [facility] Address [address] [place] [address]- Care Team Providers Name Role Phone Gonzalo BOND, Katelin Caceres Primary Care Physician Encounter [facility] Date(s): 07/02/20 - 07/02/[address] [address]- Discharge Disposition: A-D/C Home Attending Physician: Aakash Reyes MD Admitting Physician: Aakash Reyes MD Referring Physician: Not on Staff, Referring MD [...] 3, Maintenance,for use to draw estradiol valerate-, 05/23/20 15:14:00 EST, please dispense needle only, thanks!, Compound, 175, cm, 01/16/20 13:42:00 EDT, Height Start Date: 05/23/20 Status: OrderedBD 1 ML SYRINGE LUER-SHILOH TIP BD 1 ML SYRINGE LUER-SHILOH TIP, See Instructions, # 2 each, Refills 6, Tot. Refills 6, Maintenance, USE TO ADMINISTER ESTRADIOL VALERATE, 03/27/20 15:50:00 EST, Supply, 175, cm, 01/16/20 13:42:00 EDT, Height Start Date: 03/27/20 Status: OrderedBD PRECISIONGLIDE NEDDLE BD PRECISIONGLIDE NEDDLE, See Instructions, # 2 each, Refills 6, Tot. Refills 6, Maintenance, USE TOADMINESTER ESTRADIOL VALERATE, 05/23/20 15:13:00 EST, Supply, 175, cm, 01/16/20 13:42:00 EDT, Height Start Date: 05/23/20 Status: Orderedcefpodoxime 200 mg oral tablet 2 tablet = 400 mg, By Mouth, Every 12 hours, for 10 days, # 40 tablet, 0 Refills, Acute 07/12/20 3:35:00 EDT, 07/02/20 3:35:00 EDT, Tablet, Partial fill upon patient request if the prescription is for a schedule II opioid drug. Start Date: 07/02/20 Stop Date: 07/12/20 Status: Orderedclotrimazole 1% topical cream 1 application, Topically, 2 times a day, # 12 Gm, 0 Refills, Acute 07/07/20 19:03:00 EDT, 06/23/20 19:03:00 EST, Cream, Partial fill upon patient request if the prescription is for a schedule II opioiddrug. Start Date: 06/23/20 Stop Date: 07/07/20 Status: OrderedDaily Nicanor oral tablet 1 tablet, By Mouth, Daily, # 30 tablet, 5 Refills, Maintenance, 03/27/20 17:21:00 EST, [facility] 1 tablet By Mouth Daily,x30 days, 175, cm, 01/16/20 13:42:00 EDT, Height Start Date: 03/27/20 Stop Date: 09/23/20 Status: Orderedestradiol valerate 20 mg/mL intramuscular solution = 20 mg, Intramuscular, Every 14 days, # 1 mL, 3 Refills, Maintenance, 01/16/20 14:45:00 EDT, [facility]., 175, cm, 01/16/20 13:42:00 EDT, Height Start Date: 01/16/20 Status: Orderedspironolactone 100 mg oral tablet 100 mg, 1, tablet, By Mouth, 2 times a day, with meals-, # 60 tablet, Refills 3, Tot. Refills 3, Maintenance, 01/16/20 14:45:00 EDT, [facility] to [facility]ically, [facility] dose increase, 175, cm, 01/16/20 13:42:00 EDT, Height Start Date: 01/16/20 Stop Date: 05/15/20 Status: OrderedvalACYclovir 500 mg oral tablet 500 mg, 1, tablet, By Mouth, Daily, # 90 tablet, Refills 3, Tot. Refills 3, Maintenance, 01/16/20 14:45:00 EDT, Route to Pharmacy Electronically, [facility]., 175, cm, 01/16/20 13:42:00 EDT, Height Start Date: 01/16/20 Status: Ordered Problem List Condition Effective Dates Status Health Status Informant Genital herpes(Confirmed) Active Glaucoma(Confirmed)1 Active *Jade Hodges, foster care case manager, Active [facility] [phone](Confirmed) 1with history of retinal detachment. followed by Dr. Hadley. Vital Signs Most recent to oldest [Reference Range]: 1 2 Oxygen Saturation [94-100 %] 100 % 100 % (07/02/20 6:28 AM) (07/02/20 1:12 AM) Pulse Rate [55-90 bpm] 61 bpm 61 bpm (07/02/20 6:28 AM) (07/02/20 1:12 AM) Blood Pressure [90-138/55-84 mm Hg] 100/62 mm Hg 117/ 75 mm Hg (07/02/20 6:28 AM) (07/02/20 1:12 AM) Respiratory Rate [16-30 br/min] 20 br/min 16 br/mi n (07/02/20 6:28 AM) (07/02/20 1:12 AM) Temperature [96.8-100.4 DegF] 97.9 DegF (07/02/20 1:12 AM) Mode of Delivery (Oxygen) Room air Room air (07/02/20 6:28 AM) (07/02/20 1:12 AM) Blood pressure sites Arm, left (07/02/20 1:12 AM) Temperature Route Oral (07/02/20 1:12 AM) Social History Social History Type Response Tobacco Use: 4 or less cigarettes(le ss than 1/4 pack)/day in last 30 days. Sex Male
--- OUTSIDE RECORDS SUMMARY | 2022-03-03 12:57 | XMS_ITS | Continuity of Care Document ---
:1990 Author Organization [facility] Address [address] [place] [address]- Care Team Providers Name Role Phone Gonzalo BOND, Katelin Caceres Primary Care Physician Encounter [facility] [id number] Date(s): 01/01/22 - 02/12/22 [facility] [address] [place] [id number] Attending Physician: Reese Jaeger MD Admitting Physician: Reese Jaeger MD Referring Physician: Katelin Sánchez NP Allergies, Adverse Reactions, Alerts No Known Allergies [...] 04/15/21 10:25:00 EST, [id number] Partial fill upon patient request if the prescription is for a schedule II opioid drug.... Start Date: 04/15/21 Stop Date: 05/15/21 Status: OrderedARIPiprazole 5 mg oral tablet 5 mg, 1, tablet, By Mouth, Daily, # 30 tablet, Refills 0, Tot. Refills 0, Maintenance, 11/09/20 9:40:00 EDT, Route to Pharmacy Electronically, [facility], Partial fill upon patient request if the prescription is for a schedule... Start Date: 11/09/20 Status: OrderedDaily Nicanor oral tablet 1 tablet, By Mouth, Daily, # 30 tablet, 1 Refills, Maintenance, 11/08/20 17:59:00 EDT, [facility], 1 tablet By Mouth Daily,x30 days, 168, cm, 11/08/20 9:22:00 EDT, Height, 55.5,kg, 10/26/20 17:00:00 EDT, Dry Weight Start Date: 11/08/20 Stop Date: 01/07/21 Status: Ordered Problem List Condition Confirmation Course Effective Dates Status Health Stat us Informant Genital herpes Confirmed Active Glaucoma1 Confirmed Active *Jade Hodges, Confirmed Active home care music therapist, [facility] [phone] 1with history of retinal detachment. followed by Dr. Hadley. Social History Social History Type Response Tobacco Use: 4 or less cigarettes(le ss than 1/4 pack)/day in last 30 days. Interested in cessatio n: No. No Sex Patient Care team information PersonnelName: Gonzalo BOND, Katelin Caceres Address: Address: [address] [place] [address], [facility] [place], [place] [address]
--- OUTSIDE RECORDS SUMMARY | 2022-03-03 12:57 | XMS_ITS | Continuity of Care Document ---
:1990 Author Organization [facility] Address [address] [place] [address]- Care Team Providers Name Role Phone Gonzalo BOND, Katelin Caceres Primary Care Physician Encounter [facility] Date(s): 12/01/19 - 12/31/19 [facility] [address] [place] [address]- [facility] Allergies, Adverse Reactions, Alerts Substance Reaction Severity Status NKA Active Immunizations Given and Recorded Vaccine Date Status Refusal Reason influenza virus vaccine, inactivated 05/19/17 Given tetanus/diphtheria/pertussis, acel(Tdap) 04/18/15 Given Medications Daily Nicanor oral tablet 1 tablet, By Mouth, Daily, # 30 tablet, 5 Refills, Maintenance, 05/06/19 17:08:00 EST, [facility], 1 tablet By Mouth Daily,x30 days, 175, cm, 02/08/19 9:27:00 EDT, Height Start Date: 05/06/19 Stop Date: 11/02/19 Status: Orderedestradiol valerate 20 mg/mL intramuscular solution = 20 mg, Intramuscular, Every 14 days, # 1 mL, 0 Refills, Maintenance, 12/06/19 15:58:00 EDT, [facility], 175, cm, 02/08/19 9:27:00 EDT, Height Start Date: 12/06/19 Status: Orderedspironolactone 100 mg oral tablet 100 mg, 1, tablet, By Mouth, 2 times a day, with meals-, # 60 tablet, Refills 0, Tot. Refills 0, Maintenance, 12/06/19 15:59:00 EDT, Route to Pharmacy Electronically, [facility], dose increase, 175, cm, 02/08/19 9:27:00 EDT, Height Start Date: 12/06/19 Stop Date: 01/05/20 Status: OrderedvalACYclovir 500 mg oral tablet 500 mg, 1, tablet, By Mouth, Daily, # 90 tablet, Refills 3, Tot. Refills 3, Maintenance, 08/10/18 11:10:00 EDT, Route to Pharmacy Electronically, [id number], [facility] Start Date: 08/10/18 Status: Ordered Problem List Condition Effective Dates Status Health Status Informant Genital herpes(Confirmed) Active Glaucoma(Confirmed)1 Active 1with history of retinal detachment. followed by Dr. Hadley. Social History Social History Type Response Tobacco Use: 4 or less cigarettes(le ss than 1/4 pack)/day in last 30 days. Sex Male
--- OUTSIDE RECORDS SUMMARY | 2022-03-03 12:57 | XMS_ITS | Continuity of Care Document ---
:1990 Author Organization [facility] Address [address] [place] [address]- Care Team Providers Name Role Phone Gonzalo BOND, Katelin Caceres Primary Care Physician Encounter [facility] [place] Date(s): 06/13/20 - 06/14/[address] [address]- Discharge Disposition: A-D/C Home Attending Physician: Aakash [...] 13:42:00 EDT, Height Start Date: 05/23/20 Status: OrderedDaily Nicanor oral tablet 1 tablet, By Mouth, Daily, # 30 tablet, 5 Refills, Maintenance, 03/27/20 17:21:00 EST, [facility] 1 tablet By Mouth Daily,x30 days, 175, cm, 01/16/20 13:42:00 EDT, Height Start Date: 03/27/20 Stop Date: 09/23/20 Status: Orderedestradiol valerate 20 mg/mL intramuscular solution = 20 mg, Intramuscular, Every 14 days, # 1 mL, 3 Refills, Maintenance, 01/16/20 14:45:00 EDT, [facility], 175, cm, 01/16/20 13:42:00 EDT, Height Start Date: 01/16/20 Status: Orderedspironolactone 100 mg oral tablet 100 mg, 1, tablet, By Mouth, 2 times a day, with meals-, # 60 tablet, Refills 3, Tot. Refills 3, Maintenance, 01/16/20 14:45:00 EDT, Route to Pharmacy Electronically, [facility], dose increase, 175, cm, 01/16/20 13:42:00 EDT, Height Start Date: 01/16/20 Stop Date: 05/15/20 Status: OrderedvalACYclovir 500 mg oral tablet 500 mg, 1, tablet, By Mouth, Daily, # 90 tablet, Refills 3, Tot. Refills 3, Maintenance, 01/16/20 14:45:00 EDT, Route to Pharmacy Electronically, [facility], 175, cm, 01/16/20 13:42:00 EDT, Height Start Date: 01/16/20 Status: Ordered Problem List Condition Effective Dates Status Health Status Informant Genital herpes(Confirmed) Active Glaucoma(Confirmed)1 Active *Jade Hodges, body care manager, Active [facility] [phone](Confirmed) 1with history of retinal detachment. followed by Dr. Hadley. Vital Signs Most recent to oldest [Reference Range]: 1 Oxygen Saturation [94-100 %] 99 % (06/13/20 10:24 PM) Pulse Rate [55-90 bpm] 71 bpm (06/13/20 10:24 PM) Blood Pressure [90-138/55-84 mm Hg] 131/82 mm Hg (06/13/20 10:24 PM) Respiratory Rate [16-30 br/min] 16 br/min (06/13/20 10:24 PM) Temperature [96.8-100.4 DegF] 98.5 DegF (06/13/20 10:24 PM) Mode of Delivery (Oxygen) Room air (06/13/20 10:24 PM) Temperature Route Oral (06/13/20 10:24 PM) Social History Social History Type Response Tobacco Use: 4 or less cigarettes(le ss than 1/4 pack)/day in last 30 days. Sex Male
--- OUTSIDE RECORDS SUMMARY | 2022-03-03 12:57 | XMS_ITS | Continuity of Care Document ---
:1990 Author Organization [facility] Address [address] [place] [address]- Care Team Providers Name Role Phone Gonzalo BOND, Katelin Caceres Primary Care Physician [place] [facility] [place] 06/21/21 - 07/21/21 [facility] [address] [place] [id number] Attending Physician: Cristiano Alcantar Admitting Physician: AdmCristiano summers Referring Physician: AdmtrCristiano Allergies, Adverse Reactions, Alerts No Known Allergies [...] 04/15/21 10:25:00 EST, Route to Pharmacy Electronically, [facility]/pharmacy #[id number], Partial fill upon patient request if the prescription is for a schedule II opioid drug.... Start Date: 04/15/21 Stop Date: 05/15/21 Status: OrderedARIPiprazole 5 mg oral tablet 5 mg, 1, tablet, By Mouth, Daily, # 30 tablet, Refills 0, Tot. Refills 0, Maintenance, 11/09/20 9:40:00 EDT, Route to Pharmacy Electronically, [facility]-, Partial fill upon patient request if the prescription is for a schedule... Start Date: 11/09/20 Status: OrderedDaily Nicanor oral tablet 1 tablet, By Mouth, Daily, # 30 tablet, 1 Refills, Maintenance, 11/08/20 17:59:00 EDT, [facility]-, 1 tablet By Mouth Daily,x30 days, 168, cm, 11/08/20 9:22:00 EDT, Height, 55.5,kg, 10/26/20 17:00:00 EDT, Dry Weight Start Date: 11/08/20 Stop Date: 01/07/21 Status: Ordered Problem List Condition Effective Dates Status Health Status Informant Genital herpes(Confirmed) Active Glaucoma(Confirmed)1 Active *Jade Hodges, senior care assistant, Active [facility] [phone](Confirmed) 1with history of retinal detachment. followed by Dr. Hadley. Social History Social History Type Response Tobacco Use: 4 or less cigarettes(le ss than 1/4 pack)/day in last 30 days. Interested in cessatio n: No. No Sex
--- OUTSIDE RECORDS SUMMARY | 2022-03-03 12:57 | XMS_ITS | Continuity of Care Document ---
:1990 Author Organization [facility] Address [address] [place] [address]- Care Team Providers Name Role Phone Gonzalo BOND, Katelin Caceres Primary Care Physician [place] [facility] [place] 12[place]31/19 [facility] [address] [place] [address]- [facility] Allergies, Adverse Reactions, Alerts Substance Reaction Severity Status NKA Active Immunizations Given and Recorded Vaccine Date Status Refusal Reason influenza virus vaccine, inactivated 05/19/17 Given tetanus/diphtheria/pertussis, acel(Tdap) 04/18/15 Given Medications Daily Nicanor oral tablet 1 tablet, By Mouth, Daily, # 30 tablet, 5 Refills, Maintenance, 05/06/19 17:08:00 EST, [facility], 1 tablet By Mouth Daily,x30 days, 175, cm, 02/08/19 9:27:00 EDT, Height Start Date: 05/06/19 Stop Date: 11/02/19 Status: Orderedestradiol valerate 20 mg/mL intramuscular solution = 20 mg, Intramuscular, Every 14 days, # 1 mL, 0 Refills, Maintenance, 12/06/19 15:58:00 EDT, [facility], 175, cm, 02/08/19 9:27:00 EDT, Height Start Date: 12/06/19 Status: Orderedspironolactone 100 mg oral tablet 100 mg, 1, tablet, By Mouth, 2 times a day, with meals-, # 60 tablet, Refills 0, Tot. Refills 0, Maintenance, 12/06/19 15:59:00 EDT, Route to Pharmacy Electronically, [facility], dose increase, 175, cm, 02/08/19 9:27:00 EDT, Height Start Date: 12/06/19 Stop Date: 01/05/20 Status: OrderedvalACYclovir 500 mg oral tablet 500 mg, 1, tablet, By Mouth, Daily, # 90 tablet, Refills 3, Tot. Refills 3, Maintenance, 08/10/18 11:10:00 EDT, Route to Pharmacy Electronically, [id number], [facility] Start Date: 08/10/18 Status: Ordered Problem List Condition Effective Dates Status Health Status Informant Genital herpes(Confirmed) Active Glaucoma(Confirmed)1 Active 1with history of retinal detachment. followed by Dr. Hadley. Social History Social History Type Response Tobacco Use: 4 or less cigarettes(le ss than 1/4 pack)/day in last 30 days. Sex Male
--- OUTSIDE RECORDS SUMMARY | 2022-03-03 12:57 | XMS_ITS | Continuity of Care Document ---
:1990 Author Organization [facility] Address [address] [place] [address]- Care Team Providers Name Role Phone Gonzalo BOND, Katelin Caceres Primary Care Physician [phone] [place] [facility] [place] 09/06/20 - 10/06/20 [facility] [address] [place] [id number] Allergies, Adverse Reactions, Alerts Substance Reaction Severity [...] tablet, 5 Refills, Maintenance, 03/27/20 17:21:00 EST, [facility] 1 tablet By Mouth Daily,x30 days, 175, cm, 01/16/20 13:42:00 EDT, Height Start Date: 03/27/20 Stop Date: 09/23/20 Status: Orderedestradiol valerate 20 mg/mL intramuscular solution = 20 mg, Intramuscular, Every 14 days, # 1 mL, 3 Refills, Maintenance, 01/16/20 14:45:00 EDT, [facility]., 175, cm, 01/16/20 13:42:00 EDT, Height Start Date: 01/16/20 Status: Orderedspironolactone 100 mg oral tablet 100 mg, 1, tablet, By Mouth, 2 times a day, with meals-, # 60 tablet, Refills 3, Tot. Refills 3, Maintenance, 01/16/20 14:45:00 EDT, Route to Pharmacy Electronically, [facility], dose increase, 175, cm, 01/16/20 13:42:00 EDT, Height Start Date: 01/16/20 Stop Date: 05/15/20 Status: OrderedvalACYclovir 500 mg oral tablet 500 mg, 1, tablet, By Mouth, Daily, # 90 tablet, Refills 3, Tot. Refills 3, Maintenance, 01/16/20 14:45:00 EDT, Route to Pharmacy Electronically, [facility], 175, cm, 01/16/20 13:42:00 EDT, Height Start Date: 01/16/20 Status: Ordered Problem List Condition Effective Dates Status Health Status Informant Genital herpes(Confirmed) Active Glaucoma(Confirmed)1 Active *Jade Hodges, continuum of care manager, Active [facility] [phone](Confirmed) 1with history of retinal detachment. followed by Dr. Hadley. Social History Social History Type Response Tobacco Use: 4 or less cigarettes(le ss than 1/4 pack)/day in last 30 days. Sex Male
--- OUTSIDE RECORDS SUMMARY | 2022-03-03 12:57 | XMS_ITS | Continuity of Care Document ---
:1990 Author Organization [facility] Address [address] [place] [address] Drive [address] [place] [address]- Care Team Providers Name Role Phone Gonzalo BOND, Katelin Caceres Primary Care Physician Encounter [facility] [place] Date(s): 12/28/19 - 01/27/[address] [place] [address]- [facility] Attending Physician: Cristiano Alcantar Admitting Physician: AdmtrCristiano Referring Physician: Admtr, ArDale Allergies, Adverse Reactions, Alerts Substance Reaction Severity Status NKA Active Immunizations Given and Recorded Vaccine Date Status Refusal Reason Human Papillomavirus Vaccine 01/16/20 Given influenza virus vaccine, inactivated 01/16/20 Given influenza virus vaccine, inactivated 05/19/17 Given tetanus/diphtheria/pertussis, acel(Tdap) 04/18/15 Given Medications Daily Nicanor oral tablet 1 tablet, By Mouth, Daily, # 30 tablet, 5 Refills, Maintenance, 05/06/19 17:08:00 EST, [facility], 1 tablet By Mouth Daily,x30 days, 175, cm, 02/08/19 9:27:00 EDT, Height Start Date: 05/06/19 Stop Date: 11/02/19 Status: Orderedestradiol valerate 20 mg/mL intramuscular solution = 20 mg, Intramuscular, Every 14 days, # 1 mL, 3 Refills, Maintenance, 01/16/20 14:45:00 EDT, [facility]., 175, cm, 01/16/20 13:42:00 EDT, Height Start Date: 01/16/20 Status: Orderedspironolactone 100 mg oral tablet 100 mg, 1, tablet, By Mouth, 2 times a day, with meals-, # 60 tablet, Refills 3, Tot. Refills 3, Maintenance, 01/16/20 14:45:00 EDT, [facility] dose [facility], 175, cm, 01/16/20 13:42:00 EDT, Height Start Date: 01/16/20 Stop Date: 05/15/20 Status: OrderedvalACYclovir 500 mg oral tablet 500 mg, 1, tablet, By Mouth, Daily, # 90 tablet, Refills 3, Tot. Refills 3, Maintenance, 01/16/20 14:45:00 EDT, Route to Pharmacy Electronically, [facility], 175, cm, 01/16/20 13:42:00 EDT, Height [...]
--- OUTSIDE RECORDS SUMMARY | 2022-03-03 12:57 | XMS_ITS | Continuity of Care Document ---
:1990 Author Organization [facility] Address [address] [place] [address]- Care Team Providers Name Role Phone Gonzalo BOND, Katelin Caceres Primary Care Physician [place] [facility] [place] 01/20/20 - 03/21/20 [facility] [address] [place] [id number] [place] Attending Physician: Not on Staff, Attending MD [...] tablet, 5 Refills, Maintenance, 05/06/19 17:08:00 EST, [facility], 1 tablet By Mouth Daily,x30 days, 175, cm, 02/08/19 9:27:00 EDT, Height Start Date: 05/06/19 Stop Date: 11/02/19 Status: Orderedestradiol valerate 20 mg/mL intramuscular solution = 20 mg, Intramuscular, Every 14 days, # 1 mL, 3 Refills, Maintenance, 01/16/20 14:45:00 EDT, [facility], 175, cm, 01/16/20 13:42:00 EDT, Height Start Date: 01/16/20 Status: Orderedspironolactone 100 mg oral tablet 100 mg, 1, tablet, By Mouth, 2 times a day, with meals-, # 60 tablet, Refills 3, Tot. Refills 3, Maintenance, 01/16/20 14:45:00 EDT, Route to Pharmacy Electronically, [facility]., dose increase, 175, cm, 01/16/20 13:42:00 EDT, Height Start Date: 01/16/20 Stop Date: 05/15/20 Status: OrderedvalACYclovir 500 mg oral tablet 500 mg, 1, tablet, By Mouth, Daily, # 90 tablet, Refills 3, Tot. Refills 3, Maintenance, 01/16/20 14:45:00 EDT, Route to Pharmacy Electronically, [facility]., 175, cm, 01/16/20 13:42:00 EDT, Height [...]
--- OUTSIDE RECORDS SUMMARY | 2022-03-03 12:57 | XMS_ITS | Continuity of Care Document ---
:1990 Author Organization [facility] Address [address] [place] [address]- Care Team Providers Name Role Phone Gonzalo BOND, Katelin Caceres Primary Care Physician [phone] Encounter [facility] [place] Date(s): 06/02/19 - 06/02/[address] [address]- [facility] Discharge Disposition: A-D/C Home Attending Physician: Carlo Ahn DO Admitting Physician: Carlo Ahn DO Referring Physician: Not on Staff, Referring [...] 9:27:00 EDT, Height Start Date: 05/06/19 Status: [id number] gauge 5/8th inch needles with 1 cc [...] tablet, 5 Refills, Maintenance, 05/06/19 17:08:00 EST, [facility], 1 tablet By Mouth Daily,x30 days, 175, cm, 02/08/19 9:27:00 EDT, Height Start Date: 05/06/19 Stop Date: 11/02/19 Status: Orderedestradiol valerate 20 mg/mL intramuscular solution = 20 mg, Intramuscular, Every 14 days, # 5 mL, 3 Refills, Maintenance, 03/31/19 20:41:00 EST, [facility]., 175, cm, 02/08/19 9:27:00 EDT, Height Start Date: 03/31/19 Status: Orderedprogesterone 100 mg oral capsule 1 capsule, By Mouth, Daily at bedtime, # 30 capsule, 0 Refills, Acute, 05/10/19 7:58:00 EST, [facility], 175, cm, 02/08/19 9:27:00 EDT, Height Start Date: 05/10/19 Status: OrderedSEROquel 25 mg oral tablet 25 mg, 1, tablet, By Mouth, Daily, # 30 tablet, Refills 1, Tot. Refills 1, Maintenance, 09/25/16 14:30:07, Route to Pharmacy Electronically, [id number], [facility]. Start Date: 09/25/16 Stop Date: 11/24/16 Status: Orderedspironolactone 100 mg oral tablet 100 mg, 1, tablet, By Mouth, 2 times a day, with meals-, # 60 tablet, Refills 7, Tot. Refills 7, Maintenance, 08/31/18 8:24:29 EDT, Route to Pharmacy Electronically, [id number], [facility], dose increase Start Date: 08/31/18 Stop Date: 04/28/19 Status: OrderedvalACYclovir 500 mg oral tablet 500 mg, 1, tablet, By Mouth, Daily, # 90 tablet, Refills 3, Tot. Refills 3, Maintenance, 08/10/18 11:10:00 EDT, Route to Pharmacy Electronically, [id number], [facility]. Start Date: 08/10/18 Status: Ordered Problem List Condition Effective Dates Status Health Status Informant Genital herpes(Confirmed) Active Glaucoma(Confirmed)1 Active 1with history of retinal detachment. followed by Dr. Hadley. Vital Signs Most recent to oldest [Reference Range]: 1 2 Oxygen Saturation [94-100 %] 100 % 99 % (06/02/19 6:05 AM) (06/02/19 2:42 AM) Pulse Rate [55-90 bpm] 69 bpm 80 bpm (06/02/19 6:05 AM) (06/02/19 2:42 AM) Blood Pressure [90-138/55-84 mm Hg] 123/70 mm Hg 132/ 79 mm Hg (06/02/19 6:05 AM) (06/02/19 2:42 AM) Respiratory Rate [16-30 br/min] 16 br/min 18 br/mi n (06/02/19 6:05 AM) (06/02/19 2:42 AM) Temperature [96.8-100.4 DegF] 97.7 DegF 98.3 DegF (06/02/19 6:05 AM) (06/02/19 2:42 AM) Mode of Delivery (Oxygen) Room air Room air (06/02/19 6:05 AM) (06/02/19 2:42 AM) Blood pressure sites Arm, right Arm, right (06/02/19 6:05 AM) (06/02/19 2:42 AM) Temperature Route Oral Oral (06/02/19 6:05 AM) (06/02/19 2:42 AM) Social History Social History Type Response Tobacco Use: 4 or less cigarettes(le ss than 1/4 pack)/day in last 30 days. Sex Male
--- OUTSIDE RECORDS SUMMARY | 2022-03-03 12:57 | XMS_ITS | Continuity of Care Document ---
:1990 Author Organization [facility] Address [address] [place] [address]- Care Team Providers Name Role Phone Gonzalo BOND, Katelin Caceres Primary Care Physician Encounter [facility] Date(s): 03/24/19 - 04/03/19 [facility] [address] [place] [address]- [facility] Attending Physician: AdmCristiano summers Admitting Physician: Admtr, Ar8 Referring Physician: Admtr, Ar8 Allergies, Adverse Reactions, [...] only, thanks!, Compound Start Date: 08/10/18 Status: Eewojcv80 gauge 5/8th inch needles with 1 cc [...] mL, 3 Refills, Maintenance, 03/31/19 20:41:00 EST, [facility] 175, cm, 02/08/19 9:27:00 EDT, Height Start [...] Maintenance, 09/25/16 14:30:07, Route to Pharmacy Electronically, [id number], [facility]. Start Date: 09/25/16 Stop Date: 11/24/16 Status: Orderedspironolactone 100 mg oral tablet 100 mg, 1, tablet, By Mouth, 2 times a day, with meals-, # 60 tablet, Refills 7, Tot. Refills 7, Maintenance, 08/31/18 8:24:29 EDT, Route to Pharmacy Electronically, [id number], [facility], dose increase Start Date: 08/31/18 Stop Date: 04/28/19 Status: OrderedvalACYclovir 500 mg oral tablet 500 mg, 1, tablet, By Mouth, Daily, # 90 tablet, Refills 3, Tot. Refills 3, Maintenance, 08/10/18 11:10:00 EDT, Route to Pharmacy Electronically, [id number], [facility]. Start Date: 08/10/18 Status: Ordered Problem List Condition Effective Dates Status Health Status Informant Genital herpes(Confirmed) Active Glaucoma(Confirmed)1 Active 1with history of retinal detachment. followed by Dr. Hadley. Social History Social History Type Response Tobacco Use: 4 or less cigarettes(le ss than 1/4 pack)/day in last 30 days. Sex
--- OUTSIDE RECORDS SUMMARY | 2022-03-03 12:57 | XMS_ITS | Continuity of Care Document ---
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 Discharge Disposition: A-D/C Home Attending Physician: Lety Booth MD Admitting Physician: Lety Booth MD Referring Physician: Not on Staff, Referring [...] 5 Refills, Maintenance, 03/27/20 17:21:00 EST, [facility], 1 tablet By Mouth Daily,x30 days, 175, cm, 01/16/20 13:42:00 EDT, Height Start Date: 03/27/20 Stop Date: 09/23/20 Status: Orderedestradiol valerate 20 mg/mL intramuscular solution = 20 mg, Intramuscular, Every 14 days, # 1 mL, 3 Refills, Maintenance, 01/16/20 14:45:00 EDT, [facility], 175, cm, 01/16/20 13:42:00 EDT, Height Start Date: 01/16/20 Status: Orderedspironolactone 100 mg oral tablet 100 mg, 1, tablet, By Mouth, 2 times a day, with meals-, # 60 tablet, Refills 3, Tot. Refills 3, Maintenance, 01/16/20 14:45:00 EDT, Route to Pharmacy Electronically, [facility], dose increase, 175, cm, 01/16/20 13:42:00 EDT, Height Start Date: 01/16/20 Stop Date: 05/15/20 Status: OrderedvalACYclovir 500 mg oral tablet 500 mg, 1, tablet, By Mouth, Daily, # 90 tablet, Refills 3, Tot. Refills 3, Maintenance, 01/16/20 14:45:00 EDT, Route to Pharmacy Electronically, [facility], 175, cm, 01/16/20 13:42:00 EDT, Height Start Date: 01/16/20 Status: Ordered Problem List Condition Effective Dates Status Health Status Informant Genital herpes(Confirmed) Active Glaucoma(Confirmed)1 Active *Jade Hodges, palliative care nurse, Active [facility] [phone](Confirmed) 1with history of retinal detachment. followed by Dr. Hadley. Vital Signs Most recent to oldest 1 2 3 [Reference Range]: Oxygen Saturation [94-100 %] 99 % 99 % 98 % (10/05/20 12:21 PM) (10/05/20 4:43 AM) (10/05/20 2: 46 AM) Pulse Rate [55-90 bpm] 60 bpm 64 bpm 61 bpm (10/05/20 12:21 PM) (10/05/20 4:43 AM) (10/05/20 2: 46 AM) Blood Pressure [90-138/55-84 110/72 mm Hg 106/62 mm Hg 83/ 56 mm Hg mm Hg] (10/05/20 12:21 PM) (10/05/20 4:43 AM) *L* (10/05/20 2:46 AM ) Respiratory Rate [16-30 16 br/min 16 br/min 16 br/mi n br/min] (10/05/20 12:21 PM) (10/05/20 4:43 AM) (10/05/20 2: 46 AM) Temperature [96.8-100.4 DegF] 98.1 DegF (10/04/20 5:07 PM) Liters per Minute 0 L/min (10/04/20 5:07 PM) Mode of Delivery (Oxygen) Room air Room air Room a ir (10/05/20 12:21 PM) (10/05/20 4:43 AM) (10/05/20 2: 46 AM) Blood pressure sites Arm, right (10/04/20 5:07 PM) Temperature Route Oral (10/04/20 5:07 PM) Social History Social History Type Response Tobacco Use: 4 or less cigarettes(le ss than 1/4 pack)/day in last 30 days. Sex Male
--- OUTSIDE RECORDS SUMMARY | 2022-03-03 12:57 | XMS_ITS | Continuity of Care Document ---
:1990 Author Organization [facility] Address [address] [place] [address]- Care Team Providers Name Role Phone Gonzalo BOND, Katelin Caceres Primary Care Physician [phone] Encounter [facility] [place] Date(s): 05/26/21 - 05/28/[address] [address]- Encounter Diagnosis Substance use disorder (Final) - 05/28/21 Discharge Disposition: A-D/C Home Attending Physician: Hong Montiel MD Admitting Physician: Hnog Montiel MD Referring Physician: Not on Staff, Referring [...] 11/09/20 9:40:00 EDT, Route to Pharmacy Electronically, [facility]-, Partial fill upon patient request if the prescription is for a schedule... Start Date: 11/09/20 Status: OrderedDaily Nicanor oral tablet 1 tablet, By Mouth, Daily, # 30 tablet, 1 Refills, Maintenance, 11/08/20 17:59:00 EDT, [facility]-, 1 tablet By Mouth Daily,x30 days, 168, cm, 11/08/20 9:22:00 EDT, Height, 55.5,kg, 10/26/20 17:00:00 EDT, Dry Weight Start Date: 11/08/20 Stop Date: 01/07/21 Status: Ordered Problem List Condition Effective Dates Status Health Status Informant Genital herpes(Confirmed) Active Glaucoma(Confirmed)1 Active *Jade Tracie, child care centre director, Active [facility] [phone](Confirmed) 1with history of retinal detachment. followed by Dr. Hadley. Vital Signs Most recent to oldest 1 2 3 [Reference Range]: Oxygen Saturation [94-100 %] 99 % 98 % 100 % (05/28/21 6:47 AM) (05/27/21 8:25 PM) (05/27/21 3:0 0 PM) Pulse Rate [55-90 bpm] 69 bpm 86 bpm 78 bpm (05/28/21 6:47 AM) (05/27/21 8:25 PM) (05/27/21 3:0 0 PM) Blood Pressure [90-138/55-84 mm 99/57 mm Hg 125/63 mm Hg 98/61 mm Hg Hg] (05/28/21 6:47 AM) (05/27/21 8:25 PM) (05/27/21 3:0 0 PM) Respiratory Rate [16-30 br/min] 16 br/min 16 br/min 17 br/min (05/28/21 6:47 AM) (05/27/21 8:25 PM) (05/27/21 3:0 0 PM) Temperature [96.8-100.4 DegF] 98.5 DegF 98.4 DegF 98 DegF (05/28/21 6:47 AM) (05/27/21 8:25 PM) (05/27/21 3:0 0 PM) Mode of Delivery (Oxygen) Room air Room air Room a ir (05/28/21 6:47 AM) (05/27/21 8:25 PM) (05/27/21 3:0 0 PM) Blood pressure sites Arm, right Arm, right Arm, right (05/28/21 6:47 AM) (05/27/21 8:25 PM) (05/27/21 3:0 0 PM) Temperature Route Oral Oral Oral (05/28/21 6:47 AM) (05/27/21 8:25 PM) (05/27/21 3:0 0 PM) Social History Social History Type Response Tobacco Use: 4 or less cigarettes(le ss than 1/4 pack)/day in last 30 days. Interested in cessatio n: No. No Sex
--- OUTSIDE RECORDS SUMMARY | 2022-03-03 12:57 | XMS_ITS | Continuity of Care Document ---
:1990 Author Organization [facility] Address [address] [place] [address]- Care Team Providers Name Role Phone Gonzalo BOND, Katelin Caceres Primary Care Physician [phone] Encounter [facility] Date(s): 12/01/19 - 12/31/19 [facility] [address] [place] [address]- [facility] Allergies, Adverse Reactions, Alerts Substance Reaction Severity Status NKA Active Immunizations Given and Recorded Vaccine Date Status Refusal Reason influenza virus vaccine, inactivated 05/19/17 Given tetanus/diphtheria/pertussis, acel(Tdap) 04/18/15 Given Medications Daily Nicanor oral tablet 1 tablet, By Mouth, Daily, # 30 tablet, 5 Refills, Maintenance, 05/06/19 17:08:00 EST, [facility], 1 tablet By Mouth Daily,x30 days, 175, cm, 02/08/19 9:27:00 EDT, Height Start Date: 05/06/19 Stop Date: 11/02/19 Status: Orderedestradiol valerate 20 mg/mL intramuscular solution = 20 mg, Intramuscular, Every 14 days, # 1 mL, 0 Refills, Maintenance, 12/06/19 15:58:00 EDT, [facility], 175, cm, 02/08/19 9:27:00 EDT, Height Start Date: 12/06/19 Status: Orderedspironolactone 100 mg oral tablet 100 mg, 1, tablet, By Mouth, 2 times a day, with meals-, # 60 tablet, Refills 0, Tot. Refills 0, Maintenance, 12/06/19 15:59:00 EDT, Route to Pharmacy Electronically, [facility], dose increase, 175, cm, 02/08/19 9:27:00 EDT, Height Start Date: 12/06/19 Stop Date: 01/05/20 Status: OrderedvalACYclovir 500 mg oral tablet 500 mg, 1, tablet, By Mouth, Daily, # 90 tablet, Refills 3, Tot. Refills 3, Maintenance, 08/10/18 11:10:00 EDT, Route to Pharmacy Electronically, [id number], [facility] Start Date: 08/10/18 Status: Ordered Problem List Condition Effective Dates Status Health Status Informant Genital herpes(Confirmed) Active Glaucoma(Confirmed)1 Active 1with history of retinal detachment. followed by Dr. Hadley. Social History Social History Type Response Tobacco Use: 4 or less cigarettes(le ss than 1/4 pack)/day in last 30 days. Sex Male
--- OUTSIDE RECORDS SUMMARY | 2022-03-03 12:57 | XMS_ITS | Continuity of Care Document ---
:1990 Author Organization [facility] Address [address] [place] [address]- Care Team Providers Name Role Phone Gonzalo BOND, Katelin Caceres Primary Care Physician [place] [facility] [place] - 10/11/[address] [address]- Discharge Disposition: A-D/C Walkout Attending Physician: Not on Staff, Attending MD Admitting Physician: Not on Staff, Admitting MD Referring Physician: Not on Staff, Referring [...] tablet, 5 Refills, Maintenance, 03/27/20 17:21:00 EST[facility], 1 tablet By Mouth Daily,x30 days, 175, cm, 01/16/20 13:42:00 EDT, Height Start Date: 03/27/20 Stop Date: 09/23/20 Status: Orderedestradiol valerate 20 mg/mL intramuscular solution = 20 mg, Intramuscular, Every 14 days, # 1 mL, 3 Refills, Maintenance, 01/16/20 14:45:00 EDT, [facility], 175, cm, 01/16/20 13:42:00 EDT, Height Start Date: 01/16/20 Status: Orderedspironolactone 100 mg oral tablet 100 mg, 1, tablet, By Mouth, 2 times a day, with meals-, # 60 tablet, Refills 3, Tot. Refills 3, Maintenance, 01/16/20 14:45:00 EDT, Route to Pharmacy Electronically, [facility], dose increase, 175, cm, 01/16/20 13:42:00 EDT, Height Start Date: 01/16/20 Stop Date: 05/15/20 Status: OrderedvalACYclovir 500 mg oral tablet 500 mg, 1, tablet, By Mouth, Daily, # 90 tablet, Refills 3, Tot. Refills 3, Maintenance, 01/16/20 14:45:00 EDT, Route to Pharmacy Electronically, [facility], 175, cm, 01/16/20 13:42:00 EDT, Height Start Date: 01/16/20 Status: Ordered Problem List Condition Effective Dates Status Health Status Informant Genital herpes(Confirmed) Active Glaucoma(Confirmed)1 Active *Jade Hodges, dog daycare provider, Active [facility] [phone](Confirmed) 1with history of retinal detachment. followed by Dr. Hadley. Vital Signs Most recent to oldest [Reference Range]: 1 2 Oxygen Saturation [94-100 %] 99 % 100 % (10/10/20 9:29 PM) (10/10/20 4:03 PM) Pulse Rate [55-90 bpm] 58 bpm 62 bpm (10/10/20 9:29 PM) (10/10/20 4:03 PM) Blood Pressure [90-138/55-84 mm Hg] 119/78 mm Hg 121/ 80 mm Hg (10/10/20 9:29 PM) (10/10/20 4:03 PM) Respiratory Rate [16-30 br/min] 18 br/min 18 br/mi n (10/10/20 9:29 PM) (10/10/20 4:03 PM) Temperature [96.8-100.4 DegF] 98.4 DegF 98.2 DegF (10/10/20 9:29 PM) (10/10/20 4:03 PM) Mode of Delivery (Oxygen) Room air Room air (10/10/20 9:29 PM) (10/10/20 4:03 PM) Blood pressure sites Arm, right Arm, left (10/10/20 9:29 PM) (10/10/20 4:03 PM) Temperature Route Oral Oral (10/10/20 9:29 PM) (10/10/20 4:03 PM) Social History Social History Type Response Tobacco Use: 4 or less cigarettes(le ss than 1/4 pack)/day in last 30 days. Sex Male
--- OUTSIDE RECORDS SUMMARY | 2022-03-03 12:57 | XMS_ITS | Continuity of Care Document ---
:1990 Author Organization [facility] Address [address] [place] [address]- Care Team Providers Name Role Phone Gonzalo BOND, Katelin Caceres Primary Care Physician Encounter [facility] [place] Date(s): 04/14/21 - 04/15/[address] [address]- Encounter Diagnosis COVID-19 (Final) - 04/14/21 Suicidal ideation (Final) - 04/14/21 Discharge Disposition: A-D/C Home Attending Physician: Bari Tesfaye MD Admitting Physician: Bari Tesfaye MD Referring Physician: Not on Staff, Referring [...] 04/15/21 10:25:00 EST, Route to Pharmacy Electronically, [facility]/pharmacy #[id number], Partial fill upon patient request if the prescription is for a schedule II opioid drug.... Start Date: 04/15/21 Stop Date: 05/15/21 Status: OrderedARIPiprazole 5 mg oral tablet 5 mg, 1, tablet, By Mouth, Daily, # 30 tablet, Refills 0, Tot. Refills 0, Maintenance, 11/09/20 9:40:00 EDT, Route to Pharmacy Electronically, [facility]-, Partial fill upon patient request if the prescription is for a schedule... Start Date: 11/09/20 Status: OrderedDaily Nicanor oral tablet 1 tablet, By Mouth, Daily, # 30 tablet, 1 Refills, Maintenance, 11/08/20 17:59:00 EDT, [facility]-, 1 tablet By Mouth Daily,x30 days, 168, cm, 11/08/20 9:22:00 EDT, Height, 55.5,kg, 10/26/20 17:00:00 EDT, Dry Weight Start Date: 11/08/20 Stop Date: 01/07/21 Status: Ordered Problem List Condition Effective Dates Status Health Status Informant Genital herpes(Confirmed) Active Glaucoma(Confirmed)1 Active *Jade Tracie, acute care occupational therapist, Active [facility] [phone](Confirmed) 1with history of retinal detachment. followed by Dr. Hadley. Vital Signs Most recent to oldest [Reference 1 2 3 Range]: Oxygen Saturation [94-100 %] 97 % 98 % 99 % (04/15/21 12:58 PM) (04/15/21 9:23 AM) (04/15/21 2:30 AM) Pulse Rate [55-90 bpm] 79 bpm 81 bpm 92 bpm (04/15/21 12:58 PM) (04/15/21 9:23 AM) *H* (04/15/21 2:30 AM) Blood Pressure [90-138/55-84 mm 119/65 mm Hg 112/64 mm Hg 124/67 mm Hg Hg] (04/15/21 12:58 PM) (04/15/21 9:23 AM) (04/15/21 2:30 AM) Respiratory Rate [16-30 br/min] 17 br/min 20 br/min 17 br/min (04/15/21 12:58 PM) (04/15/21 9:23 AM) (04/15/21 2:30 AM) Temperature [96.8-100.4 DegF] 98.7 DegF 100.7 DegF 98 .5 DegF (04/15/21 12:58 PM) *H* (04/15/21 2:30 A M) (04/15/21 9:23 AM) Mode of Delivery (Oxygen) Room air Room air Room a ir (04/15/21 12:58 PM) (04/15/21 9:23 AM) (1/2/22 11:25 AM) Blood pressure sites Arm, left Arm, right Arm, left (04/15/21 12:58 PM) (04/15/21 9:23 AM) (04/14/21 11:25 AM) Temperature Route Oral Oral Oral (04/15/21 12:58 PM) (04/15/21 9:23 AM) (04/14/21 11:43 AM) Social History Social History Type Response Tobacco Use: 4 or less cigarettes(le ss than 1/4 pack)/day in last 30 days. Interested in cessatio n: No. No Sex
--- OUTSIDE RECORDS SUMMARY | 2022-03-03 12:57 | XMS_ITS | Continuity of Care Document ---
:1990 Author Organization [facility] Address [address] [place] [address]- Care Team Providers Name Role Phone Gonzalo BOND, Katelin Caceres Primary Care Physician [phone] Encounter [facility] Date(s): 09/06/20 - 10/06/20 [facility] [address] [place] [address] Attending Physician: Admtr, Jann8 Admitting Physician: Admtr, Jann8 Referring Physician: Admtr, Ar8 Allergies, Adverse Reactions, [...] tablet, 5 Refills, Maintenance, 03/27/20 17:21:00 EST, [facility], 1 tablet By Mouth Daily,x30 days, 175, cm, 01/16/20 13:42:00 EDT, Height Start Date: 03/27/20 Stop Date: 09/23/20 Status: Orderedestradiol valerate 20 mg/mL intramuscular solution = 20 mg, Intramuscular, Every 14 days, # 1 mL, 3 Refills, Maintenance, 01/16/20 14:45:00 EDT, [facility], 175, cm, 01/16/20 13:42:00 EDT, Height Start Date: 01/16/20 Status: Orderedspironolactone 100 mg oral tablet 100 mg, 1, tablet, By Mouth, 2 times a day, with meals-, # 60 tablet, Refills 3, Tot. Refills 3, Maintenance, 01/16/20 14:45:00 EDT, Route to Pharmacy Electronically, [facility], dose increase, 175, cm, 01/16/20 13:42:00 [...] Genital herpes(Confirmed) Active Glaucoma(Confirmed)1 Active *Jade Hodges, healthcare technician, Active [facility] [phone](Confirmed) 1with history of retinal detachment. followed by Dr. Hadley. Social History Social History Type Response Tobacco Use: 4 or less cigarettes(le ss than 1/4 pack)/day in last 30 days. Sex Male
--- OUTSIDE RECORDS SUMMARY | 2022-03-03 12:57 | XMS_ITS | Continuity of Care Document ---
:1990 Author Organization [facility] Address [address] [place] [address]- Care Team Providers Name Role Phone Gonzalo BOND, Katelin Caceres Primary Care Physician [place] [facility] [place] 04/23/19 [facility] [address] [place] [address]- [facility] Attending Physician: Not on Staff, Attending MD [...] only, thanks!, Compound Start Date: 08/10/18 Status: Arovahk11 gauge 5/8th inch needles with 1 cc [...] mL, 3 Refills, Maintenance, 03/31/19 20:41:00 EST, [facility]., 175, cm, 02/08/19 9:27:00 EDT, Height [...] Maintenance, 09/25/16 14:30:07, Route to Pharmacy Electronically, [id number], [facility]. Start Date: 09/25/16 Stop Date: 11/24/16 Status: Orderedspironolactone 100 mg oral tablet 100 mg, 1, tablet, By Mouth, 2 times a day, with meals-, # 60 tablet, Refills 7, Tot. Refills 7, Maintenance, 08/31/18 8:24:29 EDT, Route to Pharmacy Electronically, [id number], [facility], dose increase Start Date: 08/31/18 Stop Date: 04/28/19 Status: OrderedvalACYclovir 500 mg oral tablet 500 mg, 1, tablet, By Mouth, Daily, # 90 tablet, Refills 3, Tot. Refills 3, Maintenance, 08/10/18 11:10:00 EDT, Route to Pharmacy Electronically, [id number], [facility]. Start Date: 08/10/18 Status: Ordered Problem List Condition Effective Dates Status Health Status Informant Genital herpes(Confirmed) Active Glaucoma(Confirmed)1 Active 1with history of retinal detachment. followed by Dr. Hadley. Social History Social History Type Response Tobacco Use: 4 or less cigarettes(le ss than 1/4 pack)/day in last 30 days. Sex
--- OUTSIDE RECORDS SUMMARY | 2022-03-03 12:57 | XMS_ITS | Continuity of Care Document ---
:1990 Author Organization [address] [place] [address]- Care Team Providers Name Role Phone Gonzalo BOND, Katelin Caceres Primary Care Physician [place] [facility] [place] 07/[place] - 08/04/[address] [place] [address]- [facility] Attending Physician: Admtr, Jann8 Admitting Physician: Admtr, Ar8 Referring Physician: Admtr, [...] 9:27:00 EDT, Height Start Date: 05/06/19 Status: Epkvawb85 gauge 5/8th inch needles with 1 cc [...] tablet, 5 Refills, Maintenance, 05/06/19 17:08:00 EST, [facility], 1 tablet By Mouth Daily,x30 days, 175, [...] capsule, 0 Refills, Acute, 05/10/19 7:58:00 EST, [facility], 175, cm, 02/08/19 9:27:00 EDT, Height Start Date: 05/10/19 Status: OrderedSEROquel 25 mg oral tablet 25 mg, 1, tablet, By Mouth, Daily, # 30 tablet, Refills 1, Tot. Refills 1, Maintenance, 09/25/16 14:30:07, Route to Pharmacy Electronically, [id number], [facility]. Start Date: 09/25/16 Stop Date: 11/24/16 Status: Orderedspironolactone 100 mg oral tablet 100 mg, 1, tablet, By Mouth, 2 times a day, with meals-, # 60 tablet, Refills 7, Tot. Refills 7, Maintenance, 08/31/18 8:24:29 EDT, Route to Pharmacy Electronically, [id number], [facility], dose increase Start Date: 08/31/18 Stop Date: 04/28/19 Status: OrderedvalACYclovir 500 mg oral tablet 500 mg, 1, tablet, By Mouth, Daily, # 90 tablet, Refills 3, Tot. Refills 3, Maintenance, 08/10/18 11:10:00 EDT, Route to Pharmacy Electronically, [id number], [facility]. Start Date: 08/10/18 Status: Ordered Problem List Condition Effective Dates Status Health Status Informant Genital herpes(Confirmed) Active Glaucoma(Confirmed)1 Active 1with history of retinal detachment. followed by Dr. Hadley. Social History Social History Type Response Tobacco Use: 4 or less cigarettes(le ss than 1/4 pack)/day in last 30 days. Sex Male
--- OUTSIDE RECORDS SUMMARY | 2022-03-03 12:57 | XMS_ITS | Continuity of Care Document ---
:1990 Author Organization [facility] Address [address] [place] [address]- Care Team Providers Name Role Phone Gonzalo BOND, Katelin Caceres Primary Care Physician [phone] Encounter [facility] [place] Date(s): 01/13/22 - 02/12/22 [facility] [address] [place] [id number] Attending Physician: Cristiano Alcantar Admitting Physician: AdmtrCristiano Referring Physician: AdmtrCristiano Allergies, Adverse Reactions, Alerts [...] 04/15/21 10:25:00 EST, [id number] Partial fill upon patient request if the prescription is for a schedule II opioid drug.... Start Date: 04/15/21 Stop Date: 05/15/21 Status: OrderedARIPiprazole 5 mg oral tablet 5 mg, 1, tablet, By Mouth, Daily, # 30 tablet, Refills 0, Tot. Refills 0, Maintenance, 11/09/20 9:40:00 EDT, Route to Pharmacy Electronically, [facility]-, Partial fill upon patient request if the prescription is for a schedule... Start Date: 11/09/20 Status: OrderedDaily Nicanor oral tablet 1 tablet, By Mouth, Daily, # 30 tablet, 1 Refills, Maintenance, 11/08/20 17:59:00 EDT, [facility]-, 1 tablet By Mouth Daily,x30 days, 168, cm, 11/08/20 9:22:00 EDT, Height, 55.5,kg, 10/26/20 17:00:00 EDT, Dry Weight Start Date: 11/08/20 Stop Date: 01/07/21 Status: Ordered Problem List Condition Confirmation Course Effective Dates Status Health Stat us Informant Genital herpes Confirmed Active Glaucoma1 Confirmed Active *Jade Hodges, Confirmed Active acute care occupational therapist, [facility] [phone] 1with history of retinal detachment. followed by Dr. Hadley. Social History Social History Type Response Tobacco Use: 4 or less cigarettes(le ss than 1/4 pack)/day in last 30 days. Interested in cessatio n: No. No Sex Patient Care team information PersonnelName: Gonzalo BOND, Katelin Caceres Address: Address: [address] [place] [address], [facility] [place], [place] [address]
--- OUTSIDE RECORDS SUMMARY | 2022-03-03 12:57 | XMS_ITS | Continuity of Care Document ---
:1990 Author Organization [facility] Address [address] [place] [address] Drive [address] [place] [address]- Care Team Providers Name Role Phone Gonzalo BOND, Katelin Caceres Primary Care Physician Encounter [facility] [place] Date(s): 09/29/19 - 01/27/[address] [place] [address]- [facility] Attending Physician: Jillian Montgomery NP Referring Physician: Gonzalo BOND, Katelin Caceres Allergies, Adverse [...] tablet, 5 Refills, Maintenance, 05/06/19 17:08:00 EST, [facility], 1 tablet By Mouth Daily,x30 days, 175, cm, 02/08/19 9:27:00 EDT, Height Start Date: 05/06/19 Stop Date: 11/02/19 Status: Orderedestradiol valerate 20 mg/mL intramuscular solution = 20 mg, Intramuscular, Every 14 days, # 1 mL, 3 Refills, Maintenance, 01/16/20 14:45:00 EDT, [facility]., 175, cm, 01/16/20 13:42:00 EDT, Height Start Date: 01/16/20 Status: Orderedspironolactone 100 mg oral tablet 100 mg, 1, tablet, By Mouth, 2 times a day, with meals-, # 60 tablet, Refills 3, Tot. Refills 3, Maintenance, 01/16/20 14:45:00 EDT, Route to Pharmacy Electronically, [facility], dose increase, 175, cm, 01/16/20 13:42:00 EDT, Height Start Date: 01/16/20 Stop Date: 05/15/20 Status: OrderedvalACYclovir 500 mg oral tablet 500 mg, 1, tablet, By Mouth, Daily, # 90 tablet, Refills 3, Tot. Refills 3, Maintenance, 01/16/20 14:45:00 EDT, Route to Pharmacy Electronically, [facility], 175, cm, 01/16/20 13:42:00 EDT, Height Start Date: 01/16/20 Status: Ordered Problem List Condition Effective Dates Status Health Status Informant Genital herpes(Confirmed) Active Glaucoma(Confirmed)1 Active 1with history of retinal detachment. followed by Dr. Hadley. Social History Social History Type Response Tobacco Use: 4 or less cigarettes(le ss than 1/4 pack)/day in last 30 days. Sex Male
--- OUTSIDE RECORDS SUMMARY | 2022-03-03 12:57 | XMS_ITS | Continuity of Care Document ---
:1990 Author Organization [facility] Address [address] [place] [address]- Care Team Providers Name Role Phone Gonzalo BOND, Katelin Caceres Primary Care Physician [phone] Encounter [facility] Date(s): 01/18/20 - 02/17/20 [facility] [address] [place], [place] [address] Allergies, Adverse Reactions, Alerts Substance Reaction Severity Status NKA Active Immunizations Given and Recorded Vaccine Date Status Refusal Reason Human Papillomavirus Vaccine 01/16/20 Given influenza virus vaccine, inactivated 01/16/20 Given influenza virus vaccine, inactivated 05/19/17 Given tetanus/diphtheria/pertussis, acel(Tdap) 04/18/15 Given Medications Daily Nicanor oral tablet 1 tablet, By Mouth, Daily, # 30 tablet, 5 Refills, Maintenance, 05/06/19 17:08:00 EST, [facility], 1 tablet By Mouth Daily,x30 days, 175, cm, 02/08/19 9:27:00 EDT, Height Start Date: 05/06/19 Stop Date: 11/02/19 Status: Orderedestradiol valerate 20 mg/mL intramuscular solution = 20 mg, Intramuscular, Every 14 days, # 1 mL, 3 Refills, Maintenance, 01/16/20 14:45:00 EDT, [facility], 175, cm, 01/16/20 13:42:00 EDT, Height Start Date: 01/16/20 Status: Orderedspironolactone 100 mg oral tablet 100 mg, 1, tablet, By Mouth, 2 times a day, with meals-, # 60 tablet, Refills 3, Tot. Refills 3, Maintenance, 01/16/20 14:45:00 EDT, Route to Pharmacy Electronically, [facility]., dose increase, 175, cm, 01/16/20 13:42:00 EDT, Height Start Date: 01/16/20 Stop Date: 05/15/20 Status: OrderedvalACYclovir 500 mg oral tablet 500 mg, 1, tablet, By Mouth, Daily, # 90 tablet, Refills 3, Tot. Refills 3, Maintenance, 01/16/20 14:45:00 EDT, Route to Pharmacy Electronically, [facility]., 175, cm, 01/16/20 13:42:00 EDT, Height [...]
--- OUTSIDE RECORDS SUMMARY | 2022-03-03 12:57 | XMS_ITS | Continuity of Care Document ---
:1990 Author Organization [facility] Address [address] [place] [address]- Care Team Providers Name Role Phone Gonzalo BOND, Katelin Caceres Primary Care Physician Encounter [facility] [place] Date(s): 01/24/20 - 03/21/20 [facility] [address] [place] [address] Attending Physician: Not on Staff, Attending MD [...] tablet, 5 Refills, Maintenance, 05/06/19 17:08:00 EST, [facility], 1 tablet By Mouth Daily,x30 days, 175, cm, 02/08/19 9:27:00 EDT, Height Start Date: 05/06/19 Stop Date: 11/02/19 Status: Orderedestradiol valerate 20 mg/mL intramuscular solution = 20 mg, Intramuscular, Every 14 days, # 1 mL, 3 Refills, Maintenance, 01/16/20 14:45:00 EDT, [facility], 175, cm, 01/16/20 13:42:00 EDT, Height Start Date: 01/16/20 Status: Orderedspironolactone 100 mg oral tablet 100 mg, 1, tablet, By Mouth, 2 times a day, with meals-, # 60 tablet, Refills 3, Tot. Refills 3, Maintenance, 01/16/20 14:45:00 EDT, Route to Pharmacy Electronically, [facility]., dose increase, 175, cm, 01/16/20 13:42:00 EDT, Height Start Date: 01/16/20 Stop Date: 05/15/20 Status: OrderedvalACYclovir 500 mg oral tablet 500 mg, 1, tablet, By Mouth, Daily, # 90 tablet, Refills 3, Tot. Refills 3, Maintenance, 01/16/20 14:45:00 EDT, Route to Pharmacy Electronically, [facility]., 175, cm, 01/16/20 13:42:00 EDT, Height Start Date: 01/16/20 Status: Ordered Problem List Condition Effective Dates Status Health Status Informant Genital herpes(Confirmed) Active Glaucoma(Confirmed)1 Active 1with history of retinal detachment. followed by Dr. Hadley. Social History Social History Type Response Tobacco Use: 4 or less cigarettes(le ss than 1/4 pack)/day in last 30 days. Sex Male
--- OUTSIDE RECORDS SUMMARY | 2022-03-03 12:57 | XMS_ITS | Continuity of Care Document ---
:1990 Author Organization [facility] Address [address] [place] [address]- Care Team Providers Name Role Phone Not on Staff, PCP Primary Care Physician Unavailable [facility] [place] Date(s): 03/26/21 - 03/28/21 [facility] [address] [place] [address]- Discharge Disposition: Transfer to [facility] Attending Physician: Glenny Gill MD Admitting Physician: Glenny Gill MD Referring Physician: Not on Staff, Referring MD Allergies, Adverse Reactions, Alerts Substance Reaction Severity Status NKA Active Immunizations Given and Recorded Vaccine Date Status Refusal Reason Human Papillomavirus Vaccine 01/16/20 Given influenza virus vaccine, inactivated 01/16/20 Given influenza virus vaccine, inactivated 05/19/17 Given tetanus/diphtheria/pertussis, acel(Tdap) 04/18/15 Given Medications ARIPiprazole 5 mg oral tablet 5 mg, 1, tablet, By Mouth, Daily, # 30 tablet, Refills 0, Tot. Refills 0, Maintenance, 11/09/20 9:40:00 EDT, Route to Pharmacy Electronically, [facility]-, Partial fill upon patient request if the prescription is for a schedule... Start Date: 11/09/20 Status: OrderedDaily Nicanor oral tablet 1 tablet, By Mouth, Daily, # 30 tablet, 1 Refills, Maintenance, 11/08/20 17:59:00 EDT, [facility]-, 1 tablet By Mouth Daily,x30 days, 168, cm, 11/08/20 9:22:00 EDT, Height, 55.5,kg, 10/26/20 17:00:00 EDT, Dry Weight Start Date: 11/08/20 Stop Date: 01/07/21 Status: Ordered Problem List Condition Effective Dates Status Health Status Informant Genital herpes(Confirmed) Active Glaucoma(Confirmed)1 Active *Jade Ellerbee, residential care facility manager, Active [facility] [phone](Confirmed) 1with history of retinal detachment. followed by Dr. Hadley. Vital Signs Most recent to oldest 1 2 3 [Reference Range]: Oxygen Saturation [94-100 100 % 100 % 100 % %] (03/28/21 5:14 AM) (03/27/21 10:49 PM) (03/27/21 4:20 PM) Pulse Rate [55-90 bpm] 74 bpm 76 bpm 72 bpm (03/28/21 5:14 AM) (03/27/21 10:49 PM) (03/27/21 4:20 PM) Blood Pressure 126/60 mm Hg 122/62 mm Hg 124/65 mm Hg [90-138/55-84 mm Hg] (03/28/21 5:14 AM) (03/27/21 10:49 PM) ( 4:20 PM) Respiratory Rate [16-30 16 br/min 16 br/min 18 br/mi n br/min] (03/28/21 5:14 AM) (03/27/21 10:49 PM) (03/27/21 4:20 PM) Temperature [96.8-100.4 97.9 DegF 98.3 DegF 98.1 Deg F DegF] (03/28/21 5:14 AM) (03/27/21 10:49 PM) (03/27/21 4:20 PM) Mode of Delivery (Oxygen) Room air Room air Room a ir (03/28/21 5:14 AM) (03/27/21 10:49 PM) (03/27/21 4:20 PM) Blood pressure sites Arm, right Arm, right Arm, right (03/28/21 5:14 AM) (03/27/21 10:49 PM) (03/27/21 4:20 PM) Temperature Route Oral Oral Oral (03/28/21 5:14 AM) (03/27/21 10:49 PM) (03/27/21 4:20 PM) Social History Social History Type Response Tobacco Use: 4 or less cigarettes(le ss than 1/4 pack)/day in last 30 days. Interested in cessatio n: No. No Sex
--- OUTSIDE RECORDS SUMMARY | 2022-03-03 12:57 | XMS_ITS | Continuity of Care Document ---
:1990 Author Organization [address] [place] [address]- Care Team Providers Name Role Phone Gonzalo BOND, Katelin Caceres Primary Care Physician Encounter [facility] [place] Date(s): 04/26/19 - 08/24/[address] [place] [address]- [facility] Attending Physician: Jillian Montgomery NP Allergies, Adverse Reactions, Alerts Substance Reaction Severity [...] 9:27:00 EDT, Height Start Date: 05/06/19 Status: [id number] gauge 5/8th inch needles with 1 cc [...] tablet, 5 Refills, Maintenance, 05/06/19 17:08:00 EST, [facility] 1 tablet By Mouth Daily,x30 days, 175, cm, 02/08/19 9:27:00 EDT, Height Start Date: 05/06/19 Stop Date: 11/02/19 Status: Orderedestradiol valerate 20 mg/mL intramuscular solution = 20 mg, Intramuscular, Every 14 days, # 5 mL, 3 Refills, Maintenance, 03/31/19 20:41:00 EST, [facility], 175, cm, 02/08/19 9:27:00 EDT, Height Start Date: 03/31/19 Status: Orderedprogesterone 100 mg oral capsule 1 capsule, By Mouth, Daily at bedtime, # 30 capsule, 0 Refills, Acute, 05/10/19 7:58:00 EST, [facility], [facility], cm, 02/08/19 9:27:00 EDT, Height Start Date: 05/10/19 Status: OrderedSEROquel 25 mg oral tablet 25 mg, 1, tablet, By Mouth, Daily, # 30 tablet, Refills 1, Tot. Refills 1, Maintenance, 09/25/16 14:30:07, Route to Pharmacy Electronically, [id number], [facility]. Start Date: 09/25/16 Stop Date: 11/24/16 Status: Orderedspironolactone 100 mg oral tablet 100 mg, 1, tablet, By Mouth, 2 times a day, with meals-, # 60 tablet, Refills 7, Tot. Refills 7, Maintenance, 08/31/18 8:24:29 EDT, Route to Pharmacy Electronically, [id number], [facility], dose increase Start Date: 08/31/18 Stop Date: 04/28/19 Status: OrderedvalACYclovir 500 mg oral tablet 500 mg, 1, tablet, By Mouth, Daily, # 90 tablet, Refills 3, Tot. Refills 3, Maintenance, 08/10/18 11:10:00 EDT, Route to Pharmacy Electronically, [id number], [facility] Start Date: 08/10/18 Status: Ordered Problem List Condition Effective Dates Status Health Status Informant Genital herpes(Confirmed) Active Glaucoma(Confirmed)1 Active 1with history of retinal detachment. followed by Dr. Hadley. Social History Social History Type Response Tobacco Use: 4 or less cigarettes(le ss than 1/4 pack)/day in last 30 days. Sex Male
--- OUTSIDE RECORDS SUMMARY | 2022-03-03 12:57 | XMS_ITS | Continuity of Care Document ---
:1990 Author Organization [facility] Address [address] [place] [address]- Care Team Providers Name Role Phone Gonzalo BOND, Katelin Caceres Primary Care Physician Encounter [facility] [place] [facility] R [id number] Date(s): 07/10/20 - 07/10/[address] [address]- Discharge Disposition: A-D/C Walkout Attending Physician: Not [...] Start Date: 07/02/20 Stop Date: 07/12/20 Status: OrderedDaily Nicanor oral tablet 1 tablet, By Mouth, Daily, # 30 tablet, 5 Refills, Maintenance, 03/27/20 17:21:00 EST, [facility], 1 tablet By Mouth Daily,x30 days, 175, cm, 01/16/20 13:42:00 EDT, Height Start Date: 03/27/20 Stop Date: 09/23/20 Status: Orderedestradiol valerate 20 mg/mL intramuscular solution = 20 mg, Intramuscular, Every 14 days, # 1 mL, 3 Refills, Maintenance, 01/16/20 14:45:00 EDT, [facility], 175, cm, 01/16/20 13:42:00 EDT, Height Start Date: 01/16/20 Status: Orderedspironolactone 100 mg oral tablet 100 mg, 1, tablet, By Mouth, 2 times a day, with meals-, # 60 tablet, Refills 3, Tot. Refills 3, Maintenance, 01/16/20 14:45:00 EDT, Route to Pharmacy Electronically, [facility], dose increase, 175, cm, 01/16/20 13:42:00 EDT, Height Start Date: 01/16/20 Stop Date: 05/15/20 Status: OrderedvalACYclovir 500 mg oral tablet 500 mg, 1, tablet, By Mouth, Daily, # 90 tablet, Refills 3, Tot. Refills 3, Maintenance, 01/16/20 14:45:00 EDT, Route to Pharmacy Electronically, [facility] 175, cm, 01/16/20 13:42:00 EDT, Height Start Date: 01/16/20 Status: Ordered Problem List Condition Effective Dates Status Health Status Informant Genital herpes(Confirmed) Active Glaucoma(Confirmed)1 Active *Jade Hodges, critical care physician assistant, Active [facility] [phone](Confirmed) 1with history of retinal detachment. followed by Dr. Hadley. Vital Signs Most recent to oldest [Reference Range]: 1 Oxygen Saturation [94-100 %] 100 % (07/10/20 12:43 PM) Pulse Rate [55-90 bpm] 69 bpm (07/10/20 12:43 PM) Blood Pressure [90-138/55-84 mm Hg] 117/57 mm Hg (07/10/20 12:43 PM) Respiratory Rate [16-30 br/min] 16 br/min (07/10/20 12:43 PM) Temperature [96.8-100.4 DegF] 98.3 DegF (07/10/20 12:43 PM) Mode of Delivery (Oxygen) Room air (07/10/20 12:43 PM) Blood pressure sites Arm, right (07/10/20 12:43 PM) Temperature Route Oral (07/10/20 12:43 PM) Social History Social History Type Response Tobacco Use: 4 or less cigarettes(le ss than 1/4 pack)/day in last 30 days. Sex Male
--- OUTSIDE RECORDS SUMMARY | 2022-03-03 12:57 | XMS_ITS | Continuity of Care Document ---
:1990 Author Organization [facility] Address [address] [place] [address]- Care Team Providers Name Role Phone Gonzalo BOND, Katelin Caceres Primary Care Physician Encounter [facility] [place] [place] Date(s): 05/25/20 - 05/26/[address] [address]- Encounter Diagnosis Agitation (Final) - 05/26/20 Discharge Disposition: A-D/C Home Attending Physician: Odalis Ocampo MD Admitting Physician: Odalis Ocampo MD Referring Physician: Not on Staff, Referring [...] tablet, 5 Refills, Maintenance, 03/27/20 17:21:00 EST, [facility], 1 tablet By Mouth Daily,x30 days, 175, cm, 01/16/20 13:42:00 EDT, Height Start Date: 03/27/20 Stop Date: 09/23/20 Status: Orderedestradiol valerate 20 mg/mL intramuscular solution = 20 mg, Intramuscular, Every 14 days, # 1 mL, 3 Refills, Maintenance, 01/16/20 14:45:00 EDT, [facility], 175, cm, 01/16/20 13:42:00 EDT, Height Start Date: 01/16/20 Status: Orderedspironolactone 100 mg oral tablet 100 mg, 1, tablet, By Mouth, 2 times a day, with meals-, # 60 tablet, Refills 3, Tot. Refills 3, Maintenance, 01/16/20 14:45:00 EDT, Route to Pharmacy Electronically, [facility], dose increase, 175, cm, 01/16/20 13:42:00 EDT, Height Start Date: 01/16/20 Stop Date: 05/15/20 Status: OrderedvalACYclovir 500 mg oral tablet 500 mg, 1, tablet, By Mouth, Daily, # 90 tablet, Refills 3, Tot. Refills 3, Maintenance, 01/16/20 14:45:00 EDT, Route to Pharmacy Electronically, [facility], 175, cm, 01/16/20 13:42:00 EDT, Height Start Date: 01/16/20 Status: Ordered Problem List Condition Effective Dates Status Health Status Informant Genital herpes(Confirmed) Active Glaucoma(Confirmed)1 Active *Jade Hodges, patient care technician instructor, Active [facility] [phone](Confirmed) 1with history of retinal detachment. followed by Dr. Hadley. Vital Signs Most recent to oldest 1 2 3 [Reference Range]: Oxygen Saturation [94-100 %] 96 % 97 % 96 % (05/26/20 3:31 PM) (05/26/20 11:23 AM) (05/26/20 8: 37 AM) Pulse Rate [55-90 bpm] 93 bpm 88 bpm 83 bpm *H* (05/26/20 11:23 AM) (05/26/20 8:37 AM) (05/26/20 3:31 PM) Blood Pressure [90-138/55-84 111/58 mm Hg 105/63 mm Hg 95/ 44 mm Hg mm Hg] (05/26/20 3:31 PM) (05/26/20 11:23 AM) (05/26/20 8: 37 AM) Respiratory Rate [16-30 18 br/min 16 br/min 16 br/mi n br/min] (05/26/20 3:31 PM) (05/26/20 11:23 AM) (05/26/20 8: 37 AM) Temperature [96.8-100.4 DegF] 100.6 DegF 99.1 DegF *H* (05/25/20 7:05 PM) (05/26/20 11:23 AM) Mode of Delivery (Oxygen) Room air Room air Room a ir (05/26/20 3:31 PM) (05/26/20 11:23 AM) (05/26/20 8: 37 AM) Blood pressure sites Arm, right Arm, right (05/26/20 3:31 PM) (05/26/20 11:23 AM) Temperature Route Oral Oral (05/26/20 11:23 AM) (05/25/20 7:05 PM) Social History Social History Type Response Tobacco Use: 4 or less cigarettes(le ss than 1/4 pack)/day in last 30 days. Sex Male
--- OUTSIDE RECORDS SUMMARY | 2022-03-03 12:57 | XMS_ITS | Continuity of Care Document ---
:1990 Author Organization [facility] Address [address] [place] [address]- Care Team Providers Name Role Phone Gonzalo BOND, Katelin Caceres Primary Care Physician [phone] Encounter [facility] [place] [place] Date(s): 06/22/20 - 06/23/[address] [address]- Discharge Disposition: A-D/C Home Attending Physician: Oseas [...] 13:42:00 EDT, Height Start Date: 05/23/20 Status: Orderedclotrimazole 1% topical cream 1 application, [...] tablet, 5 Refills, Maintenance, 03/27/20 17:21:00 EST, [facility], 1 tablet By Mouth Daily,x30 days, 175, cm, 01/16/20 13:42:00 EDT, Height Start Date: 03/27/20 Stop Date: 09/23/20 Status: Orderedestradiol valerate 20 mg/mL intramuscular solution = 20 mg, Intramuscular, Every 14 days, # 1 mL, 3 Refills, Maintenance, 01/16/20 14:45:00 EDT, [facility], 175, cm, 01/16/20 13:42:00 EDT, Height Start Date: 01/16/20 Status: Orderedspironolactone 100 mg oral tablet 100 mg, 1, tablet, By Mouth, 2 times a day, with meals-, # 60 tablet, Refills 3, Tot. Refills 3, Maintenance, 01/16/20 14:45:00 EDT, Route to Pharmacy Electronically, [facility], dose increase, 175, cm, 01/16/20 13:42:00 EDT, Height Start Date: 01/16/20 Stop Date: 05/15/20 Status: OrderedvalACYclovir 500 mg oral tablet 500 mg, 1, tablet, By Mouth, Daily, # 90 tablet, Refills 3, Tot. Refills 3, Maintenance, 01/16/20 14:45:00 EDT, Route to Pharmacy Electronically, [facility] 175, cm, 01/16/20 13:42:00 EDT, Height Start Date: 01/16/20 Status: Ordered Problem List Condition Effective Dates Status Health Status Informant Genital herpes(Confirmed) Active Glaucoma(Confirmed)1 Active *Jade Hodges, healthcare network pricing consultant, Active [facility] [phone](Confirmed) 1with history of retinal detachment. followed by Dr. Hadley. Vital Signs Most recent to oldest [Reference Range]: 1 2 Oxygen Saturation [94-100 %] 100 % 100 % (06/23/20 1:01 PM) (06/23/20 1:04 AM) Pulse Rate [55-90 bpm] 66 bpm 70 bpm (06/23/20 1:01 PM) (06/23/20 1:04 AM) Blood Pressure [90-138/55-84 mm Hg] 107/65 mm Hg 131/ 80 mm Hg (06/23/20 1:01 PM) (06/23/20 1:04 AM) Respiratory Rate [16-30 br/min] 16 br/min 18 br/mi n (06/23/20 1:01 PM) (06/23/20 1:04 AM) Temperature [96.8-100.4 DegF] 98.3 DegF 98.3 DegF (06/23/20 1:01 PM) (06/23/20 1:04 AM) Mode of Delivery (Oxygen) Room air Room air (06/23/20 1:01 PM) (06/23/20 1:04 AM) Blood pressure sites Arm, right (06/23/20 1:01 PM) Temperature Route Oral Oral (06/23/20 1:01 PM) (06/23/20 1:04 AM) Social History Social History Type Response Tobacco Use: 4 or less cigarettes(le ss than 1/4 pack)/day in last 30 days. Sex Male
--- OUTSIDE RECORDS SUMMARY | 2022-03-03 12:57 | XMS_ITS | Continuity of Care Document ---
:1990 Author Organization [facility] Address [address] [place] [address]- Care Team Providers Name Role Phone Gonzalo BOND, Katelin Caceres Primary Care Physician Encounter [facility] Date(s): 06/13/21 - 07/21/21 [facility] [address] [place] [address] Attending Physician: Reese Jaeger MD Admitting Physician: [...] 04/15/21 10:25:00 EST, [id number] Partial fill upon patient request if the prescription is for a schedule II opioid drug.... Start Date: 04/15/21 Stop Date: 05/15/21 Status: OrderedARIPiprazole 5 mg oral tablet 5 mg, 1, tablet, By Mouth, Daily, # 30 tablet, Refills 0, Tot. Refills 0, Maintenance, 11/09/20 9:40:00 EDT, Route to Pharmacy Electronically, [facility]-, Partial fill upon patient request if the prescription is for a schedule... Start Date: 11/09/20 Status: OrderedDaily Nicanor oral tablet 1 tablet, By Mouth, Daily, # 30 tablet, 1 Refills, Maintenance, 11/08/20 17:59:00 EDT, [facility]-, 1 tablet By Mouth Daily,x30 days, 168, cm, 11/08/20 9:22:00 EDT, Height, 55.5,kg, 10/26/20 17:00:00 EDT, Dry Weight Start Date: 11/08/20 Stop Date: 01/07/21 Status: Ordered Problem List Condition Effective Dates Status Health Status Informant Genital herpes(Confirmed) Active Glaucoma(Confirmed)1 Active *Jade Hodges, palliative care nurse, Active [facility] [phone](Confirmed) 1with history of retinal detachment. followed by Dr. Hadley. Social History Social History Type Response Tobacco Use: 4 or less cigarettes(le ss than 1/4 pack)/day in last 30 days. Interested in cessatio n: No. No Sex
--- OUTSIDE RECORDS SUMMARY | 2022-03-03 12:57 | XMS_ITS | Continuity of Care Document ---
:[address] [facility] Address [address] [place] [address]- Care Team Providers Name Role Phone Gonzalo BOND, Katelin Caceres Primary Care Physician [phone] [place] [facility] [place] Date(s): 11/21/[place] - 12/31/19 [facility] [address] [place] [address]- [facility] Attending Physician: Gonzalo BOND, Katelin Caceres Admitting Physician: Gonzalo BOND, Katelin Caceres Allergies, Adverse Reactions, Alerts Substance Reaction Severity Status NKA Active Immunizations Given and Recorded Vaccine Date Status Refusal Reason influenza virus vaccine, inactivated 05/19/17 Given tetanus/diphtheria/pertussis, acel(Tdap) 04/18/15 Given Medications Daily Nicanor oral tablet 1 tablet, By Mouth, Daily, # 30 tablet, 5 Refills, Maintenance, 05/06/19 17:08:00 EST, [facility], 1 tablet By Mouth Daily,x30 days, 175, cm, 02/08/19 9:27:00 EDT, Height Start Date: 05/06/19 Stop Date: 11/02/19 Status: Orderedestradiol valerate 20 mg/mL intramuscular solution = 20 mg, Intramuscular, Every 14 days, # 1 mL, 0 Refills, Maintenance, 12/06/19 15:58:00 EDT, [facility], 175, cm, 02/08/19 9:27:00 EDT, Height Start Date: 12/06/19 Status: Orderedspironolactone 100 mg oral tablet 100 mg, 1, tablet, By Mouth, 2 times a day, with meals-, # 60 tablet, Refills 0, Tot. Refills 0, Maintenance, 12/06/19 15:59:00 EDT, [facility] dose increase, 175, cm, 02/08/19 9:27:00 EDT, Height Start Date: 12/06/19 Stop Date: 01/05/20 Status: OrderedvalACYclovir 500 mg oral tablet 500 mg, 1, tablet, By Mouth, Daily, # 90 tablet, Refills 3, Tot. Refills 3, Maintenance, 08/10/18 11:10:00 EDT, Route to Pharmacy Electronically, [id number], [facility]. Start Date: 08/10/18 Status: Ordered Problem List Condition Effective Dates Status Health Status Informant Genital herpes(Confirmed) Active Glaucoma(Confirmed)1 Active 1with history of retinal detachment. followed by Dr. Hadley. Social History Social History Type Response Tobacco Use: 4 or less cigarettes(le ss than 1/4 pack)/day in last 30 days. Sex Male
--- OUTSIDE RECORDS SUMMARY | 2022-03-03 12:58 | XMS_ITS | Continuity of Care Document ---
:1990 Author Organization [facility] Address [address] [place] [address]- Care Team Providers Name Role Phone Gonzalo BOND, Katelin Caceres Primary Care Physician Encounter [facility] Date(s): 10/20/19 - 11/19/19 [facility] [address] [place] [address]- [place] Attending Physician: Admkristopher, Jann8 Admitting Physician: Admtr, [id number] Referring Physician: [...] 9:27:00 EDT, Height Start Date: 05/06/19 Status: Faybbzn49 gauge 5/8th inch needles with 1 cc [...] tablet, 5 Refills, Maintenance, 05/06/19 17:08:00 EST, [facility], 1 tablet By Mouth Daily,x30 days, 175, cm, 02/08/19 9:27:00 EDT, Height Start Date: 05/06/19 Stop Date: 11/02/19 Status: Orderedestradiol valerate 20 mg/mL intramuscular solution = 20 mg, Intramuscular, Every 14 days, # 5 mL, 3 Refills, Maintenance, 03/31/19 20:41:00 EST, [facility] 175, cm, 02/08/19 9:27:00 EDT, Height Start Date: 03/31/19 Status: Orderedprogesterone 100 mg oral capsule 1 capsule, By Mouth, Daily at bedtime, # 30 capsule, 0 Refills, Acute, 05/10/19 7:58:00 EST, [facility], 175, cm, 02/08/19 9:27:00 EDT, Height Start Date: 05/10/19 Status: OrderedSEROquel 25 mg oral tablet 25 mg, 1, tablet, By Mouth, Daily, # 30 tablet, Refills 1, Tot. Refills 1, Maintenance, 09/25/16 14:30:07, Route to Pharmacy Electronically, [id number], [facility]. Start Date: 09/25/16 Stop Date: 11/24/16 Status: Orderedspironolactone 100 mg oral tablet 100 mg, 1, tablet, By Mouth, 2 times a day, with meals-, # 60 tablet, Refills 0, Tot. Refills 0, Maintenance, 10/18/19 18:14:00 EDT, Route to Pharmacy Electronically, [facility], dose increase, 175, cm, 02/08/19 9:27:00 EDT, Height Start Date: 10/18/19 Stop Date: 11/17/19 Status: OrderedvalACYclovir 500 mg oral tablet 500 mg, 1, tablet, By Mouth, Daily, # 90 tablet, Refills 3, Tot. Refills 3, Maintenance, 08/10/18 11:10:00 EDT, Route to Pharmacy Electronically, [id number], [facility] Start Date: 08/10/18 Status: Ordered Problem List Condition Effective Dates Status Health Status Informant Genital herpes(Confirmed) Active Glaucoma(Confirmed)1 Active 1with history of retinal detachment. followed by Dr. Hadley. Social History Social History Type Response Tobacco Use: 4 or less cigarettes(le ss than 1/4 pack)/day in last 30 days. Sex Male
--- OUTSIDE RECORDS SUMMARY | 2022-03-03 12:58 | XMS_ITS | Continuity of Care Document ---
:1990 Author Organization [facility] Address [address] [place] [address]- Care Team Providers Name Role Phone Gonzalo BOND, Katelin Caceres Primary Care Physician Encounter [facility] [place] Date(s): 09/06/20 - 10/06/20 [facility] [address] [place] [id number] Attending Physician: Gonzalo BOND, Katelin Caceres Admitting [...] tablet, 5 Refills, Maintenance, 03/27/20 17:21:00 EST, [facility], 1 tablet By Mouth [...] 01/16/20 14:45:00 EDT, Route to Pharmacy Electronically, [facility], dose increase, 175, cm, 01/16/20 13:42:00 EDT, Height Start Date: 01/16/20 Stop Date: 05/15/20 Status: OrderedvalACYclovir 500 mg oral tablet 500 mg, 1, tablet, By Mouth, Daily, # 90 tablet, Refills 3, Tot. Refills 3, Maintenance, 01/16/20 14:45:00 EDT, Route to Pharmacy Electronically, [facility], 175, cm, 01/16/20 13:42:00 EDT, Height Start Date: 01/16/20 Status: Ordered Problem List Condition Effective Dates Status Health Status Informant Genital herpes(Confirmed) Active Glaucoma(Confirmed)1 Active *Jade Hodges, ambulatory care coordinator, Active [facility] [phone](Confirmed) 1with history of retinal detachment. followed by Dr. Hadley. Social History Social History Type Response Tobacco Use: 4 or less cigarettes(le ss than 1/4 pack)/day in last 30 days. Sex Male
--- OUTSIDE RECORDS SUMMARY | 2022-03-03 12:58 | XMS_ITS | Continuity of Care Document ---
:1990 Author Organization [facility] Address [address] [place] [address]- Care Team Providers Name Role Phone Not on Staff, PCP Primary Care Physician Unavailable [place] [facility] [place] 10/28/21 - 10/28/21 [facility] [address] [place] [address]- Encounter Diagnosis Depression (Final) - 10/28/21 Discharge Disposition: A-D/C Home Attending Physician: Kris Farnsworth MD Admitting Physician: Kris Farnsworth MD Referring Physician: Not on Staff, Referring [...] 04/15/21 10:25:00 EST, Route to Pharmacy Electronically, [facility]acy #[id number], Partial fill upon patient request if the prescription is for a schedule II opioid drug.... Start Date: 04/15/21 Stop Date: 05/15/21 Status: OrderedARIPiprazole 5 mg oral tablet 5 mg, 1, tablet, By Mouth, Daily, # 30 tablet, Refills 0, Tot. Refills 0, Maintenance, 11/09/20 9:40:00 EDT, Route to Pharmacy Electronically, [facility]-, Partial fill upon patient request if the prescription is for a schedule... Start Date: 11/09/20 Status: OrderedDaily Nicanor oral tablet 1 tablet, By Mouth, Daily, # 30 tablet, 1 Refills, Maintenance, 11/08/20 17:59:00 EDT, [facility]-, 1 tablet By Mouth Daily,x30 days, 168, cm, 11/08/20 9:22:00 EDT, Height, 55.5,kg, 10/26/20 17:00:00 EDT, Dry Weight Start Date: 11/08/20 Stop Date: 01/07/21 Status: Ordered Problem List Condition Effective Dates Status Health Status Informant Genital herpes(Confirmed) Active Glaucoma(Confirmed)1 Active *Jade Hodges, skin care therapist, Active [facility] [phone](Confirmed) 1with history of retinal detachment. followed by Dr. Hadley. Vital Signs Most recent to oldest [Reference Range]: 1 2 Oxygen Saturation [94-100 %] 98 % 97 % (10/28/21 4:12 PM) (10/28/21 11:55 AM) Pulse Rate [55-90 bpm] 62 bpm 81 bpm (10/28/21 4:12 PM) (10/28/21 11:55 AM) Blood Pressure [90-138/55-84 mm Hg] 133/89 mm Hg 111/ 71 mm Hg (10/28/21 4:12 PM) (10/28/21 11:55 AM) Respiratory Rate [16-30 br/min] 18 br/min 16 br/mi n (10/28/21 4:12 PM) (10/28/21 11:55 AM) Temperature [96.8-100.4 DegF] 98.2 DegF 98.3 DegF (10/28/21 4:12 PM) (10/28/21 11:55 AM) Mode of Delivery (Oxygen) Room air Room air (10/28/21 4:12 PM) (10/28/21 11:55 AM) Blood pressure sites Arm, right Arm, right (10/28/21 4:12 PM) (10/28/21 11:55 AM) Temperature Route Oral Oral (10/28/21 4:12 PM) (10/28/21 11:55 AM) Social History Social History Type Response Tobacco Use: 4 or less cigarettes(le ss than 1/4 pack)/day in last 30 days. Interested in cessatio n: No. No Sex
--- OUTSIDE RECORDS SUMMARY | 2022-03-03 12:58 | XMS_ITS | Continuity of Care Document ---
:1990 Author Organization [facility] Address [address] [place] [address]- Care Team Providers Name Role Phone Gonzalo BOND, Katelin Caceres Primary Care Physician [place] [facility] [place] 03/22/20 [facility] [address] [place] [address]- Attending Physician: Reese Jaeger MD Admitting Physician: [...] tablet, 5 Refills, Maintenance, 05/06/19 17:08:00 EST, [facility], 1 tablet By Mouth Daily,x30 days, 175, cm, 02/08/19 9:27:00 EDT, Height Start Date: 05/06/19 Stop Date: 11/02/19 Status: Orderedestradiol valerate 20 mg/mL intramuscular solution = 20 mg, Intramuscular, Every 14 days, # 1 mL, 3 Refills, Maintenance, 01/16/20 14:45:00 EDT, [facility], 175, cm, 01/16/20 13:42:00 EDT, Height Start Date: 01/16/20 Status: Orderedspironolactone 100 mg oral tablet 100 mg, 1, tablet, By Mouth, 2 times a day, with meals-, # 60 tablet, Refills 3, Tot. Refills 3, Maintenance, 01/16/20 14:45:00 EDT, [facility] dose increase, 175, cm, 01/16/20 13:42:00 EDT, Height Start Date: 01/16/20 Stop Date: 05/15/20 Status: OrderedvalACYclovir 500 mg oral tablet 500 mg, 1, tablet, By Mouth, Daily, # 90 tablet, Refills 3, Tot. Refills 3, Maintenance, 01/16/20 14:45:00 EDT, Route to Pharmacy Electronically, [facility] 175, cm, 01/16/20 13:42:00 EDT, Height [...]
--- OUTSIDE RECORDS SUMMARY | 2022-03-03 12:58 | XMS_ITS | Continuity of Care Document ---
:1990 Author Organization [facility] Address [address] [place] [address]- Care Team Providers Name Role Phone Gonzalo BOND, Katelin Caceres Primary Care Physician [phone] Encounter [facility] Date(s): 04/24/21 - 04/26/[address] [address]- Encounter Diagnosis COVID-19 virus infection (Final) - 04/25/21 Discharge Disposition: Transfer to [facility] Facility Attending Physician: Shelley Blankenship DO Admitting Physician: Shelley Blankenship DO Referring Physician: Not on Staff, Referring [...] 04/15/21 10:25:00 EST, [id number] Partial fill upon patient request if the prescription is for a schedule II opioid drug.... Start Date: 04/15/21 Stop Date: 05/15/21 Status: OrderedARIPiprazole 5 mg oral tablet 5 mg, 1, tablet, By Mouth, Daily, # 30 tablet, Refills 0, Tot. Refills 0, Maintenance, 11/09/20 9:40:00 EDT, Route to Pharmacy Electronically, [facility] Partial fill upon patient request if the prescription is for a schedule... Start Date: 11/09/20 Status: OrderedDaily Nicanor oral tablet 1 tablet, By Mouth, Daily, # 30 tablet, 1 Refills, Maintenance, 11/08/20 17:59:00 EDT, [facility]-, 1 tablet By Mouth Daily,x30 days, 168, cm, 11/08/20 9:22:00 EDT, Height, 55.5,kg, 10/26/20 17:00:00 EDT, Dry Weight Start Date: 11/08/20 Stop Date: 01/07/21 Status: Ordered Problem List Condition Effective Dates Status Health Status Informant Genital herpes(Confirmed) Active Glaucoma(Confirmed)1 Active *Jade Elljoslynjuan, managed care liaison, Active [facility] [phone](Confirmed) 1with history of retinal detachment. followed by Dr. Hadley. Vital Signs Most recent to oldest 1 2 3 [Reference Range]: Oxygen Saturation [94-100 %] 100 % 100 % 99 % (04/25/21 10:00 PM) (04/25/21 5:30 PM) (04/25/21 2: 00 PM) Pulse Rate [55-90 bpm] 66 bpm 65 bpm 65 bpm (04/25/21 10:00 PM) (04/25/21 5:30 PM) (04/25/21 2: 00 PM) Blood Pressure [90-138/55-84 104/68 mm Hg 107/77 mm Hg 101 /69 mm Hg mm Hg] (04/25/21 10:00 PM) (04/25/21 5:30 PM) (04/25/21 2: 00 PM) Respiratory Rate [16-30 16 br/min 16 br/min 18 br/mi n br/min] (04/25/21 10:00 PM) (04/25/21 5:30 PM) (04/25/21 2: 00 PM) Temperature [96.8-100.4 DegF] 98.2 DegF 98 DegF 97 .9 DegF (04/25/21 10:00 PM) (04/25/21 5:30 PM) (04/25/21 2: 00 PM) Mode of Delivery (Oxygen) Room air Room air Room a ir (04/25/21 10:00 PM) (04/25/21 5:30 PM) (04/25/21 2: 00 PM) Blood pressure sites Arm, right Arm, right Arm, right (04/25/21 10:00 PM) (04/25/21 5:30 PM) (04/25/21 2: 00 PM) Temperature Route Oral Oral Oral (04/25/21 10:00 PM) (04/25/21 5:30 PM) (04/25/21 2: 00 PM) Social History Social History Type Response Tobacco Use: 4 or less cigarettes(le ss than 1/4 pack)/day in last 30 days. Interested in cessatio n: No. No Sex
--- OUTSIDE RECORDS SUMMARY | 2022-03-03 12:58 | XMS_ITS | Continuity of Care Document ---
:1990 Author Organization [facility] Address [address] [place] [id number]- Care Team Providers Name Role Phone Gonzalo BOND, Katelin Caceres Primary Care Physician Encounter [facility] Date(s): 11/17/19 - 12/17/19 [facility] [address] [place] [address]- [facility] Allergies, Adverse Reactions, Alerts Substance Reaction Severity Status NKA Active Immunizations Given and Recorded Vaccine Date Status Refusal Reason influenza virus vaccine, inactivated 05/19/17 Given tetanus/diphtheria/pertussis, acel(Tdap) 04/18/15 Given Medications Daily Nicanor oral tablet 1 tablet, By Mouth, Daily, # 30 tablet, 5 Refills, Maintenance, 05/06/19 17:08:00 EST, [facility], 1 tablet By Mouth Daily,x30 days, 175, cm, 02/08/19 9:27:00 EDT, Height Start Date: 05/06/19 Stop Date: 11/02/19 Status: Orderedestradiol valerate 20 mg/mL intramuscular solution = 20 mg, Intramuscular, Every 14 days, # 1 mL, 0 Refills, Maintenance, 12/06/19 15:58:00 EDT, [facility], 175, cm, 02/08/19 9:27:00 EDT, Height Start Date: 12/06/19 Status: Orderedspironolactone 100 mg oral tablet 100 mg, 1, tablet, By Mouth, 2 times a day, with meals-, # 60 tablet, Refills 0, Tot. Refills 0, Maintenance, 12/06/19 15:59:00 EDT, Route to Pharmacy Electronically, [facility] dose increase, 175, cm, 10/29/19 9:27:00 EDT, Height Start Date: 12/06/19 Stop Date: 01/05/20 Status: OrderedvalACYclovir 500 mg oral tablet 500 mg, 1, tablet, By Mouth, Daily, # 90 tablet, Refills 3, Tot. Refills 3, Maintenance, 08/10/18 11:10:00 EDT, Route to Pharmacy Electronically, [id number], [facility] Start Date: 08/10/18 Status: Ordered Problem List Condition Effective Dates Status Health Status Informant Genital herpes(Confirmed) Active Glaucoma(Confirmed)1 Active 1with history of retinal detachment. followed by Dr. Hadley. Social History Social History Type Response Tobacco Use: 4 or less cigarettes(le ss than 1/4 pack)/day in last 30 days. Sex Male
--- OUTSIDE RECORDS SUMMARY | 2022-03-03 12:58 | XMS_ITS | Continuity of Care Document ---
:1990 Author Organization [facility] Address [address] [place] [id number]- Care Team Providers Name Role Phone Gonzalo BOND, Katelin Caceres Primary Care Physician [phone] Encounter [facility] Date(s): 02/21/20 - 03/22/20 [facility] [address] [place] [id number] Attending Physician: Cristiano Alcantar Admitting Physician: AdmCristiano summers Referring Physician: AdmtrCristiano Allergies, Adverse Reactions, Alerts Substance Reaction Severity Status NKA Active Immunizations Given and Recorded Vaccine Date Status Refusal Reason Human Papillomavirus Vaccine 01/16/20 Given influenza virus vaccine, inactivated 01/16/20 Given influenza virus vaccine, inactivated 05/19/17 Given tetanus/diphtheria/pertussis, acel(Tdap) 04/18/15 Given Medications Daily Nicanor oral tablet 1 tablet, By Mouth, Daily, # 30 tablet, 5 Refills, Maintenance, 05/06/19 17:08:00 EST, [facility], 1 tablet By Mouth Daily,x30 days, 175, cm, 02/08/19 9:27:00 EDT, Height Start Date: 05/06/19 Stop Date: 11/02/19 Status: Orderedestradiol valerate 20 mg/mL intramuscular solution = 20 mg, Intramuscular, Every 14 days, # 1 mL, 3 Refills, Maintenance, 01/16/20 14:45:00 EDT, [facility] 175, cm, 01/16/20 13:42:00 EDT, Height Start Date: 01/16/20 Status: Orderedspironolactone 100 mg oral tablet 100 mg, 1, tablet, By Mouth, 2 times a day, with meals-, # 60 tablet, Refills 3, Tot. Refills 3, Maintenance, 01/16/20 14:45:00 EDT, [facility] dose [facility], 175, cm, 01/16/20 13:42:00 EDT, Height Start Date: 01/16/20 Stop Date: 05/15/20 Status: OrderedvalACYclovir 500 mg oral tablet 500 mg, 1, tablet, By Mouth, Daily, # 90 tablet, Refills 3, Tot. Refills 3, Maintenance, 01/16/20 14:45:00 EDT, Route to Pharmacy Electronically, [facility], 175, cm, 01/16/20 13:42:00 EDT, Height [...]
[2022-03-03 13:14] LABS: Appearance Urine Clear; Color Urine Yellow; Glucose Urine UA Negative (Negative); Leukocyte Esterase Urine Negative (Negative); Nitrite Urine Negative (Negative); PH 8.5 (5.0-9.0); Urine Blood Negative (Negative); Urine Ketones Negative (Negative); Urine Protein Negative (Neg-Trace)
[2022-03-03 13:28] LABS: Amphetamine Screen Urine Not Detected (Not Detect); Barbiturates, Urine Not Detected (Not Detect); Benzodiazepines Screen Urine Not Detected (Not Detect); Cannabinoid Screen Urine POSITIVE (Not Detect); Cocaine Screen Urine Not Detected (Not Detect); Fentanyl, urine Not Detected (Not Detect); Opiate Screen Urine Not Detected (Not Detect); Phencyclidine Screen Urine Not Detected (Not Detect)
[2022-03-03 13:33] LABS: COVID-19 Test Negative (Negative); IDNOW Serial# 55D5AD1C
[2022-03-03 14:00] VITALS: RESP 16
[2022-03-03 16:00] VITALS: RESP 16
[2022-03-03 18:00] VITALS: RESP 16
--- NOTE | 2022-03-03 18:33 | MHC.CARE ---
[facility] unable to send a clinician, CARE team completed assessment. Plan is for inpatient psych admission. Pt will board in ED on a Section 12a pending facility placement.
--- NOTE | 2022-03-03 19:07 | PC.NURSE ---
Addendum entered by Janice Seymour RN 03/04/22 06:46: report given to DARYL Veras Original Note: report received from DARYL Casanova pt appears asleep no signs of acute distress notice breathing equally unlabored close monitoring maintained
[2022-03-03 22:00] VITALS: RESP 20
[2022-03-04 06:30] VITALS: BP 147/87; PULSE 82; RESP 17; TEMP 37.2; O2SAT 97
--- NOTE | 2022-03-04 06:59 | PC.NURSE ---
patient appears to remain asleep at present respirations are even and unlabored patient appears in no distress.
--- NOTE | 2022-03-04 13:49 | PC.NURSE ---
pt refusing blood work. Ami BRITO made aware regarding
[2022-03-04 19:14] LABS: Hematocrit 46.6 % (42.0-52.0); Hemoglobin 15.4 g/dl (14.0-18.0); Mean Corpuscular Hemoglobin 29.8 pg (27.0-33.0); Mean Corpuscular Volume 90.3 fL (80.0-98.0); Mean Platelet Volume 10.9 fL (9.4-12.4); Platelet Count 288 X10*3/uL (160-400); Red Blood Count 5.16 X10*6/uL (4.60-5.80); Red Cell Distribution Width 13.2 % (11.0-16.0); White Blood Count 7.2 X10*3/uL (4.8-10.8)
[2022-03-04 20:22] LABS: Alanine Aminotransferase 66 U/L (0-40); Albumin Level 4.6 g/dL (3.5-5.0); Alkaline Phosphatase 74 U/L (39-117); Anion Gap 17 (12-20); Aspartate Amino Transferase 40 U/L (5-37); Bilirubin Total 0.7 mg/dL (0.0-1.0); Blood Urea Nitrogen 11 mg/dL (9-16); Calcium 9.7 mg/dL (8.4-10.2); Carbon Dioxide 27 mmol/L (22-29); Chloride 103 mmol/L (96-108); Creatinine Clr Calc Pharmacy 107.5; Estimated Glomerular Filt Rate > 60; Glucose Random 73 mg/dL (60-115); Potassium 4.5 mmol/L (3.3-5.1); Sodium 142 mmol/L (135-145); Total Protein 7.9 g/dL (6.5-8.0)
[2022-03-04] MEDS: OLANZapine 10 MG TABLET PO (22:15)
[2022-03-04 22:17] VITALS: BP 138/92; PULSE 69; RESP 16; TEMP 36.5; O2SAT 99
--- NOTE | 2022-03-04 22:32 | PC.ADMIT ---
31yoM admitted on CV from [facility] [place] [place] pod for increase in paranoid thoughts and delusions, SI with multiple plans. Pt has hx Schizoaffective d/o Bipolar type, chronic crack cocaine use. Pt reports he has an apartment but does not feel safe, has not been sleeping, and feels like people or a spiritual entity has been following him. Pt has been off all psychiatric medication for several months, about 3 weeks after last d/c from [facility] in July 2021. Pt reports using crack cocaine daily, but has not used x3 weeks, daily marijuana use, denies nicotine or etoh use, unclear if pt is reliable historian. Pt presents with psychomotor agitation, smiling and laughing at inappropriate times, disorganized speech and stated I'm just over it as a response to multiple questions. Pt denies HI/AVH, endorses current SI with plan to explode , stab himself, or drown but denies intent or means to act on these thoughts while in the hospital. Pt declined to sign CHUCHO for providers or pharmacy, unsure about flu vaccine at this time. Pt reported he could not sleep in the same room as a black person and requested a new roommate stating if they know I've been inside them it will become a whole thing . Pt provided temporary alternative sleeping arrangement until an open bed becomes available, pt agreeable to this.
[2022-03-05 09:41] LABS: Estimated Average Glucose 103 mg/dL; Hemoglobin A1c % 5.2 %
[2022-03-05 10:19] LABS: Cholesterol 157 mg/dL; Free T4 (Free Thyroxine) 1.05 ng/dL (0.71-1.85); HDL Cholesterol 45 mg/dL; LDL Cholesterol Calculated 98 mg/dl; Magnesium 2.4 mg/dL (1.6-2.6); Thyroid Stimulating Hormone 0.49 uIU/mL (0.32-4.0); Triglycerides 71 mg/dL
[2022-03-05 10:31] LABS: Folate 13.5 ng/mL (> or = 4.0); Vitamin B12 330 pg/mL (200-900)
--- NOTE | 2022-03-05 12:05 | MHC.CLN ---
NUTRITION CONSULT FOR MALNUTRITION. PATIENT REPORTS THAT HE IS EATING OK. WOULD LIKE ENSURE SUPPLEMENT. ADDED ENSURE TID TO PROVIDE ADDITIONAL 1050 KCALS, 60 G PROTEIN. BMI=20.9, NORMAL, AND IS 91% OF IBW. PATIENT IN BED WITH MOST OF FACE COVERED. DOES NOT QUALIFY MALNOURISHED BASED ON INFORMATION REVIEWED. CONTINUE REGULAR DIET WITH ENSURE SUPPLEMENT.
[2022-03-05 13:30] VITALS: BP 96/54; PULSE 55; RESP 18; TEMP 36.7; O2SAT 100
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
[2022-03-05 21:15] VITALS: BP 101/53; PULSE 52; RESP 16; TEMP 36.6; O2SAT 97
[2022-03-05] MEDS: OLANZapine 5 MG TABLET PO (21:25)
[2022-03-05] MEDS: Lithium Carbonate ER 300 MG TABLET.ER PO (21:25)
--- NOTE | 2022-03-06 07:48 | HO.PSYCHPN ---
Subjective Subjective Date of Service: 03/06/22 Reason For Visit: Psychosis Subjective Notes: Conditional Voluntary Interim History: Pt reports he slept okay. He describes mood as okay. When asked about SI, pt states a little bit. He denies any plan or intent to harm self while on the unit. He reports he is tolerating medications well. Per nursing, no behavioral concerns. Review of Systems Review of Systems Yes all other systems are reviewed and are negative Constitutional: Reports no additional constitutional complaints, Denies chills, Denies fever(s), Denies headache(s), Denies weight gain and Denies weight loss Eyes: Reports no additional eye complaints and Denies change in vision Reports system reviewed and no additional complaints, except as documented, Reports Normal hearing present, Denies dysphagia, Denies vertigo, Denies dizziness, Denies headache(s), Denies nasal congestion and Denies nasal discharge Cardiovascular: Reports no additional cardiovascular complaints, Denies chest pain and Denies dyspnea Respiratory: Reports no additional respiratory complaints and Denies dyspnea Gastrointestinal: Reports no additional gastrointestinal complaints, Denies melena, Denies hematochezia, Denies change in bowel habits and Denies dysphagia Genitourinary: Reports no additional male genitourinary complaints, Denies difficulty urinating and Denies genital pain Musculoskeletal: Reports no additional musculoskeletal complaints, Denies myalgias, Denies numbness and Denies tingling Skin/Breast: Reports system reviewed and no additional complaints, except as docu, Denies lesions, Denies rash and Denies sores Reports system reviewed and no additional complaints, except as documented, Reports Normal hearing present, Denies vertigo, Denies dizziness, Denies headache(s), Denies numbness and Denies tingling Psychiatric: Reports no additional psychiatric complaints, Reports anxiety, Denies auditory hallucinations, Denies visual hallucinations, Denies homicidal ideation and Reports suicidal ideation Endocrine: Reports no additional endocrine complaints, Denies change in body appearance, Denies polyphagia, Denies polydipsia and Denies polyuria Mental Status Exam Mental Status Exam Narrative: swaddled in blanket, unclear what he is wearing underneath. slight. tattoos, dyed blond hair. cooperative, no PMA/PMR. speech soft, minimal. incr latency. thoughts linear and logical in rather brief and superficial interview. affect flexible, inconsistent with context (some bizarre smiling). mood OK. endorses SI, denies HI/AVH. Diagnostics Vital Signs (24Hr): Vital Signs - 24 hr 03/06/22 08:40 03/06/22 20:10 Temperature 97.9 F 97 F Pulse Rate 63 76 Respiratory Rate 18 16 Blood Pressure 117/64 127/82 Pulse Oximetry 99 98 Oxygen Delivery Method Room Air Room Air BMI result Body Mass Index 20.0 Labs Results: 03/04/22 19:09 03/04/22 19:10 Labs: Laboratory Results - last 48 hr 03/05/22 03/05/22 03/05/22 08:55 08:55 08:55 Estimat Average Glucose 103 Hemoglobin A1c % 5.2 Magnesium 2.4 Triglycerides 71 Cholesterol 157 LDL Cholesterol, Calc 98 HDL Cholesterol 45 Vitamin B12 330 Folate 13.5 TSH 0.49 Free T4 1.05 Medications Medications Current Medications Acetaminophen (Acetaminophen 325 Mg Tablet) 650 mg PO Q6H PRN PRN Reason: Headache/Pain Mild Scale (1-3) Last Admin: 03/06/22 14:54 Dose: 650 mg Al Hydroxide/Mg Hydroxide (Magnesium Hydrox/Alum Hydrox 30 Ml Oral.Susp) 30 ml PO Q6H PRN PRN Reason: Heartburn/Nausea Hydroxyzine HCl (Hydroxyzine Hcl 25 Mg Tablet) 25 mg PO Q6H PRN PRN Reason: Anxiety Cimarron Carbonate (Cimarron Carbonate Er 300 Mg Tablet.Er) 300 mg PO BID [facility] Last Admin: 03/06/22 21:08 Dose: 300 mg Magnesium Hydroxide (Milk Of Magnesia 30 Ml Oral.Susp) 30 ml PO DAILY PRN PRN Reason: Constipation Olanzapine (Olanzapine 5 Mg Tablet) 5 mg PO Q6H PRN PRN Reason: anxiety, agitation Last Admin: 03/06/22 14:54 Dose: 5 mg Olanzapine (Olanzapine 5 Mg Tablet) 5 mg PO BEDTIME [facility] Last Admin: 03/06/22 21:08 Dose: 5 mg Trazodone HCl (Trazodone Hcl 50 Mg Tablet) 50 mg PO BEDTIME PRN PRN Reason: Insomnia Allergies Allergies Allergy/AdvReac Type Severity Reaction Status Date / Time No Known Allergies Allergy Verified 06/26/21 12:54 Assessment & Plan Assessment & Plan (1) Schizoaffective disorder: Status: Acute Code(s): F25.9 - Schizoaffective disorder, unspecified Plan pt agreed to restart lithium and zyprexa, which he took during his most recent hospitalization on [facility] in july of 2021 (with haldol in addition). will attempt to get lithium to a therapeutic dose during the present admission to see if that makes more of an impact on his mood Sx (he was only Rx'ed 300 mg daily at prior admission, with heavier reliance on zyprexa and haldol). started lithium 300 BID and zyprexa 5 QHS (pt reported he had 10 mg last night and was still feeling sedated from it mid-afternoon). 03/06 continue tx. I spent minutes with the patient and/or on the patient floor today, greater than?50% of which was spent counseling/coordinating care. Reason for contiued inpatient stay Substantial Risk for: harm to self
[2022-03-06 08:40] VITALS: BP 117/64; PULSE 63; RESP 18; TEMP 36.6; O2SAT 99
[2022-03-06] MEDS: Lithium Carbonate ER 300 MG TABLET.ER PO ×2 (09:37→21:08)
[2022-03-06] MEDS: Acetaminophen 325 MG TABLET 650 MG PO (14:54)
[2022-03-06] MEDS: OLANZapine 5 MG TABLET PO ×2 (14:54→21:08)
--- NOTE | 2022-03-06 15:04 | PC.NURSE ---
Patient reports he is 'not feeling good' ; preoccupied with concerns that he has been taken over by spirits since he smoked crack 2 weeks ago, reporting SI. Given Zyprexa, provider notified, placed on 6 minute checks. Patient encouraged to remain visible on unit and to check in with staff.
[2022-03-06 20:10] VITALS: BP 127/82; PULSE 76; RESP 16; TEMP 36.1; O2SAT 98
[2022-03-07 06:00] VITALS: BP 124/78; PULSE 78; RESP 16; TEMP 36.9; O2SAT 98
[2022-03-07] MEDS: Throat Lozenge, Medicated LOZENGE 1 LOZENGE MUCOUS MEM ×3 (08:53→22:51)
[2022-03-07] MEDS: Lithium Carbonate ER 300 MG TABLET.ER PO (08:53)
--- NOTE | 2022-03-07 13:00 | HO.PSYCHPN ---
Subjective Subjective Date of Service: 03/07/22 Reason For Visit: Psychosis Interim History: pt comes for interview wearing hospital gown with nothing on underneath. presents the idea that the crack cocaine he had been smoking had something in it which got into his body and is somehow causing him persisting symptoms. he asks for something to clean his blood. MD explains function of liver to remove toxins. pt asks for antibiotic. pt explains he has no signs or Sx of infection. MD suggests a higher dose of lithium and olanzapine would be helpful, pt agrees. he is counseled to be patient and take things one day at a time and encouraged he will likely experience improvement in his worries of some kind of violation of his bodily integrity in the coming days. Mental Status Exam Mental Status Exam Narrative: dressed in hospital diana only, naked underneath. slight. tattoos, dyed blond hair. cooperative, no PMA/PMR. speech incr rate and amount, nml loudness, decr latency. thoughts perseverative over contamination fears. affect flexible, inconsistent with context (some bizarre smiling and laughing). no SI/HI/AVH expressed. Diagnostics Vital Signs (24Hr): Vital Signs - 24 hr 03/06/22 20:10 03/07/22 06:00 Temperature 97 F 98.4 F Pulse Rate 76 78 Respiratory Rate 16 16 Blood Pressure 127/82 124/78 Pulse Oximetry 98 98 Oxygen Delivery Method Room Air Room Air BMI result Body Mass Index 20.0 Labs Results: 03/04/22 19:09 03/04/22 19:10 Medications Medications Current Medications Acetaminophen (Acetaminophen 325 Mg Tablet) 650 mg PO Q6H PRN PRN Reason: Headache/Pain Mild Scale (1-3) Last Admin: 03/06/22 14:54 Dose: 650 mg Al Hydroxide/Mg Hydroxide (Magnesium Hydrox/Alum Hydrox 30 Ml Oral.Susp) 30 ml PO Q6H PRN PRN Reason: Heartburn/Nausea Benzocaine (Throat Lozenge, Medicated Lozenge) 1 lozenge MUCOUS MEM Q2H PRN PRN Reason: Sore Throat Last Admin: 03/07/22 08:53 Dose: 1 lozenge Hydroxyzine HCl (Hydroxyzine Hcl 25 Mg Tablet) 25 mg PO Q6H PRN PRN Reason: Anxiety [place] Carbonate ([place] Carbonate Er 450 Mg Tablet.Er) 450 mg PO BID JAKE Magnesium Hydroxide (Milk Of Magnesia 30 Ml Oral.Susp) 30 ml PO DAILY PRN PRN Reason: Constipation Olanzapine (Olanzapine 5 Mg Tablet) 5 mg PO Q6H PRN PRN Reason: anxiety, agitation Last Admin: 03/06/22 14:54 Dose: 5 mg Olanzapine (Olanzapine 10 Mg Tablet) 10 mg PO BEDTIME JAKE Trazodone HCl (Trazodone Hcl 50 Mg Tablet) 50 mg PO BEDTIME PRN PRN Reason: Insomnia Allergies Allergies Allergy/AdvReac Type Severity Reaction Status Date / Time No Known Allergies Allergy Verified 06/26/21 12:54 Assessment & Plan Assessment & Plan (1) Schizoaffective disorder: Status: Acute Code(s): F25.9 - Schizoaffective disorder, unspecified Plan pt agreed to restart lithium and zyprexa, which he took during his most recent hospitalization on M5 in july of 2021 (with haldol in addition). will attempt to get lithium to a therapeutic dose during the present admission to see if that makes more of an impact on his mood Sx (he was only Rx'ed 300 mg daily at prior admission, with heavier reliance on zyprexa and haldol). started lithium 300 BID and zyprexa 5 QHS (pt reported he had 10 mg last night and was still feeling sedated from it mid-afternoon). 03/06 continue tx. 03/07: increase lithium to 450 BID and olanzapine to 10 mg QHS. remains manic and delusional. I spent __25____ minutes with the patient and/or on the patient floor today, greater than?50% of which was spent counseling/coordinating care. Reason for contiued inpatient stay Substantial Risk for: harm to self, inability to function and rapid decompensation
[2022-03-07] MEDS: diphenhydrAMINE HCl 2 % Cream 28 GM TUBE 1 APPL TOPICAL (20:18)
[2022-03-07] MEDS: Lithium Carbonate ER 450 MG TABLET.ER PO (22:39)
[2022-03-07] MEDS: OLANZapine 10 MG TABLET PO (22:40)
[2022-03-07] MEDS: OLANZapine 5 MG TABLET PO (22:54)
[2022-03-07] MEDS: Acetaminophen 325 MG TABLET 650 MG PO (22:54)
[2022-03-07 22:55] VITALS: BP 117/69; PULSE 78; RESP 18; TEMP 36.4; O2SAT 99
[2022-03-08 09:15] VITALS: BP 120/78; PULSE 73; RESP 18; TEMP 36.2; O2SAT 98
[2022-03-08] MEDS: LORazepam 1 MG TABLET PO (10:45)
--- NOTE | 2022-03-08 11:03 | P.PNPSI_ITS ---
Subjective Subjective Date of Service: 03/08/22 Reason For Visit: Psychosis Interim History: Pt reports he thinks he is being attack by spirits and thinks spirits are coming here to the unit. He states that he may have to leave as he does not feel safe. Pt reports passive SI. Pt reports AH. Poor sleep last night. Pt encourage to continue treatment and allow medication to be adjusted as it would help overall delusional thinking and psychosis and subsequently his anxiety and SI which is triggered by delusions. Medication Compliance: Yes Side effects from medications: No Attending Groups: No Review of Systems Review of Systems Yes all other systems are reviewed and are negative Constitutional: Reports no additional constitutional complaints, Denies chills, Denies fever(s), Denies headache(s), Denies weight gain and Denies weight loss Eyes: Reports no additional eye complaints and Denies change in vision Reports system reviewed and no additional complaints, except as documented, Reports Normal hearing present, Denies dysphagia, Denies vertigo, Denies dizziness, Denies headache(s), Denies nasal congestion and Denies nasal discharge Cardiovascular: Reports no additional cardiovascular complaints, Denies chest pain and Denies dyspnea Respiratory: Reports no additional respiratory complaints and Denies dyspnea Gastrointestinal: Reports no additional gastrointestinal complaints, Denies melena, Denies hematochezia, Denies change in bowel habits and Denies dysphagia Genitourinary: Reports no additional male genitourinary complaints, Denies difficulty urinating and Denies genital pain Musculoskeletal: Reports no additional musculoskeletal complaints, Denies myalgias, Denies numbness and Denies tingling Skin/Breast: Reports system reviewed and no additional complaints, except as docu, Denies lesions, Denies rash and Denies sores Reports system reviewed and no additional complaints, except as documented, Reports Normal hearing present, Denies vertigo, Denies dizziness, Denies headache(s), Denies numbness and Denies tingling Psychiatric: Reports no additional psychiatric complaints, Reports anxiety, Denies auditory hallucinations, Denies visual hallucinations, Denies homicidal ideation and Reports suicidal ideation Endocrine: Reports no additional endocrine complaints, Denies change in body appearance, Denies polyphagia, Denies polydipsia and Denies polyuria Mental Status Exam Mental Status Exam Narrative: dressed in hospital diana only, naked underneath. slight. tattoos, dyed blond hair. cooperative, no PMA/PMR. speech incr rate and amount, nml loudness, decr latency. thoughts perseverative over contamination fears. affect flexible, inconsistent with context (some bizarre smiling and laughing). no SI/HI/AVH expressed. Diagnostics Vital Signs (24Hr): Vital Signs - 24 hr 03/09/22 08:30 03/09/22 18:00 Temperature 97.9 F 98.1 F Pulse Rate 69 62 Respiratory Rate 18 18 Blood Pressure 105/68 116/78 Pulse Oximetry 96 98 Oxygen Delivery Method Room Air Room Air BMI result Body Mass Index 20.0 Labs Results: 03/04/22 19:09 03/04/22 19:10 Medications Medications Current Medications Acetaminophen (Acetaminophen 325 Mg Tablet) 650 mg PO Q6H PRN PRN Reason: Headache/Pain Mild Scale (1-3) Last Admin: 03/07/22 22:54 Dose: 650 mg Al Hydroxide/Mg Hydroxide (Magnesium Hydrox/Alum Hydrox 30 Ml Oral.Susp) 30 ml PO Q6H PRN PRN Reason: Heartburn/Nausea Benzocaine (Throat Lozenge, Medicated Lozenge) 1 lozenge MUCOUS MEM Q2H PRN PRN Reason: Sore Throat Last Admin: 03/07/22 22:51 Dose: 1 lozenge Hydroxyzine HCl (Hydroxyzine Hcl 50 Mg Tablet) 50 mg PO Q6H PRN PRN Reason: Anxiety [place] Carbonate ([place] Carbonate Er 450 Mg Tablet.Er) 450 mg PO BID [facility] Last Admin: 03/09/22 20:49 Dose: 450 mg Magnesium Hydroxide (Milk Of Magnesia 30 Ml Oral.Susp) 30 ml PO DAILY PRN PRN Reason: Constipation Olanzapine (Olanzapine 5 Mg Tablet) 5 mg PO Q6H PRN PRN Reason: anxiety, agitation Last Admin: 03/07/22 22:54 Dose: 5 mg Olanzapine (Olanzapine 10 Mg Tablet) 10 mg PO BID [facility] Last Admin: 03/09/22 20:49 Dose: 10 mg Quetiapine Fumarate (Quetiapine Fumarate 50 Mg Tablet) 50 mg PO Q4H PRN PRN Reason: Anxiety Trazodone HCl (Trazodone Hcl 50 Mg Tablet) 50 mg PO BEDTIME PRN PRN Reason: Insomnia Zinc Acetate/Diphenhydramine (Diphenhydramine Hcl 2 % Cream 28 Gm Tube) 1 appl TOPICAL QID PRN; Protocol PRN Reason: Itching Last Admin: 03/07/22 20:18 Dose: 1 appl Allergies Allergies Allergy/AdvReac Type Severity Reaction Status Date / Time No Known Allergies Allergy Verified 06/26/21 12:54 Assessment & Plan Assessment & Plan (1) Schizoaffective disorder: Status: Acute Code(s): F25.9 - Schizoaffective disorder, unspecified Plan pt agreed to restart lithium and zyprexa, which he took during his most recent hospitalization on M5 in july of 2021 (with haldol in addition). will attempt to get lithium to a therapeutic dose during the present admission to see if that makes more of an impact on his mood Sx (he was only Rx'ed 300 mg daily at prior admission, with heavier reliance on zyprexa and haldol). started lithium 300 BID and zyprexa 5 QHS (pt reported he had 10 mg last night and was still feeling sedated from it mid-afternoon). 03/06 continue tx. 03/07: increase lithium to 450 BID and olanzapine to 10 mg QHS. remains manic and delusional. 03/08 increase olanzapine to 10mg po BID. I spent minutes with the patient and/or on the patient floor today, greater than?50% of which was spent counseling/coordinating care. Reason for contiued inpatient stay Substantial Risk for: harm to self and inability to function
[2022-03-08] MEDS: OLANZapine 10 MG TABLET PO (21:07)
[2022-03-08] MEDS: Lithium Carbonate ER 450 MG TABLET.ER PO (21:07)
[2022-03-08] MEDS: QUEtiapine Fumarate 25 MG TABLET PO (21:07)
[2022-03-08 21:12] VITALS: BP 119/60; PULSE 65; RESP 16; TEMP 36.8; O2SAT 98
--- NOTE | 2022-03-09 08:02 | P.PNPSI_ITS ---
Subjective Subjective Date of Service: 03/09/22 Reason For Visit: Psychosis Subjective Notes: Conditional Voluntary Interim History: Pt reports better sleep last night. He reports slightly less anxious mood. He continues to endorse AH, delusions of being followed by spirits. He is taking meds, encouraged to continue to do so. Slept better. Medication Compliance: Yes Side effects from medications: No Review of Systems Review of Systems Yes all other systems are reviewed and are negative Constitutional: Reports no additional constitutional complaints, Denies chills, Denies fever(s), Denies headache(s), Denies weight gain and Denies weight loss Eyes: Reports no additional eye complaints and Denies change in vision Reports system reviewed and no additional complaints, except as documented, Reports Normal hearing present, Denies dysphagia, Denies vertigo, Denies dizziness, Denies headache(s), Denies nasal congestion and Denies nasal discharge Cardiovascular: Reports no additional cardiovascular complaints, Denies chest pain and Denies dyspnea Respiratory: Reports no additional respiratory complaints and Denies dyspnea Gastrointestinal: Reports no additional gastrointestinal complaints, Denies melena, Denies hematochezia, Denies change in bowel habits and Denies dysphagia Genitourinary: Reports no additional male genitourinary complaints, Denies difficulty urinating and Denies genital pain Musculoskeletal: Reports no additional musculoskeletal complaints, Denies steffi lgias, Denies numbness and Denies tingling Skin/Breast: Reports system reviewed and no additional complaints, except as docu, Denies lesions, Denies rash and Denies sores Reports system reviewed and no additional complaints, except as documented, Reports Normal hearing present, Denies vertigo, Denies dizziness, Denies headache(s), Denies numbness and Denies tingling Psychiatric: Reports no additional psychiatric complaints, Reports anxiety, Denies auditory hallucinations, Denies visual hallucinations, Denies homicidal ideation and Reports suicidal ideation Endocrine: Reports no additional endocrine complaints, Denies change in body appearance, Denies polyphagia, Denies polydipsia and Denies polyuria Mental Status Exam Mental Status Exam Narrative: dressed in hospital diana only, naked underneath. slight. tattoos, dyed blond hair. cooperative, no PMA/PMR. speech incr rate and amount, nml loudness, decr latency. thoughts perseverative over contamination fears. affect flexible, inconsistent with context (some bizarre smiling and laughing). no SI/HI/AVH expressed. Diagnostics Vital Signs (24Hr): Vital Signs - 24 hr 03/09/22 08:30 03/09/22 18:00 Temperature 97.9 F 98.1 F Pulse Rate 69 62 Respiratory Rate 18 18 Blood Pressure 105/68 116/78 Pulse Oximetry 96 98 Oxygen Delivery Method Room Air Room Air BMI result Body Mass Index 20.0 Labs Results: 03/04/22 19:09 03/04/22 19:10 Medications Medications Current Medications Acetaminophen (Acetaminophen 325 Mg Tablet) 650 mg PO Q6H PRN PRN Reason: Headache/Pain Mild Scale (1-3) Last Admin: 03/07/22 22:54 Dose: 650 mg Al Hydroxide/Mg Hydroxide (Magnesium Hydrox/Alum Hydrox 30 Ml Oral.Susp) 30 ml PO Q6H PRN PRN Reason: Heartburn/Nausea Benzocaine (Throat Lozenge, Medicated Lozenge) 1 lozenge MUCOUS MEM Q2H PRN PRN Reason: Sore Throat Last Admin: 03/07/22 22:51 Dose: 1 lozenge Hydroxyzine HCl (Hydroxyzine Hcl 50 Mg Tablet) 50 mg PO Q6H PRN PRN Reason: Anxiety [place] Carbonate ([place] Carbonate Er 450 Mg Tablet.Er) 450 mg PO BID [facility] Last Admin: 03/09/22 20:49 Dose: 450 mg Magnesium Hydroxide (Milk Of Magnesia 30 Ml Oral.Susp) 30 ml PO DAILY PRN PRN Reason: Constipation Olanzapine (Olanzapine 5 Mg Tablet) 5 mg PO Q6H PRN PRN Reason: anxiety, agitation Last Admin: 03/07/22 22:54 Dose: 5 mg Olanzapine (Olanzapine 10 Mg Tablet) 10 mg PO BID [facility] Last Admin: 03/09/22 20:49 Dose: 10 mg Quetiapine Fumarate (Quetiapine Fumarate 50 Mg Tablet) 50 mg PO Q4H PRN PRN Reason: Anxiety Trazodone HCl (Trazodone Hcl 50 Mg Tablet) 50 mg PO BEDTIME PRN PRN Reason: Insomnia Zinc Acetate/Diphenhydramine (Diphenhydramine Hcl 2 % Cream 28 Gm Tube) 1 appl TOPICAL QID PRN; Protocol PRN Reason: Itching Last Admin: 03/07/22 20:18 Dose: 1 appl Allergies Allergies Allergy/AdvReac Type Severity Reaction Status Date / Time No Known Allergies Allergy Verified 06/26/21 12:54 Assessment & Plan Assessment & Plan (1) Schizoaffective disorder: Status: Acute Code(s): F25.9 - Schizoaffective disorder, unspecified Plan pt agreed to restart lithium and zyprexa, which he took during his most recent hospitalization on M5 in july of 2021 (with haldol in addition). will attempt to get lithium to a therapeutic dose during the present admission to see if that makes more of an impact on his mood Sx (he was only Rx'ed 300 mg daily at prior admission, with heavier reliance on zyprexa and haldol). started lithium 300 BID and zyprexa 5 QHS (pt reported he had 10 mg last night and was still feeling sedated from it mid-afternoon). 03/06 continue tx. 03/07: increase lithium to 450 BID and olanzapine to 10 mg QHS. remains manic and delusional. 03/08 increase olanzapine to 10mg po BID. 03/09 continue tx. pt asked to be kept on both prn seroquel and olanzapine in addition to standing olanzapine. I spent minutes with the patient and/or on the patient floor today, gre ater than?50% of which was spent counseling/coordinating care. Reason for contiued inpatient stay Substantial Risk for: harm to self and inability to function
[2022-03-09 08:30] VITALS: BP 105/68; PULSE 69; RESP 18; TEMP 36.6; O2SAT 96
[2022-03-09] MEDS: OLANZapine 10 MG TABLET PO ×2 (10:08→20:49)
[2022-03-09] MEDS: Lithium Carbonate ER 450 MG TABLET.ER PO ×2 (10:08→20:49)
[2022-03-09 18:00] VITALS: BP 116/78; PULSE 62; RESP 18; TEMP 36.7; O2SAT 98
[2022-03-10] MEDS: OLANZapine 10 MG TABLET PO ×2 (09:09→21:28)
[2022-03-10 09:59] VITALS: BP 119/61; PULSE 78; RESP 15; TEMP 36.6; O2SAT 98
--- NOTE | 2022-03-10 14:13 | P.PNPSI_ITS ---
Subjective Subjective Date of Service: 03/10/22 Reason For Visit: Psychosis Interim History: pt seen in his room. naked under his diana, repeatedly surreptitiously partially exposing himself throughout interview when repositioning his drapery or repositioning. advised pt to be sure to cover himself, which pt did when so advised. pt states he is feeling better, is happy with his current medications, and is interested in discharge tomorrow. remains delusional about something nefarious that was in the crack he smoked and which is now in his body. c/o dysuria, interested in STD/UTI testing. per senior staff specialized employment, pt was reportedly cheeking his lithium this morning. Mental Status Exam Mental Status Exam Narrative: dressed in hospital diana only, naked underneath. slight. tattoos, dyed blond hair. cooperative, no PMA/PMR. speech nml rate and amount, decr loudness, decr latency. thoughts focussed on discharge. affect constricted, consistent with context. no SI/HI/AVH expressed. Diagnostics Vital Signs (24Hr): Vital Signs - 24 hr 03/09/22 18:00 03/10/22 09:59 Temperature 98.1 F 97.8 F Pulse Rate 62 78 Respiratory Rate 18 15 Blood Pressure 116/78 119/61 Pulse Oximetry 98 98 Oxygen Delivery Method Room Air Room Air BMI result Body Mass Index 20.0 Labs Results: 03/04/22 19:09 03/04/22 19:10 Medications Medications Current Medications Acetaminophen (Acetaminophen 325 Mg Tablet) 650 mg PO Q6H PRN PRN Reason: Headache/Pain Mild Scale (1-3) Last Admin: 03/07/22 22:54 Dose: 650 mg Al Hydroxide/Mg Hydroxide (Magnesium Hydrox/Alum Hydrox 30 Ml Oral.Susp) 30 ml PO Q6H PRN PRN Reason: Heartburn/Nausea Benzocaine (Throat Lozenge, Medicated Lozenge) 1 lozenge MUCOUS MEM Q2H PRN PRN Reason: Sore Throat Last Admin: 03/07/22 22:51 Dose: 1 lozenge Hydroxyzine HCl (Hydroxyzine Hcl 50 Mg Tablet) 50 mg PO Q6H PRN PRN Reason: Anxiety [place] Carbonate ([place] Carbonate Er 450 Mg Tablet.Er) 450 mg PO BID JAKE Last Admin: 03/10/22 09:12 Dose: Not Given Magnesium Hydroxide (Milk Of Magnesia 30 Ml Oral.Susp) 30 ml PO DAILY PRN PRN Reason: Constipation Olanzapine (Olanzapine 5 Mg Tablet) 5 mg PO Q6H PRN PRN Reason: anxiety, agitation Last Admin: 03/07/22 22:54 Dose: 5 mg Olanzapine (Olanzapine 10 Mg Tablet) 10 mg PO BID JAKE Last Admin: 03/10/22 09:09 Dose: 10 mg Quetiapine Fumarate (Quetiapine Fumarate 50 Mg Tablet) 50 mg PO Q4H PRN PRN Reason: Anxiety Trazodone HCl (Trazodone Hcl 50 Mg Tablet) 50 mg PO BEDTIME PRN PRN Reason: Insomnia Zinc Acetate/Diphenhydramine (Diphenhydramine Hcl 2 % Cream 28 Gm Tube) 1 appl TOPICAL QID PRN; Protocol PRN Reason: Itching Last Admin: 03/07/22 20:18 Dose: 1 appl Allergies Allergies Allergy/AdvReac Type Severity Reaction Status Date / Time No Known Allergies Allergy Verified 06/26/21 12:54 Assessment & Plan Assessment & Plan (1) Schizoaffective disorder: Status: Acute Code(s): F25.9 - Schizoaffective disorder, unspecified Plan pt agreed to restart lithium and zyprexa, which he took during his most recent hospitalization on M5 in july of 2021 (with haldol in addition). will attempt to get lithium to a therapeutic dose during the present admission to see if that makes more of an impact on his mood Sx (he was only Rx'ed 300 mg daily at prior admission, with heavier reliance on zyprexa and haldol). started lithium 300 BID and zyprexa 5 QHS (pt reported he had 10 mg last night and was still feeling sedated from it mid-afternoon). 03/06 continue tx. 03/07: increase lithium to 450 BID and olanzapine to 10 mg QHS. remains manic and delusional. 03/08 increase olanzapine to 10mg po BID. 03/09 continue tx. pt asked to be kept on both prn seroquel and olanzapine in addition to standing olanzapine. 03/10: check lithium level/labs. check rpr/GC/chlam/UA. discharge tomorrow per pt request. I spent ___25___ minutes with the patient and/or on the patient floor today, greater than?50% of which was spent counseling/coordinating care. Reason for contiued inpatient stay Substantial Risk for: harm to self, inability to function and rapid decompensation
[2022-03-10 20:28] VITALS: BP 110/53; PULSE 70; RESP 16; TEMP 36.8; O2SAT 97
[2022-03-11 09:39] VITALS: BP 116/59; PULSE 61; RESP 16; TEMP 36.6; O2SAT 99
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
== END 2022-03-11 12:36 | disposition home or self-care (01) | DRG 750 ==
LOC: HO.ED 16:52 → HO.PADLT16 03-04 21:17
PROVIDERS: Admitting Provider Registered Nurse; Emergency Provider Emergency Medicine; Visit Provider Psychiatry & Neurology Psychiatry
DX: F25.9 Schizoaffective disorder, unspecified (principal); R45.851 Suicidal ideations; Z20.822 Contact with and (suspected) exposure to COVID-19; Z87.891 Personal history of nicotine dependence
CPT/HCPCS: 36415; 80053; 80061; 80307; 81003; 82607; 82746; 83036; 83735; 84439; 84443; 85027; 87635; 99285

== ENCOUNTER 2022-05-07 13:18 | Inpatient (IN) | payer OTHER, SELFPAY ==
--- NOTE | 2022-05-07 13:19 | ED.GENADULT ---
HPI - General Adult General Chief complaint: Psychiatric Symptoms Stated complaint: SI Time Seen by Provider: 05/07/22 13:19 Source: patient and EMS Mode of arrival: EMS Limitations: no limitations History of Present Illness HPI narrative: Patient is a 31 year old assigned male at with a history of bipolar disorder presenting to the emergency department today with suicidal ideation. Patient states that he has thoughts of throwing himself in the river and shooting himself with a pistol. Patient denies any dizziness, lightheadedness, abdominal pain, nausea, vomiting, fever, chills, blurry vision, double vision, loss of vision, chest pain, difficulty breathing, shortness of breath, back pain, night sweats, pain with urination, increased urinary frequency, increased urinary urgency, blood in his urine or stool, syncope or a near syncopal episode, recent trauma or falls, bowel incontinence, bladder incontinence, bowel retention, bladder retention, or any other complaints at this time. Severity: mild Severity scale (1-10): 3 Relieving factors: none Exacerbating factors: none Associated symptoms: denies other symptoms Treatments prior to arrival: none Related Data Home Medications Medication Instructions Recorded Confirmed No Known Home Meds 05/07/22 05/07/22 Allergies Allergy/AdvReac Type Severity Reaction Status Date / Time No Known Allergies Allergy Verified 06/26/21 12:54 Review of Systems Constitutional: Constitutional: Reports no additional constitutional complaints, Denies chills, Denies fever(s) and Denies night sweats Eyes: Eyes: Reports no additional eye complaints, Denies blurry vision, Denies change in vision, Denies diplopia, Denies eye discharge, Denies loss of vision and Denies eye pain ENT: Denies dizziness Cardiovascular: Cardiovascular: Reports no additional cardiovascular complaints, Denies chest pain, Denies lightheadedness, Denies Loss of Consciousness and Denies dyspnea Respiratory: Respiratory: Reports no additional respiratory complaints and Denies dyspnea Gastrointestinal: Gastrointestinal: Reports no additional gastrointestinal complaints, Denies abdominal pain, Denies melena, Denies hematochezia, Denies change in bowel habits and Denies change in stool character Genitourinary: Genitourinary: Reports no additional male genitourinary complaints, Denies hematuria, Denies oliguria, Denies difficulty urinating, Denies dysuria, Denies urinary frequency, Denies urinary hesitancy, Denies urinary incontinence and Denies urinary urgency Musculoskeletal: Musculoskeletal: Reports no additional musculoskeletal complaints, Denies numbness and Denies tingling Neurologic: Denies dizziness, Denies loss of vision, Denies numbness and Denies tingling Psychiatric: Psychiatric: Reports suicidal ideation Endocrine: Endocrine: Reports no additional endocrine complaints Hematologic/Lymphatic: Hematologic/Lymphatic: Reports no additional hematologic/lymphatic complaints Allergic/Immunologic: Allergic/Immunologic: Reports no additional allergic/immunologic complaints [facility] Past Medical History Attestation statement: The following information was validated with the patient. Source: old records reviewed and nursing notes reviewed Medical History Schizoaffective disorder Social History Social History Household Members: Unknown / Unable to assess Housing: Apartment Housing Other:: [facility] apartment. Do you presently have visiting nurse or other home services: No Alcohol intake: unknown Patient Tobacco Use Status: Refuse Tobacco use screen Tobacco use type: Cigarette Cigarettes Per Day: 3 Smoked in Last 30 Days: Yes e-Cigarette/Vaping Use: Former Use Use of substances other than those prescribed or required for medical reasons: Unknown Substance Use Type: Crack/Cocaine and Marijuana Advance Directives: No service: No Sexual orientation: Don't Know Physical Exam ED Vital Signs: Vital Signs - 24 hr 05/07/22 13:23 05/07/22 14:00 Temperature 98.6 F Pulse Rate 60 Respiratory Rate 18 18 Blood Pressure 117/72 Pulse Oximetry 96 Oxygen Delivery Method Room Air BMI result Body Mass Index 21.9 Const General: cooperative, no acute distress, alert and awake Nutritional Appearance: well nourished Orientation/consciousness: patient oriented x3 Limitations: no limitations HENMT Head: Yes normal to inspection and Yes atraumatic Ears: hearing grossly normal bilaterally and external ears normal General nose exam: Normal external nose present, no nasal discharge noted and no epistaxis Face and sinus: Yes normal facial exam, No abrasion and No laceration Mouth: Normal oral and palatal mucosa present, no drooling and no muffled voice Eyes General: appearance normal, both eyes and all related structures Periorbital: periorbital findings normal Eyelids: Yes eyelids normal Conjunctivae: conjunctivae normal Pupils: Equal, round and reactive pupils present EOM: EOMs intact bilaterally Neck Neck: Yes normal visual inspection, Yes full ROM and Yes no lymphadenopathy Chest Chest palpation & inspection: normal inspection of the chest Resp Effort & Inspection: normal respiratory effort and able to speak in complete sentences Auscultation: clear to auscultation bilaterally Cardio Rate: regular rate Rhythm: regular rhythm GI Inspection: Yes normal to inspection Palpation (GI): Soft to palpation, not firm, nontender, no guarding and not rigid Neuro General: patient oriented x3 and moves all extremities Cranial nerves: Yes Equal, round and reactive pupils present Cognition (Neuro): normal cognition Motor exam (neuro): 5/5 motor strength present throughout Sensory Exam: Normal double simultaneous stimulation for sensation Coordination: [id number] test normal Extrem General: Yes normal to inspection, Yes full ROM and Yes capillary refill normal Psych Appearance: grossly normal Mental Status: mental status grossly normal Affect: Sad affect present Attitude: Guarded attititude/behavior present Thought content: Suicidality present Insight: Limited insight present (Psych) Judgement: Limited judgement present (Psych) Medical Decision Making Medical Decision Making [facility] Narrative: Patient is a 31 year old assigned male at with a history of bipolar disorder presenting to the emergency department today with suicidal ideation. Patient's physical exam showed an acutely suicidal individual. Patient's blood work was unremarkable. I explained my physical exam findings as well as all test results to the patient. I answered all questions asked by the patient. Patient to be admitted for inpatient psychiatric care. Patient verbalized agreement and understanding with this treatment plan and psychiatric admission. Differential Diagnosis Differential Diagnoses: The differential diagnosis associated with the presentation includes SI Lab Data [facility] Lab Attestation statement: I reviewed the patient's lab results. 05/07/22 13:42 05/07/22 13:42 Labs: Lab Results 05/07/22 05/07/22 05/07/22 Range/Units 13:36 13:36 13:37 WBC (4.8-10.8) X10*3/uL RBC (4.60-5.80) X10*6/uL Hgb (14.0-18.0) g/dl Hct (42.0-52.0) % MCV (80.0-98.0) fL MCH (27.0-33.0) pg MCHC (31.0-36.0) g/dl RDW (11.0-16.0) % Plt Count (160-400) X10*3/uL MPV (9.4-12.4) fL Immature Gran % (Auto) (0.0-0.4) % Neut % (Auto) (45-73) % Lymph % (Auto) (20-40) % [place] % (Auto) (2-11) % Eos % (Auto) (0-4) % Baso % (Auto) (0-2) % Lymph # (Auto) (1.2-4.9) X10*3/uL [place] # (Auto) (0.1-1.2) X10*3/uL Eos # (Auto) (0.0-0.4) X10*3/uL Baso # (Auto) (0.0-0.2) X10*3/uL Abs Immat Gran (auto) (0.00-0.03) X10*3/uL Absolute Neuts (auto) (2.0-8.3) x10*3/uL Absolute Nucleated RBC (0.0-0.012) X10*3/uL Nucleated RBC % (auto) (0.0-0.2) /100WBC Sodium (135-145) mmol/L Potassium (3.3-5.1) mmol/L Chloride (96-108) mmol/L Carbon Dioxide (22-29) mmol/L Anion Gap (12-20) BUN (9-16) mg/dL Creatinine (0.5-1.4) mg/dL Estim Creat Clear Calc Estimated GFR Random Glucose (60-115) mg/dL Calcium (8.4-10.2) mg/dL Total Bilirubin (0.0-1.0) mg/dL Direct Bilirubin (0.0-0.5) mg/dL AST (5-37) U/L ALT (0-40) U/L Alkaline Phosphatase (39-117) U/L Total Protein (6.5-8.0) g/dL Albumin (3.5-5.0) g/dL Lipase (8-78) U/L Urine Color Yellow Urine Appearance Clear Urine pH 7.5 (5.0-9.0) Ur Specific [place] 1.020 (1.005-1.025) Urine Protein Negative (Neg-Trace) mg/dL Urine Glucose (UA) Negative (Negative) mg/dL Urine Ketones Trace (Negative) mg/dL Urine Blood Negative (Negative) Urine Nitrite Negative (Negative) Ur Leukocyte Esterase Negative (Negative) Urine Opiates Screen Not Detected (Not Detect) Urine Fentanyl Screen Not Detected (Not Detect) Ur Barbiturates Screen Not Detected (Not Detect) Ur Phencyclidine Scrn Not Detected (Not Detect) Ur Amphetamines Screen Not Detected (Not Detect) U Benzodiazepines Scrn Not Detected (Not Detect) Urine Cocaine Screen POSITIVE H (Not Detect) U Marijuana (THC) Screen POSITIVE H (Not Detect) Ethyl Alcohol mg/dL COVID-19 (JOVANNA) Negative (Negative) COVID-19 Clin Com See Note 05/07/22 05/07/22 05/07/22 Range/Units 13:42 13:42 13:42 WBC 5.7 (4.8-10.8) X10*3/uL RBC 4.73 (4.60-5.80) X10*6/uL Hgb 14.3 (14.0-18.0) g/dl Hct 43.7 (42.0-52.0) % MCV 92.4 (80.0-98.0) fL MCH 30.2 (27.0-33.0) pg MCHC 32.7 (31.0-36.0) g/dl RDW 13.1 (11.0-16.0) % Plt Count 268 (160-400) X10*3/uL MPV 10.8 (9.4-12.4) fL Immature Gran % (Auto) 0.2 (0.0-0.4) % Neut % (Auto) 52.0 (45-73) % Lymph % (Auto) 35.5 (20-40) % [place] % (Auto) 8.8 (2-11) % Eos % (Auto) 2.6 (0-4) % Baso % (Auto) 0.9 (0-2) % Lymph # (Auto) 2.0 (1.2-4.9) X10*3/uL [place] # (Auto) 0.5 (0.1-1.2) X10*3/uL Eos # (Auto) 0.2 (0.0-0.4) X10*3/uL Baso # (Auto) 0.1 (0.0-0.2) X10*3/uL Abs Immat Gran (auto) 0.01 (0.00-0.03) X10*3/uL Absolute Neuts (auto) 3.0 (2.0-8.3) x10*3/uL Absolute Nucleated RBC 0.000 (0.0-0.012) X10*3/uL Nucleated RBC % (auto) 0.0 (0.0-0.2) /100WBC Sodium 142 (135-145) mmol/L Potassium 4.2 (3.3-5.1) mmol/L Chloride 105 (96-108) mmol/L Carbon Dioxide 28 (22-29) mmol/L Anion Gap 13 (12-20) BUN 7 L (9-16) mg/dL Creatinine 0.79 (0.5-1.4) mg/dL Estim Creat Clear Calc 121.6 Estimated GFR > 60 Random Glucose 100 (60-115) mg/dL Calcium 9.1 D (8.4-10.2) mg/dL Total Bilirubin 0.7 (0.0-1.0) mg/dL Direct Bilirubin 0.3 (0.0-0.5) mg/dL AST 31 (5-37) U/L ALT 56 H (0-40) U/L Alkaline Phosphatase 65 (39-117) U/L Total Protein 6.8 (6.5-8.0) g/dL Albumin 4.0 (3.5-5.0) g/dL Lipase 11 (8-78) U/L Urine Color Urine Appearance Urine pH (5.0-9.0) Ur Specific [place] (1.005-1.025) Urine Protein (Neg-Trace) mg/dL Urine Glucose (UA) (Negative) mg/dL Urine Ketones (Negative) mg/dL Urine Blood (Negative) Urine Nitrite (Negative) Ur Leukocyte Esterase (Negative) Urine Opiates Screen (Not Detect) Urine Fentanyl Screen (Not Detect) Ur Barbiturates Screen (Not Detect) Ur Phencyclidine Scrn (Not Detect) Ur Amphetamines Screen (Not Detect) U Benzodiazepines Scrn (Not Detect) Urine Cocaine Screen (Not Detect) U Marijuana (THC) Screen (Not Detect) Ethyl Alcohol < 10 mg/dL COVID-19 (JOVANNA) (Negative) COVID-19 Clin Com Discharge Plan Discharge Clinical Impression: Suicidal ideation Patient Disposition: Still a Patient Prescriptions: No Action No Known Home Meds Interventions: Lewis-Suicide Risk Severity Scale Last Done: 05/07/22 13:29
[2022-05-07 13:23] VITALS: BP 117/72; PULSE 60; RESP 18; TEMP 37; O2SAT 96; BMI 21.9
--- NOTE | 2022-05-07 13:33 | PC.NURSE ---
Pt reports non-med compliance with all home medications.
--- OUTSIDE RECORDS SUMMARY | 2022-05-07 13:46 | XMS_ITS | Continuity of Care Document ---
:1990 Author Organization [facility] Address [address] [place] [id number]- Care Team Providers Name Role Phone Not on Staff, PCP Primary Care Physician Unavailable Encounter [facility] Date(s): 03/27/22 - 03/28/[address] [address]- Discharge Disposition: Transfer to [facility] Attending Physician: Moisés Zambrano MD Admitting Physician: Moisés Zambrano MD Referring Physician: Not on Staff, Referring [...] 04/15/21 10:25:00 EST, [id number] Partial fill upon patient request if the prescription is for a schedule II opioid drug.... Start Date: 04/15/21 Stop Date: 05/15/21 Status: OrderedARIPiprazole 5 mg oral tablet 5 mg, 1, tablet, By Mouth, Daily, # 30 tablet, Refills 0, Tot. Refills 0, Maintenance, 11/09/20 9:40:00 EDT, Route to Pharmacy Electronically, [facility] Partial fill upon patient request if the prescription is for a schedule... Start Date: 11/09/20 Status: OrderedDaily Nicanor oral tablet 1 tablet, By Mouth, Daily, # 30 tablet, 1 Refills, Maintenance, 11/08/20 17:59:00 EDT, [facility] 1 tablet By Mouth Daily,x30 days, 168, cm, 11/08/20 9:22:00 EDT, Height, 55.5,kg, 10/26/20 17:00:00 EDT, Dry Weight Start Date: 11/08/20 Stop Date: 01/07/21 Status: Ordered Problem List Condition Confirmation Course Effective Dates Status Health Stat us Informant Genital herpes Confirmed Active Glaucoma1 Confirmed Active *Jade Hodges, Confirmed Active resident care associate, [facility] [phone] 1with history of retinal detachment. followed by Dr. Hadley. Vital Signs Most recent to oldest 1 2 3 [Reference Range]: Oxygen Saturation [94-100 %] 99 % 98 % 99 % (03/28/22 3:00 PM) (03/28/22 6:43 AM) (03/27/22 7:09 PM) Pulse Rate [55-90 bpm] 69 bpm 66 bpm 109 bpm (03/28/22 3:00 PM) (03/28/22 6:43 AM) *H* (03/27/22 7:09 P M) Blood Pressure [90-138/55-84 110/64 mm Hg 106/59 mm Hg 118 /67 mm Hg mm Hg] (03/28/22 3:00 PM) (03/28/22 6:43 AM) (03/27/22 7:09 PM) Respiratory Rate [16-30 17 br/min 18 br/min 18 br/mi n br/min] (03/28/22 3:00 PM) (03/28/22 6:43 AM) (03/27/22 7:09 PM) Temperature [96.8-100.4 98 DegF 98.9 DegF DegF] (03/28/22 3:00 PM) (03/27/22 7:09 PM) Mode of Delivery (Oxygen) Room air Room air (03/28/22 3:00 PM) (03/28/22 6:43 AM) Blood pressure sites Arm, right (03/28/22 6:43 AM) Temperature Route Oral (03/28/22 3:00 PM) Social History Social History Type Response Tobacco Use: 4 or less cigarettes(le ss than 1/4 pack)/day in last 30 days. Interested in cessatio n: No. No Sex Patient Care team information Care Team PersonnelName: Ruddy Vallejo RN Position: [facility] RN Member Role: Primary Care Nurse Name: Nia iGll RN Position: [facility] RN Member Role: Primary Care Nurse Name: Lizzy Peoples RN Position: [facility] RN Member Role: Primary Care Nurse Name: Not on Staff, PCP Position: [facility] Physician (General Medicine) Member Role: PCP Name: Janice Westfall RN Position: [facility] RN Member Role: Primary Care Nurse Name: Korin Wilder RN Position: [facility] RN Member Role: Primary Care Nurse [facility] Attending Position: [facility] ED Attendings Patient Name: Moisés Zambrano MD Position: [facility] Resident Member Role: ED Resident Address: Address: [address] [place] [address]- Name: Joan Chacon RN Position: [facility] ED RN W/OE and Tasks Member Role: Patient Care Provider Name: Matilda Stafford Position: [facility] ED TA [facility] Member Role: [employer] Care Team Related PersonsName: THALIA MENJIVAR Address: [place] [address] Name: PT STATES, NO ONE
--- OUTSIDE RECORDS SUMMARY | 2022-05-07 13:47 | XMS_ITS | Continuity of Care Document ---
:1990 Author Organization [facility] Adult Medicine Address [address] [place] [id number]- Care Team Providers Name Role Phone Not on Staff, PCP Primary Care Physician Unavailable Encounter [facility] Date(s): 03/12/22 - 04/11/22 [facility] Medicine [address] [place] [id number] Allergies, Adverse Reactions, Alerts No Known Allergies [...] 04/15/21 10:25:00 EST, Route to Pharmacy Electronically, [facility]/pharmacy #[id number], Partial fill upon patient request if the prescription is for a schedule II opioid drug.... Start Date: 04/15/21 Stop Date: 05/15/21 Status: OrderedARIPiprazole 5 mg oral tablet 5 mg, 1, tablet, By Mouth, Daily, # 30 tablet, Refills 0, Tot. Refills 0, Maintenance, 11/09/20 9:40:00 EDT, Route to Pharmacy Electronically, [facility]-, Partial fill upon patient request if the prescription is for a schedule... Start Date: 11/09/20 Status: OrderedDaily Nicanor oral tablet 1 tablet, By Mouth, Daily, # 30 tablet, 1 Refills, Maintenance, 11/08/20 17:59:00 EDT, [facility]-, 1 tablet By Mouth Daily,x30 days, 168, cm, 07/29/21 9:22:00 EDT, Height, 55.5,kg, 10/26/20 17:00:00 EDT, Dry Weight Start Date: 11/08/20 Stop Date: 01/07/21 Status: Ordered Problem List Condition Confirmation Course Effective Dates Status Health Stat us Informant Genital herpes Confirmed Active Glaucoma1 Confirmed Active *Jade Hodges, Confirmed Active personal care assistant, [facility] [phone] 1with history of retinal detachment. followed by Dr. Hadley. Social History Social History Type Response Tobacco Use: 4 or less cigarettes(le ss than 1/4 pack)/day in last 30 days. Interested in cessatio n: No. No Sex Patient Care team information Care Team PersonnelName: Nia Gill RN Position: [facility] RN Member Role: Primary Care Nurse Name: Lizzy Peoples RN Position: S RN Member Role: Primary Care Nurse Name: Not on Staff, PCP Position: [facility] Physician (General Medicine) Member Role: PCP Name: Janice Westfall RN Position: [facility] RN Member Role: Primary Care Nurse Name: Korin Wilder RN Position: S RN Member Role: Primary Care Nurse Care Team Related PersonsName: THALIA MENJIVAR Address: home [address] [place] [id number] Name: STATES, NO ONE
[2022-05-07 13:49] LABS: MANUAL DIFF FLAG NO
[2022-05-07 13:50] LABS: Basophils Absolute Auto 0.1 X10*3/uL (0.0-0.2); Basophils Percent Auto 0.9 % (0-2); Eosinophils Absolute Auto 0.2 X10*3/uL (0.0-0.4); Eosinophils Percent Auto 2.6 % (0-4); Hematocrit 43.7 % (42.0-52.0); Hemoglobin 14.3 g/dl (14.0-18.0); Imm Gran Abs Auto 0.01 X10*3/uL (0.00-0.03); Imm Gran Pct Auto 0.2 % (0.0-0.4); Lymphocytes Percent Auto 35.5 % (20-40); Mean Corpuscular HGB Conc 32.7 g/dl (31.0-36.0); Mean Corpuscular Hemoglobin 30.2 pg (27.0-33.0); Mean Corpuscular Volume 92.4 fL (80.0-98.0); Mean Platelet Volume 10.8 fL (9.4-12.4); Monocytes Absolute Auto 0.5 X10*3/uL (0.1-1.2); Monocytes Percent Auto 8.8 % (2-11); Platelet Count 268 X10*3/uL (160-400); Red Blood Count 4.73 X10*6/uL (4.60-5.80); Red Cell Distribution Width 13.1 % (11.0-16.0); White Blood Count 5.7 X10*3/uL (4.8-10.8)
[2022-05-07 13:53] LABS: Appearance Urine Clear; Color Urine Yellow; Glucose Urine UA Negative (Negative); Leukocyte Esterase Urine Negative (Negative); Nitrite Urine Negative (Negative); PH 7.5 (5.0-9.0); Urine Blood Negative (Negative); Urine Ketones Trace mg/dL (Negative); Urine Protein Negative (Neg-Trace)
[2022-05-07 14:00] VITALS: RESP 18
[2022-05-07 14:00] LABS: Amphetamine Screen Urine Not Detected (Not Detect); Barbiturates, Urine Not Detected (Not Detect); Benzodiazepines Screen Urine Not Detected (Not Detect); Cannabinoid Screen Urine POSITIVE (Not Detect); Cocaine Screen Urine POSITIVE (Not Detect); Fentanyl, urine Not Detected (Not Detect); Opiate Screen Urine Not Detected (Not Detect); Phencyclidine Screen Urine Not Detected (Not Detect)
--- NOTE | 2022-05-07 14:03 | PC.NURSE ---
1355:Provider at bedside for eval.
[2022-05-07 14:04] LABS: COVID-19 Test Negative (Negative); IDNOW Serial# 16C4AD1C
--- NOTE | 2022-05-07 14:04 | ECG_ITS ---
Test Reason : +cocaine Blood Pressure : / mmHG Vent. Rate : 058 BPM Atrial Rate : 058 BPM P-R Int : 136 ms QRS Dur : 088 ms QT Int : 386 ms P-R-T Axes : 061 074 052 degrees QTc Int : [address] elevation, consider early repolarization Borderline ECG When compared with ECG of 23-JUL-2021 17:02, No significant change was found Referred By: Shirley Russell Electronically Signed By:TRE BENITEZ
[2022-05-07 14:07] LABS: Ethanol < 10 mg/dL
[2022-05-07 14:08] LABS: Alanine Aminotransferase 56 U/L (0-40); Alkaline Phosphatase 65 U/L (39-117); Anion Gap 13 (12-20); Aspartate Amino Transferase 31 U/L (5-37); Bilirubin Direct 0.3 mg/dL (0.0-0.5); Bilirubin Total 0.7 mg/dL (0.0-1.0); Blood Urea Nitrogen 7 mg/dL (9-16); Calcium 9.1 mg/dL (8.4-10.2); Carbon Dioxide 28 mmol/L (22-29); Chloride 105 mmol/L (96-108); Creatinine Clr Calc Pharmacy 121.6; Estimated Glomerular Filt Rate > 60; Glucose Random 100 mg/dL (60-115); Lipase 11 U/L (8-78); Potassium 4.2 mmol/L (3.3-5.1); Sodium 142 mmol/L (135-145); Total Protein 6.8 g/dL (6.5-8.0)
[2022-05-07 18:13] VITALS: BP 116/74; PULSE 61; RESP 16; TEMP 36.7; O2SAT 99
--- NOTE | 2022-05-07 18:27 | PC.ADMIT ---
Patient is a 31 y/o male admitted from the [facility] ED on CV at 1745. Pt has a dx of Bipolar d/o and has been experiencing increased SI. Pt was planning to get a gun and shoot himself or jump in the river. He presents as paranoid and delusional. Mood is depressed with a flat, suspicious affect. Nicole is A&O x 4. Pt believes he was injected with semen, voodooism and africanism. Pt reports positive AH, but denied VH. Patient reported last using cocaine/crack on Thursday 05/04. Pt has not been taking prescribed medications for an unknown period. Pt appeared to have a dry scalp and was encouraged to shower and it would be assessed. Pt was seen dropping something when he stood from w/c then picked it up and denied having anything. Pt brought to room for admission and questioned about the item. Pt became angry denying at first, then pulled his hands from his pants and had what looked like a lip stick case. Pt stated there I just took it out of my rectum, are you happy. Container appeared plastic and pt allowed to hold at this point.Pt was angry with pressured speech and ended the admission interview at this point, the majority of information was acquired from the intake paperwork.Pt refused to complete a safety tool or releases. Pt placed on 15 minute checks.
--- NOTE | 2022-05-07 19:21 | PC.NURSE ---
Pt offered and refused the flu vaccine
[2022-05-07] MEDS: Nicotine Polacrilex 2 MG GUM 4 MG BUCCAL (21:12)
[2022-05-07] MEDS: Acetaminophen 325 MG TABLET 650 MG PO (21:12)
[2022-05-07] MEDS: OLANZapine 10 MG TABLET PO (21:13)
[2022-05-07 21:17] VITALS: BP 113/60; PULSE 67; TEMP 36.4; O2SAT 96
[2022-05-08 07:00] VITALS: BMI 20.8
[2022-05-08 09:58] VITALS: RESP 16
[2022-05-08] MEDS: buPROPion HCl XL 150 MG TAB.ER.24H PO (14:33)
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
[2022-05-08 23:39] VITALS: BP 116/58; PULSE 54; RESP 18; TEMP 36.3; O2SAT 95
[2022-05-09 08:20] VITALS: BP 115/68; PULSE 61; RESP 18; TEMP 36.2; O2SAT 100
[2022-05-09] MEDS: buPROPion HCl XL 150 MG TAB.ER.24H PO (08:42)
[2022-05-09] MEDS: Acetaminophen 325 MG TABLET 650 MG PO (09:29)
[2022-05-09] MEDS: Lithium Carbonate ER 450 MG TABLET.ER PO (14:28)
--- NOTE | 2022-05-09 15:37 | P.PNPSI_ITS ---
Subjective Subjective Date of Service: 05/09/22 Reason For Visit: SI/psychosis Interim History: calm, cooperative. seen in his bedroom. reports ongoing depressed mood with delusions. agreeable to increase zyprexa at bedtime and to give lithium a trial. also asks for seroquel PRNs and ensure. verifies dental infection pain as well as scalp plaques. per staff, isolative. in bed all day. refusing food but seen snacking on chips. refusing meds aside from wellbutrin. c/o dental p ain and scalp plaques. Mental Status Exam Mental Status Exam Narrative: dressed in [facility]. slight. tattoos. cooperative, no PMA/PMR. speech nml rate, decr amount, decr loudness, incr latency. reporting depression. affect constricted, consistent with context. no SI/HI/AVH expressed. Diagnostics Vital Signs (24Hr): Vital Signs - 24 hr 05/08/22 23:39 05/09/22 08:20 Temperature 97.4 F 97.2 F Pulse Rate 54 61 Respiratory Rate 18 18 Blood Pressure 116/58 L 115/68 Pulse Oximetry 95 100 Oxygen Delivery Method Room Air Room Air BMI result Body Mass Index 20.8 Labs 05/07/22 13:42 05/07/22 13:42 Medications Medications Current Medications Acetaminophen (Acetaminophen 325 Mg Tablet) 650 mg PO Q6H PRN PRN Reason: Headache/Pain Mild Scale (1-3) Last Admin: 05/09/22 09:29 Dose: 650 mg Al Hydroxide/Mg Hydroxide (Magnesium Hydrox/Alum Hydrox 30 Ml Oral.Susp) 30 ml PO Q6H PRN PRN Reason: Heartburn/Nausea Amoxicillin (Amoxicillin 500 Mg Capsule) 500 mg PO Q8H [facility] Stop: 05/14/22 15:59 Bupropion HCl (Bupropion Hcl Xl 150 Mg Tab.Er.24h) 150 mg PO DAILY JAKE Stop: 05/10/22 09:01 Last Admin: 05/09/22 08:42 Dose: 150 mg Bupropion HCl (Bupropion Hcl Xl 300 Mg Tab.Er.24h) 300 mg PO DAILY JAKE Hydroxyzine HCl (Hydroxyzine Hcl 25 Mg Tablet) 25 mg PO Q6H PRN PRN Reason: Anxiety Ketoconazole (Ketoconazole 2 % Shampoo 120 Ml Btl) 1 appl TOPICAL 2XW JAKE; Protocol Zalma Carbonate (Zalma Carbonate Er 450 Mg Tablet.Er) 450 mg PO BID [facility] Last Admin: 05/09/22 14:28 Dose: 450 mg Magnesium Hydroxide (Milk Of Magnesia 30 Ml Oral.Susp) 30 ml PO DAILY PRN PRN Reason: Constipation Nicotine Polacrilex (Nicotine Polacrilex 2 Mg Gum) 4 mg BUCCAL Q2H PRN PRN Reason: Nicotine Cravings Last Admin: 05/07/22 21:12 Dose: 4 mg Olanzapine (Olanzapine 7.5 Mg Tablet) 15 mg PO BEDTIME JAKE Quetiapine Fumarate (Quetiapine Fumarate 25 Mg Tablet) 25 mg PO Q4H PRN PRN Reason: agitation/anxiety Trazodone HCl (Trazodone Hcl 50 Mg Tablet) 50 mg PO BEDTIME PRN PRN Reason: Insomnia Allergies Allergies Allergy/AdvReac Type Severity Reaction Status Date / Time No Known Allergies Allergy Verified 06/26/21 12:54 Assessment & Plan Assessment & Plan (1) Schizoaffective disorder: Status: Acute Code(s): F25.9 - Schizoaffective disorder, unspecified Plan 05/08: pt presents as depressed. add wellbutrin XL 150 mg daily for three days, then increase to 300 mg daily. continue other medications. allow detox from cocaine, observe for improvement in mood. 05/09: increase HS zyprexa from 10 mg to 15 mg. start lithium 450 BID. add seroquel 25 mg PRNs. 5 day course of amox for dental infection/pain. ketoconazole shampoo for presumed seborrheic dermatitis. scalp fungal culture to R/O tinea capitis. Reason for contiued inpatient stay Substantial Risk for: harm to self, inability to function and rapid decompensation Time Spent With Patient Time: Total time managing care of this patient today __35__ minutes.
[2022-05-09] MEDS: Amoxicillin 500 MG CAPSULE PO ×2 (17:04→22:09)
[2022-05-09] MEDS: OLANZapine 7.5 MG TABLET 15 MG PO (22:08)
[2022-05-09 22:15] VITALS: BP 114/65; PULSE 63; TEMP 36.7; O2SAT 99
[2022-05-09] MEDS: Nicotine Polacrilex 2 MG GUM 4 MG BUCCAL (22:35)
[2022-05-10] MEDS: Amoxicillin 500 MG CAPSULE PO ×3 (10:17→23:03)
[2022-05-10] MEDS: Lithium Carbonate ER 450 MG TABLET.ER PO (10:17)
[2022-05-10] MEDS: buPROPion HCl XL 150 MG TAB.ER.24H PO (10:17)
--- NOTE | 2022-05-10 13:42 | HO.PSYCHPN ---
Subjective Subjective Date of Service: 05/10/22 Reason For Visit: SI/psychosis Subjective Notes: Conditional Voluntary Interim History: The nursing staff reported the patient has been pleasant and cooperative, he slept well last night he has been internally preoccupied with some suicidal thoughts. Yesterday he refuses lithium. On interview I explained that he needs a mood stabilizer and he stated he does not like eating he wants to try Depakote instead.. He remains very disorganized with the sheet over his head with poor eye contact, very psychotic Mental Status Exam Mental Status Exam Patient Appearance: Inappropriate Patient Orientation: Person and Situation Level of Consciousness: Awake Patient Behavior: Guarded and Suspicious Mood Description: Withdrawn Affect Description: Labile Patient Cognition Impaired: No Ability to Follow Directions: Fair Speech Pattern: Clear Hallucinations: None Delusions: Paranoid Ideation and Ideas of Reference Thought Process: Racing, Distracted and Slowed Thinking Thought Content: positive for [place] and positive for Loose Associations Judgement: Poor Diagnostics Vital Signs (24Hr): Vital Signs - 24 hr 05/09/22 22:15 Temperature 98.1 F Pulse Rate 63 Blood Pressure 114/65 Pulse Oximetry 99 Oxygen Delivery Method Room Air BMI result Body Mass Index 20.8 Labs 05/07/22 13:42 05/07/22 13:42 Medications Medications Current Medications Acetaminophen (Acetaminophen 325 Mg Tablet) 650 mg PO Q6H PRN PRN Reason: Headache/Pain Mild Scale (1-3) Last Admin: 05/09/22 09:29 Dose: 650 mg Al Hydroxide/Mg Hydroxide (Magnesium Hydrox/Alum Hydrox 30 Ml Oral.Susp) 30 ml PO Q6H PRN PRN Reason: Heartburn/Nausea Amoxicillin (Amoxicillin 500 Mg Capsule) 500 mg PO Q8H [facility] Stop: 05/14/22 15:59 Last Admin: 05/10/22 10:17 Dose: 500 mg Bupropion HCl (Bupropion Hcl Xl 300 Mg Tab.Er.24h) 300 mg PO DAILY [facility] Hydroxyzine HCl (Hydroxyzine Hcl 25 Mg Tablet) 25 mg PO Q6H PRN PRN Reason: Anxiety Ketoconazole (Ketoconazole 2 % Shampoo 120 Ml Btl) 1 appl TOPICAL TuFr@2000 [facility]; Protocol Last Admin: 05/09/22 22:14 Dose: Not Given [place] Carbonate ([place] Carbonate Er 450 Mg Tablet.Er) 450 mg PO BID [facility] Last Admin: 05/10/22 10:17 Dose: 450 mg Magnesium Hydroxide (Milk Of Magnesia 30 Ml Oral.Susp) 30 ml PO DAILY PRN PRN Reason: Constipation Nicotine Polacrilex (Nicotine Polacrilex 2 Mg Gum) 4 mg BUCCAL Q2H PRN PRN Reason: Nicotine Cravings Last Admin: 05/09/22 22:35 Dose: 4 mg Olanzapine (Olanzapine 7.5 Mg Tablet) 15 mg PO BEDTIME JAKE Last Admin: 05/09/22 22:08 Dose: 15 mg Quetiapine Fumarate (Quetiapine Fumarate 25 Mg Tablet) 25 mg PO Q4H PRN PRN Reason: agitation/anxiety Trazodone HCl (Trazodone Hcl 50 Mg Tablet) 50 mg PO BEDTIME PRN PRN Reason: Insomnia Allergies Allergies Allergy/AdvReac Type Severity Reaction Status Date / Time No Known Allergies Allergy Verified 06/26/21 12:54 Assessment & Plan Assessment & Plan (1) Schizoaffective disorder: Status: Acute Code(s): F25.9 - Schizoaffective disorder, unspecified Plan 05/08: pt presents as depressed. add wellbutrin XL 150 mg daily for three days, then increase to 300 mg daily. continue other medications. allow detox from cocaine, observe for improvement in mood. 05/09: increase HS zyprexa from 10 mg to 15 mg. start lithium 450 BID. add seroquel 25 mg PRNs. 5 day course of amox for dental infection/pain. ketoconazole shampoo for presumed seborrheic dermatitis. scalp fungal culture to R/O tinea capitis. 05/10 discontinue lithium a start Depakote 500 mg p.o. b.i.d. Reason for contiued inpatient stay Substantial Risk for: harm to self, inability to function, rapid decompensation and med/psych decompensation Time Spent With Patient Time: Total time managing care of this patient today _20___ minutes.
[2022-05-10 20:55] VITALS: BP 130/68; PULSE 62; TEMP 36.4; O2SAT 99
[2022-05-10] MEDS: OLANZapine 7.5 MG TABLET 15 MG PO (21:53)
[2022-05-10] MEDS: Nicotine Polacrilex 2 MG GUM 4 MG BUCCAL (22:05)
[2022-05-11 10:00] VITALS: BP 108/61; PULSE 80; RESP 16; TEMP 36.9; O2SAT 98
[2022-05-11] MEDS: buPROPion HCl XL 300 MG TAB.ER.24H PO (10:00)
[2022-05-11] MEDS: Divalproex Sodium 500 MG TABLET.DR PO ×2 (10:00→21:08)
[2022-05-11] MEDS: Amoxicillin 500 MG CAPSULE PO ×2 (10:00→16:17)
--- NOTE | 2022-05-11 12:24 | P.PNPSI_ITS ---
Subjective Subjective Date of Service: 05/11/22 Reason For Visit: SI/psychosis Interim History: The nursing staff reported the patient had been withdrawn asking for room change is stating that would do seem and paranoia is evident. On interview the patient denies new symptoms he looks internally preoccupied. The staff has reported the patient has been chewing his Depakote and psycho- education with patient was provided Mental Status Exam Mental Status Exam Patient Appearance: Well Grooomed Patient Orientation: Person Level of Consciousness: Awake and Appropriate Patient Behavior: Guarded and Passive Mood Description: Withdrawn Affect Description: Blunted Patient Cognition Impaired: No Ability to Follow Directions: Fair Speech Pattern: Clear and Monotone Hallucinations: None Delusions: Paranoid Ideation Thought Process: Distracted and Slowed Thinking Thought Content: positive for [place] and positive for Circumstantial Judgement: Poor Diagnostics Vital Signs (24Hr): Vital Signs - 24 hr 05/10/22 20:55 05/11/22 10:00 Temperature 97.6 F 98.4 F Pulse Rate 62 80 Respiratory Rate 16 Blood Pressure 130/68 108/61 Pulse Oximetry 99 98 Oxygen Delivery Method Room Air Room Air BMI result Body Mass Index 20.8 Labs 05/07/22 13:42 05/07/22 13:42 Medications Medications Current Medications Acetaminophen (Acetaminophen 325 Mg Tablet) 650 mg PO Q6H PRN PRN Reason: Headache/Pain Mild Scale (1-3) Last Admin: 05/09/22 09:29 Dose: 650 mg Al Hydroxide/Mg Hydroxide (Magnesium Hydrox/Alum Hydrox 30 Ml Oral.Susp) 30 ml PO Q6H PRN PRN Reason: Heartburn/Nausea Amoxicillin (Amoxicillin 500 Mg Capsule) 500 mg PO Q8H [facility] Stop: 05/14/22 15:59 Last Admin: 05/11/22 10:00 Dose: 500 mg Bupropion HCl (Bupropion Hcl Xl 300 Mg Tab.Er.24h) 300 mg PO DAILY [facility] Last Admin: 05/11/22 10:00 Dose: 300 mg Divalproex Sodium (Divalproex Sodium 500 Mg Tablet.Dr) 500 mg PO BID [facility] Last Admin: 05/11/22 10:00 Dose: 500 mg Hydroxyzine HCl (Hydroxyzine Hcl 25 Mg Tablet) 25 mg PO Q6H PRN PRN Reason: Anxiety Ketoconazole (Ketoconazole 2 % Shampoo 120 Ml Btl) 1 appl TOPICAL TuFr@1999 [facility]; Protocol Last Admin: 05/09/22 22:14 Dose: Not Given Magnesium Hydroxide (Milk Of Magnesia 30 Ml Oral.Susp) 30 ml PO DAILY PRN PRN Reason: Constipation Nicotine Polacrilex (Nicotine Polacrilex 2 Mg Gum) 4 mg BUCCAL Q2H PRN PRN Reason: Nicotine Cravings Last Admin: 05/10/22 22:05 Dose: 4 mg Olanzapine (Olanzapine 7.5 Mg Tablet) 15 mg PO BEDTIME [facility] Last Admin: 05/10/22 21:53 Dose: 15 mg Quetiapine Fumarate (Quetiapine Fumarate 25 Mg Tablet) 25 mg PO Q4H PRN PRN Reason: agitation/anxiety Trazodone HCl (Trazodone Hcl 50 Mg Tablet) 50 mg PO BEDTIME PRN PRN Reason: Insomnia Allergies Allergies Allergy/AdvReac Type Severity Reaction Status Date / Time No Known Allergies Allergy Verified 06/26/21 12:54 Assessment & Plan Assessment & Plan (1) Schizoaffective disorder: Status: Acute Code(s): F25.9 - Schizoaffective disorder, unspecified Plan 05/08: pt presents as depressed. add wellbutrin XL 150 mg daily for three days, then increase to 300 mg daily. continue other medications. allow detox from cocaine, observe for improvement in mood. 05/09: increase HS zyprexa from 10 mg to 15 mg. start lithium 450 BID. add seroquel 25 mg PRNs. 5 day course of amox for dental infection/pain. ketoconazole shampoo for presumed seborrheic dermatitis. scalp fungal culture to R/O tinea capitis. 05/10 discontinue lithium a start Depakote 500 mg p.o. b.i.d. 05/11 continue still treat Reason for contiued inpatient stay Substantial Risk for: inability to function, rapid decompensation and med/psych decompensation Time Spent With Patient Time: Total time managing care of this patient today __30__ minutes.
[2022-05-11 20:20] VITALS: BP 118/59; PULSE 65; RESP 16; TEMP 36.3; O2SAT 98
[2022-05-11] MEDS: OLANZapine 7.5 MG TABLET 15 MG PO (21:08)
[2022-05-12 09:30] VITALS: BP 122/67; PULSE 76; RESP 20; TEMP 36.7; O2SAT 97
[2022-05-12] MEDS: Divalproex Sodium 500 MG TABLET.DR PO (09:45)
[2022-05-12] MEDS: Amoxicillin 500 MG CAPSULE PO ×3 (09:45→21:58)
[2022-05-12] MEDS: buPROPion HCl XL 300 MG TAB.ER.24H PO (09:45)
[2022-05-12 12:30] VITALS: BP 107/65; PULSE 65; RESP 20; O2SAT 96
[2022-05-12] MEDS: Spironolactone 25 MG TABLET 12.5 MG PO (12:38)
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
[2022-05-12] MEDS: Ketoconazole 2 % Shampoo 120 ML BTL 1 APPL TOPICAL (19:44)
[2022-05-12 19:45] VITALS: BP 119/61; PULSE 75; RESP 16; TEMP 37.1; O2SAT 97
--- NOTE | 2022-05-12 20:55 | PC.NURSE ---
At approx. 20:45 Nicole asked for RN to check his HR with a stethoscope. Apical HR = 68 w/auscultation. While sitting at bedside, this aligner typewriter noticed 3 pills in the patient's bed. He did hand them to RN when asked, and stated they were his AM meds and he intended to take them. He stated he felt like he had to vomit so he spit them out with intent to take them later but then forgot. Meds were identified as Bupropion 300mg xl tab, lithium 450mg tab, and amoxicillin 500mg capsule. Pt educated on importance of RNs and medical staff knowing which meds he is taking, that the meds needed to be accounted for, and in the future to give them to the RN rather than keep them. He verbalized understanding and apologized. Meds were wasted w/pill destroyer.
[2022-05-12] MEDS: Divalproex Sodium 250 MG TABLET.DR 750 MG PO (21:58)
[2022-05-12] MEDS: OLANZapine 7.5 MG TABLET 15 MG PO (21:58)
[2022-05-13 09:25] VITALS: BP 108/58; PULSE 71; RESP 18; TEMP 36.8; O2SAT 98
[2022-05-13] MEDS: buPROPion HCl XL 300 MG TAB.ER.24H PO (09:33)
[2022-05-13] MEDS: Spironolactone 25 MG TABLET 12.5 MG PO (09:34)
[2022-05-13] MEDS: Amoxicillin 500 MG CAPSULE PO (09:34)
[2022-05-13] MEDS: Nicotine Polacrilex 2 MG GUM 4 MG BUCCAL (12:29)
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
[2022-05-13] MEDS: Divalproex Sodium 250 MG TABLET.DR 750 MG PO (22:08)
[2022-05-13] MEDS: OLANZapine ODT 10 MG TAB.RAPDIS 20 MG TRANSLINGU (22:08)
[2022-05-14 06:00] VITALS: BP 140/62; PULSE 70; RESP 16; TEMP 36.7; O2SAT 98
[2022-05-14] MEDS: buPROPion HCl XL 300 MG TAB.ER.24H PO (10:14)
[2022-05-14] MEDS: Divalproex Sodium 500 MG TABLET.DR PO (10:14)
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
[2022-05-14] MEDS: Nicotine Polacrilex 2 MG GUM 4 MG BUCCAL (14:30)
== END 2022-05-14 14:55 | disposition home or self-care (01) | DRG 750 ==
LOC: HO.ED 16:25 → HO.PADLT16 17:04
PROVIDERS: Physician Assistant Medical; Admitting Provider Psychiatry & Neurology Psychiatry; Emergency Provider Emergency Medicine; Visit Provider Psychiatry & Neurology Psychiatry
DX: F25.0 Schizoaffective disorder, bipolar type (principal); R45.851 Suicidal ideations; L21.9 Seborrheic dermatitis, unspecified; F17.210 Nicotine dependence, cigarettes, uncomplicated; Z71.6 Tobacco abuse counseling; Z20.822 Contact with and (suspected) exposure to COVID-19; Z79.899 Other long term (current) drug therapy
CPT/HCPCS: 36415; 80053; 80307; 81003; 82077; 82248; 83690; 85025; 87101; 87102; 87635; 93005; 99285

== ENCOUNTER 2022-05-22 06:33 | Inpatient (IN) | payer OTHER, SELFPAY ==
--- NOTE | ~2022-05-22 | XR_ITS ---
EXAMINATION: XR CHEST CLINICAL INFORMATION: Mid back pain. COMPARISON: None TECHNIQUE: 2 views of the chest were obtained. FINDINGS: The lungs are clear. The cardiomediastinal silhouette is normal in size. There is no pleural effusion or pneumothorax. No acute osseous abnormality. XR/XR chest 2V IMPRESSION: No acute cardiopulmonary findings.
[2022-05-22 06:38] VITALS: BMI 20.2
[2022-05-22 06:46] VITALS: BP 121/76; PULSE 83; RESP 17; TEMP 37.3; O2SAT 95
[2022-05-22 07:08] LABS: MANUAL DIFF FLAG NO
[2022-05-22 07:11] LABS: Basophils Absolute Auto 0.1 X10*3/uL (0.0-0.2); Basophils Percent Auto 0.6 % (0-2); Eosinophils Percent Auto 0.4 % (0-4); Hematocrit 41.8 % (42.0-52.0); Hemoglobin 14.2 g/dl (14.0-18.0); Imm Gran Abs Auto 0.04 X10*3/uL (0.00-0.03); Imm Gran Pct Auto 0.4 % (0.0-0.4); Lymphocytes Absolute Auto 2.5 X10*3/uL (1.2-4.9); Lymphocytes Percent Auto 25.4 % (20-40); Mean Corpuscular Hemoglobin 30.5 pg (27.0-33.0); Mean Corpuscular Volume 89.7 fL (80.0-98.0); Mean Platelet Volume 10.6 fL (9.4-12.4); Monocytes Absolute Auto 0.9 X10*3/uL (0.1-1.2); Monocytes Percent Auto 9.1 % (2-11); Neutrophils Absolute Auto 6.2 x10*3/uL (2.0-8.3); Neutrophils Percent Auto 64.1 % (45-73); Platelet Count 306 X10*3/uL (160-400); Red Blood Count 4.66 X10*6/uL (4.60-5.80); Red Cell Distribution Width 13.2 % (11.0-16.0); White Blood Count 9.6 X10*3/uL (4.8-10.8)
--- NOTE | 2022-05-22 07:19 | PC.NURSE ---
Provider at bedside
--- NOTE | 2022-05-22 07:22 | ED_ITS ---
HPI - General Adult General Chief complaint: Psychiatric Symptoms Stated complaint: Crisis/[id number] Time Seen by Provider: 05/22/22 06:52 Source: patient Mode of arrival: EMS Limitations: no limitations History of Present Illness HPI narrative: 31-year-old male history of schizoaffective disorder presents with suicidal ideation. This has been going on for some time. He reports recently being discharged because he had things to do. Patient describes symptoms as moderate to severe. There is no clear relieving or exacerbating features. He is using cocaine but denies alcohol or other drug use he does report hearing voices. He reports that is whispering. The voices are about his age but he does not descr bobby what they are saying or talking about. Patient denies homicidal ideation. Related Data Home Medications Medication Instructions Recorded Confirmed divalproex 250 mg tablet,delayed 1,250 mg PO BEDTIME 05/22/22 05/22/22 release Previous Rx's Medication Instructions Recorded bupropion HCl 300 mg 24 hr tablet, 300 mg PO DAILY 30 days #30 tabs 05/14/22 extended release nicotine (polacrilex) 2 mg gum 4 mg buccal Q2H PRN Nicotine 05/14/22 Cravings 30 days #180 ea olanzapine 10 mg tablet 20 mg PO BEDTIME 30 days #60 tabs 05/14/22 Allergies Allergy/AdvReac Type Severity Reaction Status Date / Time No Known Allergies Allergy Verified 06/26/21 12:54 Review of Systems Review of Systems: CONSTITUTIONAL: Denies weight loss, fever and chills. HEENT: Denies changes in vision and hearing. RESPIRATORY: Denies SOB and cough. CV: Denies palpitations no CP. GI: Denies abdominal pain, nausea, vomiting and diarrhea. : Denies dysuria and urinary frequency. MSK: Denies myalgia and joint pain. SKIN: Denies rash and pruritus. NEUROLOGICAL: Denies headache and syncope. PSYCHIATRIC: See HPI. All other ROS are negative unless in HPI PMFSH Past Medical History Medical History Genital herpes Glaucoma Schizoaffective disorder Social History Social History Household Members: None Housing: Apartment Housing Other:: moms apartment. Do you presently have visiting nurse or other home services: No Alcohol intake: unknown Patient Tobacco Use Status: Current everyday Tobacco user Tobacco use type: Cigarette Cigarette Packs Per Day: 1 Cigarettes Per Day: 20.0 Years Smoked: unknown Smoked in Last 30 Days: Yes e-Cigarette/Vaping Use: Former Use Second Hand Smoke Exposure: No Use of substances other than those prescribed or required for medical reasons: Unknown Substance Use Type: Crack/Cocaine and Marijuana Advance Directives: No Advance Directives Information Provided: No Healthcare Proxy: No Guardian: No service: No Sexual orientation: Don't Know Physical Exam ED Vital Signs: Vital Signs - 24 hr 05/22/22 06:46 05/22/22 13:18 Temperature 99.1 F Pulse Rate 83 Respiratory Rate 17 18 Blood Pressure 121/76 Pulse Oximetry 95 Oxygen Delivery Method Room Air BMI result Body Mass Index 20.2 GEN: Well developed, no acute distress, alert, oriented HEENT: Normocephalic, atraumatic, normal external ears, nose appears normal, no oropharyngeal edema or exudates Eyes: Normal to appearance Neck: Supple, no lymphadenopathy Respiratory: Talks in complete sentences, no respiratory distress, clear to auscultation bilaterally Cardiovascular: Regular rate and rhythm, no murmurs rubs or gallops Abdomen: Soft, nontender, nondistended, no guarding, no rebound Back: No CVA tenderness Extremities: No clubbing cyanosis or edema Neurologic: No focal neurologic deficits, cranial nerves 2-12 intact, strength is 5/5 bilaterally, gait normal Skin: No rash Course Course Course Narrative: 31-year-old male presents with suicidal ideation. Patient has had previous psychiatric visits. He was recently discharged from the hospital the beginning of May. Patient does report some ongoing drug use. He denies any additional medical complaints. Patient will have routine laboratory analysis, toxicology screen from medical clearance. Patient will be referred to crisis team. Reevaluation(s) Reevaluation #1: Patient is medically clear for psychiatric evaluation and admission. Time: 13:56 Medications Administered Generic Name Dose Route Start Last Admin Trade Name Freq PRN Reason Stop Dose Admin Bupropion HCl 300 mg 05/22/22 09:00 05/22/22 08:42 Bupropion Hcl Xl 300 Mg Tab.Er.24h PO 300 mg DAILY JAKE Administration Medical Decision Making Medical Decision Making MDM Narrative: 31-year-old male presents with suicidal ideation. Patient has had previous psychiatric visits. He was recently discharged from the hospital the beginning of May. Patient does report some ongoing drug use. He denies any additional medical complaints. Patient will have routine laboratory analysis, toxicology screen from medical clearance. Patient will be referred to crisis team. Differential Diagnosis Differential Diagnoses: The differential diagnosis associated with the presentation includes (Schizoaffective disorder, depression, anxiety, suicidal ideation, drug induced mood disorder, adjustment disorder) Schizoaffective Admission/Observation Consideration of admission/observation: Escalation of care including admission/observation considered Consult Healthcare Provider Management of the patient was discussed with: Behavioral Health Provider Lab Data MDM Lab Attestation statement: I reviewed the patient's lab results. 05/22/22 07:00 05/22/22 07:00 Labs: Lab Results 05/22/22 05/22/22 05/22/22 Range/Units 06:52 07:00 07:00 WBC (4.8-10.8) X10*3/uL RBC (4.60-5.80) X10*6/uL Hgb (14.0-18.0) g/dl Hct (42.0-52.0) % MCV (80.0-98.0) fL MCH (27.0-33.0) pg MCHC (31.0-36.0) g/dl RDW (11.0-16.0) % Plt Count (160-400) X10*3/uL MPV (9.4-12.4) fL Immature Gran % (Auto) (0.0-0.4) % Neut % (Auto) (45-73) % Lymph % (Auto) (20-40) % Cache % (Auto) (2-11) % Eos % (Auto) (0-4) % Baso % (Auto) (0-2) % Lymph # (Auto) (1.2-4.9) X10*3/uL Cache # (Auto) (0.1-1.2) X10*3/uL Eos # (Auto) (0.0-0.4) X10*3/uL Baso # (Auto) (0.0-0.2) X10*3/uL Abs Immat Gran (auto) (0.00-0.03) X10*3/uL Absolute Neuts (auto) (2.0-8.3) x10*3/uL Absolute Nucleated RBC (0.0-0.012) X10*3/uL Nucleated RBC % (auto) (0.0-0.2) /100WBC Sodium (135-145) mmol/L Potassium (3.3-5.1) mmol/L Chloride (96-108) mmol/L Carbon Dioxide (22-29) mmol/L Anion Gap (12-20) BUN (9-16) mg/dL Creatinine (0.5-1.4) mg/dL Estim Creat Clear Calc Estimated GFR Random Glucose (60-115) mg/dL Calcium (8.4-10.2) mg/dL Total Bilirubin (0.0-1.0) mg/dL AST (5-37) U/L ALT (0-40) U/L Alkaline Phosphatase (39-117) U/L Total Protein (6.5-8.0) g/dL Albumin (3.5-5.0) g/dL Urine Opiates Screen Not Detected (Not Detect) Urine Fentanyl Screen POSITIVE H (Not Detect) Ur Barbiturates Screen Not Detected (Not Detect) Valproic Acid < 12.5 L (50.0-100.0) mcg/mL Ur Phencyclidine Scrn Not Detected (Not Detect) Ur Amphetamines Screen Not Detected (Not Detect) U Benzodiazepines Scrn Not Detected (Not Detect) Urine Cocaine Screen POSITIVE H (Not Detect) U Marijuana (THC) Screen POSITIVE H (Not Detect) Ethyl Alcohol mg/dL COVID-19 (JOVANNA) Negative (Negative) COVID-19 Clin Com See Note 05/22/22 05/22/22 05/22/22 Range/Units 07:00 07:00 07:00 WBC 9.6 (4.8-10.8) X10*3/uL RBC 4.66 (4.60-5.80) X10*6/uL Hgb 14.2 (14.0-18.0) g/dl Hct 41.8 L (42.0-52.0) % MCV 89.7 (80.0-98.0) fL MCH 30.5 (27.0-33.0) pg MCHC 34.0 (31.0-36.0) g/dl RDW 13.2 (11.0-16.0) % Plt Count 306 (160-400) X10*3/uL MPV 10.6 (9.4-12.4) fL Immature Gran % (Auto) 0.4 (0.0-0.4) % Neut % (Auto) 64.1 (45-73) % Lymph % (Auto) 25.4 (20-40) % Cache % (Auto) 9.1 (2-11) % Eos % (Auto) 0.4 (0-4) % Baso % (Auto) 0.6 (0-2) % Lymph # (Auto) 2.5 (1.2-4.9) X10*3/uL Cache # (Auto) 0.9 (0.1-1.2) X10*3/uL Eos # (Auto) 0.0 (0.0-0.4) X10*3/uL Baso # (Auto) 0.1 (0.0-0.2) X10*3/uL Abs Immat Gran (auto) 0.04 H (0.00-0.03) X10*3/uL Absolute Neuts (auto) 6.2 (2.0-8.3) x10*3/uL Absolute Nucleated RBC 0.000 (0.0-0.012) X10*3/uL Nucleated RBC % (auto) 0.0 (0.0-0.2) /100WBC Sodium 140 (135-145) mmol/L Potassium 4.0 (3.3-5.1) mmol/L Chloride 102 (96-108) mmol/L Carbon Dioxide 26 (22-29) mmol/L Anion Gap 16 (12-20) BUN 15 (9-16) mg/dL Creatinine 0.76 (0.5-1.4) mg/dL Estim Creat Clear Calc 116.5 Estimated GFR > 60 Random Glucose 80 (60-115) mg/dL Calcium 9.2 (8.4-10.2) mg/dL Total Bilirubin 0.7 (0.0-1.0) mg/dL AST 38 H (5-37) U/L ALT 66 H (0-40) U/L Alkaline Phosphatase 68 (39-117) U/L Total Protein 7.2 (6.5-8.0) g/dL Albumin 4.2 (3.5-5.0) g/dL Urine Opiates Screen (Not Detect) Urine Fentanyl Screen (Not Detect) Ur Barbiturates Screen (Not Detect) Valproic Acid (50.0-100.0) mcg/mL Ur Phencyclidine Scrn (Not Detect) Ur Amphetamines Screen (Not Detect) U Benzodiazepines Scrn (Not Detect) Urine Cocaine Screen (Not Detect) U Marijuana (THC) Screen (Not Detect) Ethyl Alcohol < 10 mg/dL COVID-19 (JOVANNA) (Negative) COVID-19 Clin Com External Record Review External record reviewed: Inpatient record (Recent psychiatric discharge summary) Prescription Management I considered prescription management with: Other (Behavioral health medications) Social Determinants Patient?s care significantly limited by Social Determinants of Health including: Other Social Determinant of Health Discharge Plan Discharge Clinical Impression: Schizoaffective disorder Patient Disposition: Admitted As Inpatient Prescriptions: No Action divalproex 250 mg Tablet,Delayed Release (Dr/Ec) 1,250 mg PO BEDTIME nicotine (polacrilex) 2 mg Gum 4 mg buccal Q2H PRN (Reason: Nicotine Cravings) 30 Days Qty: 180 0RF olanzapine 10 mg Tablet 20 mg PO BEDTIME 30 Days Qty: 60 0RF bupropion HCl 300 mg Tablet Extended Release 24 Hr 300 mg PO DAILY 30 Days Qty: 30 0RF Interventions: [place]-Suicide Risk Severity Scale Last Done: 05/22/22 13:18
[2022-05-22 07:25] LABS: Amphetamine Screen Urine Not Detected (Not Detect); Barbiturates, Urine Not Detected (Not Detect); Benzodiazepines Screen Urine Not Detected (Not Detect); Cannabinoid Screen Urine POSITIVE (Not Detect); Cocaine Screen Urine POSITIVE (Not Detect); Fentanyl, urine POSITIVE (Not Detect); Opiate Screen Urine Not Detected (Not Detect); Phencyclidine Screen Urine Not Detected (Not Detect)
[2022-05-22 07:28] LABS: COVID-19 Test Negative (Negative); IDNOW Serial# 16C4AD1C
[2022-05-22 07:39] LABS: Alanine Aminotransferase 66 U/L (0-40); Albumin Level 4.2 g/dL (3.5-5.0); Alkaline Phosphatase 68 U/L (39-117); Anion Gap 16 (12-20); Aspartate Amino Transferase 38 U/L (5-37); Bilirubin Total 0.7 mg/dL (0.0-1.0); Blood Urea Nitrogen 15 mg/dL (9-16); Calcium 9.2 mg/dL (8.4-10.2); Carbon Dioxide 26 mmol/L (22-29); Chloride 102 mmol/L (96-108); Creatinine Clr Calc Pharmacy 116.5; Estimated Glomerular Filt Rate > 60; Glucose Random 80 mg/dL (60-115); Sodium 140 mmol/L (135-145); Total Protein 7.2 g/dL (6.5-8.0)
[2022-05-22 07:42] LABS: Ethanol < 10 mg/dL; Valproate < 12.5 mcg/mL (50.0-100.0)
[2022-05-22] MEDS: buPROPion HCl XL 300 MG TAB.ER.24H PO (08:42)
[2022-05-22 13:18] VITALS: RESP 18
--- NOTE | 2022-05-22 13:38 | ECG_ITS ---
Test Reason : check qt Blood Pressure : / mmHG Vent. Rate : 089 BPM Atrial Rate : 089 BPM P-R Int : 130 ms QRS Dur : 084 ms QT Int : 362 ms P-R-T Axes : 080 060 040 degrees QTc Int : 440 ms Normal sinus rhythm Normal ECG When compared with ECG of 07-MAY-2022 14:15, Vent. rate has increased BY 31 BPM QT has lengthened Referred By: Topher Pickett Electronically Signed By:RYLEY BARRAGAN MD
[2022-05-22 18:00] VITALS: BP 120/71; PULSE 96; TEMP 37.3; O2SAT 95
[2022-05-22] MEDS: Divalproex Sodium 250 MG TABLET.DR 1250 MG PO (21:04)
[2022-05-22] MEDS: OLANZapine 10 MG TABLET 20 MG PO (21:05)
[2022-05-23 09:11] VITALS: BP 95/80; PULSE 61; RESP 16; TEMP 37.1; O2SAT 97
[2022-05-23] MEDS: buPROPion HCl XL 300 MG TAB.ER.24H PO (09:47)
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
--- NOTE | 2022-05-24 09:24 | HO.PSYCHPN ---
Subjective Subjective Date of Service: 05/24/22 Reason For Visit: / AV Interim History: Met with patient; discussed in teams Patient says he has not so good and that he is depressed. He says he still has suicidal thoughts but he does not think it is a good idea to do it now. Patient is a little hard understand and rambling about having received an injection in his back area that he thinks had an infection and semen in it, that it has spread; he thinks it has spread all over his body and he is 2nd guessing about what is really going on. Patient says he has some auditory hallucinations. Patient complains that it is painful when he urinates. Mental Status Exam Mental Status Exam Patient Appearance: Bizarre (somewhat, with hair dyed) Patient Orientation: Person, Place and Time Level of Consciousness: Appropriate and Alert Patient Behavior: Talkative, Cooperative and Good Eye Contact Mood Description: Anxious Affect Description: Constricted and Anxious Patient Cognition Impaired: No Ability to Follow Directions: Fair Speech Pattern: Spontaneous Speech and Mumbled Memory Description: Remote Impaired Hallucinations: Auditory Delusions: Being Controlled, Paranoid Ideation, Grandiose and Present Perceptual Disturbances: Derealization Thought Process: Distracted and Rumination Thought Content: positive for Circumstantial, positive for Perseveration and positive for Suicidal Ideation Depressive Symptoms: Difficulty Sleeping, Loss of Int. in Activity, Hopelessness, Increased Fatigue, Thoughts of /Suicide, Difficulty Concentrating and Back Pain Judgement and Insight: impaired Diagnostics Vital Signs (24Hr): BMI result Body Mass Index 20.2 Labs 05/22/22 07:00 05/22/22 07:00 Medications Medications Current Medications Acetaminophen (Acetaminophen 325 Mg Tablet) 650 mg PO Q6H PRN PRN Reason: Headache/Pain Mild Scale (1-3) Al Hydroxide/Mg Hydroxide (Magnesium Hydrox/Alum Hydrox 30 Ml Oral.Susp) 30 ml PO Q6H PRN PRN Reason: Heartburn/Nausea Bupropion HCl (Bupropion Hcl Xl 300 Mg Tab.Er.24h) 300 mg PO DAILY [facility] Last Admin: 05/23/22 09:47 Dose: 300 mg Divalproex Sodium (Divalproex Sodium 250 Mg Tablet.) 1,250 mg PO BEDTIME JAKE Last Admin: 05/23/22 23:07 Dose: Not Given Haloperidol (Haloperidol 5 Mg Tablet) 5 mg PO BEDTIME [facility] Last Admin: 05/23/22 23:07 Dose: Not Given Hydroxyzine HCl (Hydroxyzine Hcl 25 Mg Tablet) 25 mg PO Q6H PRN PRN Reason: Anxiety Magnesium Hydroxide (Milk Of Magnesia 30 Ml Oral.Susp) 30 ml PO DAILY PRN PRN Reason: Constipation Nicotine Polacrilex (Nicotine Polacrilex 2 Mg Gum) 4 mg BUCCAL Q2H PRN PRN Reason: Nicotine Cravings Nicotine Polacrilex (Nicotine Polacrilex 2 Mg Gum) 4 mg BUCCAL Q2H PRN PRN Reason: Nicotine Cravings Olanzapine (Olanzapine 10 Mg Tablet) 20 mg PO BEDTIME [facility] Last Admin: 05/23/22 23:08 Dose: Not Given Olanzapine (Olanzapine 5 Mg Tablet) 5 mg PO TID PRN PRN Reason: agitation Phenazopyridine HCl (Phenazopyridine Hcl 100 Mg Tablet) 100 mg PO TIDWM PRN PRN Reason: urinary pain Stop: 05/24/22 21:54 Trazodone HCl (Trazodone Hcl 50 Mg Tablet) 50 mg PO BEDTIME MRX1 PRN PRN Reason: Insomnia Allergies Allergies Allergy/AdvReac Type Severity Reaction Status Date / Time No Known Allergies Allergy Verified 06/26/21 12:54 Assessment & Plan Assessment & Plan (1) Schizoaffective disorder: Status: Acute Code(s): F25.9 - Schizoaffective disorder, unspecified (2) Polysubstance use disorder: Status: Acute Code(s): F19.90 - Other psychoactive substance use, unspecified, uncomplicated Plan Pt has been non compliant with medication, using substances, and has current psychotic symptoms and somatic delusions along with SI. 05/24 patient with paranoid delusions and auditory hallucinations; continue current treatment for now; ordered UA and STD test Plan: CV q15min U/A and Jack/chlymydia testing ordered Continue current regime. Hepatitis panel, HIV, urine culture, chest xray Haldol 5 mg HS Patient educated on: diagnosis and medical condition Informed Consent: understands, does not understand and further education needed Reason for contiued inpatient stay Substantial Risk for: harm to self and rapid decompensation Time Spent With Patient Time: Total time managing care of this patient today ____ minutes.
[2022-05-24 10:15] VITALS: BP 130/67; PULSE 84; RESP 16; TEMP 37.1; O2SAT 98
[2022-05-24] MEDS: buPROPion HCl XL 300 MG TAB.ER.24H PO (11:10)
[2022-05-24 16:30] VITALS: BP 111/53; PULSE 74; TEMP 36.7; O2SAT 98
--- NOTE | 2022-05-24 18:26 | PC.NURSE ---
Patient c/o left upper molar pain. Afebrile, noted to be eating without difficulty and declined Tylenol for pain. Dr. Stewart notified.
[2022-05-24 19:21] LABS: CT PCR NOT DETECTED (Not Detect.); NG PCR NOT DETECTED (Not Detect.)
[2022-05-24] MEDS: OLANZapine 10 MG TABLET 20 MG PO (21:54)
[2022-05-24] MEDS: HaloperidoL 5 MG TABLET PO (21:54)
[2022-05-24] MEDS: Divalproex Sodium 250 MG TABLET.DR 1250 MG PO (21:55)
[2022-05-25 09:05] VITALS: BP 105/64; PULSE 61; RESP 16; TEMP 37.1; O2SAT 99
[2022-05-25 09:42] LABS: Appearance Urine Clear; Color Urine Yellow; Glucose Urine UA Negative (Negative); Leukocyte Esterase Urine Trace (Negative); Nitrite Urine Negative (Negative); UMIC TRIGGER UACC YES; Urine Blood Negative (Negative); Urine Ketones Negative (Negative); Urine Protein Negative (Neg-Trace)
[2022-05-25] MEDS: buPROPion HCl XL 300 MG TAB.ER.24H PO (09:43)
[2022-05-25 09:45] LABS: Bacteria Urine None Seen (None Seen); Hyaline Casts Urine 0-2 /LPF (0-2); RBC Urine 0-2 /HPF (0-2); Squamous Epithelial Cell Urine 0-2 /HPF (0-2); WBC Urine 0-5 /HPF (0-5)
--- NOTE | 2022-05-25 14:07 | P.PNPSI_ITS ---
Subjective Subjective Date of Service: 05/25/22 Reason For Visit: / [facility] Interim History: Met with patient; discussed in teams Patient a little disorganized on approach, saying that he had a dream that he needs oxygen. He kept talking about oxygen and his dream and a rambling sort of way and then said he wants spironolactone to clear out his blood stream. Patient had earlier complained of painful urination however he said this has fully resolved. Cabinetmaker Supervisor reviewed labs and UA only with trace leukocytes; negative for chlamydia and gonorrhea. Patient also complained of upper left m olar pain and said he had recently been on antibiotic. Cabinetmaker Supervisor looked at Molar but did not see any abscess or erythema Mental Status Exam Mental Status Exam Patient Appearance: Bizarre (somewhat, with hair dyed) Patient Orientation: Person, Place and Time Level of Consciousness: Appropriate and Alert Patient Behavior: Talkative, Cooperative and Good Eye Contact Mood Description: Anxious Affect Description: Constricted and Anxious Patient Cognition Impaired: No Ability to Follow Directions: Fair Speech Pattern: Spontaneous Speech and Mumbled Memory Description: Remote Impaired Hallucinations: Auditory Delusions: Being Controlled, Paranoid Ideation, Grandiose and Present Perceptual Disturbances: Derealization Thought Process: Distracted and Rumination Thought Content: positive for Circumstantial, positive for Perseveration and positive for Suicidal Ideation Depressive Symptoms: Difficulty Sleeping, Loss of Int. in Activity, Hopelessness, Increased Fatigue, Thoughts of /Suicide, Difficulty Concentrating and Back Pain Judgement and Insight: impaired Diagnostics Vital Signs (24Hr): Vital Signs - 24 hr 05/24/22 16:30 05/25/22 09:05 Temperature 98.1 F 98.8 F Pulse Rate 74 61 Respiratory Rate 16 Blood Pressure 111/53 L 105/64 Pulse Oximetry 98 99 Oxygen Delivery Method Room Air Room Air BMI result Body Mass Index 20.2 Labs 05/22/22 07:00 05/22/22 07:00 Labs: Laboratory Results - last 48 hr 05/24/22 05/25/22 16:55 09:22 Urine Color Yellow Urine Appearance Clear Urine pH 8.0 Ur Specific [place] 1.020 Urine Protein Negative Urine Glucose (UA) Negative Urine Ketones Negative Urine Blood Negative Urine Nitrite Negative Ur Leukocyte Esterase Trace H Urine RBC 0-2 Urine WBC 0-5 Ur Squamous Epith Cells 0-2 Urine Bacteria None Seen Hyaline Casts 0-2 Chlam trachomat DNA PCR NOT DETECTED N.gonorrhoeae DNA (PCR) NOT DETECTED Imaging Radiology Impressions: ITS Impressions Chest X-Ray 05/24/22 09:04 IMPRESSION: No acute cardiopulmonary findings. Medications Medications Current Medications Acetaminophen (Acetaminophen 325 Mg Tablet) 650 mg PO Q6H PRN PRN Reason: Headache/Pain Mild Scale (1-3) Al Hydroxide/Mg Hydroxide (Magnesium Hydrox/Alum Hydrox 30 Ml Oral.Susp) 30 ml PO Q6H PRN PRN Reason: Heartburn/Nausea Bupropion HCl (Bupropion Hcl Xl 300 Mg Tab.Er.24h) 300 mg PO DAILY [facility] Last Admin: 05/25/22 09:43 Dose: 300 mg Divalproex Sodium (Divalproex Sodium 250 Mg Tablet.Dr) 1,250 mg PO BEDTIME [facility] Last Admin: 05/24/22 21:55 Dose: 1,250 mg Haloperidol (Haloperidol 5 Mg Tablet) 5 mg PO BEDTIME [facility] Last Admin: 05/24/22 21:54 Dose: 5 mg Hydroxyzine HCl (Hydroxyzine Hcl 25 Mg Tablet) 25 mg PO Q6H PRN PRN Reason: Anxiety Magnesium Hydroxide (Milk Of Magnesia 30 Ml Oral.Susp) 30 ml PO DAILY PRN PRN Reason: Constipation Nicotine Polacrilex (Nicotine Polacrilex 2 Mg Gum) 4 mg BUCCAL Q2H PRN PRN Reason: Nicotine Cravings Nicotine Polacrilex (Nicotine Polacrilex 2 Mg Gum) 4 mg BUCCAL Q2H PRN PRN Reason: Nicotine Cravings Olanzapine (Olanzapine 10 Mg Tablet) 20 mg PO BEDTIME [facility] Last Admin: 05/24/22 21:54 Dose: 20 mg Olanzapine (Olanzapine 5 Mg Tablet) 5 mg PO TID PRN PRN Reason: agitation Trazodone HCl (Trazodone Hcl 50 Mg Tablet) 50 mg PO BEDTIME MRX1 PRN PRN Reason: Insomnia Allergies Allergies Allergy/AdvReac Type Severity Reaction Status Date / Time No Known Allergies Allergy Verified 06/26/21 12:54 Assessment & Plan Assessment & Plan (1) Schizoaffective disorder: Status: Acute Code(s): F25.9 - Schizoaffective disorder, unspecified (2) Polysubstance use disorder: Status: Acute Code(s): F19.90 - Other psychoactive substance use, unspecified, uncomplicated Plan Pt has been non compliant with medication, using substances, and has current psychotic symptoms and somatic delusions along with SI. 05/24 patient with paranoid delusions and auditory hallucinations; continue current treatment for now; ordered UA and STD test 05/25 continue current treatment plan. -UA positive for trace leukocytes however denies any urinary symptoms -negative for gonorrhea/chlamydia -complains of left upper molar pain and says he was recently on antibiotic; currently looks unremarkable but will continue to monitor Plan: CV q15min Continue current regime. Hepatitis panel, HIV, urine culture, chest xray Haldol 5 mg HS Patient educated on: diagnosis and medical condition Informed Consent: understands, does not understand and further education needed Reason for contiued inpatient stay Substantial Risk for: inability to function Time Spent With Patient Time: Total time managing care of this patient today ____ minutes.
[2022-05-25 19:25] VITALS: BP 123/66; PULSE 67; TEMP 37.1; O2SAT 97
[2022-05-25] MEDS: Divalproex Sodium 250 MG TABLET.DR 1250 MG PO (22:20)
[2022-05-25] MEDS: HaloperidoL 5 MG TABLET PO (22:20)
[2022-05-25] MEDS: OLANZapine 10 MG TABLET 20 MG PO (22:21)
[2022-05-26 04:41] LABS: HBS Num1 71.92 mIU/mL (0-7.99); HBc Num1 0.06 S/CO (0.00-0.79); HBsAGNum1 0.25 S/CO (0.00-0.99); HIV AB/AG Nonreactive (Nonreactive); HIV Num 1 0.07 S/CO (0.00-0.99); Hepatitis A Antibody IgM 0.12 Index (0-0.79); Hepatitis B Core Antibody Nonreactive (Nonreactive); Hepatitis B Surface Antigen Negative (Negative); ~HepC Num1 14.95 S/CO (0.00-0.79); ~Hepatitis A Antibody IgM Nonreactive (Nonreactive); ~Hepatitis B Surface Antibody REACTIVE (Nonreactive); ~Hepatitis C Antibody Reactive (Nonreactive)
[2022-05-26 06:00] VITALS: BP 106/62; PULSE 62; RESP 16; TEMP 36.2; O2SAT 99
[2022-05-26] MEDS: buPROPion HCl XL 300 MG TAB.ER.24H PO (10:30)
--- NOTE | 2022-05-26 16:19 | HO.PSYCHPN ---
Subjective Subjective Date of Service: 05/26/22 Reason For Visit: SI/ [facility] Subjective Notes: Conditional Voluntary Healthcare Proxy: No Guardianship: No Medical Problems Affecting Mental Status: No Interim History: Nicole discussed feeling like he has been exposed to bacteria . Review of labs which look WNL, however, he reports a feeling . We will continue to monitor this sx. States he needs energy to conquer the positive . Asks for spironolactone to clean the blood in my veins. Discussed the purpose of this med to help ones kidneys eliminate unneeded water and sodium with reduction of potassium loss, not the function of what he seems to be requesting an antibiotic response. He agreed. Discussed request to trial low dose Venlafaxine. States he has and will continue to refuse Depakote. Reviewed [facility] options-pt is not interested. Discussed housing-reports applications are in for [employer] [facility] [employer]- he is unsure how long the wait will be. Medication Compliance: Yes Side effects from medications: No Attending Groups: Intermittent Review of Systems Acute medical concerns: No Medical Review of Systems: unchanged Mental Status Exam Mental Status Exam Patient Appearance: Disheveled Patient Orientation: Person, Place, Time and Situation Level of Consciousness: Alert Patient Behavior: Talkative and Good Eye Contact Mood Description: Depressed and Anxious Affect Description: Constricted Patient Cognition Impaired: No Ability to Follow Directions: Good Speech Pattern: Spontaneous Speech Memory Description: Episodic Impaired Delusions: Paranoid Ideation and Present Perceptual Disturbances: Depersonalization and Derealization Thought Process: Distracted and Rumination Thought Content: positive for Circumstantial, positive for Perseveration and positive for Suicidal Ideation Depressive Symptoms: Increased Anxiety Judgement: Fair Diagnostics Vital Signs (24Hr): Vital Signs - 24 hr 05/25/22 19:25 05/26/22 06:00 Temperature 98.7 F 97.1 F Pulse Rate 67 62 Respiratory Rate 16 Blood Pressure 123/66 106/62 Pulse Oximetry 97 99 Oxygen Delivery Method Room Air Room Air BMI result Body Mass Index 20.2 Labs 05/22/22 07:00 05/22/22 07:00 Labs: Laboratory Results - last 48 hr 05/24/22 05/24/22 05/25/22 09:23 16:55 09:22 Urine Color Yellow Urine Appearance Clear Urine pH 8.0 Ur Specific [place] 1.020 Urine Protein Negative Urine Glucose (UA) Negative Urine Ketones Negative Urine Blood Negative Urine Nitrite Negative Ur Leukocyte Esterase Trace H Urine RBC 0-2 Urine WBC 0-5 Ur Squamous Epith Cells 0-2 Urine Bacteria None Seen Hyaline Casts 0-2 Chlam trachomat DNA PCR NOT DETECTED Hepatitis A IgM Ab Nonreactive Hep Bs Antigen Negative Hep Bs Antibody REACTIVE Hep B Core Total Ab Nonreactive Hepatitis C Ab (EIA) Reactive H HIV 1&2 Ab/P24 Ag 4thGn Nonreactive N.gonorrhoeae DNA (PCR) NOT DETECTED Imaging Radiology Impressions: ITS Impressions Chest X-Ray 05/24/22 09:04 IMPRESSION: No acute cardiopulmonary findings. Medications Medications Current Medications Acetaminophen (Acetaminophen 325 Mg Tablet) 650 mg PO Q6H PRN PRN Reason: Headache/Pain Mild Scale (1-3) Al Hydroxide/Mg Hydroxide (Magnesium Hydrox/Alum Hydrox 30 Ml Oral.Susp) 30 ml PO Q6H PRN PRN Reason: Heartburn/Nausea Bupropion HCl (Bupropion Hcl Xl 300 Mg Tab.Er.24h) 300 mg PO DAILY [facility] Last Admin: 05/26/22 10:30 Dose: 300 mg Divalproex Sodium (Divalproex Sodium 250 Mg Tablet.Dr) 1,250 mg PO BEDTIME [facility] Last Admin: 05/25/22 22:20 Dose: 1,250 mg Haloperidol (Haloperidol 5 Mg Tablet) 5 mg PO BEDTIME [facility] Last Admin: 05/25/22 22:20 Dose: 5 mg Hydroxyzine HCl (Hydroxyzine Hcl 25 Mg Tablet) 25 mg PO Q6H PRN PRN Reason: Anxiety Magnesium Hydroxide (Milk Of Magnesia 30 Ml Oral.Susp) 30 ml PO DAILY PRN PRN Reason: Constipation Nicotine Polacrilex (Nicotine Polacrilex 2 Mg Gum) 4 mg BUCCAL Q2H PRN PRN Reason: Nicotine Cravings Nicotine Polacrilex (Nicotine Polacrilex 2 Mg Gum) 4 mg BUCCAL Q2H PRN PRN Reason: Nicotine Cravings Olanzapine (Olanzapine 10 Mg Tablet) 20 mg PO BEDTIME [facility] Last Admin: 05/25/22 22:21 Dose: 20 mg Olanzapine (Olanzapine 5 Mg Tablet) 5 mg PO TID PRN PRN Reason: agitation Trazodone HCl (Trazodone Hcl 50 Mg Tablet) 50 mg PO BEDTIME MRX1 PRN PRN Reason: Insomnia Allergies Allergies Allergy/AdvReac Type Severity Reaction Status Date / Time No Known Allergies Allergy Verified 06/26/21 12:54 Assessment & Plan Assessment & Plan (1) Schizoaffective disorder: Status: Acute Code(s): F25.9 - Schizoaffective disorder, unspecified (2) Polysubstance use disorder: Status: Acute Code(s): F19.90 - Other psychoactive substance use, unspecified, uncomplicated Plan Pt has been non compliant with medication, using substances, and has current psychotic symptoms and somatic delusions along with SI. 05/24 patient with paranoid delusions and auditory hallucinations; continue current treatment for now; ordered UA and STD test 05/25 continue current treatment plan. -UA positive for trace leukocytes however denies any urinary symptoms -negative for gonorrhea/chlamydia -complains of left upper molar pain and says he was recently on antibiotic; currently looks unremarkable but will continue to monitor 05/26/22: Encouraged pt to continue with Depakote. Venlafaxine 37.5 mg a.m. Plan: CV q15min Continue current regime. Hepatitis panel, HIV, urine culture, chest xray Haldol 5 mg HS Patient educated on: medication risk/benefits and therapeutic strategies Informed Consent: understands and further education needed Reason for contiued inpatient stay Substantial Risk for: harm to self and rapid decompensation Time Spent With Patient Time: Total time managing care of this patient today 25 minutes.
[2022-05-26 18:00] VITALS: BP 112/68; PULSE 64; TEMP 36.2; O2SAT 99
[2022-05-26] MEDS: OLANZapine 5 MG TABLET PO (19:12)
--- NOTE | 2022-05-26 20:04 | PC.NURSE ---
Patient said that he spoke with Shaquille Garcia about not taking his Depakote tonight. He asked about Seroquel instead. Tw told patient the information would be relayed.
[2022-05-26] MEDS: OLANZapine 10 MG TABLET 20 MG PO (21:58)
[2022-05-26] MEDS: HaloperidoL 5 MG TABLET PO (21:58)
[2022-05-26] MEDS: OXcarbazepine 300 MG TABLET PO (21:58)
[2022-05-27 08:30] VITALS: BP 118/64; PULSE 70; RESP 16; TEMP 36.7; O2SAT 98
[2022-05-27] MEDS: buPROPion HCl XL 300 MG TAB.ER.24H PO (08:37)
[2022-05-27] MEDS: Venlafaxine HCl ER 37.5 MG CAP.ER.24H PO (08:37)
[2022-05-27] MEDS: OXcarbazepine 300 MG TABLET PO ×2 (08:37→21:15)
--- NOTE | 2022-05-27 16:36 | P.PNPSI_ITS ---
Subjective Subjective Date of Service: 05/27/22 Reason For Visit: SI/ AVH Subjective Notes: Conditional Voluntary Healthcare Proxy: No Guardianship: No Medical Problems Affecting Mental Status: No Interim History: Has a final decision regarding Depakote-will discontinue. Asks for Seroqeul. Di scussed regime, agents used to work with sx and use of Olanzapine, Haldol. Pt will keep these and pass on Seroquel at this time. Continues with SI-feeling safe inpt however not to return to his apartment, asks about respite with [facility]. Medication Compliance: Yes Side effects from medications: No Attending Groups: Intermittent Review of Systems Acute medical concerns: No Medical Review of Systems: unchanged Mental Status Exam Mental Status Exam Patient Appearance: Disheveled Patient Orientation: Person, Place, Time and Situation Level of Consciousness: Alert Patient Behavior: Talkative and Good Eye Contact Mood Description: Depressed and Anxious Affect Description: Constricted Patient Cognition Impaired: No Ability to Follow Directions: Good Speech Pattern: Spontaneous Speech Memory Description: Episodic Impaired Delusions: Paranoid Ideation and Present Perceptual Disturbances: Depersonalization and Derealization Thought Process: Distracted and Rumination Thought Content: positive for Circumstantial, positive for Perseveration and positive for Suicidal Ideation Depressive Symptoms: Increased Anxiety Judgement: Fair Diagnostics Vital Signs (24Hr): Vital Signs - 24 hr 05/26/22 18:00 05/27/22 08:30 Temperature 97.2 F 98.0 F Pulse Rate 64 70 Respiratory Rate 16 Blood Pressure 112/68 118/64 Pulse Oximetry 99 98 Oxygen Delivery Method Room Air Room Air BMI result Body Mass Index 20.2 Labs 05/22/22 07:00 05/22/22 07:00 Labs: Laboratory Results - last 48 hr 05/24/22 09:23 Hepatitis A IgM Ab Nonreactive Hep Bs Antigen Negative Hep Bs Antibody REACTIVE Hep B Core Total Ab Nonreactive Hepatitis C Ab (EIA) Reactive H HIV 1&2 Ab/P24 Ag 4thGn Nonreactive Imaging Radiology Impressions: ITS Impressions Chest X-Ray 05/24/22 09:04 IMPRESSION: No acute cardiopulmonary findings. Medications Medications Current Medications Acetaminophen (Acetaminophen 325 Mg Tablet) 650 mg PO Q6H PRN PRN Reason: Headache/Pain Mild Scale (1-3) Al Hydroxide/Mg Hydroxide (Magnesium Hydrox/Alum Hydrox 30 Ml Oral.Susp) 30 ml PO Q6H PRN PRN Reason: Heartburn/Nausea Bupropion HCl (Bupropion Hcl Xl 300 Mg Tab.Er.24h) 300 mg PO DAILY [facility] Last Admin: 05/27/22 08:37 Dose: 300 mg Divalproex Sodium (Divalproex Sodium 250 Mg Tablet.Dr) 1,250 mg PO BEDTIME [facility] Last Admin: 05/26/22 22:01 Dose: Not Given Haloperidol (Haloperidol 5 Mg Tablet) 5 mg PO BEDTIME [facility] Last Admin: 05/26/22 21:58 Dose: 5 mg Hydroxyzine HCl (Hydroxyzine Hcl 25 Mg Tablet) 25 mg PO Q6H PRN PRN Reason: Anxiety Magnesium Hydroxide (Milk Of Magnesia 30 Ml Oral.Susp) 30 ml PO DAILY PRN PRN Reason: Constipation Nicotine Polacrilex (Nicotine Polacrilex 2 Mg Gum) 4 mg BUCCAL Q2H PRN PRN Reason: Nicotine Cravings Nicotine Polacrilex (Nicotine Polacrilex 2 Mg Gum) 4 mg BUCCAL Q2H PRN PRN Reason: Nicotine Cravings Olanzapine (Olanzapine 10 Mg Tablet) 20 mg PO BEDTIME [facility] Last Admin: 05/26/22 21:58 Dose: 20 mg Olanzapine (Olanzapine 5 Mg Tablet) 5 mg PO TID PRN PRN Reason: agitation Last Admin: 05/26/22 19:12 Dose: 5 mg Oxcarbazepine (Oxcarbazepine 300 Mg Tablet) 300 mg PO BID [facility] Last Admin: 05/27/22 08:37 Dose: 300 mg Trazodone HCl (Trazodone Hcl 50 Mg Tablet) 50 mg PO BEDTIME MRX1 PRN PRN Reason: Insomnia Venlafaxine HCl (Venlafaxine Hcl Er 37.5 Mg Cap.Er.24h) 37.5 mg PO DAILY [facility] Last Admin: 05/27/22 08:37 Dose: 37.5 mg Allergies Allergies Allergy/AdvReac Type Severity Reaction Status Date / Time No Known Allergies Allergy Verified 06/26/21 12:54 Assessment & Plan Assessment & Plan (1) Schizoaffective disorder: Status: Acute Code(s): F25.9 - Schizoaffective disorder, unspecified (2) Polysubstance use disorder: Status: Acute Code(s): F19.90 - Other psychoactive substance use, unspecified, uncomplicated Plan Pt has been non compliant with medication, using substances, and has current psychotic symptoms and somatic delusions along with SI. 05/24 patient with paranoid delusions and auditory hallucinations; continue current treatment for now; ordered UA and STD test 05/25 continue current treatment plan. -UA positive for trace leukocytes however denies any urinary symptoms -negative for gonorrhea/chlamydia -complains of left upper molar pain and says he was recently on antibiotic; currently looks unremarkable but will continue to monitor 05/27/22- Discontinue Depakote as pt has been refusing. Plan: CV q15min Continue current regime. Hepatitis panel, HIV, urine culture, chest xray Haldol 5 mg HS Patient educated on: medication risk/benefits and therapeutic strategies Informed Consent: understands and further education needed Reason for contiued inpatient stay Substantial Risk for: harm to self, inability to function and rapid decompensation Time Spent With Patient Time: Total time managing care of this patient today 15 minutes.
[2022-05-27 21:00] VITALS: BP 111/59; PULSE 80; TEMP 36.7; O2SAT 98
[2022-05-27] MEDS: OLANZapine 10 MG TABLET 20 MG PO (21:15)
[2022-05-27] MEDS: HaloperidoL 5 MG TABLET PO (21:15)
[2022-05-28] MEDS: OXcarbazepine 300 MG TABLET PO (08:25)
[2022-05-28] MEDS: Venlafaxine HCl ER 37.5 MG CAP.ER.24H PO (08:25)
[2022-05-28] MEDS: buPROPion HCl XL 300 MG TAB.ER.24H PO (08:25)
[2022-05-28 09:13] VITALS: BP 122/59; PULSE 68; RESP 16; TEMP 36.6; O2SAT 98
[2022-05-28] MEDS: Amoxicillin 500 MG CAPSULE PO ×2 (11:35→20:30)
[2022-05-28] MEDS: Nicotine Polacrilex 2 MG GUM 4 MG BUCCAL ×2 (14:43→16:42)
--- NOTE | 2022-05-28 16:51 | P.PNPSI_ITS ---
Subjective Subjective Date of Service: 05/28/22 Reason For Visit: / [facility] Subjective Notes: Conditional Voluntary Healthcare Proxy: No Guardianship: No Medical Problems Affecting Mental Status: Yes (uti sx) Interim History: Reports UTI sx in light of essentially negative diagnostics. Amoxicillin trial ordered. Discussed Trileptal increase in consideration of pt stopping Depakote. He agrees a trial increase would be worth assessing. Discussed discharge planning. Pt asks that he be considered for [facility] respite if possible. Medication Compliance: Yes Side effects from medications: No Attending Groups: Intermittent Review of Systems Acute medical concerns: No Medical Review of Systems: unchanged Mental Status Exam Mental Status Exam Patient Appearance: Disheveled Patient Orientation: Person, Place, Time and Situation Level of Consciousness: Alert Patient Behavior: Talkative and Good Eye Contact Mood Description: Depressed and Anxious Affect Description: Constricted Patient Cognition Impaired: No Ability to Follow Directions: Good Speech Pattern: Spontaneous Speech Memory Description: Episodic Impaired Delusions: Paranoid Ideation and Present Perceptual Disturbances: Depersonalization and Derealization Thought Process: Distracted and Rumination Thought Content: positive for Circumstantial, positive for Perseveration and positive for Suicidal Ideation Depressive Symptoms: Increased Anxiety Judgement: Fair Diagnostics Vital Signs (24Hr): Vital Signs - 24 hr 05/27/22 21:00 05/28/22 09:13 Temperature 98.1 F 97.9 F Pulse Rate 80 68 Respiratory Rate 16 Blood Pressure 111/59 L 122/59 L Pulse Oximetry 98 98 Oxygen Delivery Method Room Air Room Air BMI result Body Mass Index 20.2 Labs 05/22/22 07:00 05/22/22 07:00 Imaging Radiology Impressions: ITS Impressions Chest X-Ray 05/24/22 09:04 IMPRESSION: No acute cardiopulmonary findings. Medications Medications Current Medications Acetaminophen (Acetaminophen 325 Mg Tablet) 650 mg PO Q6H PRN PRN Reason: Headache/Pain Mild Scale (1-3) Al Hydroxide/Mg Hydroxide (Magnesium Hydrox/Alum Hydrox 30 Ml Oral.Susp) 30 ml PO Q6H PRN PRN Reason: Heartburn/Nausea Amoxicillin (Amoxicillin 500 Mg Capsule) 500 mg PO BID [facility] Last Admin: 05/28/22 11:35 Dose: 500 mg Bupropion HCl (Bupropion Hcl Xl 300 Mg Tab.Er.24h) 300 mg PO DAILY [facility] Last Admin: 05/28/22 08:25 Dose: 300 mg Haloperidol (Haloperidol 5 Mg Tablet) 5 mg PO BEDTIME [facility] Last Admin: 05/27/22 21:15 Dose: 5 mg Hydroxyzine HCl (Hydroxyzine Hcl 25 Mg Tablet) 25 mg PO Q6H PRN PRN Reason: Anxiety Magnesium Hydroxide (Milk Of Magnesia 30 Ml Oral.Susp) 30 ml PO DAILY PRN PRN Reason: Constipation Nicotine Polacrilex (Nicotine Polacrilex 2 Mg Gum) 4 mg BUCCAL Q2H PRN PRN Reason: Nicotine Cravings Olanzapine (Olanzapine 10 Mg Tablet) 20 mg PO BEDTIME [facility] Last Admin: 05/27/22 21:15 Dose: 20 mg Olanzapine (Olanzapine 5 Mg Tablet) 5 mg PO TID PRN PRN Reason: agitation Last Admin: 05/26/22 19:12 Dose: 5 mg Oxcarbazepine (Oxcarbazepine 300 Mg Tablet) 600 mg PO BID [facility] Trazodone HCl (Trazodone Hcl 50 Mg Tablet) 50 mg PO BEDTIME MRX1 PRN PRN Reason: Insomnia Venlafaxine HCl (Venlafaxine Hcl Er 37.5 Mg Cap.Er.24h) 37.5 mg PO DAILY [facility] Last Admin: 05/28/22 08:25 Dose: 37.5 mg Allergies Allergies Allergy/AdvReac Type Severity Reaction Status Date / Time No Known Allergies Allergy Verified 06/26/21 12:54 Assessment & Plan Assessment & Plan (1) Schizoaffective disorder: Status: Acute Code(s): F25.9 - Schizoaffective disorder, unspecified (2) Polysubstance use disorder: Status: Acute Code(s): F19.90 - Other psychoactive substance use, unspecified, uncomplicated Plan Pt has been non compliant with medication, using substances, and has current psychotic symptoms and somatic delusions along with SI. 2 patient with paranoid delusions and auditory hallucinations; continue current treatment for now; ordered UA and STD test 05/25 continue current treatment plan. -UA positive for trace leukocytes however denies any urinary symptoms -negative for gonorrhea/chlamydia -complains of left upper molar pain and says he was recently on antibiotic; currently looks unremarkable but will continue to monitor 05/27/22- Discontinue Depakote as pt has been refusing. 05/28/22- Increase Trileptal to 600 mg bid Amoxicillin 500 mg bid-5 day course-UTI sx. Plan: CV q15min Continue current regime. Hepatitis panel, HIV, urine culture, chest xray Haldol 5 mg HS Patient educated on: medication risk/benefits and therapeutic strategies Informed Consent: understands and further education needed Reason for contiued inpatient stay Substantial Risk for: harm to self and rapid decompensation Time Spent With Patient Time: Total time managing care of this patient today 25 minutes.
[2022-05-28 18:00] VITALS: BP 143/74; PULSE 80; RESP 18; TEMP 37.3; O2SAT 98
[2022-05-28] MEDS: OXcarbazepine 300 MG TABLET 600 MG PO (20:30)
[2022-05-28] MEDS: OLANZapine 10 MG TABLET 20 MG PO (20:30)
[2022-05-28] MEDS: HaloperidoL 5 MG TABLET PO (20:30)
[2022-05-29 06:00] VITALS: BP 115/56; PULSE 71; TEMP 36.4; O2SAT 98
[2022-05-29 07:00] VITALS: BMI 21.4
[2022-05-29] MEDS: Amoxicillin 500 MG CAPSULE PO (08:08)
[2022-05-29] MEDS: OXcarbazepine 300 MG TABLET 600 MG PO ×2 (08:08→19:29)
[2022-05-29] MEDS: Venlafaxine HCl ER 37.5 MG CAP.ER.24H PO (08:08)
[2022-05-29] MEDS: buPROPion HCl XL 300 MG TAB.ER.24H PO (08:08)
[2022-05-29 16:49] VITALS: BP 123/73; PULSE 79; RESP 16; TEMP 36.6; O2SAT 99
--- NOTE | 2022-05-29 17:07 | HO.PSYCHPN ---
Subjective Subjective Date of Service: 05/29/22 Reason For Visit: / [facility] Subjective Notes: Conditional Voluntary Healthcare Proxy: No Guardianship: No Medical Problems Affecting Mental Status: No Interim History: Pt resting and declined to meet this afternoon. Denies current symptoms of concern, medication SE or medical symptoms. Discussed with team, chart reviewed. Team reports pt is visable, isolative, and engaged in independent activities and watching television. Medication Compliance: Yes Side effects from medications: No Attending Groups: Intermittent Review of Systems Acute medical concerns: No Medical Review of Systems: unchanged Mental Status Exam Mental Status Exam Patient Appearance: Appropriate Patient Orientation: Person, Place, Time and Situation Level of Consciousness: Alert Patient Behavior: Good Eye Contact Mood Description: Withdrawn Affect Description: Constricted Patient Cognition Impaired: No Ability to Follow Directions: Good Speech Pattern: Spontaneous Speech Memory Description: Episodic Impaired Delusions: Present Thought Process: Distracted Thought Content: positive for Circumstantial and positive for Perseveration Depressive Symptoms: Increased Anxiety and Isolating-Friends/Family Judgement: Fair Diagnostics Vital Signs (24Hr): Vital Signs - 24 hr 05/28/22 18:00 05/29/22 06:00 05/29/22 16:49 Temperature 99.1 F 97.6 F 97.8 F Pulse Rate 80 71 79 Respiratory Rate 18 16 Blood Pressure 143/74 H 115/56 L 123/73 Pulse Oximetry 98 98 99 Oxygen Delivery Method Room Air Room Air Room Air BMI result Body Mass Index 21.4 Labs 05/22/22 07:00 05/22/22 07:00 Imaging Radiology Impressions: ITS Impressions Chest X-Ray 05/24/22 09:04 IMPRESSION: No acute cardiopulmonary findings. Medications Medications Current Medications Acetaminophen (Acetaminophen 325 Mg Tablet) 650 mg PO Q6H PRN PRN Reason: Headache/Pain Mild Scale (1-3) Al Hydroxide/Mg Hydroxide (Magnesium Hydrox/Alum Hydrox 30 Ml Oral.Susp) 30 ml PO Q6H PRN PRN Reason: Heartburn/Nausea Amoxicillin (Amoxicillin 500 Mg Capsule) 500 mg PO BID [facility] Last Admin: 05/29/22 08:08 Dose: 500 mg Bupropion HCl (Bupropion Hcl Xl 300 Mg Tab.Er.24h) 300 mg PO DAILY [facility] Last Admin: 05/29/22 08:08 Dose: 300 mg Haloperidol (Haloperidol 5 Mg Tablet) 5 mg PO BEDTIME [facility] Last Admin: 05/28/22 20:30 Dose: 5 mg Hydroxyzine HCl (Hydroxyzine Hcl 25 Mg Tablet) 25 mg PO Q6H PRN PRN Reason: Anxiety Magnesium Hydroxide (Milk Of Magnesia 30 Ml Oral.Susp) 30 ml PO DAILY PRN PRN Reason: Constipation Nicotine Polacrilex (Nicotine Polacrilex 2 Mg Gum) 4 mg BUCCAL Q2H PRN PRN Reason: Nicotine Cravings Olanzapine (Olanzapine 10 Mg Tablet) 20 mg PO BEDTIME [facility] Last Admin: 05/28/22 20:30 Dose: 20 mg Olanzapine (Olanzapine 5 Mg Tablet) 5 mg PO TID PRN PRN Reason: agitation Last Admin: 05/26/22 19:12 Dose: 5 mg Oxcarbazepine (Oxcarbazepine 300 Mg Tablet) 600 mg PO BID [facility] Last Admin: 05/29/22 08:08 Dose: 600 mg Trazodone HCl (Trazodone Hcl 50 Mg Tablet) 50 mg PO BEDTIME MRX1 PRN PRN Reason: Insomnia Venlafaxine HCl (Venlafaxine Hcl Er 37.5 Mg Cap.Er.24h) 37.5 mg PO DAILY [facility] Last Admin: 05/29/22 08:08 Dose: 37.5 mg Allergies Allergies Allergy/AdvReac Type Severity Reaction Status Date / Time No Known Allergies Allergy Verified 06/26/21 12:54 Assessment & Plan Assessment & Plan (1) Schizoaffective disorder: Status: Acute Code(s): F25.9 - Schizoaffective disorder, unspecified (2) Polysubstance use disorder: Status: Acute Code(s): F19.90 - Other psychoactive substance use, unspecified, uncomplicated Plan Pt has been non compliant with medication, using substances, and has current psychotic symptoms and somatic delusions along with SI. 05/24 patient with paranoid delusions and auditory hallucinations; continue current treatment for now; ordered UA and STD test 05/25 continue current treatment plan. -UA positive for trace leukocytes however denies any urinary symptoms -negative for gonorrhea/chlamydia -complains of left upper molar pain and says he was recently on antibiotic; currently looks unremarkable but will continue to monitor 05/27/22- Discontinue Depakote as pt has been refusing. 05/28/22- Increase Trileptal to 600 mg bid Amoxicillin 500 mg bid-5 day course-UTI sx. 2/16/23- Continue current plan/regime Plan: CV q15min Continue current regime. Hepatitis panel, HIV, urine culture, chest xray Haldol 5 mg HS Informed Consent: understands Reason for contiued inpatient stay Substantial Risk for: harm to self and rapid decompensation Time Spent With Patient Time: Total time managing care of this patient today ____ minutes.
[2022-05-29] MEDS: OLANZapine 10 MG TABLET 20 MG PO (19:30)
[2022-05-29] MEDS: HaloperidoL 5 MG TABLET PO (19:30)
[2022-05-29] MEDS: Nicotine Polacrilex 2 MG GUM 4 MG BUCCAL (20:27)
--- NOTE | 2022-05-29 22:27 | PC.NURSE ---
Pt is alert and oriented. vitals stable. Pt is refusing to take bedtime Amoxicillin, call box wirer provider, Leidy notified. No new orders given.
[2022-05-30 06:00] VITALS: BP 107/57; PULSE 66; RESP 14; TEMP 36.9; O2SAT 98
[2022-05-30] MEDS: buPROPion HCl XL 300 MG TAB.ER.24H PO (08:22)
[2022-05-30] MEDS: OXcarbazepine 300 MG TABLET 600 MG PO ×2 (08:22→21:22)
[2022-05-30] MEDS: Venlafaxine HCl ER 37.5 MG CAP.ER.24H PO (08:23)
[2022-05-30] MEDS: Amoxicillin 500 MG CAPSULE PO (08:23)
--- NOTE | 2022-05-30 09:05 | P.PNPSI_ITS ---
Subjective Subjective Date of Service: 05/30/22 Reason For Visit: / [facility] Subjective Notes: Conditional Voluntary Healthcare Proxy: No Guardianship: No Medical Problems Affecting Mental Status: No Interim History: Isolative, in bed awake, willing to meet. Discussed antibiotic-reports he wants IVABX. Discussed that there is currently no clinical need for this, reviewed diagnostic values. Pt verbalized understanding but asks if we can do it as a preventative Discussed discharge planning. Pt would like to remain for the next few months and directly transfer to [facility]. Explained why this plan could not be implemented, accepting of rationale but with disagreements. Discussed discharge date of 06/03. Medication Compliance: Yes Side effects from medications: No Attending Groups: Intermittent Review of Systems Acute medical concerns: No Medical Review of Systems: unchanged Mental Status Exam Mental Status Exam Patient Appearance: Appropriate Patient Orientation: Person, Place, Time and Situation Level of Consciousness: Alert Patient Behavior: Good Eye Contact Mood Description: Withdrawn Affect Description: Constricted Patient Cognition Impaired: No Ability to Follow Directions: Good Speech Pattern: Spontaneous Speech Memory Description: Episodic Impaired Delusions: Present Thought Process: Distracted Thought Content: positive for Circumstantial and positive for Perseveration Depressive Symptoms: Increased Anxiety and Isolating-Friends/Family Judgement: Fair Diagnostics Vital Signs (24Hr): Vital Signs - 24 hr 05/29/22 16:49 05/30/22 06:00 Temperature 97.8 F 98.4 F Pulse Rate 79 66 Respiratory Rate 16 14 Blood Pressure 123/73 107/57 L Pulse Oximetry 99 98 Oxygen Delivery Method Room Air Room Air BMI result Body Mass Index 21.4 Labs 05/22/22 07:00 05/22/22 07:00 Imaging Radiology Impressions: ITS Impressions Chest X-Ray 05/24/22 09:04 IMPRESSION: No acute cardiopulmonary findings. Medications Medications Current Medications Acetaminophen (Acetaminophen 325 Mg Tablet) 650 mg PO Q6H PRN PRN Reason: Headache/Pain Mild Scale (1-3) Al Hydroxide/Mg Hydroxide (Magnesium Hydrox/Alum Hydrox 30 Ml Oral.Susp) 30 ml PO Q6H PRN PRN Reason: Heartburn/Nausea Amoxicillin (Amoxicillin 500 Mg Capsule) 500 mg PO BID [facility] Last Admin: 05/30/22 08:23 Dose: 500 mg Bupropion HCl (Bupropion Hcl Xl 300 Mg Tab.Er.24h) 300 mg PO DAILY [facility] Last Admin: 05/30/22 08:22 Dose: 300 mg Haloperidol (Haloperidol 5 Mg Tablet) 5 mg PO BEDTIME [facility] Last Admin: 05/29/22 19:30 Dose: 5 mg Hydroxyzine HCl (Hydroxyzine Hcl 25 Mg Tablet) 25 mg PO Q6H PRN PRN Reason: Anxiety Magnesium Hydroxide (Milk Of Magnesia 30 Ml Oral.Susp) 30 ml PO DAILY PRN PRN Reason: Constipation Nicotine Polacrilex (Nicotine Polacrilex 2 Mg Gum) 4 mg BUCCAL Q2H PRN PRN Reason: Nicotine Cravings Last Admin: 05/29/22 20:27 Dose: 4 mg Olanzapine (Olanzapine 10 Mg Tablet) 20 mg PO BEDTIME [facility] Last Admin: 05/29/22 19:30 Dose: 20 mg Olanzapine (Olanzapine 5 Mg Tablet) 5 mg PO TID PRN PRN Reason: agitation Last Admin: 05/26/22 19:12 Dose: 5 mg Oxcarbazepine (Oxcarbazepine 300 Mg Tablet) 600 mg PO BID [facility] Last Admin: 05/30/22 08:22 Dose: 600 mg Trazodone HCl (Trazodone Hcl 50 Mg Tablet) 50 mg PO BEDTIME MRX1 PRN PRN Reason: Insomnia Venlafaxine HCl (Venlafaxine Hcl Er 37.5 Mg Cap.Er.24h) 37.5 mg PO DAILY [facility] Last Admin: 05/30/22 08:23 Dose: 37.5 mg Allergies Allergies Allergy/AdvReac Type Severity Reaction Status Date / Time No Known Allergies Allergy Verified 06/26/21 12:54 Assessment & Plan Assessment & Plan (1) Schizoaffective disorder: Status: Acute Code(s): F25.9 - Schizoaffective disorder, unspecified (2) Polysubstance use disorder: Status: Acute Code(s): F19.90 - Other psychoactive substance use, unspecified, uncomplicated Plan Pt has been non compliant with medication, using substances, and has current psychotic symptoms and somatic delusions along with SI. 05/24 patient with paranoid delusions and auditory hallucinations; continue current treatment for now; ordered UA and STD test 05/25 continue current treatment plan. -UA positive for trace leukocytes however denies any urinary symptoms -negative for gonorrhea/chlamydia -complains of left upper molar pain and says he was recently on antibiotic; currently looks unremarkable but will continue to monitor 05/27/22- Discontinue Depakote as pt has been refusing. 05/28/22- Increase Trileptal to 600 mg bid Amoxicillin 500 mg bid-5 day course-UTI sx. 05/29/22- Continue current plan/regime 05/30/22- Discontinue amoxicillin Plan: CV q15min Continue current regime. Hepatitis panel, HIV, urine culture, chest xray Haldol 5 mg HS Patient educated on: medication risk/benefits, therapeutic strategies and medical condition Informed Consent: understands Reason for contiued inpatient stay Substantial Risk for: rapid decompensation Time Spent With Patient Time: Total time managing care of this patient today 15 minutes.
[2022-05-30 18:00] VITALS: BP 112/68; PULSE 95; RESP 16; TEMP 36.6; O2SAT 98
[2022-05-30] MEDS: OLANZapine 10 MG TABLET 20 MG PO (21:22)
[2022-05-30] MEDS: HaloperidoL 5 MG TABLET PO (21:22)
[2022-05-31 06:00] VITALS: BP 113/72; PULSE 99; RESP 14; TEMP 36.6; O2SAT 99
[2022-05-31] MEDS: OXcarbazepine 300 MG TABLET 600 MG PO ×2 (08:23→20:06)
[2022-05-31] MEDS: buPROPion HCl XL 300 MG TAB.ER.24H PO (08:23)
[2022-05-31] MEDS: Venlafaxine HCl ER 37.5 MG CAP.ER.24H PO (08:23)
--- NOTE | 2022-05-31 10:06 | HO.PSYCHPN ---
Subjective Subjective Date of Service: 05/31/22 Reason For Visit: / [facility] Subjective Notes: Conditional Voluntary Healthcare Proxy: No Guardianship: No Medical Problems Affecting Mental Status: No Interim History: Patient was seen and discussed in rounds today. Records and plans were reviewed. He has been mostly isolative and in his room. Affect is flat and continues to feel depressed. Eating adequately. Not attending to his ADLs. Medication Compliance: Yes Side effects from medications: No Attending Groups: Intermittent Review of Systems Constitutional: Reports body ache(s) and Reports fatigue Eyes: Reports no additional eye complaints Reports system reviewed and no additional complaints, except as documented Cardiovascular: Reports no additional cardiovascular complaints Respiratory: Reports no additional respiratory complaints Gastrointestinal: Reports no additional gastrointestinal complaints Genitourinary: Reports flank pain Musculoskeletal: Reports no additional musculoskeletal complaints Skin/Breast: Reports system reviewed and no additional complaints, except as docu Reports system reviewed and no additional complaints, except as documented and Reports behavioral changes Psychiatric: Reports abnormal sleep pattern, Reports anxiety, Reports behavioral changes, Reports difficulty concentrating, Reports auditory hallucinations, Reports hopelessness, Reports irritability and Reports anhedonia Endocrine: Reports fatigue Hematologic/Lymphatic: Reports no additional hematologic/lymphatic complaints Allergic/Immunologic: Reports no additional allergic/immunologic complaints Diagnostics Vital Signs (24Hr): Vital Signs - 24 hr 05/30/22 18:00 05/31/22 06:00 Temperature 97.8 F 97.8 F Pulse Rate 95 99 Respiratory Rate 16 14 Blood Pressure 112/68 113/72 Pulse Oximetry 98 99 Oxygen Delivery Method Room Air Room Air BMI result Body Mass Index 21.4 Labs 05/22/22 07:00 05/22/22 07:00 Imaging Radiology Impressions: ITS Impressions Chest X-Ray 05/24/22 09:04 IMPRESSION: No acute cardiopulmonary findings. Medications Medications Current Medications Acetaminophen (Acetaminophen 325 Mg Tablet) 650 mg PO Q6H PRN PRN Reason: Headache/Pain Mild Scale (1-3) Al Hydroxide/Mg Hydroxide (Magnesium Hydrox/Alum Hydrox 30 Ml Oral.Susp) 30 ml PO Q6H PRN PRN Reason: Heartburn/Nausea Bupropion HCl (Bupropion Hcl Xl 300 Mg Tab.Er.24h) 300 mg PO DAILY [facility] Last Admin: 05/31/22 08:23 Dose: 300 mg Haloperidol (Haloperidol 5 Mg Tablet) 5 mg PO BEDTIME [facility] Last Admin: 05/30/22 21:22 Dose: 5 mg Hydroxyzine HCl (Hydroxyzine Hcl 25 Mg Tablet) 25 mg PO Q6H PRN PRN Reason: Anxiety Magnesium Hydroxide (Milk Of Magnesia 30 Ml Oral.Susp) 30 ml PO DAILY PRN PRN Reason: Constipation Nicotine Polacrilex (Nicotine Polacrilex 2 Mg Gum) 4 mg BUCCAL Q2H PRN PRN Reason: Nicotine Cravings Last Admin: 05/29/22 20:27 Dose: 4 mg Olanzapine (Olanzapine 10 Mg Tablet) 20 mg PO BEDTIME [facility] Last Admin: 05/30/22 21:22 Dose: 20 mg Olanzapine (Olanzapine 5 Mg Tablet) 5 mg PO TID PRN PRN Reason: agitation Last Admin: 05/26/22 19:12 Dose: 5 mg Oxcarbazepine (Oxcarbazepine 300 Mg Tablet) 600 mg PO BID [facility] Last Admin: 05/31/22 08:23 Dose: 600 mg Trazodone HCl (Trazodone Hcl 50 Mg Tablet) 50 mg PO BEDTIME MRX1 PRN PRN Reason: Insomnia Venlafaxine HCl (Venlafaxine Hcl Er 37.5 Mg Cap.Er.24h) 37.5 mg PO DAILY [facility] Last Admin: 05/31/22 08:23 Dose: 37.5 mg Allergies Allergies Allergy/AdvReac Type Severity Reaction Status Date / Time No Known Allergies Allergy Verified 06/26/21 12:54 Assessment & Plan Assessment & Plan (1) Schizoaffective disorder: Status: Acute Code(s): F25.9 - Schizoaffective disorder, unspecified (2) Polysubstance use disorder: Status: Acute Code(s): F19.90 - Other psychoactive substance use, unspecified, uncomplicated Plan Pt has been non compliant with medication, using substances, and has current psychotic symptoms and somatic delusions along with SI. 05/24 patient with paranoid delusions and auditory hallucinations; continue current treatment for now; ordered UA and STD test 05/25 continue current treatment plan. -UA positive for trace leukocytes however denies any urinary symptoms -negative for gonorrhea/chlamydia -complains of left upper molar pain and says he was recently on antibiotic; currently looks unremarkable but will continue to monitor 05/27/22- Discontinue Depakote as pt has been refusing. 05/28/22- Increase Trileptal to 600 mg bid Amoxicillin 500 mg bid-5 day course-UTI sx. 05/29/22- Continue current plan/regime 05/30/22- Discontinue amoxicillin 05/31: Continue current regimen and plans Plan: CV q15min Continue current regime. Hepatitis panel, HIV, urine culture, chest xray Haldol 5 mg HS Reason for contiued inpatient stay Substantial Risk for: med/psych decompensation Time Spent With Patient Time: Total time managing care of this patient today ____ minutes.
[2022-05-31 18:00] VITALS: BP 132/78; PULSE 84; RESP 16; TEMP 36.6; O2SAT 98
[2022-05-31] MEDS: OLANZapine 10 MG TABLET 20 MG PO (20:06)
[2022-05-31] MEDS: HaloperidoL 5 MG TABLET PO (20:06)
[2022-05-31] MEDS: Nicotine Polacrilex 2 MG GUM 4 MG BUCCAL (20:25)
[2022-06-01 06:00] VITALS: BP 115/66; PULSE 67; RESP 14; TEMP 36.8; O2SAT 7
[2022-06-01] MEDS: OXcarbazepine 300 MG TABLET 600 MG PO ×2 (08:07→22:09)
[2022-06-01] MEDS: Venlafaxine HCl ER 37.5 MG CAP.ER.24H PO (08:08)
[2022-06-01] MEDS: buPROPion HCl XL 300 MG TAB.ER.24H PO (08:08)
--- NOTE | 2022-06-01 09:03 | HO.PSYCHPN ---
Subjective Subjective Date of Service: 06/01/22 Reason For Visit: / [facility] Subjective Notes: Conditional Voluntary Healthcare Proxy: No Guardianship: No Medical Problems Affecting Mental Status: No Interim History: Patient was seen and discussed in rounds today. Records and plans were reviewed. He he has been visible up, eating and sleeping adequately. Continues to be depressed and withdrawn. Anxious about upcoming discharge. No complaints or side effects. No changes were made today Medication Compliance: Yes Side effects from medications: No Attending Groups: Intermittent Review of Systems Constitutional: Reports body ache(s) and Reports fatigue Eyes: Reports no additional eye complaints Reports system reviewed and no additional complaints, except as documented Cardiovascular: Reports no additional cardiovascular complaints Respiratory: Reports no additional respiratory complaints Gastrointestinal: Reports no additional gastrointestinal complaints Genitourinary: Reports flank pain Musculoskeletal: Reports no additional musculoskeletal complaints Skin/Breast: Reports system reviewed and no additional complaints, except as docu Reports system reviewed and no additional complaints, except as documented and Reports behavioral changes Psychiatric: Reports abnormal sleep pattern, Reports anxiety, Reports behavioral changes, Reports difficulty concentrating, Reports auditory hallucinations, Reports hopelessness, Reports irritability and Reports anhedonia Endocrine: Reports fatigue Hematologic/Lymphatic: Reports no additional hematologic/lymphatic complaints Allergic/Immunologic: Reports no additional allergic/immunologic complaints Diagnostics Vital Signs (24Hr): Vital Signs - 24 hr 05/31/22 18:00 06/01/22 06:00 Temperature 97.8 F 98.2 F Pulse Rate 84 67 Respiratory Rate 16 14 Blood Pressure 132/78 115/66 Pulse Oximetry 98 7 L Oxygen Delivery Method Room Air Room Air BMI result Body Mass Index 21.4 Labs 05/22/22 07:00 05/22/22 07:00 Imaging Radiology Impressions: ITS Impressions Chest X-Ray 05/24/22 09:04 IMPRESSION: No acute cardiopulmonary findings. Medications Medications Current Medications Acetaminophen (Acetaminophen 325 Mg Tablet) 650 mg PO Q6H PRN PRN Reason: Headache/Pain Mild Scale (1-3) Al Hydroxide/Mg Hydroxide (Magnesium Hydrox/Alum Hydrox 30 Ml Oral.Susp) 30 ml PO Q6H PRN PRN Reason: Heartburn/Nausea Bupropion HCl (Bupropion Hcl Xl 300 Mg Tab.Er.24h) 300 mg PO DAILY [facility] Last Admin: 06/01/22 08:08 Dose: 300 mg Haloperidol (Haloperidol 5 Mg Tablet) 5 mg PO BEDTIME [facility] Last Admin: 05/31/22 20:06 Dose: 5 mg Hydroxyzine HCl (Hydroxyzine Hcl 25 Mg Tablet) 25 mg PO Q6H PRN PRN Reason: Anxiety Magnesium Hydroxide (Milk Of Magnesia 30 Ml Oral.Susp) 30 ml PO DAILY PRN PRN Reason: Constipation Nicotine Polacrilex (Nicotine Polacrilex 2 Mg Gum) 4 mg BUCCAL Q2H PRN PRN Reason: Nicotine Cravings Last Admin: 05/31/22 20:25 Dose: 4 mg Olanzapine (Olanzapine 10 Mg Tablet) 20 mg PO BEDTIME [facility] Last Admin: 05/31/22 20:06 Dose: 20 mg Olanzapine (Olanzapine 5 Mg Tablet) 5 mg PO TID PRN PRN Reason: agitation Last Admin: 05/26/22 19:12 Dose: 5 mg Oxcarbazepine (Oxcarbazepine 300 Mg Tablet) 600 mg PO BID [facility] Last Admin: 06/01/22 08:07 Dose: 600 mg Trazodone HCl (Trazodone Hcl 50 Mg Tablet) 50 mg PO BEDTIME MRX1 PRN PRN Reason: Insomnia Venlafaxine HCl (Venlafaxine Hcl Er 37.5 Mg Cap.Er.24h) 37.5 mg PO DAILY [facility] Last Admin: 06/01/22 08:08 Dose: 37.5 mg Allergies Allergies Allergy/AdvReac Type Severity Reaction Status Date / Time No Known Allergies Allergy Verified 06/26/21 12:54 Assessment & Plan Assessment & Plan (1) Schizoaffective disorder: Status: Acute Code(s): F25.9 - Schizoaffective disorder, unspecified (2) Polysubstance use disorder: Status: Acute Code(s): F19.90 - Other psychoactive substance use, unspecified, uncomplicated Plan Pt has been non compliant with medication, using substances, and has current psychotic symptoms and somatic delusions along with SI. 05/24 patient with paranoid delusions and auditory hallucinations; continue current treatment for now; ordered UA and STD test 05/25 continue current treatment plan. -UA positive for trace leukocytes however denies any urinary symptoms -negative for gonorrhea/chlamydia -complains of left upper molar pain and says he was recently on antibiotic; currently looks unremarkable but will continue to monitor 05/27/22- Discontinue Depakote as pt has been refusing. 05/28/22- Increase Trileptal to 600 mg bid Amoxicillin 500 mg bid-5 day course-UTI sx. 05/29/22- Continue current plan/regime 05/30/22- Discontinue amoxicillin 05/31: Continue current regimen and plans 06/01: Continue current plans and regimen Plan: CV q15min Continue current regime. Hepatitis panel, HIV, urine culture, chest xray Haldol 5 mg HS Reason for contiued inpatient stay Substantial Risk for: med/psych decompensation Time Spent With Patient Time: Total time managing care of this patient today ____ minutes.
[2022-06-01] MEDS: Nicotine Polacrilex 2 MG GUM 4 MG BUCCAL (20:35)
[2022-06-01 22:08] VITALS: BP 128/78; PULSE 71; RESP 14; TEMP 36.4
[2022-06-01] MEDS: OLANZapine 10 MG TABLET 20 MG PO (22:09)
[2022-06-01] MEDS: HaloperidoL 5 MG TABLET PO (22:09)
--- NOTE | 2022-06-02 09:16 | HO.PSYCHPN ---
Subjective Subjective Date of Service: 06/02/22 Reason For Visit: / [facility] Subjective Notes: Conditional Voluntary Healthcare Proxy: No Guardianship: No Medical Problems Affecting Mental Status: No Interim History: Patient was seen and discussed in rounds today. Records and plans were reviewed. Labs were reviewed. He has been doing better and is calmer. Eating and mostly sleeping adequately. Continues to have symptoms of depression and anxiety. No other complaints. No SI. No changes were made today Medication Compliance: Yes Side effects from medications: No Attending Groups: Intermittent Review of Systems Constitutional: Reports body ache(s) and Reports fatigue Eyes: Reports no additional eye complaints Reports system reviewed and no additional complaints, except as documented Cardiovascular: Reports no additional cardiovascular complaints Respiratory: Reports no additional respiratory complaints Gastrointestinal: Reports no additional gastrointestinal complaints Genitourinary: Reports flank pain Musculoskeletal: Reports no additional musculoskeletal complaints Skin/Breast: Reports system reviewed and no additional complaints, except as docu Reports system reviewed and no additional complaints, except as documented and Reports behavioral changes Psychiatric: Reports abnormal sleep pattern, Reports anxiety, Reports behavioral changes, Reports difficulty concentrating, Reports auditory hallucinations, Reports hopelessness, Reports irritability and Reports anhedonia Endocrine: Reports fatigue Hematologic/Lymphatic: Reports no additional hematologic/lymphatic complaints Allergic/Immunologic: Reports no additional allergic/immunologic complaints Diagnostics Vital Signs (24Hr): Vital Signs - 24 hr 06/01/22 22:08 Temperature 97.6 F Pulse Rate 71 Respiratory Rate 14 Blood Pressure 128/78 BMI result Body Mass Index 21.4 Labs 05/22/22 07:00 05/22/22 07:00 Imaging Radiology Impressions: ITS Impressions Chest X-Ray 05/24/22 09:04 IMPRESSION: No acute cardiopulmonary findings. Medications Medications Current Medications Acetaminophen (Acetaminophen 325 Mg Tablet) 650 mg PO Q6H PRN PRN Reason: Headache/Pain Mild Scale (1-3) Al Hydroxide/Mg Hydroxide (Magnesium Hydrox/Alum Hydrox 30 Ml Oral.Susp) 30 ml PO Q6H PRN PRN Reason: Heartburn/Nausea Bupropion HCl (Bupropion Hcl Xl 300 Mg Tab.Er.24h) 300 mg PO DAILY JAKE Last Admin: 06/01/22 08:08 Dose: 300 mg Haloperidol (Haloperidol 5 Mg Tablet) 5 mg PO BEDTIME JAKE Last Admin: 06/01/22 22:09 Dose: 5 mg Hydroxyzine HCl (Hydroxyzine Hcl 25 Mg Tablet) 25 mg PO Q6H PRN PRN Reason: Anxiety Magnesium Hydroxide (Milk Of Magnesia 30 Ml Oral.Susp) 30 ml PO DAILY PRN PRN Reason: Constipation Nicotine Polacrilex (Nicotine Polacrilex 2 Mg Gum) 4 mg BUCCAL Q2H PRN PRN Reason: Nicotine Cravings Last Admin: 06/01/22 20:35 Dose: 4 mg Olanzapine (Olanzapine 10 Mg Tablet) 20 mg PO BEDTIME JAKE Last Admin: 06/01/22 22:09 Dose: 20 mg Olanzapine (Olanzapine 5 Mg Tablet) 5 mg PO TID PRN PRN Reason: agitation Last Admin: 05/26/22 19:12 Dose: 5 mg Oxcarbazepine (Oxcarbazepine 300 Mg Tablet) 600 mg PO BID JAKE Last Admin: 06/01/22 22:09 Dose: 600 mg Trazodone HCl (Trazodone Hcl 50 Mg Tablet) 50 mg PO BEDTIME MRX1 PRN PRN Reason: Insomnia Venlafaxine HCl (Venlafaxine Hcl Er 37.5 Mg Cap.Er.24h) 37.5 mg PO DAILY [facility] Last Admin: 06/01/22 08:08 Dose: 37.5 mg Allergies Allergies Allergy/AdvReac Type Severity Reaction Status Date / Time No Known Allergies Allergy Verified 06/26/21 12:54 Assessment & Plan Assessment & Plan (1) Schizoaffective disorder: Status: Acute Code(s): F25.9 - Schizoaffective disorder, unspecified (2) Polysubstance use disorder: Status: Acute Code(s): F19.90 - Other psychoactive substance use, unspecified, uncomplicated Plan Pt has been non compliant with medication, using substances, and has current psychotic symptoms and somatic delusions along with SI. 05/24 patient with paranoid delusions and auditory hallucinations; continue current treatment for now; ordered UA and STD test 05/25 continue current treatment plan. -UA positive for trace leukocytes however denies any urinary symptoms -negative for gonorrhea/chlamydia -complains of left upper molar pain and says he was recently on antibiotic; currently looks unremarkable but will continue to monitor 05/27/22- Discontinue Depakote as pt has been refusing. 05/28/22- Increase Trileptal to 600 mg bid Amoxicillin 500 mg bid-5 day course-UTI sx. 05/29/22- Continue current plan/regime 05/30/22- Discontinue amoxicillin 05/31: Continue current regimen and plans 06/01: Continue current plans and regimen 06/02: Continue current regimen and plans Plan: CV q15min Continue current regime. Hepatitis panel, HIV, urine culture, chest xray Haldol 5 mg HS Reason for contiued inpatient stay Substantial Risk for: med/psych decompensation Time Spent With Patient Time: Total time managing care of this patient today ____ minutes.
[2022-06-02] MEDS: OXcarbazepine 300 MG TABLET 600 MG PO ×2 (09:29→21:36)
[2022-06-02] MEDS: Venlafaxine HCl ER 37.5 MG CAP.ER.24H PO (09:29)
[2022-06-02] MEDS: buPROPion HCl XL 300 MG TAB.ER.24H PO (09:29)
[2022-06-02 09:32] VITALS: BP 114/55; PULSE 67; RESP 18; TEMP 36.6; O2SAT 98
[2022-06-02] MEDS: Nicotine Polacrilex 2 MG GUM 4 MG BUCCAL (20:12)
[2022-06-02] MEDS: HaloperidoL 5 MG TABLET PO (21:36)
[2022-06-02] MEDS: OLANZapine 10 MG TABLET 20 MG PO (21:36)
[2022-06-02 21:37] VITALS: BP 126/87; PULSE 74; RESP 14; TEMP 37.1
[2022-06-03] MEDS: buPROPion HCl XL 300 MG TAB.ER.24H PO (08:12)
[2022-06-03] MEDS: OXcarbazepine 300 MG TABLET 600 MG PO (08:12)
[2022-06-03] MEDS: Venlafaxine HCl ER 37.5 MG CAP.ER.24H PO (08:12)
[2022-06-03 08:45] VITALS: BP 124/70; PULSE 69; RESP 16; TEMP 36.5; O2SAT 96
--- NOTE | 2022-06-03 10:43 | PM.PSYDC ---
DS: Providers Provider Date of Service: 06/03/22 Date of admission: 05/22/22 15:54 Date of discharge: 06/03/22 Primary care physician: Vipin Jain MD Admitting clinician: Imani Vital Attending physician on admission: Saran Asencio Attending physician on discharge: Saran Asencio Discharging clinician: Imani Vital DS: Diagnosis Discharge Diagnosis (1) Schizoaffective disorder: Status: Acute (2) Polysubstance use disorder: Status: Acute DS: Medications Discharge Medications Home Medications: Previous Rx's Medication Instructions Recorded bupropion HCl 300 mg 24 hr tablet, 300 mg PO DAILY 30 days #15 tabs 06/03/22 extended release haloperidol 5 mg tablet 5 mg PO BEDTIME #15 tabs 06/03/22 naloxone 4 mg/actuation nasal 4 mg intranasal Q2M PRN opioid 06/03/22 spray (Narcan) overdose #2 ea nicotine (polacrilex) 2 mg gum 4 mg buccal Q2H PRN Nicotine 06/03/22 Cravings #60 ea olanzapine 10 mg tablet 20 mg PO BEDTIME #15 tabs 06/03/22 oxcarbazepine 300 mg tablet 600 mg PO BID #30 tabs 06/03/22 venlafaxine 37.5 mg 37.5 mg PO DAILY #15 caps 06/03/22 capsule,extended release 24 hr Mental Status Exam Mental Status Exam Patient Appearance: Appropriate Patient Orientation: Person, Place, Time and Situation Level of Consciousness: Alert Patient Behavior: Good Eye Contact Mood Description: Withdrawn Affect Description: Constricted Patient Cognition Impaired: No Ability to Follow Directions: Good Speech Pattern: Spontaneous Speech Memory Description: Episodic Impaired Delusions: Present Thought Process: Distracted Thought Content: positive for Circumstantial and positive for Perseveration Depressive Symptoms: Increased Anxiety and Isolating-Friends/Family Judgement: Fair Data Data Completed and Pending Completed studies during hospitalization [Text1]: 05/23/22 10:09 Urine clean catch - Clean Catch Midstream Urine Culture - Final Imaging Diagnostic Imaging Impressions Chest X-Ray 05/24/22 09:04 IMPRESSION: No acute cardiopulmonary findings. DS: Summary Hospital Course Hospital Course: Admission to adult psychiatry for exacerbation of schizoaffective disorder and polysubstance use disorder. Medications were adjusted, titrated without side effects. Nicole asked to be placed in a senior care directly from the hospital, however, no availabilities were found, he was placed on waiting lists, and is on the list to admit to [facility]. He will wait for placement in his apartment, while participating in out patient treatment. Time spent discussing smoking cessation with patient: 3 to 10 minutes Status at Discharge Functional status at discharge: independent ambulation Overall status at discharge: patient is progressing back to baseline Time Spent with Patient Time attestation: Total time managing care of this patient today 35 minutes. Time spent: Greater than 30 minutes Discharge Plan Discharge Anticipated Discharge Date/Time: 06/03/22 11:30 Patient Disposition: Home, Self-Care Discharge Diagnosis: Schizoaffective Disorder Polysubstance Use Disorder Referrals: [facility] [Other] - 1 Week (Patient has referral placed and is on wait list for [facility] Wait list is several months. Patient should follow-up with Esmer Edwar daily to determine changes in status.) [facility] [Other] - 1 Week (Patient reports having referral into [facility] for co-occurring substance/mental health treatment program. Patient should follow-up following discharge from [facility] to determine status of application.) [facility] [Other] - 06/05/22 10:00 am (Initial diagnostic intake for therapy following discharge from [facility]. Appointment in person at [facility] ) [facility] [Other] - 07/01/22 1:00 pm (Follow-up discharge appointment. Medication Management Appointment is by tele-health) Vipin Jain MD [Primary Care Provider] - 1 Week Discharge Medications: New oxcarbazepine 300 mg Tablet 600 mg PO BID Qty: 30 1RF Discontinued divalproex 250 mg Tablet,Delayed Release (Dr/Ec) 1,250 mg PO BEDTIME nicotine (polacrilex) 2 mg Gum 4 mg buccal Q2H PRN (Reason: Nicotine Cravings) 30 Days Qty: 180 0RF olanzapine 10 mg Tablet 20 mg PO BEDTIME 30 Days Qty: 60 0RF bupropion HCl 300 mg Tablet Extended Release 24 Hr 300 mg PO DAILY 30 Days Qty: 30 0RF No Action haloperidol 5 mg tablet 1 tab PO BEDTIME nicotine (polacrilex) 2 mg gum 1 ea PO Q2H PRN (Reason: nicotine cravings) olanzapine 10 mg tablet 2 tab PO BEDTIME ibuprofen 400 mg tablet 1 tab PO Q6H PRN (Reason: pain) venlafaxine 37.5 mg capsule,extended release 24hr 1 cap PO DAILY Discharge Orders: Discharge Order (Routine); Ordered 06/03/22 Ordered By: Imani Vital Diet: Advance to usual diet Activity on Discharge: As tolerated Stand Alone Forms: Patient Portal Discharge page, Community Support Care Plan Goals: Stable mood and behavior Work on sobriety Health Concerns: Mood and behavioral stability Sobriety Plan of Treatment: Follow up with out patient appointments Take medications as directed Follow up with programs which you have applied to for residential treatment. Assessment: non suicidal, non homicidal, non psychotic, non manic Discharge Date/Time: 06/03/22 12:25
== END 2022-06-03 12:25 | disposition home or self-care (01) | DRG 750 ==
LOC: HO.ED 13:57 → HO.PM5 16:02
PROVIDERS: Admitting Provider Psychiatry & Neurology Psychiatry; Emergency Provider Emergency Medicine; PCP Family Medicine; Visit Provider Clinical Nurse Specialist Psychiatric/Mental Health, Adult
DX: F25.9 Schizoaffective disorder, unspecified (principal); R45.851 Suicidal ideations; Z59.02 Unsheltered homelessness; F19.10 Other psychoactive substance abuse, uncomplicated; F17.210 Nicotine dependence, cigarettes, uncomplicated; Z71.6 Tobacco abuse counseling; Z20.822 Contact with and (suspected) exposure to COVID-19; Z79.899 Other long term (current) drug therapy
CPT/HCPCS: 0353U; 36415; 71046; 80053; 80164; 80307; 81001; 82077; 85025; 86704; 86706; 86709; 86803; 87086; 87340; 87389; 87635; 93005; 99285; S9485

== ENCOUNTER 2022-06-13 02:19 | Emergency (ER) | payer OTHER, SELFPAY ==
[2022-06-13 02:26] VITALS: BP 128/62; BP 146/93; PULSE 69; PULSE 83; RESP 16; TEMP 36.6; O2SAT 98; BMI 20.3
--- NOTE | 2022-06-13 04:33 | ED_ITS ---
HPI - Dental/Oral General Chief complaint: Dental/Oral Stated complaint: left sided tooth pain Time Seen by Provider: 06/13/22 03:42 History of Present Illness HPI Narrative: Patient is a 31-year-old male with a history of schizoaffective disorder. History of polysubstance abuse. Presented today having to take over the left upper molar that is been ongoing for few days. Patient denies any discharge. Denies any fever chills no systemic complaints. No difficulty eating. No difficulty with voice. Patient from home. MD Complaint: tooth pain Location: Tooth # (16) Teeth map: 1. Pain over the left upper molar Related Data Previous Rx's Medication Instructions Recorded bupropion HCl 300 mg 24 hr tablet, 300 mg PO DAILY 30 days #15 tabs 06/03/22 extended release haloperidol 5 mg tablet 5 mg PO BEDTIME #15 tabs 06/03/22 naloxone 4 mg/actuation nasal 4 mg intranasal Q2M PRN opioid 06/03/22 spray (Narcan) overdose #2 ea nicotine (polacrilex) 2 mg gum 4 mg buccal Q2H PRN Nicotine 06/03/22 Cravings #60 ea olanzapine 10 mg tablet 20 mg PO BEDTIME #15 tabs 06/03/22 oxcarbazepine 300 mg tablet 600 mg PO BID #30 tabs 06/03/22 venlafaxine 37.5 mg 37.5 mg PO DAILY #15 caps 06/03/22 capsule,extended release 24 hr ibuprofen 400 mg tablet 400 mg PO Q6H PRN pain #20 tabs 06/13/22 penicillin V potassium 500 mg 500 mg PO TID toothache 7 days #21 06/13/22 tablet tabs Allergies Allergy/AdvReac Type Severity Reaction Status Date / Time No Known Allergies Allergy Verified 06/13/22 02:33 Review of Systems Review of Systems: Positive to toothache Yes all other systems are reviewed and are negative PMFSH Past Medical History Attestation statement: The following information was validated with the patient. Medical History Genital herpes Glaucoma Polysubstance use disorder Schizoaffective disorder Social History Social History Household Members: None Housing: Homeless Housing Other:: moms apartment. Do you presently have visiting nurse or other home services: No Alcohol intake: unknown Patient Tobacco Use Status: Current everyday Tobacco user Tobacco use type: Cigarette Cigarette Packs Per Day: 1 Cigarettes Per Day: 4 Years Smoked: unknown e-Cigarette/Vaping Use: Currently Using Second Hand Smoke Exposure: No Substance Use Type: Crack/Cocaine and Opiates Advance Directives: No Advance Directives Information Provided: Yes service: No Sexual orientation: Don't Know Physical Exam Vital Signs: Vital Signs: Last Vital Signs Temp 97.9 F 06/13/22 02:26 Pulse 69 06/13/22 02:26 Resp 16 06/13/22 02:26 BP 146/93 H 06/13/22 02:26 Pulse Ox 98 06/13/22 02:26 O2 Del Method 06/13/22 02:26 BMI result Body Mass Index 20.3 Appearance: Alert. Oriented X3. No acute distress. Eyes: Pupils equal, round and reactive to light. ENT: Pharynx normal. Patient had no gross fluctuance on palpation of the left upper molar. There is a cavity noted there. Posterior pharynx was normal. Neck: Normal inspection. Neck supple. No lymph nodes noted. No crepitus CVS: Normal heart rate and rhythm. Pulses normal. Normal S1 and S2 Respiratory: No respiratory distress. Breath sounds normal. No Wheezing. No rales Abdomen: Soft and nontender. No rigidity. No distention. good BS x4 Skin: Skin warm and dry. Normal skin color. Normal skin turgor. Extremities: No lower extremity edema. Neurovascular intact to all extremities. No Lacerations. No Rash Neuro: Oriented X 3. No motor deficit. No sensory deficit. Moving all extermities. No slurred speech Medical Decision Making Medical Decision Making [facility] Narrative: Positive cavity noted on exam. No gross dental abscess noted. Will be started on penicillin. Motrin for pain. Close follow-up with dentist in a.m.. In stable condition. Differential Diagnosis Differential Diagnoses: The differential diagnosis associated with the presentation includes Dental abscess, dental cavity Lab Data [facility] Lab Attestation statement: I reviewed the patient's lab results. Social Determinants Patient?s care significantly limited by Social Determinants of Health including: Inadequate housing and Low income Discharge Plan Discharge Clinical Impression: Toothache, Dental caries Patient Disposition: Home, Self-Care Instructions: Toothache (ED) Prescriptions: New penicillin V potassium 500 mg tablet 500 mg PO TID 7 Days Qty: 21 0RF ibuprofen 400 mg tablet 400 mg PO Q6H PRN (Reason: pain) Qty: 20 0RF No Action venlafaxine 37.5 mg Capsule,Extended Release 24hr 37.5 mg PO DAILY Qty: 15 1RF haloperidol 5 mg Tablet 5 mg PO BEDTIME Qty: 15 1RF nicotine (polacrilex) 2 mg Gum 4 mg buccal Q2H PRN (Reason: Nicotine Cravings) Qty: 60 0RF olanzapine 10 mg Tablet 20 mg PO BEDTIME Qty: 15 1RF oxcarbazepine 300 mg Tablet 600 mg PO BID Qty: 30 1RF bupropion HCl 300 mg Tablet Extended Release 24 Hr 300 mg PO DAILY 30 Days Qty: 15 1RF naloxone [Narcan] 4 mg/actuation spray,non-aerosol 4 mg intranasal Q2M PRN (Reason: opioid overdose) Qty: 2 0RF Rx Instructions: spray 1 dose into ONE nostril; alternate nostrils w each dose until help arrives Referrals: [facility] [Provider Group] (Follow-up with the dentist ) Vipin Jain MD [Primary Care Provider] -
[2022-06-13] MEDS: Ibuprofen 400 MG TABLET PO (04:47)
[2022-06-13] MEDS: Penicillin V Potassium 250 MG TABLET 500 MG PO (04:47)
[2022-06-13 04:48] VITALS: RESP 16
== END 2022-06-13 04:53 | disposition home or self-care (01) ==
PROVIDERS: Emergency Provider Emergency Medicine Emergency Medical Services; PCP Family Medicine
DX: K02.9 Dental caries, unspecified (principal); F17.210 Nicotine dependence, cigarettes, uncomplicated; Z71.6 Tobacco abuse counseling; Z79.899 Other long term (current) drug therapy
CPT/HCPCS: 99283; 99284

== ENCOUNTER 2022-06-26 17:24 | Inpatient (IN) | payer OTHER, SELFPAY ==
[2022-06-26 17:35] VITALS: BP 136/90; BP 142/91; PULSE 62; PULSE 99; RESP 18; TEMP 36.9; O2SAT 98; O2SAT 99; BMI 22.3
[2022-06-26] MEDS: Ibuprofen 600 MG TABLET PO (19:53)
[2022-06-26 20:25] LABS: Amphetamine Screen Urine Not Detected (Not Detect); Barbiturates, Urine Not Detected (Not Detect); Benzodiazepines Screen Urine Not Detected (Not Detect); Cannabinoid Screen Urine Not Detected (Not Detect); Cocaine Screen Urine Not Detected (Not Detect); Fentanyl, urine Not Detected (Not Detect); Opiate Screen Urine Not Detected (Not Detect); Phencyclidine Screen Urine Not Detected (Not Detect)
[2022-06-26 20:27] LABS: COVID-19 Test Negative (Negative); IDNOW Serial# 16C4AD1C
--- NOTE | 2022-06-26 20:54 | ED_ITS ---
HPI - General Adult General Chief complaint: Psychiatric Symptoms Stated complaint: Section 12 Time Seen by Provider: 06/26/22 20:15 Source: patient, RN notes reviewed and old records reviewed Mode of arrival: EMS Limitations: no limitations History of Present Illness HPI narrative: 31-year-old male presents for evaluation of depression with suicidal ideation. Patient reports that he has had increased depression for over a year. He reports that he has been taking his medications as prescribed. He denies any recent events to trigger worsening depression. The patient is suicidal without a plan The patient arrives in a Section 12 from an outpatient [facility] facility The patient is already a bed search for inpatient psychiatric care Related Data Home Medications Medication Instructions Recorded Confirmed haloperidol 5 mg tablet 1 tab PO BEDTIME 06/26/22 06/26/22 ibuprofen 400 mg tablet 1 tab PO Q6H PRN pain 06/26/22 06/26/22 nicotine (polacrilex) 2 mg gum 1 ea PO Q2H PRN nicotine cravings 06/26/22 06/26/22 olanzapine 10 mg tablet 2 tab PO BEDTIME 06/26/22 06/26/22 venlafaxine 37.5 mg 1 cap PO DAILY 06/26/22 06/26/22 capsule,extended release 24 hr Previous Rx's Medication Instructions Recorded oxcarbazepine 300 mg tablet 600 mg PO BID #30 tabs 06/03/22 Allergies Allergy/AdvReac Type Severity Reaction Status Date / Time No Known Allergies Allergy Verified 06/13/22 02:33 Review of Systems Constitutional: Constitutional: Reports as per HPI, Denies chills and Denies fatigue ENT: Reports other (Patient reports left upper dental pain) Cardiovascular: Cardiovascular: Denies chest pain and Denies dyspnea Respiratory: Respiratory: Denies cough and Denies dyspnea Gastrointestinal: Gastrointestinal: Denies abdominal pain, Denies constipation and Denies vomiting Genitourinary: Genitourinary: Denies difficulty urinating and Denies dysuria Psychiatric: Psychiatric: Reports depression, Reports panic attacks and Reports suicidal ideation Endocrine: Endocrine: Denies fatigue PMFSH Past Medical History Medical History Genital herpes Glaucoma Polysubstance use disorder Schizoaffective disorder Social History Social History Household Members: None Housing: Apartment Housing Other:: moms apartment. Do you presently have visiting nurse or other home services: No Alcohol intake: unknown Patient Tobacco Use Status: Current everyday Tobacco user Tobacco use type: Cigarette Cigarette Packs Per Day: 1 Cigarettes Per Day: 10 Years Smoked: 10 Smoked in Last 30 Days: Yes e-Cigarette/Vaping Use: Currently Using Patient Interested in Nicotine Replacement: Yes Patient Given Instructions on How to Stop Smoking: Yes Date Education Initiated: 06/27/22 Second Hand Smoke Exposure: No Use of substances other than those prescribed or required for medical reasons: Yes Substance Use Type: Crack/Cocaine Substance Use Frequency: Daily Last Used Substance: Days (ago) Currently Displaying Signs/Symptoms of Drug Intoxication Withdrawal: No Any prior treatment program specific to substance use: No Have you been hit, kicked, punched, or otherwise hurt by someone within the past year? If so, by whom?: No Do you feel safe in your current relationship?: No Current Relationship Is there a partner from a previous relationship who is making you feel unsafe now?: No Are you made to feel afraid or neglected: No Spiritual Healthcare Practices: N/A Episcopalian Healthcare Practices: N/A Cultural Healthcare Practices: N/A Advance Directives: No Advance Directives Information Provided: No Do you have thoughts of harming others: None Do you have a plan to hurt others: No Plan Recently lost weight without trying: No How much weight loss: Not applicable Eating poorly because of decreased appetite: No Nutrition screen score: 0 Nutrition Risks: No Nutritional Risk Poor oral hygiene: No service: No Sexual orientation: Don't Know Physical Exam ED Vital Signs: Vital Signs - 24 hr 06/26/22 17:35 Temperature 98.5 F Pulse Rate 62 Respiratory Rate 18 Blood Pressure 142/91 H Pulse Oximetry 98 Oxygen Delivery Method Room Air BMI result Body Mass Index 22.3 Const General: healthy appearing, comfortable, no acute distress, alert and awake Nutritional Appearance: well nourished Orientation/consciousness: patient oriented x3 Eyes Eyelids: Yes eyelids normal Conjunctivae: conjunctivae normal Sclerae: sclerae normal Corneas: corneas normal Pupils: Equal, round and reactive pupils present EOM: EOMs intact bilaterally Resp Effort & Inspection: normal respiratory effort, able to speak in complete s entences, no audible wheezes and not labored Skin General skin exam: no rashes or lesions noted and elasticity normal Lesions: no lesions Rashes: no rashes Neuro General: patient oriented x3 Cranial nerves: Yes Equal, round and reactive pupils present Extrem General: Yes full ROM Medications Administered Generic Name Dose Route Start Last Admin Trade Name Freq PRN Reason Stop Dose Admin Acetaminophen 650 mg 06/27/22 14:49 06/27/22 20:29 Acetaminophen 325 Mg Tablet PO 650 mg Q6H PRN Administration Headache/Pain Mild Scale (1-3) Haloperidol 5 mg 06/26/22 21:00 06/27/22 20:10 Haloperidol 5 Mg Tablet PO 5 mg BEDTIME JAKE Administration Nicotine Polacrilex 2 mg 06/27/22 20:15 06/27/22 20:24 Nicotine Polacrilex Lozenge 2 Mg Lozenge BUCCAL 2 mg Q2H PRN Administration Nicotine Cravings Olanzapine 20 mg 06/26/22 21:00 06/27/22 20:11 Olanzapine 10 Mg Tablet PO 20 mg BEDTIME JAKE Administration Oxcarbazepine 600 mg 06/26/22 21:00 06/28/22 09:06 Oxcarbazepine 300 Mg Tablet PO 600 mg BID JAKE Administration Venlafaxine HCl 37.5 mg 06/27/22 09:00 06/28/22 09:06 Venlafaxine Hcl Er 37.5 Mg Cap.Er.24h PO 37.5 mg DAILY JAKE Administration Discontinued Medications Generic Name Dose Route Start Last Admin Trade Name Freq PRN Reason Stop Dose Admin Ibuprofen 600 mg 06/26/22 19:48 06/26/22 19:53 Ibuprofen 600 Mg Tablet PO 06/26/22 19:49 600 mg ONCE ONE Administration Nicotine Polacrilex 2 mg 06/27/22 19:15 06/27/22 20:10 Nicotine Polacrilex Lozenge 2 Mg Lozenge BUCCAL 2 mg Q2H JAKE Administration Medical Decision Making Medical Decision Making MDM Narrative: Patient is already a bed search for inpatient psychiatric care. Will obtain medical clearance for the patient. The patient has dental pain but was just recently on antibiotics, I do not see any acute infection. The patient will follow up the disc for this. Differential Diagnosis Depression Suicidal ideation Mood disorder Dental caries Lab Data 06/27/22 05:34 06/27/22 05:34 Labs: Lab Results 06/26/22 06/26/22 06/27/22 Range/Units 20:05 20:06 05:34 WBC 5.8 (4.8-10.8) X10*3/uL RBC 4.70 (4.60-5.80) X10*6/uL Hgb 14.3 (14.0-18.0) g/dl Hct 42.7 (42.0-52.0) % MCV 90.9 (80.0-98.0) fL MCH 30.4 (27.0-33.0) pg MCHC 33.5 (31.0-36.0) g/dl RDW 12.6 (11.0-16.0) % Plt Count 281 (160-400) X10*3/uL MPV 10.2 (9.4-12.4) fL Immature Gran % (Auto) 0.2 (0.0-0.4) % Neut % (Auto) 38.8 L (45-73) % Lymph % (Auto) 47.3 H (20-40) % [place] % (Auto) 8.1 (2-11) % Eos % (Auto) 4.6 H (0-4) % Baso % (Auto) 1.0 (0-2) % Lymph # (Auto) 2.8 (1.2-4.9) X10*3/uL [place] # (Auto) 0.5 (0.1-1.2) X10*3/uL Eos # (Auto) 0.3 (0.0-0.4) X10*3/uL Baso # (Auto) 0.1 (0.0-0.2) X10*3/uL Abs Immat Gran (auto) 0.01 (0.00-0.03) X10*3/uL Absolute Neuts (auto) 2.3 (2.0-8.3) x10*3/uL Absolute Nucleated RBC 0.000 (0.0-0.012) X10*3/uL Nucleated RBC % (auto) 0.0 (0.0-0.2) /100WBC Sodium (135-145) mmol/L Potassium (3.3-5.1) mmol/L Chloride (96-108) mmol/L Carbon Dioxide (22-29) mmol/L Anion Gap (12-20) BUN (9-16) mg/dL Creatinine (0.5-1.4) mg/dL Estim Creat Clear Calc Estimated GFR Random Glucose (60-115) mg/dL Calcium (8.4-10.2) mg/dL Total Bilirubin (0.0-1.0) mg/dL AST (5-37) U/L ALT (0-40) U/L Alkaline Phosphatase (39-117) U/L Total Protein (6.5-8.0) g/dL Albumin (3.5-5.0) g/dL Urine Opiates Screen Not Detected (Not Detect) Urine Fentanyl Screen Not Detected (Not Detect) Ur Barbiturates Screen Not Detected (Not Detect) Ur Phencyclidine Scrn Not Detected (Not Detect) Ur Amphetamines Screen Not Detected (Not Detect) U Benzodiazepines Scrn Not Detected (Not Detect) Urine Cocaine Screen Not Detected (Not Detect) U Marijuana (THC) Screen Not Detected (Not Detect) Ethyl Alcohol mg/dL COVID-19 (JOVANNA) Negative (Negative) COVID-19 Clin Com See Note 06/27/22 06/27/22 Range/Units 05:34 05:34 WBC (4.8-10.8) X10*3/uL RBC (4.60-5.80) X10*6/uL Hgb (14.0-18.0) g/dl Hct (42.0-52.0) % MCV (80.0-98.0) fL MCH (27.0-33.0) pg MCHC (31.0-36.0) g/dl RDW (11.0-16.0) % Plt Count (160-400) X10*3/uL MPV (9.4-12.4) fL Immature Gran % (Auto) (0.0-0.4) % Neut % (Auto) (45-73) % Lymph % (Auto) (20-40) % [place] % (Auto) (2-11) % Eos % (Auto) (0-4) % Baso % (Auto) (0-2) % Lymph # (Auto) (1.2-4.9) X10*3/uL [place] # (Auto) (0.1-1.2) X10*3/uL Eos # (Auto) (0.0-0.4) X10*3/uL Baso # (Auto) (0.0-0.2) X10*3/uL Abs Immat Gran (auto) (0.00-0.03) X10*3/uL Absolute Neuts (auto) (2.0-8.3) x10*3/uL Absolute Nucleated RBC (0.0-0.012) X10*3/uL Nucleated RBC % (auto) (0.0-0.2) /100WBC Sodium 142 (135-145) mmol/L Potassium 4.2 (3.3-5.1) mmol/L Chloride 107 (96-108) mmol/L Carbon Dioxide 26 (22-29) mmol/L Anion Gap 13 (12-20) BUN 7 L (9-16) mg/dL Creatinine 1.01 (0.5-1.4) mg/dL Estim Creat Clear Calc 88.3 Estimated GFR > 60 Random Glucose 89 (60-115) mg/dL Calcium 9.1 (8.4-10.2) mg/dL Total Bilirubin 0.7 (0.0-1.0) mg/dL AST 24 (5-37) U/L ALT 43 H (0-40) U/L Alkaline Phosphatase 59 (39-117) U/L Total Protein 6.6 (6.5-8.0) g/dL Albumin 3.9 (3.5-5.0) g/dL Urine Opiates Screen (Not Detect) Urine Fentanyl Screen (Not Detect) Ur Barbiturates Screen (Not Detect) Ur Phencyclidine Scrn (Not Detect) Ur Amphetamines Screen (Not Detect) U Benzodiazepines Scrn (Not Detect) Urine Cocaine Screen (Not Detect) U Marijuana (THC) Screen (Not Detect) Ethyl Alcohol < 10 mg/dL COVID-19 (JOVANNA) (Negative) COVID-19 Clin Com Discharge Plan Discharge Clinical Impression: Bipolar 1 disorder, manic, moderate Patient Disposition: Admitted As Inpatient Interventions: Admission Worksheet (ED) Last Done: 06/27/22 17:57 Discharge Date/Time: 06/27/22 17:57
[2022-06-26] MEDS: OXcarbazepine 300 MG TABLET 600 MG PO (21:12)
[2022-06-26] MEDS: OLANZapine 10 MG TABLET 20 MG PO (21:12)
[2022-06-26] MEDS: HaloperidoL 5 MG TABLET PO (21:12)
--- NOTE | 2022-06-26 22:56 | MHC.EDTECH ---
this pt is refusing to give blood work. will attempt to obtain when pt is less agitated
[2022-06-27 05:23] VITALS: BP 104/45; PULSE 56; RESP 15; TEMP 36.4; O2SAT 98
[2022-06-27 05:38] LABS: MANUAL DIFF FLAG NO
[2022-06-27 05:40] LABS: Basophils Absolute Auto 0.1 X10*3/uL (0.0-0.2); Eosinophils Absolute Auto 0.3 X10*3/uL (0.0-0.4); Eosinophils Percent Auto 4.6 % (0-4); Hematocrit 42.7 % (42.0-52.0); Hemoglobin 14.3 g/dl (14.0-18.0); Imm Gran Abs Auto 0.01 X10*3/uL (0.00-0.03); Imm Gran Pct Auto 0.2 % (0.0-0.4); Lymphocytes Absolute Auto 2.8 X10*3/uL (1.2-4.9); Lymphocytes Percent Auto 47.3 % (20-40); Mean Corpuscular HGB Conc 33.5 g/dl (31.0-36.0); Mean Corpuscular Hemoglobin 30.4 pg (27.0-33.0); Mean Corpuscular Volume 90.9 fL (80.0-98.0); Mean Platelet Volume 10.2 fL (9.4-12.4); Monocytes Absolute Auto 0.5 X10*3/uL (0.1-1.2); Monocytes Percent Auto 8.1 % (2-11); Neutrophils Absolute Auto 2.3 x10*3/uL (2.0-8.3); Neutrophils Percent Auto 38.8 % (45-73); Platelet Count 281 X10*3/uL (160-400); Red Cell Distribution Width 12.6 % (11.0-16.0); White Blood Count 5.8 X10*3/uL (4.8-10.8)
[2022-06-27 05:56] LABS: Ethanol < 10 mg/dL
[2022-06-27 05:58] LABS: Alanine Aminotransferase 43 U/L (0-40); Albumin Level 3.9 g/dL (3.5-5.0); Alkaline Phosphatase 59 U/L (39-117); Anion Gap 13 (12-20); Aspartate Amino Transferase 24 U/L (5-37); Bilirubin Total 0.7 mg/dL (0.0-1.0); Blood Urea Nitrogen 7 mg/dL (9-16); Calcium 9.1 mg/dL (8.4-10.2); Carbon Dioxide 26 mmol/L (22-29); Chloride 107 mmol/L (96-108); Creatinine Clr Calc Pharmacy 88.3; Estimated Glomerular Filt Rate > 60; Glucose Random 89 mg/dL (60-115); Potassium 4.2 mmol/L (3.3-5.1); Sodium 142 mmol/L (135-145); Total Protein 6.6 g/dL (6.5-8.0)
--- NOTE | 2022-06-27 08:39 | ECG_ITS ---
Test Reason : MED Express Fit Blood Pressure : / mmHG Vent. Rate : 054 BPM Atrial Rate : 054 BPM P-R Int : 140 ms QRS Dur : 096 ms QT Int : 380 ms P-R-T Axes : 029 -14 015 degrees QTc Int : 360 ms Sinus bradycardia Early repolarization Otherwise normal ECG When compared with ECG of 22-MAY-2022 13:45, Vent. rate has decreased BY 35 BPM Questionable change in QRS axis QT has shortened Referred By: Nael Kaminski Electronically Signed By:Job Thomson
[2022-06-27 10:20] VITALS: BP 102/53; PULSE 50; RESP 15; TEMP 37.3; O2SAT 97
[2022-06-27] MEDS: Venlafaxine HCl ER 37.5 MG CAP.ER.24H PO (10:32)
[2022-06-27] MEDS: OXcarbazepine 300 MG TABLET 600 MG PO ×2 (10:32→20:11)
--- NOTE | 2022-06-27 14:55 | PHA.MEDREC ---
Pharmacy Consult ? Medication Reconciliation Pharmacy has completed the medication reconciliation. Pharmacy has reviewed the med rec done by Jose
[2022-06-27 17:49] VITALS: BMI 23.8
--- NOTE | 2022-06-27 17:55 | PC.NURSE ---
when cleaning the pt's room after Nicole left, [facility] found 3 pills, 2 in the bed and one in the pillowcase, Luke the admitting RN was informed, pt now on m5.
[2022-06-27 18:00] VITALS: BP 126/70; PULSE 78; RESP 16; TEMP 36.4; O2SAT 98
[2022-06-27] MEDS: Nicotine Polacrilex Lozenge 2 MG LOZENGE BUCCAL ×2 (20:10→20:24)
[2022-06-27] MEDS: HaloperidoL 5 MG TABLET PO (20:10)
[2022-06-27] MEDS: OLANZapine 10 MG TABLET 20 MG PO (20:11)
[2022-06-27] MEDS: Acetaminophen 325 MG TABLET 650 MG PO (20:29)
--- NOTE | 2022-06-27 22:13 | PC.ADMIT ---
Pt is a 31 years old male admitted on CV for SI/w no plan. Per [facility] clinician's assessment, Pt has been clinically suicidal. Pt is alert and oriented X3, VSS, Covid is negative, Tox screen is positive for less than 10 ETOH. Pt reports history of substance use including cocaine, marijuana, and alcohol. Pt is calm and cooperative. Pt appears disheveled, mood is depressed. Speech is normal with regular rhythm and tone. Pt reports tooth ache, purchasing director provider Drew notified. No new orders given. Judgment, impulse and insight is poor. Pt denies SI/HI at this time. He reports depression of 6/10. Pt refused flu shot. Admission orders obtained.
[2022-06-28 07:48] VITALS: BP 113/58; PULSE 82; RESP 16; TEMP 37; O2SAT 96
[2022-06-28] MEDS: OXcarbazepine 300 MG TABLET 600 MG PO (09:06)
[2022-06-28] MEDS: Venlafaxine HCl ER 37.5 MG CAP.ER.24H PO (09:06)
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
[2022-06-28 19:12] VITALS: BP 130/75; PULSE 75
[2022-06-29] MEDS: Venlafaxine HCl ER 37.5 MG CAP.ER.24H PO (09:34)
[2022-06-29] MEDS: OXcarbazepine 300 MG TABLET 600 MG PO (09:34)
[2022-06-29 09:36] VITALS: BP 117/58; PULSE 80; RESP 16; TEMP 37.3; O2SAT 97
[2022-06-29] MEDS: Nicotine Polacrilex Lozenge 2 MG LOZENGE BUCCAL ×2 (11:20→13:15)
--- NOTE | 2022-06-29 11:23 | HO.PSYCHPN ---
Subjective Subjective Date of Service: 06/29/22 Reason For Visit: Bipolar disorder with psychosis Subjective Notes: Conditional Voluntary Medical Problems Affecting Mental Status: No Interim History: Met with patient. Discussed with nursing. Reports sleeping okay. Reports feeling depressed and stressed with suicidal thoughts but no plans. Thankfully he is back on medications. Denies side effects. Reports having fear that he is being watched and followed but reluctant to give details. He continues to be vague and internally preoccupied and intense at times. Reported left-sided chest pain to nursing but declined Tylenol. When software writer inquired reported it had gone and he was fine. Medication Compliance: Yes Side effects from medications: No Attending Groups: Intermittent Review of Systems Acute medical concerns: No Review of Systems Review of Systems Yes Unobtainable due to mental status Mental Status Exam Mental Status Exam Narrative: hospital clothing. Disheveled. lazy eye as per patient (ref left eye) Guarded and irritable at times. Endorsed SI but no plans. No HI. Does appear paranoid. Denies hallucinations. Insight and judgment appear limited Diagnostics Vital Signs (24Hr): Vital Signs - 24 hr 06/28/22 19:12 06/29/22 09:36 Temperature 99.2 F Pulse Rate 75 80 Respiratory Rate 16 Blood Pressure 130/75 117/58 L Pulse Oximetry 97 BMI result Body Mass Index 23.8 Labs 06/27/22 05:34 06/27/22 05:34 Medications Medications Current Medications Acetaminophen (Acetaminophen 325 Mg Tablet) 650 mg PO Q6H PRN PRN Reason: Headache/Pain Mild Scale (1-3) Last Admin: 06/27/22 20:29 Dose: 650 mg Al Hydroxide/Mg Hydroxide (Magnesium Hydrox/Alum Hydrox 30 Ml Oral.Susp) 30 ml PO Q6H PRN PRN Reason: Heartburn/Nausea Haloperidol (Haloperidol 5 Mg Tablet) 5 mg PO BEDTIME JAKE Last Admin: 06/28/22 21:27 Dose: Not Given Hydroxyzine HCl (Hydroxyzine Hcl 25 Mg Tablet) 25 mg PO Q6H PRN PRN Reason: Anxiety Ibuprofen (Ibuprofen 400 Mg Tablet) 400 mg PO Q6H PRN PRN Reason: Pain, Mild (Pain Scale 1-3) Magnesium Hydroxide (Milk Of Magnesia 30 Ml Oral.Susp) 30 ml PO DAILY PRN PRN Reason: Constipation Nicotine Polacrilex (Nicotine Polacrilex 2 Mg Gum) 2 mg BUCCAL Q2H PRN PRN Reason: nicotine cravings Nicotine Polacrilex (Nicotine Polacrilex Lozenge 2 Mg Lozenge) 2 mg BUCCAL Q2H PRN PRN Reason: Nicotine Cravings Last Admin: 06/27/22 20:24 Dose: 2 mg Olanzapine (Olanzapine 10 Mg Tablet) 20 mg PO BEDTIME [facility] Last Admin: 06/28/22 21:27 Dose: Not Given Oxcarbazepine (Oxcarbazepine 300 Mg Tablet) 600 mg PO BID [facility] Last Admin: 06/29/22 09:34 Dose: 600 mg Trazodone HCl (Trazodone Hcl 50 Mg Tablet) 50 mg PO BEDTIME MRX1 PRN PRN Reason: Insomnia Venlafaxine HCl (Venlafaxine Hcl Er 37.5 Mg Cap.Er.24h) 37.5 mg PO DAILY [facility] Last Admin: 06/29/22 09:34 Dose: 37.5 mg Allergies Allergies Allergy/AdvReac Type Severity Reaction Status Date / Time No Known Allergies Allergy Verified 06/13/22 02:33 Assessment & Plan Assessment & Plan (1) Schizoaffective disorder: Status: Acute Code(s): F25.9 - Schizoaffective disorder, unspecified Plan presents with paranoia and irritability. In the context of medication non adherence. Will restart olanzapine, Haldol and Effexor. 06/29/2022: No changes to recently restarted medications Reason for contiued inpatient stay Substantial Risk for: harm to self and inability to function Time Spent With Patient Time: Total time managing care of this patient today ____ minutes.
[2022-06-29] MEDS: Nicotine Polacrilex 2 MG GUM BUCCAL (13:15)
[2022-06-29 17:52] VITALS: BP 149/66; PULSE 72
[2022-06-30] MEDS: Venlafaxine HCl ER 37.5 MG CAP.ER.24H PO (08:34)
[2022-06-30] MEDS: OXcarbazepine 300 MG TABLET 600 MG PO ×2 (08:34→21:47)
[2022-06-30 09:25] VITALS: BP 98/53; PULSE 64; RESP 14; TEMP 36.8; O2SAT 98
[2022-06-30] MEDS: Nicotine Polacrilex Lozenge 2 MG LOZENGE BUCCAL ×2 (09:59→13:33)
[2022-06-30] MEDS: Nicotine Polacrilex 2 MG GUM BUCCAL ×2 (09:59→13:33)
--- NOTE | 2022-06-30 16:11 | P.PNPSI_ITS ---
Subjective Subjective Date of Service: 06/30/22 Reason For Visit: Bipolar disorder with psychosis Interim History: Met with patient; discussed with team; reviewed covering providers notes Patient is vague and difficult with which to engage. Patient reports that he has not so good and says he still depressed... have suicidal sometimes. Patient agrees to changing medications to prior regimen from previous admission. Mental Status Exam Mental Status Exam Narrative: Pt is alert and oriented; behavior is somewhat cooperative, mostly calm; he has dyed blond hair, neck tattoo, face piercings; dressed in hospital pants, casual top; adequate hygiene; mood is described as not so good. He has an odd affect and smiles or laughs inappropriately; eye contact adequate; Speech is affected; speech is regular rate, rhythm and prosody and not pressured; no psychomotor agitation/retardation present; thought process can be goal directed but also circumstantial; Thought content is on not feeling good; delusional, paranoid ideations; otherwise pertinent to relevant topics; says sometimes SI; no HI.? Patients insight and judgment are impaired. Diagnostics Vital Signs (24Hr): Vital Signs - 24 hr 06/29/22 17:52 06/30/22 09:25 Temperature 98.2 F Pulse Rate 72 64 Respiratory Rate 14 Blood Pressure 149/66 H 98/53 L Pulse Oximetry 98 Oxygen Delivery Method Room Air BMI result Body Mass Index 23.8 Labs 06/27/22 05:34 06/27/22 05:34 Medications Medications Current Medications Acetaminophen (Acetaminophen 325 Mg Tablet) 650 mg PO Q6H PRN PRN Reason: Headache/Pain Mild Scale (1-3) Last Admin: 06/27/22 20:29 Dose: 650 mg Al Hydroxide/Mg Hydroxide (Magnesium Hydrox/Alum Hydrox 30 Ml Oral.Susp) 30 ml PO Q6H PRN PRN Reason: Heartburn/Nausea Haloperidol (Haloperidol 5 Mg Tablet) 5 mg PO BEDTIME [facility] Last Admin: 06/29/22 21:07 Dose: Not Given Hydroxyzine HCl (Hydroxyzine Hcl 25 Mg Tablet) 25 mg PO Q6H PRN PRN Reason: Anxiety Ibuprofen (Ibuprofen 400 Mg Tablet) 400 mg PO Q6H PRN PRN Reason: Pain, Mild (Pain Scale 1-3) Magnesium Hydroxide (Milk Of Magnesia 30 Ml Oral.Susp) 30 ml PO DAILY PRN PRN Reason: Constipation Nicotine Polacrilex (Nicotine Polacrilex 2 Mg Gum) 2 mg BUCCAL Q2H PRN PRN Reason: nicotine cravings Last Admin: 06/30/22 13:33 Dose: 2 mg Nicotine Polacrilex (Nicotine Polacrilex Lozenge 2 Mg Lozenge) 2 mg BUCCAL Q2H PRN PRN Reason: Nicotine Cravings Last Admin: 06/30/22 13:33 Dose: 2 mg Olanzapine (Olanzapine 10 Mg Tablet) 20 mg PO BEDTIME JAKE Last Admin: 06/29/22 21:07 Dose: Not Given Oxcarbazepine (Oxcarbazepine 300 Mg Tablet) 600 mg PO BID [facility] Last Admin: 06/30/22 08:34 Dose: 600 mg Trazodone HCl (Trazodone Hcl 50 Mg Tablet) 50 mg PO BEDTIME MRX1 PRN PRN Reason: Insomnia Venlafaxine HCl (Venlafaxine Hcl Er 37.5 Mg Cap.Er.24h) 37.5 mg PO DAILY [facility] Last Admin: 06/30/22 08:34 Dose: 37.5 mg Allergies Allergies Allergy/AdvReac Type Severity Reaction Status Date / Time No Known Allergies Allergy Verified 06/13/22 02:33 Assessment & Plan Assessment & Plan (1) Schizoaffective disorder: Status: Acute Code(s): F25.9 - Schizoaffective disorder, unspecified Plan Patient is a 31-year-old male with history of psychotic illness, drug abuse, prostitution, who presents with paranoid ideations and SI in the context of medication nonadherence and substance abuse. Patient called 911; Patient guarded and revealing little about surrounding situation prior to presentation. Hospital course: 06/29/2022: restarted olanzapine, Haldol and Effexor. 06/30; patient to cope with which to engage; agrees to give ring medication regimen closer to prior regimen from previous admission. Plan: CV Q 15 minute checks Change Haldol to 10 mg b.i.d.; a previous admission Haldol was the medication th at proved most effective Change Zyprexa to 10 mg t.i.d. p.r.n.; will try to avoid 2 antipsychotics Continue venlafaxine 37.5 mg daily Continue oxcarbazepine 600 mg b.i.d. (patient has also been on mirtazapine, wellbutrine, lithium and prazosin) Patient educated on: diagnosis and medication risk/benefits Informed Consent: understands and further education needed Reason for contiued inpatient stay Substantial Risk for: rapid decompensation Time Spent With Patient Time: Total time managing care of this patient today ____ minutes.
[2022-06-30 16:28] VITALS: BP 126/78; PULSE 80
[2022-06-30] MEDS: Nicotine Polacrilex Lozenge 4 MG LOZENGE BUCCAL (16:34)
[2022-06-30] MEDS: HaloperidoL 5 MG TABLET 10 MG PO (21:47)
[2022-07-01] MEDS: OXcarbazepine 300 MG TABLET 600 MG PO ×2 (08:38→21:25)
[2022-07-01] MEDS: HaloperidoL 5 MG TABLET 10 MG PO ×2 (08:38→21:24)
[2022-07-01] MEDS: Venlafaxine HCl ER 37.5 MG CAP.ER.24H PO (08:38)
[2022-07-01 08:40] VITALS: BP 123/59; PULSE 62; RESP 16; TEMP 37.3; O2SAT 96
--- NOTE | 2022-07-01 11:37 | HO.PSYCHPN ---
Subjective Subjective Date of Service: 07/01/22 Reason For Visit: Bipolar disorder with psychosis Interim History: Met with patient; discussed with team Patient reports that his mood is a little better. He remains with intermittent passive SI however this is chronic; patient said that his niece and nephews are a protective factor for him. Patient denies AVH; he also denies any paranoid thoughts including worrying about people spying on him and anyway including in the vents, a concern of his on admission; medical technical writer ran through a list of potential paranoid concerns that patient has had the past and he denies each. Patient reports that he is having trouble breathing but on further inquiry he clarifies that he is having trouble breathing through his nose which is stuffy; he says even in my dreams I can not breathe... However he asks for Benadryl. Discussed his struggles with cocaine abuse in patient says he wants to stop using but it is hard because he has been using for about for 5 years. Mental Status Exam Mental Status Exam Narrative: Pt is alert and oriented; behavior is cooperative, friendly, calm; he has dyed blond hair, neck tattoo, face piercings; dressed in hospital pants, casual top; adequate hygiene; mood is described as better He has an odd affect and sometimes smiles or laughs inappropriately; eye contact adequate; Speech is affected; speech is regular rate, rhythm and prosody and not pressured; no psychomotor agitation/retardation present; thought process goal directed but also can be circumstantial; Thought content is on tx; no delusional, paranoid ideations and otherwise pertinent to relevant topics; intermittent, passive SI; no HI.? Patients insight and judgment are impaired but improved and approaching baseline. Diagnostics Vital Signs (24Hr): Vital Signs - 24 hr 06/30/22 16:28 07/01/22 08:40 Temperature 99.1 F Pulse Rate 80 62 Respiratory Rate 16 Blood Pressure 126/78 123/59 L Pulse Oximetry 96 Oxygen Delivery Method Room Air BMI result Body Mass Index 23.8 Labs 06/27/22 05:34 06/27/22 05:34 Medications Medications Current Medications Acetaminophen (Acetaminophen 325 Mg Tablet) 650 mg PO Q6H PRN PRN Reason: Headache/Pain Mild Scale (1-3) Last Admin: 03/17/23 20:29 Dose: 650 mg Al Hydroxide/Mg Hydroxide (Magnesium Hydrox/Alum Hydrox 30 Ml Oral.Susp) 30 ml PO Q6H PRN PRN Reason: Heartburn/Nausea Haloperidol (Haloperidol 5 Mg Tablet) 10 mg PO BID REPLACED BY [facility] Last Admin: 07/01/22 08:38 Dose: 10 mg Hydroxyzine HCl (Hydroxyzine Hcl 25 Mg Tablet) 25 mg PO Q6H PRN PRN Reason: Anxiety Ibuprofen (Ibuprofen 400 Mg Tablet) 400 mg PO Q6H PRN PRN Reason: Pain, Mild (Pain Scale 1-3) Magnesium Hydroxide (Milk Of Magnesia 30 Ml Oral.Susp) 30 ml PO DAILY PRN PRN Reason: Constipation Nicotine Polacrilex (Nicotine Polacrilex Lozenge 4 Mg Lozenge) 4 mg BUCCAL Q2H PRN PRN Reason: Nicotine Cravings Last Admin: 06/30/22 16:34 Dose: 4 mg Olanzapine (Olanzapine 10 Mg Tablet) 10 mg PO TID PRN PRN Reason: agitation/psychosis Oxcarbazepine (Oxcarbazepine 300 Mg Tablet) 600 mg PO BID REPLACED BY [facility] Last Admin: 07/01/22 08:38 Dose: 600 mg Trazodone HCl (Trazodone Hcl 50 Mg Tablet) 50 mg PO BEDTIME MRX1 PRN PRN Reason: Insomnia Venlafaxine HCl (Venlafaxine Hcl Er 37.5 Mg Cap.Er.24h) 37.5 mg PO DAILY REPLACED BY [facility] Last Admin: 07/01/22 08:38 Dose: 37.5 mg Allergies Allergies Allergy/AdvReac Type Severity Reaction Status Date / Time No Known Allergies Allergy Verified 06/13/22 02:33 Assessment & Plan Assessment & Plan (1) Schizoaffective disorder: Status: Acute Code(s): F25.9 - Schizoaffective disorder, unspecified Plan Patient is a 31-year-old male with history of psychotic illness, drug abuse, prostitution, who presents with paranoid ideations and SI in the context of medication nonadherence and substance abuse. Patient called 911; Patient guarded and revealing little about surrounding situation prior to presentation. Hospital course: 06/29/2022: restarted olanzapine, Haldol and Effexor. 06/30; patient to cope with which to engage; agrees to give ring medication regimen closer to prior regimen from previous admission. 07/01 patient is more clear and behavior and speech, more linear and organized. He denies any psychotic symptoms including paranoid thoughts that he had on admission. Patient remains with intermittent passive SI which is chronic and he cites love for his family as a protective factor. Potentially Haldol is helping and inching patient closer to baseline. Plan: CV Q 15 minute checks Benadryl p.r.n. for stuffy nose Change Haldol to 10 mg b.i.d.; a previous admission Haldol was the medication that proved most effective Change Zyprexa to 10 mg t.i.d. p.r.n.; will try to avoid 2 antipsychotics Continue venlafaxine 37.5 mg daily Continue oxcarbazepine 600 mg b.i.d. (patient has also been on mirtazapine, wellbutrine, lithium and prazosin) Patient educated on: diagnosis, medication risk/benefits and substance abuse Informed Consent: understands Reason for contiued inpatient stay Substantial Risk for: med/psych decompensation Time Spent With Patient Time: Total time managing care of this patient today ____ minutes.
[2022-07-01] MEDS: Nicotine Polacrilex Lozenge 4 MG LOZENGE BUCCAL ×2 (13:31→21:25)
[2022-07-01] MEDS: diphenhydrAMINE HCL 25 MG CAPSULE PO (21:24)
[2022-07-01] MEDS: traZODone HCL 50 MG TABLET PO (21:25)
[2022-07-02] MEDS: HaloperidoL 5 MG TABLET 10 MG PO ×2 (09:12→20:50)
[2022-07-02] MEDS: OXcarbazepine 300 MG TABLET 600 MG PO ×2 (09:12→20:50)
[2022-07-02] MEDS: Venlafaxine HCl ER 37.5 MG CAP.ER.24H PO (09:12)
[2022-07-02 09:18] VITALS: BP 118/59; PULSE 111; RESP 18; TEMP 36.4; O2SAT 97
--- NOTE | 2022-07-02 10:20 | P.PNPSI_ITS ---
Subjective Subjective Date of Service: 07/02/22 Reason For Visit: Bipolar disorder with psychosis Interim History: Met with patient; discussed with team; Patient asks for discharge. He says he is overall feeling better and continues to deny any psychotic symptoms including paranoid thinking or AVH. Patient continues to have intermittent passive SI but this is chronic and he says he is safe. Patient reports having some symptoms of what sound like akathisia and agrees to try propranolol. Patient is optimistic about pursuing sobriety but knows it will be difficult. Pipe Organ Builder discussed Haldol Decanoate long-acting injectable but patient was ambivalent and not ready to try this medication. Mental Status Exam Mental Status Exam Narrative: Pt is alert and oriented; behavior is cooperative, friendly, calm; he has dyed blond hair, neck tattoo, face piercings; dressed in hospital pants, casual top; adequate hygiene; mood is described as better He has an odd affect and sometimes smiles or laughs inappropriately; eye contact adequate; Speech is affected; speech is regular rate, rhythm and prosody and not pressured; no psychomotor agitation/retardation present; thought process goal directed but also can be circumstantial; Thought content is on tx; no delusional, paranoid ideations and otherwise pertinent to relevant topics; intermittent, passive SI; no HI.? Patients insight and judgment are impaired but improved, at baseline and adequate. Diagnostics Vital Signs (24Hr): Vital Signs - 24 hr 07/02/22 09:18 Temperature 97.6 F Pulse Rate 111 H Respiratory Rate 18 Blood Pressure 118/59 L Pulse Oximetry 97 Oxygen Delivery Method Room Air BMI result Body Mass Index 23.8 Labs 06/27/22 05:34 06/27/22 05:34 Medications Medications Current Medications Acetaminophen (Acetaminophen 325 Mg Tablet) 650 mg PO Q6H PRN PRN Reason: Headache/Pain Mild Scale (1-3) Last Admin: 06/27/22 20:29 Dose: 650 mg Al Hydroxide/Mg Hydroxide (Magnesium Hydrox/Alum Hydrox 30 Ml Oral.Susp) 30 ml PO Q6H PRN PRN Reason: Heartburn/Nausea Benzocaine (Throat Lozenge, Medicated Lozenge) 1 lozenge MUCOUS MEM Q1H PRN PRN Reason: Sore Throat Diphenhydramine HCl (Diphenhydramine Hcl 25 Mg Capsule) 25 mg PO Q6H PRN PRN Reason: Nasal Congestion Haloperidol (Haloperidol 5 Mg Tablet) 10 mg PO BID [facility] Last Admin: 07/02/22 09:12 Dose: 10 mg Hydroxyzine HCl (Hydroxyzine Hcl 25 Mg Tablet) 25 mg PO Q6H PRN PRN Reason: Anxiety Ibuprofen (Ibuprofen 400 Mg Tablet) 400 mg PO Q6H PRN PRN Reason: Pain, Mild (Pain Scale 1-3) Magnesium Hydroxide (Milk Of Magnesia 30 Ml Oral.Susp) 30 ml PO DAILY PRN PRN Reason: Constipation Nicotine Polacrilex (Nicotine Polacrilex Lozenge 4 Mg Lozenge) 4 mg BUCCAL Q2H PRN PRN Reason: Nicotine Cravings Last Admin: 07/01/22 21:25 Dose: 4 mg Olanzapine (Olanzapine 10 Mg Tablet) 10 mg PO TID PRN PRN Reason: agitation/psychosis Oxcarbazepine (Oxcarbazepine 300 Mg Tablet) 600 mg PO BID [facility] Last Admin: 07/02/22 09:12 Dose: 600 mg Trazodone HCl (Trazodone Hcl 50 Mg Tablet) 50 mg PO BEDTIME MRX1 PRN PRN Reason: Insomnia Last Admin: 07/01/22 21:25 Dose: 50 mg Venlafaxine HCl (Venlafaxine Hcl Er 37.5 Mg Cap.Er.24h) 37.5 mg PO DAILY [facility] Last Admin: 07/02/22 09:12 Dose: 37.5 mg Allergies Allergies Allergy/AdvReac Type Severity Reaction Status Date / Time No Known Allergies Allergy Verified 06/13/22 02:33 Assessment & Plan Assessment & Plan (1) Schizoaffective disorder: Status: Acute Code(s): F25.9 - Schizoaffective disorder, unspecified Plan Patient is a 31-year-old male with history of psychotic illness, drug abuse, prostitution, who presents with paranoid ideations and SI in the context of medication nonadherence and substance abuse. Patient called 911; Patient guarded and revealing little about surrounding situation prior to presentation. Hospital course: 06/29/2022: restarted olanzapine, Haldol and Effexor. 06/30; patient to cope with which to engage; agrees to give ring medication regimen closer to prior regimen from previous admission. 07/01 patient is more clear and behavior and speech, more linear and organized. He denies any psychotic symptoms including paranoid thoughts that he had on admission. Patient remains with intermittent passive SI which is chronic and he cites love for his family as a protective factor. Potentially Haldol is helping and inching patient closer to baseline. 07/02 patient remains improved; denies psychotic symptoms and reports that his mood is overall better; he also is says he is safe and that he can ignore passive SI. Patient is optimistic about staying sober though he knows it will be difficult. He would like to discharge tomorrow. Patient is at baseline. While he remains vulnerable to both relapse and decompensation, this is a chronic issue that will not resolve with longer stay on the unit; he is not in imminent risk for harm to self or others and his request for discharge honored. Plan: CV Q 15 minute checks Benadryl p.r.n. for stuffy nose adding propranolol 10 mg b.i.d. for possible akathisia Change Haldol to 10 mg b.i.d.; a previous admission Haldol was the medication that proved most effective Change Zyprexa to 10 mg t.i.d. p.r.n.; will try to avoid 2 antipsychotics Continue venlafaxine 37.5 mg daily Continue oxcarbazepine 600 mg b.i.d. (patient has also been on mirtazapine, wellbutrine, lithium and prazosin) Patient educated on: diagnosis, medication risk/benefits and substance abuse Informed Consent: understands Reason for contiued inpatient stay Substantial Risk for: stable for discharge Time Spent With Patient Time: Total time managing care of this patient today ____ minutes.
[2022-07-02] MEDS: diphenhydrAMINE HCL 25 MG CAPSULE PO (12:48)
[2022-07-02] MEDS: Throat Lozenge, Medicated LOZENGE 1 LOZENGE MUCOUS MEM (12:48)
[2022-07-02] MEDS: Propranolol HCL 10 MG TABLET PO ×2 (16:20→20:51)
[2022-07-02] MEDS: Sodium Chloride 0.65 % Nasal 44 ML SPRBTL 1 SPRAY NOSTRIL-B ×3 (16:21→20:53)
[2022-07-02 18:00] VITALS: BP 128/69; PULSE 67; RESP 18; TEMP 37.3; O2SAT 96
[2022-07-02 20:49] VITALS: BP 110/66; PULSE 62; RESP 18; TEMP 36.8; O2SAT 95
[2022-07-03] MEDS: HaloperidoL 5 MG TABLET 10 MG PO (08:26)
[2022-07-03] MEDS: Propranolol HCL 10 MG TABLET PO (08:26)
[2022-07-03] MEDS: Venlafaxine HCl ER 37.5 MG CAP.ER.24H PO (08:26)
[2022-07-03] MEDS: OXcarbazepine 300 MG TABLET 600 MG PO (08:26)
[2022-07-03 09:22] VITALS: BP 109/66; PULSE 67; RESP 18; TEMP 37; O2SAT 96
--- NOTE | 2022-07-03 11:10 | PM.PSYDC ---
DS: Providers Provider Date of Service: 07/03/22 Date of admission: 06/27/22 14:49 Date of discharge: 07/03/22 Primary care physician: Vipin Jain MD Attending physician on admission: Iam Campbell Attending physician on discharge: Vipin Stewart DS: Diagnosis Discharge Diagnosis (1) Schizoaffective disorder: Status: Acute DS: Medications Discharge Medications Home Medications: Home Medications Medication Instructions Recorded Confirmed ibuprofen 400 mg tablet 1 tab PO Q6H PRN pain 06/26/22 06/26/22 Previous Rx's Medication Instructions Recorded diphenhydramine HCl 25 mg capsule 25 mg PO Q6H PRN Nasal Congestion 07/03/22 30 days #60 caps haloperidol 10 mg tablet 10 mg PO BID 30 days #60 tabs 07/03/22 nicotine (polacrilex) 4 mg gum 4 mg buccal Q2H 30 days #100 ea 07/03/22 oxcarbazepine 600 mg tablet 600 mg PO BID 30 days #60 tabs 07/03/22 propranolol 10 mg tablet 10 mg PO BID 30 days #60 tabs 07/03/22 sodium chloride 0.65 % nasal spray 1 spray intranasal Q1H PRN Nasal 07/03/22 aerosol (Deep Sea Nasal) Congestion 30 days #44 mL venlafaxine 37.5 mg 37.5 mg PO DAILY 30 days #30 caps 07/03/22 capsule,extended release 24 hr Mental Status Exam Mental Status Exam Narrative: Pt is alert and oriented; behavior is cooperative, friendly, calm; he has dyed blond hair, neck tattoo, face piercings; dressed in hospital pants, casual top; adequate hygiene; mood is described as good He has an odd affect and sometimes smiles or laughs inappropriately but this is baseline; eye contact adequate; Speech is affected but regular rate, rhythm and prosody and not pressured; no psychomotor agitation/retardation present; thought process goal directed and linear; can sometimes be circumstantial; Thought content is on tx, discharge; denies delusional, paranoid ideations and is otherwise pertinent to relevant topics; no SI; no HI.? Patients insight and judgment are fair, at baseline and adequate. Data Data Completed and Pending Completed studies during hospitalization [Text1]: 06/26/22 06/26/22 06/27/22 20:05 20:06 05:34 WBC 5.8 RBC 4.70 Hgb 14.3 Hct 42.7 MCV 90.9 MCH 30.4 MCHC 33.5 RDW 12.6 Plt Count 281 MPV 10.2 Immature Gran % (Auto) 0.2 Neut % (Auto) 38.8 L Lymph % (Auto) 47.3 H [place] % (Auto) 8.1 Eos % (Auto) 4.6 H Baso % (Auto) 1.0 Lymph # (Auto) 2.8 [place] # (Auto) 0.5 Eos # (Auto) 0.3 Baso # (Auto) 0.1 Abs Immat Gran (auto) 0.01 Absolute Neuts (auto) 2.3 Absolute Nucleated RBC 0.000 Nucleated RBC % (auto) 0.0 Sodium Potassium Chloride Carbon Dioxide Anion Gap BUN Creatinine Estim Creat Clear Calc Estimated GFR Random Glucose Calcium Total Bilirubin AST ALT Alkaline Phosphatase Total Protein Albumin Urine Opiates Screen Not Detected Urine Fentanyl Screen Not Detected Ur Barbiturates Screen Not Detected Ur Phencyclidine Scrn Not Detected Ur Amphetamines Screen Not Detected U Benzodiazepines Scrn Not Detected Urine Cocaine Screen Not Detected U Marijuana (THC) Screen Not Detected Ethyl Alcohol COVID-19 (JOVANNA) Negative COVID-19 Clin Com See Note 06/27/22 06/27/22 05:34 05:34 WBC RBC Hgb Hct MCV MCH MCHC RDW Plt Count MPV Immature Gran % (Auto) Neut % (Auto) Lymph % (Auto) [place] % (Auto) Eos % (Auto) Baso % (Auto) Lymph # (Auto) [place] # (Auto) Eos # (Auto) Baso # (Auto) Abs Immat Gran (auto) Absolute Neuts (auto) Absolute Nucleated RBC Nucleated RBC % (auto) Sodium 142 Potassium 4.2 Chloride 107 Carbon Dioxide 26 Anion Gap 13 BUN 7 L Creatinine 1.01 Estim Creat Clear Calc 88.3 Estimated GFR > 60 Random Glucose 89 Calcium 9.1 Total Bilirubin 0.7 AST 24 ALT 43 H Alkaline Phosphatase 59 Total Protein 6.6 Albumin 3.9 Urine Opiates Screen Urine Fentanyl Screen Ur Barbiturates Screen Ur Phencyclidine Scrn Ur Amphetamines Screen U Benzodiazepines Scrn Urine Cocaine Screen U Marijuana (THC) Screen Ethyl Alcohol < 10 COVID-19 (JOVANNA) COVID-19 Clin Com DS: Summary Hospital Course Hospital Course: Patient is a 31-year-old male with history of psychotic illness, drug abuse, prostitution, who presents with paranoid ideations and SI in the context of medication nonadherence and substance abuse.? Patient called 911 himself; on admission he reported paranoid delusions worried about being videotaped through the vents. Hospital course: On admission, patient was reporting depression and intermittent SI; he was guarded and vague but shared about paranoid delusions thinking he was being videotaped through the vents. Initially patient was restarted on Zyprexa, Haldol, Trileptal and Effexor; he remained isolated, depressed with SI and his medications were changed to discontinuing Zyprexa and instead starting Haldol 10 mg b.i.d.. Patient started to improve and became more clear in both speech and behavior. Psychotic symptoms also resolved and he denied any paranoid concerns, AVH or other psychotic symptoms he has struggled with in the past. Patient had lingering, intermittent, passive SI but said it is much reduced, chronic and that his love for his niece and nephews are protective factor; patient maintained that his mood was overall better, that he was safe, able to ignore SI and not at risk for self-harm. Towards the end of admission, he complained of what sounds like akathisia and agreed to get on propranolol which he found helpful. Patient had returned to baseline and asked for discharge, maintaining that he was feeling better and ready to go home; his affect was noticeably brighter and his speech logical linear. He was optimistic about staying sober and continues to want to pursue a CSS program when 1 is available. Patient will discuss with outpatient provider whether not to continue Effexor. Patient remains vulnerable to both relapse and decompensation however this is a chronic issue that will not resolve with longer stay on the unit. Patient is not in imminent risk for harm to self or others and his request for discharge honored. Time spent discussing smoking cessation with patient: 3 to 10 minutes Status at Discharge Functional status at discharge: independent ambulation Overall status at discharge: patient is back to baseline Time Spent with Patient Time attestation: Total time managing care of this patient today ____ minutes. Time spent: Less than 30 minutes Discharge Plan Discharge Anticipated Discharge Date/Time: 07/03/22 11:30 Patient Disposition: Home, Self-Care Discharge Diagnosis: Schizoaffective disorder Referrals: Izzy Hurst [facility] Counters[facility] [Other] - 07/04/22 9:00 am (Contact Izzy to talk about Royce who will be your primary out reach for [facility] and Izzy will assist you in getting into [facility]. ) Sam Navas PA [Physician Aerial Planting And Cultivation Manager] - 07/07/22 10:00 am (IN OFFICE) Discharge Medications: New diphenhydramine HCl 25 mg Capsule 25 mg PO Q6H PRN (Reason: Nasal Congestion) 30 Days Qty: 60 0RF propranolol 10 mg Tablet 10 mg PO BID 30 Days Qty: 60 0RF Protocol: Hold for SBP/HR < HOLD for SBP < : 90 HOLD for HR < : 60 haloperidol 10 mg tablet 10 mg PO BID 30 Days Qty: 60 0RF Deep Sea Nasal 0.65 % Aerosol,[place] 1 spray intranasal Q1H PRN (Reason: Nasal Congestion) 30 Days Qty: 44 0RF Continued ibuprofen 400 mg tablet 1 tab PO Q6H PRN (Reason: pain) oxcarbazepine 600 mg tablet 600 mg PO BID 30 Days Qty: 60 0RF Changed venlafaxine 37.5 mg capsule,extended release 24hr 37.5 mg PO DAILY 30 Days Qty: 30 0RF nicotine (polacrilex) 4 mg gum 4 mg buccal Q2H 30 Days Qty: 100 0RF Discontinued haloperidol 5 mg tablet 1 tab PO BEDTIME olanzapine 10 mg tablet 2 tab PO BEDTIME Discharge Orders: Discharge Order (Routine); Ordered 07/03/22 Ordered By: Vipin Stewart Diet: Regular diet Activity on Discharge: As tolerated Stand Alone Forms: Patient Portal Discharge page, Community Support Care Plan Goals: Maintain mood and safe behaviors Take medications as prescribed Continue to pursue sobriety Practice coping skills Continue with outpatient providers and reach out to them as needed Health Concerns: Mood stability and behaviors Sobriety Plan of Treatment: Follow up with your PCP, psychiatric provider and other outpatient providers regarding above concerns Take medications as prescribed Assessment: Risk assessment at time of discharge:? Patient was interviewed prior to discharge and found to be fully oriented and without any SI or HI. Patient has insight and demonstrates good judgment in terms of wanting to pursue treatment. Patient is not in imminent risk of harm to self or others and has a safety plan that includes presenting to the closest ER or calling 911 if feeling unsafe.? Patient has been observed closely by nursing and unit staff throughout admission; patient has not engaged in any behaviors that suggest dangerousness to self or others and has demonstrated appropriate behaviors and impulse control
== END 2022-07-03 11:42 | disposition home or self-care (01) | DRG 750 ==
LOC: HO.ED 20:30 → HO.PM5 06-27 14:51
PROVIDERS: Admitting Provider Psychiatry & Neurology Psychiatry; Emergency Provider Emergency Medicine; PCP Family Medicine; Visit Provider Psychiatry & Neurology Psychiatry
DX: F25.9 Schizoaffective disorder, unspecified (principal); R45.851 Suicidal ideations; F17.210 Nicotine dependence, cigarettes, uncomplicated; Z71.6 Tobacco abuse counseling; Z20.822 Contact with and (suspected) exposure to COVID-19; Z79.899 Other long term (current) drug therapy
CPT/HCPCS: 36415; 80053; 80307; 82077; 85025; 87635; 93005; 99285

== ENCOUNTER 2022-12-20 03:37 | Inpatient (IN) | payer OTHER, SELFPAY ==
[2022-12-20 03:45] VITALS: BP 136/88; PULSE 64; RESP 18; TEMP 36.8; O2SAT 97; BMI 21.0
--- NOTE | 2022-12-20 07:16 | ED.GENADULT ---
HPI - General Adult General Chief complaint: Psychiatric Symptoms Stated complaint: eye pain Time Seen by Provider: 12/20/22 06:41 Source: patient Mode of arrival: EMS Limitations: no limitations History of Present Illness HPI narrative: 32 yo male with PMHx significant for gluacoma s/p trabeluectomy, bipolar 1 d/o, schizoaffective d/o, and polysubstance use d/o presenting to the ED today via EMS with a complaint of right eye pain x months. Reports chronic blurred vision in his R eye that's been constant in nature. No FB sensation or pain with eye movements. Reports seeing an sr technical sales consultant 7 mo ago for same sx, prescribed eye drops, and then began seeing different colors, believes an entity has been following him since his appointment. Admits to smoking crack regularly. Additionally endorses depression and SI without plan. States that he's been taking his prescribed medications, no missed doses. Denies HI. Denies etoh consumption. Denies STARR, dizziness, double vision, vision loss, sore throat, sinus pain, recent illness. Related Data Home Medications Medication Instructions Recorded Confirmed aripiprazole 10 mg tablet 10 mg PO QAM 12/20/22 12/20/22 bupropion HCl 150 mg 24 hr tablet, 150 mg PO QAM 12/20/22 12/20/22 extended release cyanocobalamin (vitamin B-12) 1,000 mcg PO DAILY 12/20/22 12/20/22 1,000 mcg tablet haloperidol 5 mg tablet 2.5 mg PO BEDTIME PRN anxiety 12/20/22 12/20/22 hydroxyzine HCl 25 mg tablet 25 mg PO TID PRN Anxiety 12/20/22 12/20/22 multivitamin with folic acid 400 1 tab PO DAILY 12/20/22 12/20/22 mcg tablet (Tab-A-Nicanor) prazosin 1 mg capsule 1 mg PO BEDTIME 12/20/22 12/20/22 propranolol 20 mg tablet 20 mg PO BID 12/20/22 12/20/22 quetiapine 50 mg tablet,extended 100 mg PO BEDTIME 12/20/22 12/20/22 release 24 hr Previous Rx's Medication Instructions Recorded nicotine (polacrilex) 4 mg gum 4 mg buccal Q2H 30 days #100 ea 07/03/22 Allergies Allergy/AdvReac Type Severity Reaction Status Date / Time No Known Allergies Allergy Verified 06/13/22 02:33 Review of Systems Review of Systems: Constitutional: No fever, No chills, No fatigue, No malaise, No weight loss, No night sweats ENT/Mouth: No ear pain, No hearing loss,? No nasal congestion, No sinus pain, No rhinorrhea, No sore throat, No hoarseness, No swallowing difficulty Eyes: + eye pain, No swelling, No redness, No vision changes, No foreign body, No discharge Cardio: No chest pain, No palpitations, No dyspnea on exertion, No orthopnea, No edema Respiratory: No SOB, No cough, No sputum, No wheezing, No dyspnea, No hemoptysis, No smoke exposure GI: No nausea, No vomiting, No hematemesis, No abdominal pain, No diarrhea, No constipation, No hematochezia, No melena : No irregular bleeding, No dysuria, No frequency, No urgency, No hesitancy, No hematuria, No flank pain, No urinary flow changes, No urinary incontinence or retention MSK: No back pain, No neck pain, No joint pain, No myalgias Skin: No skin lesions, No rashes Neuro: No weakness, No numbness, No paresthesias, No LOC, No dizziness, No headache Psych: No anxiety/panic, + depression, + SI, No HI, +VH/TH, No AH Yes all other systems are reviewed and are negative [facility] Past Medical History Attestation statement: The following information was validated with the patient. Source: old records reviewed and nursing notes reviewed Medical History Polysubstance use disorder Glaucoma Genital herpes Schizoaffective disorder Social History Social History Household Members: None Housing: Apartment Housing Other:: moms apartment. Do you presently have visiting nurse or other home services: No Alcohol intake: former Patient Tobacco Use Status: Current everyday Tobacco user Tobacco use type: Cigarette Cigarette Packs Per Day: 1 Cigarettes Per Day: 10 Years Smoked: 10 Smoked in Last 30 Days: Yes e-Cigarette/Vaping Use: Currently Using Second Hand Smoke Exposure: No Substance Use Type: Crack/Cocaine Substance Use Frequency: Weekly Last Used Substance: Weeks (ago) Any prior treatment program specific to substance use: No Advance Directives: No Advance Directives Information Provided: Yes service: No Sexual orientation: Straight/Heterosexual Physical Exam ED Vital Signs: Vital Signs - 24 hr 12/21/22 20:01 12/22/22 06:02 Temperature 98.3 F 98.7 F Pulse Rate 60 72 Respiratory Rate 16 16 Blood Pressure 136/84 142/80 H Pulse Oximetry 98 98 Oxygen Delivery Method Room Air Room Air BMI result Body Mass Index 21.0 Vital signs stable. General: Nontoxic appearing. NAD Skin: Warm and dry. No rashes or lesions. Head: Normocephalic, atraumatic. EENT: Hearing intact. Nasal septum is midline. Moist mucous membranes. Poor dentition with multiple dental caries. Controlling secretions. Eyes: Left eye s/p trabeculectomy, chronic injection. No periorbital edema. erythema, or warmth b/l. Right eye with clear conjunctiva, no injection. Sclera anicteric. PERRLA. EOM intact. IOP 22 (right eye) and 21 (left eye). Neck: Supple without LAD. Trachea midline.? Cardiac: Regular rate and rhythm. S1 and S1 appreciated. No MRG. No JVD. Lungs: CTA bilaterally. No rales, rhonchi, or wheezes. Normal respiratory effort without accessory muscle use. Abdomen: Soft, non-tender, non-distended. No rebound tenderness or guarding. Normoactive BS x4. No masses, hepatomegaly, or splenomegaly.? Ext: Upper and lower extremities atraumatic. Full ROM throughout. Strength 5/5 throughout. Pulses 2+ equal and bilateral. No edema, cyanosis, or clubbing. Neuro: Alert and oriented x3. Normal speech. CN 2-12 grossly intact. Strength 5/5 intact throughout.?NV intact distally. Reflexes 2+ bilaterally. Ambulating with steady gait. Psych: Appropriate mood and affect. Responds appropriately to questions.? Course Course Course Narrative: 7705-- Patient actively stating suicidal ideation without plan > Will be moved from [facility] to the behavioral unit for close evaluation. 0850-- Patient now tells me that he has not taken his home medications in 5 days > nurse completing med reconciliation > will administer home meds > Patient declining del castillo lamp/ fluorescein evaluation. States he does not feel anything in his eye. Expresses concern about putting drops in his eyes. Low concern for FB or corneal abrasion. No visible FB or abrasion noted > will defer. > Tonometry of right eye with pressure of 22, left eye with pressure of 21 > unlikely acute glaucoma > Patient requesting pain medication for chronic eye pain > Tylenol ordered 1109-- CBC without leukocytosis or anemia. Chemistry without any acute electrolyte abnormalities requiring intervention. Urine without infection. Toxicology positive for cocaine and marijuana, otherwise negative. Ethanol negative. >>>> physician observation initiated at 12:19 p.m. pending care team consult. The patient's vital signs are stable. Currently awaiting COVID serology. Plan for medical clearance. 1632 > COVID negative. Patient medically cleared for care team consultation. Reevaluation(s) Reevaluation #1: December 21 06:40 patient remain stable no new complain she is here for SI she is a voluntary bed search Time: 06:41 Medications Administered Generic Name Dose Route Start Last Admin Trade Name Freq PRN Reason Stop Dose Admin Aripiprazole 10 mg 12/20/22 09:30 12/21/22 08:11 Aripiprazole 10 Mg Tablet PO 10 mg DAILY JAKE Administration Bupropion HCl 150 mg 12/20/22 09:30 12/21/22 08:11 Bupropion Hcl Xl 150 Mg Tab.Er.24h PO 150 mg DAILY JAKE Administration Prazosin HCl 1 mg 12/20/22 21:00 12/21/22 20:11 Prazosin Hcl 1 Mg Capsule PO 1 mg BEDTIME JAKE Administration Protocol Propranolol HCl 20 mg 12/20/22 21:00 12/21/22 20:11 Propranolol Hcl 20 Mg Tablet PO 20 mg BID JAKE Administration Protocol Quetiapine Fumarate 50 mg 12/20/22 21:00 12/21/22 20:11 Quetiapine Fumarate 50 Mg Tablet PO 50 mg BID JAKE Administration Discontinued Medications Generic Name Dose Route Start Last Admin Trade Name Freq PRN Reason Stop Dose Admin Acetaminophen 975 mg 12/20/22 08:53 12/20/22 09:00 Acetaminophen 325 Mg Tablet PO 12/20/22 08:54 975 mg ONCE ONE Administration Acetaminophen 650 mg 12/21/22 17:25 12/21/22 17:33 Acetaminophen 325 Mg Tablet PO 12/21/22 17:26 650 mg ONCE ONE Administration Tetracaine HCl 1 drop 12/20/22 07:25 12/20/22 08:13 Tetracaine Hcl/Pf 0.5% Oph Adelita 4 Ml Drops EYE-RIGHT 12/20/22 07:26 1 drop ONCE ONE Administration Medical Decision Making Medical Decision Making [facility] Narrative: 722 32 yo male with PMHx significant for gluacoma s/p trabeluectomy, bipolar 1 d/o, schizoaffective d/o, and polysubstance use d/o presenting to the ED today via EMS with a complaint of right eye pain x months. Vital signs stable. Patient nontoxic appearing, in no acute distress. Right eye without periorbial erythema, edema, or warmth, conjunctiva clear without injection or visible foreign body, EOM with full ROM. Concern for conjunctivitis vs chronic glaucoma vs iritis vs kerartitis. Low suspision for acute angle closure glaucoma vs eye FB. Unlikely periorbital vs orbital cellulitis. Concern for schizoaffective disorder vs bipolar disorder vs depression vs polysubstance abuse. Concern for SI. Low suspicion for HI. Plan: UDS, UA, labs, tonometry, care team evaluation Differential Diagnosis Differential Diagnoses: The differential diagnosis associated with the presentation includes Concern for conjunctivitis vs chronic glaucoma vs iritis vs kerartitis. Low suspision for acute angle closure glaucoma vs eye FB. Unlikely periorbital vs orbital cellulitis. Concern for schizoaffective disorder vs bipolar disorder vs depression vs polysubstance abuse. Concern for SI. Low suspicion for HI. Admission/Observation Consideration of admission/observation: Escalation of care including admission/observation considered Not indicated. Lab Data [facility] Lab Attestation statement: I reviewed the patient's lab results. See above course narrative. 12/20/22 09:33 12/20/22 09:33 Labs: Lab Results 12/20/22 12/20/22 12/20/22 Range/Units 07:41 09:33 16:04 WBC 7.0 (4.8-10.8) X10*3/uL RBC 4.74 (4.60-5.80) X10*6/uL Hgb 14.4 (14.0-18.0) g/dl Hct 42.8 (42.0-52.0) % MCV 90.3 (80.0-98.0) fL MCH 30.4 (27.0-33.0) pg MCHC 33.6 (31.0-36.0) g/dl RDW 12.6 (11.0-16.0) % Plt Count 269 (160-400) X10*3/uL MPV 10.4 (9.4-12.4) fL Immature Gran % (Auto) 0.3 (0.0-0.4) % Neut % (Auto) 60.3 (45-73) % Lymph % (Auto) 28.1 (20-40) % [place] % (Auto) 8.7 (2-11) % Eos % (Auto) 1.9 (0-4) % Baso % (Auto) 0.7 (0-2) % Lymph # (Auto) 2.0 (1.2-4.9) X10*3/uL [place] # (Auto) 0.6 (0.1-1.2) X10*3/uL Eos # (Auto) 0.1 (0.0-0.4) X10*3/uL Baso # (Auto) 0.1 (0.0-0.2) X10*3/uL Abs Immat Gran (auto) 0.02 (0.00-0.03) X10*3/uL Absolute Neuts (auto) 4.2 (2.0-8.3) x10*3/uL Absolute Nucleated RBC 0.000 (0.0-0.012) X10*3/uL Nucleated RBC % (auto) 0.0 (0.0-0.2) /100WBC Sodium 140 (135-145) mmol/L Potassium 3.8 (3.3-5.1) mmol/L Chloride 105 (96-108) mmol/L Carbon Dioxide 28 (22-29) mmol/L Anion Gap 11 L (12-20) BUN 9 (9-16) mg/dL Creatinine 0.80 (0.5-1.4) mg/dL Estim Creat Clear Calc 110.5 Estimated GFR > 60 Random Glucose 105 (60-115) mg/dL Calcium 9.1 (8.4-10.2) mg/dL Total Bilirubin 0.7 (0.0-1.0) mg/dL AST 39 H (5-37) U/L ALT 85 H (0-40) U/L Alkaline Phosphatase 60 (39-117) U/L Total Protein 7.2 (6.5-8.0) g/dL Albumin 4.1 (3.5-5.0) g/dL Urine Color Yellow Urine Appearance Clear Urine pH 7.0 (5.0-9.0) Ur Specific [place] 1.015 (1.005-1.025) Urine Protein Negative (Neg-Trace) mg/dL Urine Glucose (UA) Negative (Negative) mg/dL Urine Ketones Negative (Negative) mg/dL Urine Blood Negative (Negative) Urine Nitrite Negative (Negative) Ur Leukocyte Esterase Negative (Negative) Urine Opiates Screen Not Detected (Not Detect) Urine Fentanyl Screen Not Detected (Not Detect) Ur Barbiturates Screen Not Detected (Not Detect) Ur Phencyclidine Scrn Not Detected (Not Detect) Ur Amphetamines Screen Not Detected (Not Detect) U Benzodiazepines Scrn Not Detected (Not Detect) Urine Cocaine Screen POSITIVE H (Not Detect) U Marijuana (THC) Screen POSITIVE H (Not Detect) Ethyl Alcohol < 10 mg/dL COVID-19 (JOVANNA) Negative (Negative) COVID-19 Clin Com See Note External Record Review External record reviewed: Inpatient record Tests considered The following testing was considered but not selected: Considered del castillo lamp + fluorescein evel of R eye > patient declined at this time. Low suspicion for FB or corneal abrasion. Prescription Management I considered prescription management with: Pain Medication Chronic Conditions Patient?s care impacted by: Other (glaucoma, depression, BP1 disorder, polysubstance use ) Core Measures AMI core measures followed: Yes Measure exclusions: not indicated Discharge Plan Discharge Clinical Impression: Bipolar 1 disorder, manic, moderate, Schizoaffective disorder, Depression, Polysubstance use disorder, Bipolar disorder Patient Disposition: Still a Patient Instructions: Bipolar Disorder (ED), Depression (ED), Schizoaffective Disorder (ED), Polysubstance Abuse (ED) Prescriptions: No Action nicotine (polacrilex) 4 mg gum 4 mg buccal Q2H 30 Days Qty: 100 0RF haloperidol 5 mg tablet 2.5 mg PO BEDTIME PRN (Reason: anxiety) prazosin 1 mg capsule 1 mg PO BEDTIME cyanocobalamin (vitamin B-12) 1,000 mcg tablet 1,000 mcg PO DAILY hydroxyzine HCl 25 mg tablet 25 mg PO TID PRN (Reason: Anxiety) propranolol 20 mg tablet 20 mg PO BID aripiprazole 10 mg tablet 10 mg PO QAM bupropion HCl 150 mg tablet extended release 24 hr 150 mg PO QAM quetiapine 50 mg tablet extended release 24 hr 100 mg PO BEDTIME multivitamin with folic acid [Tab-A-Nicanor] 400 mcg tablet 1 tab PO DAILY Interventions: Parlier-Suicide Risk Severity Scale Last Done: 12/22/22 05:37 ED Observation ED Observation Admit Diagnostic Studies: Mental health evaluation HPI and ROS: SI and taoist and eye pain. MDM: Patient still be watched in the ED for prolonged crisis stabilization. Patient has normal vitals ate breakfast normally but complains of upper abdominal pain. On Exam pain is to his lower abdomen with no rebound or guarding. I zeeshan't thnk any imaging needs to be done. I will continue with medical clearance for behavioral health stabilization.
--- NOTE | 2022-12-20 08:01 | PC.NURSE ---
Patient reports has had right eye pain since June. Reports eye pain started after smoking crack and the pain comes and goes. Reports last smoked crack x 1 week ago but woke up this morning with 7/10 constant eye pain. Reports SI, denies having a plan. Upon admission to pod patient upset stating he left his phone in [facility]. [facility] searched and no phone located. Patient called phone and phone was left at [phone] [facility] in [place] at some point during the night. Patient unsure of how phone got there, does not initially recall being at the gas station. Patient provided with address so we can send friend to pick remover phone.
[2022-12-20 08:10] LABS: Appearance Urine Clear; Color Urine Yellow; Glucose Urine UA Negative (Negative); Leukocyte Esterase Urine Negative (Negative); Nitrite Urine Negative (Negative); Specific Gravity - Urine 1.015 (1.005-1.025); Urine Blood Negative (Negative); Urine Ketones Negative (Negative); Urine Protein Negative (Neg-Trace)
[2022-12-20] MEDS: Tetracaine HCl/PF 0.5% Oph Sol 4 ML DROPS 1 DROP EYE-RIGHT (08:13)
[2022-12-20 08:23] LABS: Amphetamine Screen Urine Not Detected (Not Detect); Barbiturates, Urine Not Detected (Not Detect); Benzodiazepines Screen Urine Not Detected (Not Detect); Cannabinoid Screen Urine POSITIVE (Not Detect); Cocaine Screen Urine POSITIVE (Not Detect); Fentanyl, urine Not Detected (Not Detect); Opiate Screen Urine Not Detected (Not Detect); Phencyclidine Screen Urine Not Detected (Not Detect)
[2022-12-20] MEDS: Acetaminophen 325 MG TABLET 975 MG PO (09:00)
[2022-12-20 09:37] LABS: MANUAL DIFF FLAG NO
[2022-12-20 09:43] LABS: Basophils Absolute Auto 0.1 X10*3/uL (0.0-0.2); Basophils Percent Auto 0.7 % (0-2); Eosinophils Absolute Auto 0.1 X10*3/uL (0.0-0.4); Eosinophils Percent Auto 1.9 % (0-4); Hematocrit 42.8 % (42.0-52.0); Hemoglobin 14.4 g/dl (14.0-18.0); Imm Gran Abs Auto 0.02 X10*3/uL (0.00-0.03); Imm Gran Pct Auto 0.3 % (0.0-0.4); Lymphocytes Percent Auto 28.1 % (20-40); Mean Corpuscular HGB Conc 33.6 g/dl (31.0-36.0); Mean Corpuscular Hemoglobin 30.4 pg (27.0-33.0); Mean Corpuscular Volume 90.3 fL (80.0-98.0); Mean Platelet Volume 10.4 fL (9.4-12.4); Monocytes Absolute Auto 0.6 X10*3/uL (0.1-1.2); Monocytes Percent Auto 8.7 % (2-11); Neutrophils Absolute Auto 4.2 x10*3/uL (2.0-8.3); Neutrophils Percent Auto 60.3 % (45-73); Platelet Count 269 X10*3/uL (160-400); Red Blood Count 4.74 X10*6/uL (4.60-5.80); Red Cell Distribution Width 12.6 % (11.0-16.0)
[2022-12-20 10:02] LABS: Alanine Aminotransferase 85 U/L (0-40); Albumin Level 4.1 g/dL (3.5-5.0); Alkaline Phosphatase 60 U/L (39-117); Anion Gap 11 (12-20); Aspartate Amino Transferase 39 U/L (5-37); Bilirubin Total 0.7 mg/dL (0.0-1.0); Blood Urea Nitrogen 9 mg/dL (9-16); Calcium 9.1 mg/dL (8.4-10.2); Carbon Dioxide 28 mmol/L (22-29); Chloride 105 mmol/L (96-108); Creatinine Clr Calc Pharmacy 110.5; Estimated Glomerular Filt Rate > 60; Ethanol < 10 mg/dL; Glucose Random 105 mg/dL (60-115); Potassium 3.8 mmol/L (3.3-5.1); Sodium 140 mmol/L (135-145); Total Protein 7.2 g/dL (6.5-8.0)
[2022-12-20] MEDS: ARIPiprazole 10 MG TABLET PO (10:15)
[2022-12-20] MEDS: buPROPion HCl XL 150 MG TAB.ER.24H PO (10:15)
--- NOTE | 2022-12-20 15:49 | PC.NURSE ---
Resting quietly in bed at this time, denies pain or discomfort.
[2022-12-20 16:29] LABS: COVID-19 Test Negative (Negative); IDNOW Serial# 08D9AD1C
[2022-12-20 20:11] VITALS: BP 142/84; PULSE 58; RESP 16; TEMP 36.4; O2SAT 98
[2022-12-20] MEDS: Prazosin HCL 1 MG CAPSULE PO (20:27)
[2022-12-20] MEDS: QUEtiapine Fumarate 50 MG TABLET PO (20:27)
[2022-12-20] MEDS: Propranolol HCL 20 MG TABLET PO (20:27)
--- NOTE | 2022-12-21 06:39 | PC.NURSE ---
Patient slept through the night, no distress observed/reported, VSS, medication compliant, disposition per care team Respite bed search, labs completed/resulted, behavior non concerning, will continue to monitor.
[2022-12-21 06:55] VITALS: BP 96/60; PULSE 57; RESP 16; TEMP 36.4; O2SAT 97
[2022-12-21 08:10] VITALS: BP 108/66; PULSE 67
[2022-12-21] MEDS: Propranolol HCL 20 MG TABLET PO ×2 (08:11→20:11)
[2022-12-21] MEDS: ARIPiprazole 10 MG TABLET PO (08:11)
[2022-12-21] MEDS: buPROPion HCl XL 150 MG TAB.ER.24H PO (08:11)
[2022-12-21] MEDS: QUEtiapine Fumarate 50 MG TABLET PO ×2 (08:11→20:11)
--- NOTE | 2022-12-21 16:46 | MHC.CARE ---
Tw sent a referral to [facility], referral is under review
[2022-12-21] MEDS: Acetaminophen 325 MG TABLET 650 MG PO (17:33)
[2022-12-21 20:01] VITALS: BP 136/84; PULSE 60; RESP 16; TEMP 36.8; O2SAT 98
[2022-12-21] MEDS: Prazosin HCL 1 MG CAPSULE PO (20:11)
--- NOTE | 2022-12-21 20:36 | MHC.CARE ---
Pt was accepted to [facility] for 10am on 12/22/22. He will need a Lyft ordered for him by the CARE Team.
--- NOTE | 2022-12-22 05:44 | PC.NURSE ---
Patient slept through the night, no distress observed/reported, VSS, medication compliant, disposition per care team A-CCS/Respite bed search, [facility] Respite accepted at 10 am, labs completed/resulted, behavior non concerning, will continue to monitor.
[2022-12-22 06:02] VITALS: BP 142/80; PULSE 72; RESP 16; TEMP 37.1; O2SAT 98
[2022-12-22] MEDS: Propranolol HCL 20 MG TABLET PO ×2 (09:22→20:07)
[2022-12-22] MEDS: buPROPion HCl XL 150 MG TAB.ER.24H PO (09:22)
[2022-12-22] MEDS: ARIPiprazole 10 MG TABLET PO (09:22)
[2022-12-22] MEDS: QUEtiapine Fumarate 50 MG TABLET PO ×2 (09:22→20:07)
[2022-12-22 16:34] VITALS: BP 121/63; PULSE 55; RESP 18; O2SAT 98
[2022-12-22] MEDS: Prazosin HCL 1 MG CAPSULE PO (20:07)
--- NOTE | 2022-12-22 20:15 | PC.NURSE ---
PT alert and oriented. Pt resting quietly in room. Requested medications at 1945. This Rn explained medications could be passed at 1999 the earliest. VSS, bp- 120/85. PT took medications at 2014 with no issues. Endorses SI with no plan, denies HI. Plan of care going
[2022-12-22 22:07] VITALS: BP 120/75; PULSE 58; RESP 18; TEMP 36.5; O2SAT 98
[2022-12-23 06:31] VITALS: BP 101/56; PULSE 57; RESP 16; TEMP 36.9; O2SAT 98
--- NOTE | 2022-12-23 06:38 | PC.NURSE ---
Pt alert and oriented. Woke up for vitals and assessments with no issues. Vss. Pt continues to endorse SI with no plan. Pt denies pain at this time. safety checks remain. plan of care ongoing.
--- NOTE | 2022-12-23 09:12 | ECG_ITS ---
Test Reason : SMALL + COCAINE Blood Pressure : / mmHG Vent. Rate : 063 BPM Atrial Rate : 063 BPM P-R Int : 150 ms QRS Dur : 084 ms QT Int : 374 ms P-R-T Axes : 029 071 033 degrees QTc Int : 382 ms Normal sinus rhythm ST elevation in Inferior leads Abnormal ECG When compared with ECG of 27-JUN-2022 08:44, Questionable change in QRS axis ST elevation now present in Inferior leads Referred By: Malou Christine Electronically Signed By:KEMI SALMON
[2022-12-23] MEDS: QUEtiapine Fumarate 50 MG TABLET PO ×2 (09:28→20:05)
[2022-12-23] MEDS: ARIPiprazole 10 MG TABLET PO (09:28)
[2022-12-23] MEDS: buPROPion HCl XL 150 MG TAB.ER.24H PO (09:28)
[2022-12-23] MEDS: Propranolol HCL 20 MG TABLET PO ×2 (09:28→20:05)
[2022-12-23 09:29] VITALS: BP 120/74; PULSE 61; RESP 16; TEMP 36.6; O2SAT 96
--- NOTE | 2022-12-23 10:37 | PHA.MEDREC ---
Pharmacy Consult ? Medication Reconciliation Pharmacy has completed the medication reconciliation. Reviewed med rec done by nursing
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
[2022-12-23 12:30] VITALS: BP 111/73; PULSE 55; RESP 18; TEMP 37; O2SAT 99
[2022-12-23 13:00] VITALS: BMI 22.4
--- NOTE | 2022-12-23 13:59 | PC.ADMIT ---
Patient is an alert and oriented 32 year old male who was admitted to the unit after presenting to the ED for suicidal ideation with a plan to drown himself in the [place]. Patient was calm and participatory with the admission process, exhibited an organized and linear thought process. Patient complains of depression and intermittent suicidal ideation, denies current SI but states he would be able to engage with staff if he felt unsafe.
[2022-12-23 20:00] VITALS: BP 137/83; PULSE 61; TEMP 36.9; O2SAT 96
[2022-12-23] MEDS: hydrOXYzine HCL 25 MG TABLET PO (20:04)
[2022-12-23] MEDS: HaloperidoL 5 MG TABLET PO (20:04)
[2022-12-23] MEDS: Prazosin HCL 1 MG CAPSULE PO (20:04)
[2022-12-23] MEDS: Benztropine Mesylate 1 MG TABLET PO (20:04)
[2022-12-24 09:02] VITALS: BP 100/63; PULSE 54; RESP 16; TEMP 37; O2SAT 97
[2022-12-24] MEDS: Cyanocobalamin (Vitamin B-12) 1,000 MCG TABLET 1000 MCG PO (09:03)
[2022-12-24] MEDS: buPROPion HCl XL 150 MG TAB.ER.24H PO (09:03)
[2022-12-24] MEDS: Propranolol HCL 20 MG TABLET PO ×2 (09:03→22:33)
[2022-12-24] MEDS: QUEtiapine Fumarate 50 MG TABLET PO (09:03)
[2022-12-24] MEDS: ARIPiprazole 20 MG TABLET PO (09:03)
[2022-12-24] MEDS: Multivitamin TABLET 1 TAB PO (09:03)
--- NOTE | 2022-12-24 09:27 | HO.PSYCHPN ---
Subjective Subjective Date of Service: 12/24/22 Reason For Visit: Crisis Subjective Notes: 3 Day Interim History: Reviewed in team and . Patient reports feeling anxious and depressed today. Patient stated, can I be put on olanzapine because that helps with the paranoia. It works better than seroquel or haldol . He reports still thinking about retracting 3 day notice . Patient reports he will try to attend groups today. Denies SI/HI/VH/AH at this time. Medication Compliance: Yes Side effects from medications: No Attending Groups: No Review of Systems Constitutional: Reports as per HPI Eyes: Reports as per HPI Reports as per HPI Cardiovascular: Reports as per HPI Respiratory: Reports as per HPI Gastrointestinal: Reports as per HPI Genitourinary: Reports as per HPI Musculoskeletal: Reports as per HPI Skin/Breast: Reports as per HPI Reports as per HPI Psychiatric: Reports as per HPI Endocrine: Reports as per HPI Hematologic/Lymphatic: Reports as per HPI Allergic/Immunologic: Reports as per HPI Mental Status Exam Mental Status Exam Narrative: Pt is alert and oriented; behavior is cooperative and calm; dressed in casual attire; mood is described as anxious and depressed ; eye contact appropriate; Speech is normal rate, volume and prosody and not pressured; no psychomotor agitation/retardation present; thought process is organized and goal directed; Thought content is on tx; otherwise pertinent to relevant topics and without any delusional content, paranoid ideations or grandiosity; denies SI/HI. There is no evidence of perceptual disturbance. Patients insight and judgment are poor. Diagnostics Vital Signs (24Hr): Vital Signs - 24 hr 12/23/22 09:29 12/23/22 12:30 12/23/22 20:00 Temperature 97.9 F 98.6 F 98.4 F Pulse Rate 61 55 61 Respiratory Rate 16 18 Blood Pressure 120/74 111/73 137/83 Pulse Oximetry 96 99 96 Oxygen Delivery Method Room Air Room Air Room Air 12/24/22 09:02 Temperature 98.6 F Pulse Rate 54 Respiratory Rate 16 Blood Pressure 100/63 Pulse Oximetry 97 Oxygen Delivery Method Room Air BMI result Body Mass Index 22.4 Labs 12/20/22 09:33 12/20/22 09:33 Medications Medications Current Medications Acetaminophen (Acetaminophen 325 Mg Tablet) 650 mg PO Q6H PRN PRN Reason: Headache/Pain Mild Scale (1-3) Al Hydroxide/Mg Hydroxide (Magnesium Hydrox/Alum Hydrox 30 Ml Oral.Susp) 30 ml PO Q6H PRN PRN Reason: Heartburn/Nausea Aripiprazole (Aripiprazole 20 Mg Tablet) 20 mg PO DAILY [facility] Last Admin: 12/24/22 09:03 Dose: 20 mg Benztropine Mesylate (Benztropine Mesylate 1 Mg Tablet) 1 mg PO ONCE PRN PRN Reason: Extrapyramidal Effects Last Admin: 12/23/22 20:04 Dose: 1 mg Bupropion HCl (Bupropion Hcl Xl 150 Mg Tab.Er.24h) 150 mg PO DAILY JAKE Last Admin: 12/24/22 09:03 Dose: 150 mg Cyanocobalamin (Cyanocobalamin (Vitamin B-12) 1,000 Mcg Tablet) 1,000 mcg PO DAILY [facility] Last Admin: 12/24/22 09:03 Dose: 1,000 mcg Haloperidol (Haloperidol 5 Mg Tablet) 5 mg PO BID PRN PRN Reason: Psychosis Last Admin: 12/23/22 20:04 Dose: 5 mg Hydroxyzine HCl (Hydroxyzine Hcl 25 Mg Tablet) 25 mg PO Q6H PRN PRN Reason: Anxiety Last Admin: 12/23/22 20:04 Dose: 25 mg Magnesium Hydroxide (Milk Of Magnesia 30 Ml Oral.Susp) 30 ml PO DAILY PRN PRN Reason: Constipation Multivitamins/Vitamin C (Multivitamin Tablet) 1 tab PO DAILY [facility] Last Admin: 12/24/22 09:03 Dose: 1 tab Nicotine Polacrilex (Nicotine Polacrilex 2 Mg Gum) 4 mg BUCCAL Q2H PRN PRN Reason: Nicotine Cravings Prazosin HCl (Prazosin Hcl 1 Mg Capsule) 1 mg PO BEDTIME JAKE; Protocol Last Admin: 12/23/22 20:04 Dose: 1 mg Propranolol HCl (Propranolol Hcl 20 Mg Tablet) 20 mg PO BID JAKE; Protocol Last Admin: 12/24/22 09:03 Dose: 20 mg Quetiapine Fumarate (Quetiapine Fumarate 50 Mg Tablet) 50 mg PO BID [facility] Last Admin: 12/24/22 09:03 Dose: 50 mg Trazodone HCl (Trazodone Hcl 50 Mg Tablet) 50 mg PO BEDTIME MRX1 PRN PRN Reason: Insomnia Allergies Allergies Allergy/AdvReac Type Severity Reaction Status Date / Time No Known Allergies Allergy Verified 06/13/22 02:33 Assessment & Plan Assessment & Plan (1) Schizoaffective disorder: Status: Acute Code(s): F25.9 - Schizoaffective disorder, unspecified Plan Patient is a 32 year old male with hx of schizoaffective d/o and cocaine abuse and multiple inpatient hospitalizations who self presented to [facility] ER d/t suicidal ideation to drown himself in the river, secondary to not liking where he lives . Plan: 3 day 15 minute safety checks Continue home medications Referral to outpatient providers Referral to substance abuse program 12/24: Patient reports feeling anxious and depressed today. Patient stated, can I be put on olanzapine because that helps with the paranoia. It works better than seroquel or haldol . He reports still thinking about retracting 3 day notice . Patient reports he will try to attend groups today. Denies SI/HI/VH/AH at this time. Started Zyprexa 10mg PO bedtime, Zyprexa 5mg PO daily PRN, DC Seroquel and Haldol. Patient educated on: diagnosis, medication risk/benefits, substance abuse and therapeutic strategies Informed Consent: understands Reason for continued inpatient stay Substantial Risk for: med/psych decompensation Time Spent With Patient Time: Total time managing care of this patient today _30___ minutes.
--- NOTE | 2022-12-24 10:38 | PC.NURSE ---
Pt refused labs, Gabriella aware.
[2022-12-24] MEDS: Acetaminophen 325 MG TABLET 650 MG PO (18:57)
[2022-12-24 22:15] VITALS: BP 110/67; PULSE 61; TEMP 36.7; O2SAT 98
[2022-12-24] MEDS: Prazosin HCL 1 MG CAPSULE PO (22:32)
[2022-12-24] MEDS: OLANZapine 10 MG TABLET PO (22:32)
[2022-12-24] MEDS: hydrOXYzine HCL 25 MG TABLET PO (22:32)
[2022-12-25 07:00] VITALS: BMI 22.9
[2022-12-25] MEDS: ARIPiprazole 20 MG TABLET PO (08:35)
[2022-12-25] MEDS: buPROPion HCl XL 150 MG TAB.ER.24H PO (08:39)
[2022-12-25] MEDS: Cyanocobalamin (Vitamin B-12) 1,000 MCG TABLET 1000 MCG PO (08:39)
[2022-12-25] MEDS: Multivitamin TABLET 1 TAB PO (08:39)
[2022-12-25] MEDS: Propranolol HCL 20 MG TABLET PO ×2 (08:39→21:57)
[2022-12-25 08:40] VITALS: BP 116/75; PULSE 54; RESP 18; TEMP 36.6; O2SAT 98
--- NOTE | 2022-12-25 09:57 | HO.PSYCHPN ---
Subjective Subjective Date of Service: 12/25/22 Reason For Visit: Crisis Subjective Notes: 3 Day Interim History: Reviewed in team and . Patient reports feeling okay today. Patient stated, the Zyprexa helped with the paranoia . He reports not knowing if he will retract 3 day notice; pt stated, I have stuff to do like go get a new ID . 3 day due tomorrow. Medication Compliance: Yes Side effects from medications: No Attending Groups: No Review of Systems Review of Systems Constitutional: No fever, No chills, No fatigue, No malaise, No weight loss, No night sweats ENT/Mouth: No ear pain, No hearing loss,? No nasal congestion, No sinus pain, No rhinorrhea, No sore throat, No hoarseness, No swallowing difficulty Eyes: + eye pain, No swelling, No redness, No vision changes, No foreign body, No discharge Cardio: No chest pain, No palpitations, No dyspnea on exertion, No orthopnea, No edema Respiratory: No SOB, No cough, No sputum, No wheezing, No dyspnea, No hemoptysis, No smoke exposure GI: No nausea, No vomiting, No hematemesis, No abdominal pain, No diarrhea, No constipation, No hematochezia, No melena : No irregular bleeding, No dysuria, No frequency, No urgency, No hesitancy, No hematuria, No flank pain, No urinary flow changes, No urinary incontinence or retention MSK: No back pain, No neck pain, No joint pain, No myalgias Skin: No skin lesions, No rashes Neuro: No weakness, No numbness, No paresthesias, No LOC, No dizziness, No headache Psych: No anxiety/panic, + depression, + SI, No HI, +VH/TH, No AH Yes all other systems are reviewed and are negative Constitutional: Reports as per HPI Eyes: Reports as per HPI Reports as per HPI Cardiovascular: Reports as per HPI Respiratory: Reports as per HPI Gastrointestinal: Reports as per HPI Genitourinary: Reports as per HPI Musculoskeletal: Reports as per HPI Skin/Breast: Reports as per HPI Reports as per HPI Psychiatric: Reports as per HPI Endocrine: Reports as per HPI Hematologic/Lymphatic: Reports as per HPI Allergic/Immunologic: Reports as per HPI Mental Status Exam Mental Status Exam Narrative: Pt is alert and oriented; behavior is cooperative and calm; dressed in casual attire; mood is described as okay ; eye contact appropriate; Speech is normal rate, volume and prosody and not pressured; no psychomotor agitation/retardation present; thought process is organized; Thought content is on tx; otherwise pertinent to relevant topics and without any delusional content, paranoid ideations or grandiosity; denies SI/HI. There is no evidence of perceptual disturbance. Patients insight and judgment are fair. Diagnostics Vital Signs (24Hr): Vital Signs - 24 hr 12/24/22 22:15 12/25/22 08:40 Temperature 98.0 F 97.9 F Pulse Rate 61 54 Respiratory Rate 18 Blood Pressure 110/67 116/75 Pulse Oximetry 98 98 Oxygen Delivery Method Room Air Room Air BMI result Body Mass Index 22.4 Labs 12/20/22 09:33 12/20/22 09:33 Medications Medications Current Medications Acetaminophen (Acetaminophen 325 Mg Tablet) 650 mg PO Q6H PRN PRN Reason: Headache/Pain Mild Scale (1-3) Last Admin: 12/24/22 18:57 Dose: 650 mg Al Hydroxide/Mg Hydroxide (Magnesium Hydrox/Alum Hydrox 30 Ml Oral.Susp) 30 ml PO Q6H PRN PRN Reason: Heartburn/Nausea Aripiprazole (Aripiprazole 20 Mg Tablet) 20 mg PO DAILY [facility] Last Admin: 12/24/22 09:03 Dose: 20 mg Benztropine Mesylate (Benztropine Mesylate 1 Mg Tablet) 1 mg PO ONCE PRN PRN Reason: Extrapyramidal Effects Last Admin: 12/23/22 20:04 Dose: 1 mg Bupropion HCl (Bupropion Hcl Xl 150 Mg Tab.Er.24h) 150 mg PO DAILY [facility] Last Admin: 12/25/22 08:39 Dose: 150 mg Cyanocobalamin (Cyanocobalamin (Vitamin B-12) 1,000 Mcg Tablet) 1,000 mcg PO DAILY [facility] Last Admin: 12/25/22 08:39 Dose: 1,000 mcg Hydroxyzine HCl (Hydroxyzine Hcl 25 Mg Tablet) 25 mg PO Q6H PRN PRN Reason: Anxiety Last Admin: 12/24/22 22:32 Dose: 25 mg Magnesium Hydroxide (Milk Of Magnesia 30 Ml Oral.Susp) 30 ml PO DAILY PRN PRN Reason: Constipation Multivitamins/Vitamin C (Multivitamin Tablet) 1 tab PO DAILY JAKE Last Admin: 12/25/22 08:39 Dose: 1 tab Nicotine Polacrilex (Nicotine Polacrilex 2 Mg Gum) 4 mg BUCCAL Q2H PRN PRN Reason: Nicotine Cravings Olanzapine (Olanzapine 10 Mg Tablet) 10 mg PO BEDTIME [facility] Last Admin: 12/24/22 22:32 Dose: 10 mg Olanzapine (Olanzapine 5 Mg Tablet) 5 mg PO DAILY PRN PRN Reason: Psychosis Prazosin HCl (Prazosin Hcl 1 Mg Capsule) 1 mg PO BEDTIME JAKE; Protocol Last Admin: 12/24/22 22:32 Dose: 1 mg Propranolol HCl (Propranolol Hcl 20 Mg Tablet) 20 mg PO BID JAKE; Protocol Last Admin: 12/25/22 08:39 Dose: 20 mg Trazodone HCl (Trazodone Hcl 50 Mg Tablet) 50 mg PO BEDTIME MRX1 PRN PRN Reason: Insomnia Allergies Allergies Allergy/AdvReac Type Severity Reaction Status Date / Time No Known Allergies Allergy Verified 06/13/22 02:33 Assessment & Plan Assessment & Plan (1) Schizoaffective disorder: Status: Acute Code(s): F25.9 - Schizoaffective disorder, unspecified Plan Patient is a 32 year old male with hx of schizoaffective d/o and cocaine abuse and multiple inpatient hospitalizations who self presented to [facility] ER d/t suicidal ideation to drown himself in the river, secondary to not liking where he lives . Plan: 3 day 15 minute safety checks Continue home medications Referral to outpatient providers Referral to substance abuse program 12/24: Patient reports feeling anxious and depressed today. Patient stated, can I be put on olanzapine because that helps with the paranoia. It works better than seroquel or haldol . He reports still thinking about retracting 3 day notice . Patient reports he will try to attend groups today. Denies SI/HI/VH/AH at this time. Started Zyprexa 10mg PO bedtime, Zyprexa 5mg PO daily PRN, DC Seroquel and Haldol. 12/25: Patient reports feeling okay today. Patient stated, the Zyprexa helped with the paranoia . He reports not knowing if he will retract 3 day notice; pt stated, I have stuff to do like go get a new ID . Guarded. 3 day due tomorrow. Continue tx plan. Patient educated on: diagnosis, medication risk/benefits, substance abuse and therapeutic strategies Informed Consent: understands Reason for continued inpatient stay Substantial Risk for: med/psych decompensation Time Spent With Patient Time: Total time managing care of this patient today _30___ minutes.
[2022-12-25] MEDS: Acetaminophen 325 MG TABLET 650 MG PO (12:39)
[2022-12-25] MEDS: hydrOXYzine HCL 25 MG TABLET PO (16:25)
[2022-12-25] MEDS: OLANZapine 5 MG TABLET PO (16:25)
[2022-12-25 19:50] VITALS: BP 121/68; PULSE 55; RESP 16; TEMP 37; O2SAT 98
[2022-12-25] MEDS: Prazosin HCL 1 MG CAPSULE PO (21:57)
[2022-12-25] MEDS: OLANZapine 10 MG TABLET PO (21:57)
[2022-12-26] MEDS: ARIPiprazole 20 MG TABLET PO (08:44)
[2022-12-26] MEDS: buPROPion HCl XL 150 MG TAB.ER.24H PO (08:44)
[2022-12-26] MEDS: Multivitamin TABLET 1 TAB PO (08:44)
[2022-12-26] MEDS: Cyanocobalamin (Vitamin B-12) 1,000 MCG TABLET 1000 MCG PO (08:44)
[2022-12-26] MEDS: Propranolol HCL 20 MG TABLET PO (09:12)
--- NOTE | 2022-12-26 10:29 | PC.NURSE ---
Cole is alert, fully oriented, pleasant and cooperative with discharge plan. He verbalizes understanding of discharge medications and appointments. He denies ideation, plan or intenet to harm self or others. He denies physical complaint.
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
== END 2022-12-26 11:15 | disposition home or self-care (01) | DRG 750 ==
LOC: HO.ED 16:33 → HO.PADLT16 12-23 11:46
PROVIDERS: Physician Assistant Medical; Admitting Provider Registered Nurse; Emergency Provider Emergency Medicine; Responsible Provider Registered Nurse; Visit Provider Psychiatry & Neurology Psychiatry
DX: F25.9 Schizoaffective disorder, unspecified (principal); F17.210 Nicotine dependence, cigarettes, uncomplicated; Z71.6 Tobacco abuse counseling; Z20.822 Contact with and (suspected) exposure to COVID-19; Z79.899 Other long term (current) drug therapy
CPT/HCPCS: 36415; 80053; 80307; 81003; 85025; 87635; 93005; 99285; S9485

== ENCOUNTER → 2022-12-23 11:38 | Outpatient (BNV) | payer OTHER, SELFPAY | PROVIDERS: Admitting Provider Registered Nurse; Emergency Provider Emergency Medicine; Responsible Provider Registered Nurse; Visit Provider Psychiatry & Neurology Psychiatry | DX: F25.1 Schizoaffective disorder, depressive type (principal) | CPT/HCPCS: 99231 ==

== ENCOUNTER → 2022-12-23 11:38 | Outpatient (BNV) | payer OTHER, SELFPAY | PROVIDERS: Admitting Provider Registered Nurse; Emergency Provider Emergency Medicine; Responsible Provider Registered Nurse; Visit Provider Registered Nurse | DX: F25.1 Schizoaffective disorder, depressive type (principal) | CPT/HCPCS: 99232; 99233 ==

== ENCOUNTER 2022-12-29 16:54 | Emergency (ER) | payer OTHER, SELFPAY ==
[2022-12-29 17:03] VITALS: BP 118/64; BP 143/86; PULSE 74; PULSE 78; RESP 18; TEMP 36.7; O2SAT 97; BMI 24.0
--- NOTE | 2022-12-29 17:07 | PC.NURSE ---
Patient reports was discharged from inpatient psych last week and was doing well unit yesterday. Reports smoked some weed and became anxious. Woke up this morning and started having the same intrusive thoughts about SI.States plan is is to stab or drown herself. Denies HI. Denies pain or discomfort. Changed over into hospital attire.
--- NOTE | 2022-12-29 17:14 | ED.GENADULT ---
HPI - General Adult General Chief complaint: Psychiatric Symptoms Stated complaint: identifies as female, SI Time Seen by Provider: 12/29/22 17:02 Source: patient Mode of arrival: ambulatory History of Present Illness HPI narrative: 32-year-old trans female with history of bipolar presents to the ED for depression and suicidal ideation. Patient started having sensation that something bad was following him and it became too overbearing say started feeling depressed and became suicidal. Patient states his plan is to jump into the river and drown. Patient has a ribbon the way he lives. Related Data Previous Rx's Medication Instructions Recorded aripiprazole 20 mg tablet (Abilify) 20 mg PO DAILY #30 tabs 12/26/22 bupropion HCl 150 mg 24 hr tablet, 150 mg PO DAILY #30 tabs 12/26/22 extended release cyanocobalamin (vitamin B-12) 1,000 mcg PO DAILY #30 tabs 12/26/22 1,000 mcg tablet (Vitamin B-12) multivitamin (Daily-Nicnaor tablet) 1 tab PO DAILY #30 tabs 12/26/22 olanzapine 10 mg tablet 10 mg PO BEDTIME #30 tabs 12/26/22 olanzapine 5 mg tablet 5 mg PO DAILY PRN Psychosis #30 12/26/22 tabs prazosin 1 mg capsule 1 mg PO BEDTIME #30 caps 12/26/22 propranolol 20 mg tablet 20 mg PO BID #60 tabs 12/26/22 Allergies Allergy/AdvReac Type Severity Reaction Status Date / Time No Known Allergies Allergy Verified 06/13/22 02:33 Review of Systems Review of Systems: Suicidal depressed has a plan Yes all other systems are reviewed and are negative [facility] Past Medical History Medical History Polysubstance use disorder Glaucoma Genital herpes Schizoaffective disorder Social History Social History Household Members: Family Housing: House Housing Other:: moms apartment. Do you presently have visiting nurse or other home services: No Alcohol intake: former Patient Tobacco Use Status: Current everyday Tobacco user Tobacco use type: Cigarette Cigarette Packs Per Day: 1 Cigarettes Per Day: 20.0 Years Smoked: 14 Smoked in Last 30 Days: Yes e-Cigarette/Vaping Use: Never Used Second Hand Smoke Exposure: Yes Use of substances other than those prescribed or required for medical reasons: Yes Substance Use Type: Marijuana Advance Directives: No Advance Directives Information Provided: Yes Healthcare Proxy: No Guardian: No service: No Sexual orientation: Don't Know Physical Exam ED Vital Signs: Vital Signs - 24 hr 12/30/22 13:49 Temperature 98.1 F Pulse Rate 65 Respiratory Rate 16 Blood Pressure 126/78 Pulse Oximetry 99 Oxygen Delivery Method Room Air BMI result Body Mass Index 24.0 Const General: cooperative, healthy appearing, comfortable, no acute distress, well developed, alert, awake and Physically active Orientation/consciousness: oriented to person, oriented to place, oriented to time and patient oriented x3 HENIL Head: Yes normal to inspection, Yes No palpable skull fracture present, Yes normocephalic, Yes atraumatic and No abrasion Eyes General: appearance normal, both eyes and all related structures Neck Neck: Yes normal visual inspection, Yes full ROM, Yes no lymphadenopathy, Yes no meningeal signs, Yes trachea midline, Yes supple, No anterior neck swelling and No tender Chest Chest palpation & inspection: normal inspection of the chest and normal palpation of entire chest wall Resp Effort & Inspection: normal respiratory effort Cardio Jugular venous distension: no JVD Heart sounds: S1 normal heart sound present and S2 normal heart sound present GI Inspection: Yes normal to inspection and No abdominal wall ecchymosis Palpation (GI): Soft to palpation, not firm, nontender, no guarding and not rigid General: No CVA tenderness and Yes no CVA tenderness Back/Spine/Pelvis Back: no CVA tenderness, No CVA tenderness and No back tenderness Skin General skin exam: no rashes or lesions noted, elasticity normal and turgor normal Neuro General: oriented to person, oriented to place, oriented to time, patient oriented x3, gait normal, tone normal, moves all extremities, Normal light touch and pain sensation, no meningeal signs, no focal motor deficits, CN's II-XI intact bilaterally and normal sensation to monofilament Extrem General: Yes normal to inspection and Yes full ROM Psych Appearance: grossly normal, well kempt and not disheveled Course Reevaluation(s) Reevaluation #1: Patient seen by therapist decided to discharge patient home advised to follow up as an outpatient with therapist Time: 19:27 Medications Administered Discontinued Medications Generic Name Dose Route Start Last Admin Trade Name Freq PRN Reason Stop Dose Admin Aripiprazole 20 mg 12/30/22 09:00 12/30/22 11:11 Aripiprazole 20 Mg Tablet PO 20 mg DAILY JAKE Administration Bupropion HCl 150 mg 12/30/22 09:00 12/30/22 11:11 Bupropion Hcl Xl 150 Mg Tab.Er.24h PO 150 mg DAILY JAKE Administration Cyanocobalamin 1,000 mcg 12/30/22 09:00 12/30/22 11:11 Cyanocobalamin (Vitamin B-12) 1,000 Mcg Tablet PO 1,000 mcg DAILY JAKE Administration Multivitamins/Vitamin C 1 tab 12/30/22 09:00 12/30/22 11:11 Multivitamin Tablet PO 1 tab DAILY JAKE Administration Olanzapine 10 mg 12/29/22 21:15 12/29/22 21:46 Olanzapine 10 Mg Tablet PO 10 mg BEDTIME JAKE Administration Prazosin HCl 1 mg 12/29/22 21:15 12/29/22 21:46 Prazosin Hcl 1 Mg Capsule PO 1 mg BEDTIME JAKE Administration Protocol Propranolol HCl 20 mg 12/29/22 21:15 12/30/22 10:28 Propranolol Hcl 20 Mg Tablet PO Not Given BID JAKE Protocol Medical Decision Making Medical Decision Making MDM Narrative: 32-year-old trans female presents to the ED for suicidal ideation and depression. Patient feels like something is after her. Patient feels like he needs to be admitted. Patient has plan to drown herself. Patient has no physical complaints. Will order labs and care team consult placement. Differential Diagnosis Differential Diagnoses: The differential diagnosis associated with the presentation includes (depression, Suicidal, bipolar, homicdial) Admission/Observation Consideration of admission/observation: Escalation of care including admission/observation considered Consult Healthcare Provider Management of the patient was discussed with: Interpersonal Communications Professor (care team) Lab Data MDM Lab Attestation statement: I reviewed the patient's lab results. 12/29/22 18:13 12/29/22 18:13 Labs: Lab Results 12/29/22 12/29/22 Range/Units 17:36 18:13 WBC 9.2 (4.8-10.8) X10*3/uL RBC 4.84 (4.60-5.80) X10*6/uL Hgb 14.7 (14.0-18.0) g/dl Hct 44.0 (42.0-52.0) % MCV 90.9 (80.0-98.0) fL MCH 30.4 (27.0-33.0) pg MCHC 33.4 (31.0-36.0) g/dl RDW 12.3 (11.0-16.0) % Plt Count 286 (160-400) X10*3/uL MPV 10.6 (9.4-12.4) fL Immature Gran % (Auto) 0.2 (0.0-0.4) % Neut % (Auto) 67.1 (45-73) % Lymph % (Auto) 23.9 (20-40) % [place]lette % (Auto) 6.5 (2-11) % Eos % (Auto) 1.6 (0-4) % Baso % (Auto) 0.7 (0-2) % Lymph # (Auto) 2.2 (1.2-4.9) X10*3/uL [place]lette # (Auto) 0.6 (0.1-1.2) X10*3/uL Eos # (Auto) 0.2 (0.0-0.4) X10*3/uL Baso # (Auto) 0.1 (0.0-0.2) X10*3/uL Abs Immat Gran (auto) 0.02 (0.00-0.03) X10*3/uL Absolute Neuts (auto) 6.2 (2.0-8.3) x10*3/uL Absolute Nucleated RBC 0.000 (0.0-0.012) X10*3/uL Nucleated RBC % (auto) 0.0 (0.0-0.2) /100WBC Sodium 137 (135-145) mmol/L Potassium 3.5 (3.3-5.1) mmol/L Chloride 103 (96-108) mmol/L Carbon Dioxide 28 (22-29) mmol/L Anion Gap 10 L (12-20) BUN 10 (9-16) mg/dL Creatinine 0.85 (0.5-1.4) mg/dL Estim Creat Clear Calc 104.4 Estimated GFR > 60 Random Glucose 138 H (60-115) mg/dL Calcium 9.3 (8.4-10.2) mg/dL Total Bilirubin 0.5 (0.0-1.0) mg/dL AST 50 H (5-37) U/L ALT 97 H (0-40) U/L Alkaline Phosphatase 76 (39-117) U/L Total Protein 7.4 (6.5-8.0) g/dL Albumin 4.2 (3.5-5.0) g/dL Urine Opiates Screen Not Detected (Not Detect) Urine Fentanyl Screen Not Detected (Not Detect) Ur Barbiturates Screen Not Detected (Not Detect) Ur Phencyclidine Scrn Not Detected (Not Detect) Ur Amphetamines Screen Not Detected (Not Detect) U Benzodiazepines Scrn Not Detected (Not Detect) Urine Cocaine Screen Not Detected (Not Detect) U Marijuana (THC) Screen POSITIVE H (Not Detect) Ethyl Alcohol < 10 mg/dL External Record Review External record reviewed: Outside ED record (Prior ED visist) Prescription Management I considered prescription management with: Pain Medication Discharge Plan Discharge Clinical Impression: Bipolar disorder Patient Disposition: Home, Self-Care Instructions: Bipolar Disorder (ED) Additional Instructions: Continue medication and follow up with your therapist Prescriptions: No Action multivitamin [Daily-Nicanor] Tablet 1 tab PO DAILY Qty: 30 0RF prazosin 1 mg Capsule 1 mg PO BEDTIME Qty: 30 0RF Protocol: Hold for SBP< HOLD for SBP < : 90 olanzapine 5 mg Tablet 5 mg PO DAILY PRN (Reason: Psychosis) Qty: 30 0RF cyanocobalamin (vitamin B-12) [Vitamin B-12] 1,000 mcg Tablet 1,000 mcg PO DAILY Qty: 30 0RF olanzapine 10 mg Tablet 10 mg PO BEDTIME Qty: 30 0RF propranolol 20 mg Tablet 20 mg PO BID Qty: 60 0RF Protocol: Hold for SBP/HR < HOLD for SBP < : 90 HOLD for HR < : 60 aripiprazole [Abilify] 20 mg Tablet 20 mg PO DAILY Qty: 30 0RF bupropion HCl 150 mg Tablet Extended Release 24 Hr 150 mg PO DAILY Qty: 30 0RF Interventions: Woodman-Suicide Risk Severity Scale Last Done: 12/30/22 18:02 ED Discharge Assessment Last Done: 12/30/22 19:27 Discharge Date/Time: 12/30/22 19:39
[2022-12-29 17:50] LABS: Amphetamine Screen Urine Not Detected (Not Detect); Barbiturates, Urine Not Detected (Not Detect); Benzodiazepines Screen Urine Not Detected (Not Detect); Cannabinoid Screen Urine POSITIVE (Not Detect); Cocaine Screen Urine Not Detected (Not Detect); Fentanyl, urine Not Detected (Not Detect); Opiate Screen Urine Not Detected (Not Detect); Phencyclidine Screen Urine Not Detected (Not Detect)
[2022-12-29 18:18] LABS: MANUAL DIFF FLAG NO
[2022-12-29 18:28] LABS: Basophils Absolute Auto 0.1 X10*3/uL (0.0-0.2); Basophils Percent Auto 0.7 % (0-2); Eosinophils Absolute Auto 0.2 X10*3/uL (0.0-0.4); Eosinophils Percent Auto 1.6 % (0-4); Hemoglobin 14.7 g/dl (14.0-18.0); Imm Gran Abs Auto 0.02 X10*3/uL (0.00-0.03); Imm Gran Pct Auto 0.2 % (0.0-0.4); Lymphocytes Absolute Auto 2.2 X10*3/uL (1.2-4.9); Lymphocytes Percent Auto 23.9 % (20-40); Mean Corpuscular HGB Conc 33.4 g/dl (31.0-36.0); Mean Corpuscular Hemoglobin 30.4 pg (27.0-33.0); Mean Corpuscular Volume 90.9 fL (80.0-98.0); Mean Platelet Volume 10.6 fL (9.4-12.4); Monocytes Absolute Auto 0.6 X10*3/uL (0.1-1.2); Monocytes Percent Auto 6.5 % (2-11); Neutrophils Absolute Auto 6.2 x10*3/uL (2.0-8.3); Neutrophils Percent Auto 67.1 % (45-73); Platelet Count 286 X10*3/uL (160-400); Red Blood Count 4.84 X10*6/uL (4.60-5.80); Red Cell Distribution Width 12.3 % (11.0-16.0); White Blood Count 9.2 X10*3/uL (4.8-10.8)
[2022-12-29 18:42] LABS: Alanine Aminotransferase 97 U/L (0-40); Albumin Level 4.2 g/dL (3.5-5.0); Alkaline Phosphatase 76 U/L (39-117); Anion Gap 10 (12-20); Aspartate Amino Transferase 50 U/L (5-37); Bilirubin Total 0.5 mg/dL (0.0-1.0); Blood Urea Nitrogen 10 mg/dL (9-16); Calcium 9.3 mg/dL (8.4-10.2); Carbon Dioxide 28 mmol/L (22-29); Chloride 103 mmol/L (96-108); Creatinine Clr Calc Pharmacy 104.4; Estimated Glomerular Filt Rate > 60; Ethanol < 10 mg/dL; Glucose Random 138 mg/dL (60-115); Potassium 3.5 mmol/L (3.3-5.1); Sodium 137 mmol/L (135-145); Total Protein 7.4 g/dL (6.5-8.0)
[2022-12-29 21:45] VITALS: BP 109/52; PULSE 57; RESP 18; TEMP 37.2; O2SAT 97
[2022-12-29] MEDS: Propranolol HCL 20 MG TABLET PO (21:46)
[2022-12-29] MEDS: Prazosin HCL 1 MG CAPSULE PO (21:46)
[2022-12-29] MEDS: OLANZapine 10 MG TABLET PO (21:46)
--- NOTE | 2022-12-30 06:33 | PC.NURSE ---
Patient slept through the night, no distress observed/reported, behavior non concerning, care consult ordered/pending evaluation, labs completed/resulted, medication compliant, VSS, will continue to monitor.
[2022-12-30 06:42] VITALS: BP 90/55; PULSE 60; RESP 16; TEMP 36.6; O2SAT 97
--- NOTE | 2022-12-30 07:15 | PC.NURSE ---
patient appears to remain asleep respirations are even and unlabored patient appears in no distress
[2022-12-30] MEDS: buPROPion HCl XL 150 MG TAB.ER.24H PO (11:11)
[2022-12-30] MEDS: Multivitamin TABLET 1 TAB PO (11:11)
[2022-12-30] MEDS: Cyanocobalamin (Vitamin B-12) 1,000 MCG TABLET 1000 MCG PO (11:11)
[2022-12-30] MEDS: ARIPiprazole 20 MG TABLET PO (11:11)
[2022-12-30 13:49] VITALS: BP 126/78; PULSE 65; RESP 16; TEMP 36.7; O2SAT 99
--- NOTE | 2022-12-30 15:45 | PC.NURSE ---
resting, calm, cooperative. no distress noted
--- NOTE | 2022-12-30 17:54 | PC.NURSE ---
pt in common room, made pb&j sandwich, eating well. calm/cooperative. no distrses noted
--- NOTE | 2022-12-30 18:07 | PC.NURSE ---
reports si- no hi. denies ah/vh. reports feeling sad/depressed. reports feels like would drown self or stab self outside of hospital but reports feels safe here and is glad he is safe here. reports feeling paranoid at times. calm, resting, eating sandwich/po fluids. talks well. quiet. reassured and offered tv
--- NOTE | 2022-12-30 18:29 | PHA.MEDREC ---
Pharmacy Consult ? Medication Reconciliation Pharmacy has reviewed the medication reconciliation completed by Katelin.
--- NOTE | 2022-12-30 19:37 | MHC.CARE ---
Patient seen by Mai Packer APRN for psych consult. Patient declined all referrals for outside providers, support. Patient did not meet level of care and dispo was determined to be discharge. Patient wanted to discharge if they could not go to . Referrals for [facility] and other supports offered to patient from CARE team. Patient declined and wanted to go home. Patient sent home via Lyft.
== END 2022-12-30 19:39 | disposition home or self-care (01) ==
PROVIDERS: Physician Assistant; Emergency Provider Internal Medicine
DX: F33.1 Major depressive disorder, recurrent, moderate (principal); R45.851 Suicidal ideations; F17.210 Nicotine dependence, cigarettes, uncomplicated; Z79.899 Other long term (current) drug therapy; Z71.6 Tobacco abuse counseling
CPT/HCPCS: 36415; 80053; 80307; 85025; 99284; S9485

== ENCOUNTER 2023-10-25 16:00 | Emergency (ER) | payer MEDICAID, SELFPAY ==
[2023-10-25 16:31] VITALS: BP 123/73; PULSE 77; RESP 20; TEMP 36.9; O2SAT 97; BMI 18.8
== END 2023-10-25 18:20 | disposition left against medical advice (07) ==
PROVIDERS: Emergency Provider Emergency Medicine
DX: M54.2 Cervicalgia (principal); R10.9 Unspecified abdominal pain
CPT/HCPCS: 99281

== ENCOUNTER 2023-11-09 11:05 | Emergency (ER) | payer MEDICAID, SELFPAY ==
[2023-11-09 11:15] VITALS: BP 122/83; PULSE 83; RESP 16; TEMP 36.6; O2SAT 99; BMI 20.4
[2023-11-09 11:17] VITALS: BP 118/80; PULSE 82; O2SAT 97
[2023-11-09 11:34] LABS: Appearance Urine Clear; Color Urine Yellow; Glucose Urine UA Negative (Negative); Leukocyte Esterase Urine Negative (Negative); Nitrite Urine Negative (Negative); PH 6.5 (5.0-9.0); Specific Gravity - Urine <= 1.005 (1.005-1.025); Urine Blood Negative (Negative); Urine Ketones Negative (Negative); Urine Protein Negative (Neg-Trace)
--- NOTE | 2023-11-09 11:34 | ECG_ITS ---
Test Reason : OVERDOSE Blood Pressure : / mmHG Vent. Rate : 081 BPM Atrial Rate : 081 BPM P-R Int : 148 ms QRS Dur : 100 ms QT Int : 374 ms P-R-T Axes : 044 059 033 degrees QTc Int : 434 ms Normal sinus rhythm Normal ECG When compared with ECG of 23-DEC-2022 09:15, No significant change was found Referred By: Generic ED Physician Electronically Signed By:Job Thomson
[2023-11-09 11:45] LABS: Amphetamine Screen Urine Not Detected (Not Detect); Barbiturates, Urine Not Detected (Not Detect); Benzodiazepines Screen Urine Not Detected (Not Detect); Buprenorphine Scr Not Detected (Not Detect); Cannabinoid Screen Urine Not Detected (Not Detect); Cocaine Screen Urine Not Detected (Not Detect); Fentanyl, urine Not Detected (Not Detect); Methadone Screen, Urine Not Detected (Not Detect); Opiate Screen Urine Not Detected (Not Detect); Oxycodone Screen Urine Not Detected (Not Detect); Phencyclidine Screen Urine Not Detected (Not Detect)
--- NOTE | 2023-11-09 11:55 | MHC.EDTECH ---
BELONGINGS TO [facility]OS[facility] WITH SECURITY
--- NOTE | 2023-11-09 11:57 | ED.OVERDOSE ---
HPI - Overdose General Chief Complaint: Overdose Stated Complaint: [address] PER STAFF TOOK UNK AMT QUETIAPINE Time Seen by Provider: 11/09/23 11:45 Source: patient Mode of arrival: ambulatory Limitations: no limitations History of Present Illness HPI Narrative: This is 32 years old patient who comes from a [place] [facility] brought in because he took an extra Abilify because he felt anxious he denies SI and HI. complaint: intentional overdose Onset (ago): hour(s) (1) Substance Ingested abilify: Strength of Substance: 20 Number of Pills Ingested: 1 Total Dose: 20 Time of Ingestion: 11:00 Intent: other (anxiety) Associated symptoms: depression Related Data Previous Rx's ?Medication ?Instructions ?Recorded aripiprazole 20 mg tablet (Abilify) 20 mg PO DAILY #30 tabs 12/26/22 bupropion HCl 150 mg 24 hr tablet, 150 mg PO DAILY #30 tabs 12/26/22 extended release cyanocobalamin (vitamin B-12) 1,000 mcg PO DAILY #30 tabs 12/26/22 1,000 mcg tablet (Vitamin B-12) multivitamin (Daily-Nicanor tablet) 1 tab PO DAILY #30 tabs 12/26/22 olanzapine 10 mg tablet 10 mg PO BEDTIME #30 tabs 12/26/22 olanzapine 5 mg tablet 5 mg PO DAILY PRN Psychosis #30 12/26/22 tabs prazosin 1 mg capsule 1 mg PO BEDTIME #30 caps 12/26/22 propranolol 20 mg tablet 20 mg PO BID #60 tabs 12/26/22 Allergies Allergy/AdvReac Type Severity Reaction Status Date / Time No Known Allergies Allergy Verified 11/09/23 11:16 Review of Systems Constitutional: Constitutional: Reports no additional constitutional complaints Eyes: Eyes: Reports no additional eye complaints ENT: Reports system reviewed and no additional complaints, except as documented Cardiovascular: Cardiovascular: Reports no additional cardiovascular complaints [facility] Past Medical History Attestation statement: The following information was validated with the patient. [facility] Narrative: depression,polysubstance abuse Medical History Polysubstance use disorder Glaucoma Genital herpes Schizoaffective disorder Social History Social History Household Members: Family Housing: House Housing Other:: moms apartment. Do you presently have visiting nurse or other home services: No Alcohol intake: former Patient Tobacco Use Status: Current everyday Tobacco user Tobacco use type: Cigarette Cigarette Packs Per Day: 1 Cigarettes Per Day: 20.0 Years Smoked: 14 Smoked in Last 30 Days: Yes e-Cigarette/Vaping Use: Never Used Second Hand Smoke Exposure: Yes Use of substances other than those prescribed or required for medical reasons: No Substance Use Type: Marijuana Advance Directives: No Do you have a plan to hurt others: No Plan service: No Sexual orientation: Don't Know Physical Exam Vital Signs: Vital Signs: Last Vital Signs Temp 97.7 F 11/09/23 13:56 Pulse 81 11/09/23 13:56 Resp 16 11/09/23 13:56 BP 99/59 L 11/09/23 13:56 Pulse Ox 97 11/09/23 13:56 O2 Del Method Room Air 11/09/23 13:56 BMI result Body Mass Index 20.4 Const: General: cooperative and comfortable Nutritional Appearance: average body habitus and well nourished Orientation/consciousness: patient oriented x3 HEENT: Head: Yes normal to inspection Ears: hearing grossly normal bilaterally Face and sinus: Yes normal facial exam Mouth: Normal oral and palatal mucosa present Neck: Neck: Yes normal visual inspection, Yes full ROM and Yes no lymphadenopathy Chest: Chest palpation & inspection: normal inspection of the chest Resp: Effort & Inspection: normal respiratory effort Auscultation: clear to auscultation bilaterally Cardio: Jugular venous distension: no JVD Rate: regular rate Rhythm: regular rhythm GI: Inspection: Yes normal to inspection Palpation (GI): Soft to palpation and not firm Skin: General skin exam: no rashes or lesions noted and elasticity normal Lesions: no lesions Rashes: no rashes Neuro: General: patient oriented x3 Course Reevaluation(s) Reevaluation #1: signed out to Dr Christine Time: 16:04 Medical Decision Making Medical Decision Making [facility] Narrative: Patient presented to the emergency room after took extra abilify , will get CBC chemistry acetaminophen and aspirin level will consult crisis Differential Diagnosis Differential Diagnoses: The differential diagnosis associated with the presentation includes Overdose of Abilify/SI/enzyme Lab Data [facility] Lab Attestation statement: I reviewed the patient's lab results. 11/09/23 12:12 11/09/23 12:12 Labs: Lab Results 11/09/23 11/09/23 Range/Units 11:26 12:12 WBC 5.8 (4.8-10.8) X10*3/uL RBC 4.80 (4.60-5.80) X10*6/uL Hgb 14.8 (14.0-18.0) g/dl Hct 44.1 (42.0-52.0) % MCV 91.9 (80.0-98.0) fL MCH 30.8 (27.0-33.0) pg MCHC 33.6 (31.0-36.0) g/dl RDW 12.9 (11.0-16.0) % Plt Count 249 (160-400) X10*3/uL MPV 10.0 (9.4-12.4) fL Immature Gran % (Auto) 0.3 (0.0-0.4) % Neut % (Auto) 60.4 (45-73) % Lymph % (Auto) 28.2 (20-40) % [place] % (Auto) 7.6 (2-11) % Eos % (Auto) 2.8 (0-4) % Baso % (Auto) 0.7 (0-2) % Lymph # (Auto) 1.6 (1.2-4.9) X10*3/uL [place] # (Auto) 0.4 (0.1-1.2) X10*3/uL Eos # (Auto) 0.2 (0.0-0.4) X10*3/uL Baso # (Auto) 0.0 (0.0-0.2) X10*3/uL Abs Immat Gran (auto) 0.02 (0.00-0.03) X10*3/uL Absolute Neuts (auto) 3.5 (2.0-8.3) x10*3/uL Absolute Nucleated RBC 0.000 (0.0-0.012) X10*3/uL Nucleated RBC % (auto) 0.0 (0.0-0.2) /100WBC Sodium 141 (135-145) mmol/L Potassium 3.9 (3.3-5.1) mmol/L Chloride 107 (96-108) mmol/L Carbon Dioxide 28 (22-29) mmol/L Anion Gap 10 L (12-20) BUN 10 (9-16) mg/dL Creatinine 0.87 (0.5-1.4) mg/dL Estim Creat Clear Calc 100.7 Estimated GFR > 60 Random Glucose 114 (60-115) mg/dL Calcium 9.3 (8.4-10.2) mg/dL Total Bilirubin 0.5 (0.0-1.0) mg/dL AST 36 (5-37) U/L ALT 79 H (0-40) U/L Alkaline Phosphatase 66 (39-117) U/L Total Protein 7.1 (6.5-8.0) g/dL Albumin 4.1 (3.5-5.0) g/dL Urine Color Yellow Urine Appearance Clear Urine pH 6.5 (5.0-9.0) Ur Specific [place] <= 1.005 (1.005-1.025) Urine Protein Negative (Neg-Trace) mg/dL Urine Glucose (UA) Negative (Negative) mg/dL Urine Ketones Negative (Negative) mg/dL Urine Blood Negative (Negative) Urine Nitrite Negative (Negative) Ur Leukocyte Esterase Negative (Negative) Salicylates < 5.0 L (15-30) mg/dL Urine Opiates Screen Not Detected (Not Detect) Ur Buprenorphine Scrn Not Detected (Not Detect) ng/mL Ur Oxycodone Screen Not Detected (Not Detect) ng/mL Urine Methadone Screen Not Detected (Not Detect) ng/mL Urine Fentanyl Screen Not Detected (Not Detect) Ur Barbiturates Screen Not Detected (Not Detect) Ur Phencyclidine Scrn Not Detected (Not Detect) Ur Amphetamines Screen Not Detected (Not Detect) U Benzodiazepines Scrn Not Detected (Not Detect) Urine Cocaine Screen Not Detected (Not Detect) U Marijuana (THC) Screen Not Detected (Not Detect) Ethyl Alcohol < 10 mg/dL Independent Interpretation I performed an independent interpretation of an: EKG Interpretation: Normal sinus rhythm rate 81 no ischemic changes Discharge Plan Discharge Clinical Impression: Overdose Qualifiers: Encounter type: initial encounter Injury intent: accidental or unintentional Qualified Code(s): T50.901A - Poisoning by unspecified drugs, medicaments and biological substances, accidental (unintentional), initial encounter Patient Disposition: Still a Patient Prescriptions: No Action multivitamin [Daily-Nicanor] Tablet 1 tab PO DAILY Qty: 30 0RF prazosin 1 mg Capsule 1 mg PO BEDTIME Qty: 30 0RF Protocol: Hold for SBP< HOLD for SBP < : 90 olanzapine 5 mg Tablet 5 mg PO DAILY PRN (Reason: Psychosis) Qty: 30 0RF cyanocobalamin (vitamin B-12) [Vitamin B-12] 1,000 mcg Tablet 1,000 mcg PO DAILY Qty: 30 0RF olanzapine 10 mg Tablet 10 mg PO BEDTIME Qty: 30 0RF propranolol 20 mg Tablet 20 mg PO BID Qty: 60 0RF Protocol: Hold for SBP/HR < HOLD for SBP < : 90 HOLD for HR < : 60 aripiprazole [Abilify] 20 mg Tablet 20 mg PO DAILY Qty: 30 0RF bupropion HCl 150 mg Tablet Extended Release 24 Hr 150 mg PO DAILY Qty: 30 0RF Print Language: Polish
[2023-11-09 12:16] LABS: MANUAL DIFF FLAG NO
[2023-11-09 12:20] LABS: Basophils Percent Auto 0.7 % (0-2); Eosinophils Absolute Auto 0.2 X10*3/uL (0.0-0.4); Eosinophils Percent Auto 2.8 % (0-4); Hematocrit 44.1 % (42.0-52.0); Hemoglobin 14.8 g/dl (14.0-18.0); Imm Gran Abs Auto 0.02 X10*3/uL (0.00-0.03); Imm Gran Pct Auto 0.3 % (0.0-0.4); Lymphocytes Absolute Auto 1.6 X10*3/uL (1.2-4.9); Lymphocytes Percent Auto 28.2 % (20-40); Mean Corpuscular HGB Conc 33.6 g/dl (31.0-36.0); Mean Corpuscular Hemoglobin 30.8 pg (27.0-33.0); Mean Corpuscular Volume 91.9 fL (80.0-98.0); Monocytes Absolute Auto 0.4 X10*3/uL (0.1-1.2); Monocytes Percent Auto 7.6 % (2-11); Neutrophils Absolute Auto 3.5 x10*3/uL (2.0-8.3); Neutrophils Percent Auto 60.4 % (45-73); Platelet Count 249 X10*3/uL (160-400); Red Cell Distribution Width 12.9 % (11.0-16.0); White Blood Count 5.8 X10*3/uL (4.8-10.8)
[2023-11-09 12:38] LABS: Alanine Aminotransferase 79 U/L (0-40); Albumin Level 4.1 g/dL (3.5-5.0); Alkaline Phosphatase 66 U/L (39-117); Anion Gap 10 (12-20); Aspartate Amino Transferase 36 U/L (5-37); Bilirubin Total 0.5 mg/dL (0.0-1.0); Blood Urea Nitrogen 10 mg/dL (9-16); Calcium 9.3 mg/dL (8.4-10.2); Carbon Dioxide 28 mmol/L (22-29); Chloride 107 mmol/L (96-108); Creatinine Clr Calc Pharmacy 100.7; Estimated Glomerular Filt Rate > 60; Ethanol < 10 mg/dL; Glucose Random 114 mg/dL (60-115); Potassium 3.9 mmol/L (3.3-5.1); Salicylate < 5.0 mg/dL (15-30); Sodium 141 mmol/L (135-145); Total Protein 7.1 g/dL (6.5-8.0)
[2023-11-09 13:56] VITALS: BP 99/59; PULSE 81; RESP 16; TEMP 36.5; O2SAT 97
[2023-11-09 16:11] VITALS: BP 113/86; PULSE 73; RESP 14; TEMP 36.7; O2SAT 98
[2023-11-09 18:10] VITALS: BP 113/86; PULSE 73; RESP 14; TEMP 36.7; O2SAT 98
== END 2023-11-09 18:11 | disposition home or self-care (01) ==
PROVIDERS: Emergency Provider Emergency Medicine
DX: T43.591A Poisoning by other antipsychotics and neuroleptics, accidental (unintentional), initial encounter (principal); R45.851 Suicidal ideations; F33.1 Major depressive disorder, recurrent, moderate; F17.210 Nicotine dependence, cigarettes, uncomplicated; F41.1 Generalized anxiety disorder; F43.0 Acute stress reaction; Z79.899 Other long term (current) drug therapy
CPT/HCPCS: 36415; 80053; 80179; 80307; 81003; 85025; 93005; 99285; S9485

== ENCOUNTER → 2023-11-09 11:34 | Outpatient (BNV) | payer MEDICAID, SELFPAY | PROVIDERS: Emergency Provider Emergency Medicine; Visit Provider Internal Medicine Cardiovascular Disease | DX: T50.901A Poisoning by unspecified drugs, medicaments and biological substances, accidental (unintentional), initial encounter (principal) | CPT/HCPCS: 93010 ==

== ENCOUNTER 2023-11-13 19:43 | Inpatient (IN) | payer MEDICAID, OTHER, SELFPAY ==
--- NOTE | 2023-11-13 19:51 | ED.GENADULT ---
HPI - General Adult General Chief complaint: Psychiatric Symptoms Stated complaint: psych eval, paranoia, hx schizophrenia Time Seen by Provider: 11/13/23 19:51 Source: patient and EMS Mode of arrival: EMS Limitations: no limitations History of Present Illness ED Provider: Shirley Russell PA-C HPI narrative: Patient is a 33 year old assigned male at with a history of schizoaffective disorder presenting to the emergency department today with increased feelings of paranoia. Patient states that he has been feeling as though something is inside him and something or someone is following him. Patient denies any suicidal or homicidal ideation, auditory hallucinations, dizziness, lightheadedness, abdominal pain, nausea, vomiting, fever, chills, blurry vision, double vision, loss of vision, chest pain, difficulty breathing, shortness of breath, back pain, night sweats, pain with urination, increased urinary frequency, increased urinary urgency, blood in his urine or stool, syncope or a near syncopal episode, recent trauma or falls, bowel incontinence, bladder incontinence, or any other complaints at this time. Relieving factors: none Exacerbating factors: none Associated symptoms: denies other symptoms Treatments prior to arrival: none Related Data Previous Rx's ?Medication ?Instructions ?Recorded aripiprazole 20 mg tablet (Abilify) 20 mg PO DAILY #30 tabs 12/26/22 bupropion HCl 150 mg 24 hr tablet, 150 mg PO DAILY #30 tabs 12/26/22 extended release cyanocobalamin (vitamin B-12) 1,000 mcg PO DAILY #30 tabs 12/26/22 1,000 mcg tablet (Vitamin B-12) multivitamin (Daily-Nicanor tablet) 1 tab PO DAILY #30 tabs 12/26/22 olanzapine 10 mg tablet 10 mg PO BEDTIME #30 tabs 12/26/22 olanzapine 5 mg tablet 5 mg PO DAILY PRN Psychosis #30 12/26/22 tabs prazosin 1 mg capsule 1 mg PO BEDTIME #30 caps 12/26/22 propranolol 20 mg tablet 20 mg PO BID #60 tabs 12/26/22 Allergies Allergy/AdvReac Type Severity Reaction Status Date / Time No Known Allergies Allergy Verified 11/13/23 19:57 Review of Systems Constitutional: Constitutional: Reports no additional constitutional complaints, Denies chills, Denies fever(s) and Denies night sweats Eyes: Eyes: Reports no additional eye complaints, Denies blurry vision, Denies change in vision, Denies diplopia, Denies eye discharge, Denies loss of vision and Denies eye pain ENT: Denies dizziness Cardiovascular: Cardiovascular: Reports no additional cardiovascular complaints, Denies chest pain, Denies lightheadedness, Denies Loss of Consciousness and Denies dyspnea Respiratory: Respiratory: Reports no additional respiratory complaints and Denies dyspnea Gastrointestinal: Gastrointestinal: Reports no additional gastrointestinal complaints, Denies abdominal pain, Denies melena, Denies hematochezia, Denies change in bowel habits and Denies change in stool character Genitourinary: Genitourinary: Reports no additional male genitourinary complaints, Denies hematuria, Denies oliguria, Denies difficulty urinating, Denies dysuria, Denies urinary frequency, Denies urinary hesitancy, Denies urinary incontinence and Denies urinary urgency Musculoskeletal: Musculoskeletal: Reports no additional musculoskeletal complaints, Denies numbness and Denies tingling Neurologic: Denies dizziness, Denies loss of vision, Denies numbness and Denies tingling Psychiatric: Psychiatric: Reports paranoia Endocrine: Endocrine: Reports no additional endocrine complaints Hematologic/Lymphatic: Hematologic/Lymphatic: Reports no additional hematologic/lymphatic complaints Allergic/Immunologic: Allergic/Immunologic: Reports no additional allergic/immunologic complaints PMF Past Medical History Attestation statement: The following information was validated with the patient. Source: old records reviewed and nursing notes reviewed Medical History Polysubstance use disorder Glaucoma Genital herpes Schizoaffective disorder Social History Social History Household Members: Family Housing: House Housing Other:: moms apartment. Do you presently have visiting nurse or other home services: No Alcohol intake: former Patient Tobacco Use Status: Current everyday Tobacco user Tobacco use type: Cigarette Cigarette Packs Per Day: 1 Cigarettes Per Day: 20.0 Years Smoked: 14 e-Cigarette/Vaping Use: Never Used Second Hand Smoke Exposure: Yes Substance Use Type: Marijuana Advance Directives: No Advance Directives Information Provided: No Do you have a plan to hurt others: No Plan service: No Sexual orientation: Don't Know Physical Exam ED Vital Signs: Vital Signs - 24 hr 11/13/23 19:52 Temperature 98.4 F Pulse Rate 71 Respiratory Rate 18 Blood Pressure 136/78 Pulse Oximetry 99 BMI result Body Mass Index 26.6 Const General: cooperative, no acute distress, alert and awake Nutritional Appearance: well nourished Orientation/consciousness: patient oriented x3 Limitations: no limitations HENMT Head: Yes normal to inspection and Yes atraumatic Ears: hearing grossly normal bilaterally and external ears normal General nose exam: Normal external nose present, no nasal discharge noted and no epistaxis Face and sinus: Yes normal facial exam, No abrasion and No laceration Mouth: Normal oral and palatal mucosa present, no drooling and no muffled voice Eyes General: appearance normal, both eyes and all related structures Periorbital: periorbital findings normal Eyelids: Yes eyelids normal Conjunctivae: conjunctivae normal Pupils: Equal, round and reactive pupils present EOM: EOMs intact bilaterally Neck Neck: Yes normal visual inspection, Yes full ROM and Yes no lymphadenopathy Chest Chest palpation & inspection: normal inspection of the chest Resp Effort & Inspection: normal respiratory effort and able to speak in complete sentences GI Inspection: Yes normal to inspection Neuro General: patient oriented x3 and moves all extremities Cranial nerves: Yes Equal, round and reactive pupils present Cognition (Neuro): normal cognition Extrem General: Yes normal to inspection, Yes full ROM and Yes capillary refill normal Psych Appearance: grossly normal Mental Status: mental status grossly normal Affect: Labile affect present Attitude: cooperative Thought content: Paranoid delusions present Medical Decision Making Medical Decision Making [facility] Narrative: Patient is a 33 year old assigned male at with a history of schizoaffective disorder presenting to the emergency department today with increased paranoia. Patient's physical exam was as noted in the physical exam portion of this note. Patient's blood work was unremarkable. Patient's urine showed no acute process. I explained my physical exam findings as well as all test results to the patient. I answered all questions asked by the patient. Patient's disposition will be determined after CARE team evaluation. Patient in physician observation pending CARE team eval. Differential Diagnosis Differential Diagnoses: The differential diagnosis associated with the presentation includes Paranoia Admission/Observation Consideration of admission/observation: Escalation of care including admission/observation considered Disposition will be determined after CARE team evaluation. Lab Data [facility] Lab Attestation statement: I reviewed the patient's lab results. My interpretation of these results are in the MDM Rationale portion of this note. 11/13/23 20:19 11/13/23 20:19 Labs: Lab Results 11/13/23 11/13/23 Range/Units 20:01 20:19 WBC 7.4 (4.8-10.8) X10*3/uL RBC 4.84 (4.60-5.80) X10*6/uL Hgb 14.9 (14.0-18.0) g/dl Hct 43.7 (42.0-52.0) % MCV 90.3 (80.0-98.0) fL MCH 30.8 (27.0-33.0) pg MCHC 34.1 (31.0-36.0) g/dl RDW 12.7 (11.0-16.0) % Plt Count 292 (160-400) X10*3/uL MPV 9.8 (9.4-12.4) fL Immature Gran % (Auto) 0.3 (0.0-0.4) % Neut % (Auto) 59.1 (45-73) % Lymph % (Auto) 30.6 (20-40) % [place] % (Auto) 7.4 (2-11) % Eos % (Auto) 1.9 (0-4) % Baso % (Auto) 0.7 (0-2) % Lymph # (Auto) 2.3 (1.2-4.9) X10*3/uL [place] # (Auto) 0.6 (0.1-1.2) X10*3/uL Eos # (Auto) 0.1 (0.0-0.4) X10*3/uL Baso # (Auto) 0.1 (0.0-0.2) X10*3/uL Abs Immat Gran (auto) 0.02 (0.00-0.03) X10*3/uL Absolute Neuts (auto) 4.4 (2.0-8.3) x10*3/uL Absolute Nucleated RBC 0.000 (0.0-0.012) X10*3/uL Nucleated RBC % (auto) 0.0 (0.0-0.2) /100WBC Sodium 142 (135-145) mmol/L Potassium 3.8 (3.3-5.1) mmol/L Chloride 105 (96-108) mmol/L Carbon Dioxide 27 (22-29) mmol/L Anion Gap 14 (12-20) BUN 11 (9-16) mg/dL Creatinine 0.85 (0.5-1.4) mg/dL Estim Creat Clear Calc 123.6 Estimated GFR > 60 Random Glucose 81 (60-115) mg/dL Calcium 9.4 (8.4-10.2) mg/dL Total Bilirubin 0.3 (0.0-1.0) mg/dL AST 34 (5-37) U/L ALT 73 H (0-40) U/L Alkaline Phosphatase 84 (39-117) U/L Total Protein 7.9 (6.5-8.0) g/dL Albumin 4.5 (3.5-5.0) g/dL Urine Color Yellow Urine Appearance Clear Urine pH 7.5 (5.0-9.0) Ur Specific [place] 1.010 (1.005-1.025) Urine Protein Negative (Neg-Trace) mg/dL Urine Glucose (UA) Negative (Negative) mg/dL Urine Ketones Negative (Negative) mg/dL Urine Blood Negative (Negative) Urine Nitrite Negative (Negative) Ur Leukocyte Esterase Negative (Negative) Salicylates < 5.0 L (15-30) mg/dL Urine Opiates Screen Not Detected (Not Detect) Ur Buprenorphine Scrn Not Detected (Not Detect) ng/mL Ur Oxycodone Screen Not Detected (Not Detect) ng/mL Urine Methadone Screen Not Detected (Not Detect) ng/mL Urine Fentanyl Screen Not Detected (Not Detect) Acetaminophen < 3 (<30) mcg/mL Ur Barbiturates Screen Not Detected (Not Detect) Ur Phencyclidine Scrn Not Detected (Not Detect) Ur Amphetamines Screen Not Detected (Not Detect) U Benzodiazepines Scrn Not Detected (Not Detect) Urine Cocaine Screen Not Detected (Not Detect) U Marijuana (THC) Screen Not Detected (Not Detect) Ethyl Alcohol < 10 mg/dL Independent Historian Clinical information obtained from an independent historian. History obtained from or confirmed by: EMS (EMS provided additional history and confirmed the history provided by the patient.) Discharge Plan Discharge Clinical Impression: Schizoaffective disorder Patient Disposition: Still a Patient Prescriptions: No Action multivitamin [Daily-Nicanor] Tablet 1 tab PO DAILY Qty: 30 0RF prazosin 1 mg Capsule 1 mg PO BEDTIME Qty: 30 0RF Protocol: Hold for SBP< HOLD for SBP < : 90 olanzapine 5 mg Tablet 5 mg PO DAILY PRN (Reason: Psychosis) Qty: 30 0RF cyanocobalamin (vitamin B-12) [Vitamin B-12] 1,000 mcg Tablet 1,000 mcg PO DAILY Qty: 30 0RF olanzapine 10 mg Tablet 10 mg PO BEDTIME Qty: 30 0RF propranolol 20 mg Tablet 20 mg PO BID Qty: 60 0RF Protocol: Hold for SBP/HR < HOLD for SBP < : 90 HOLD for HR < : 60 aripiprazole [Abilify] 20 mg Tablet 20 mg PO DAILY Qty: 30 0RF bupropion HCl 150 mg Tablet Extended Release 24 Hr 150 mg PO DAILY Qty: 30 0RF Print Language: German
[2023-11-13 19:52] VITALS: BP 136/78; BP 138/77; PULSE 71; PULSE 77; RESP 18; TEMP 36.9; O2SAT 97; O2SAT 99; BMI 26.6
[2023-11-13 20:19] LABS: Appearance Urine Clear; Color Urine Yellow; Glucose Urine UA Negative (Negative); Leukocyte Esterase Urine Negative (Negative); Nitrite Urine Negative (Negative); PH 7.5 (5.0-9.0); Urine Blood Negative (Negative); Urine Ketones Negative (Negative); Urine Protein Negative (Neg-Trace)
[2023-11-13 20:24] LABS: Basophils Absolute Auto 0.1 X10*3/uL (0.0-0.2); Basophils Percent Auto 0.7 % (0-2); Eosinophils Absolute Auto 0.1 X10*3/uL (0.0-0.4); Eosinophils Percent Auto 1.9 % (0-4); Hematocrit 43.7 % (42.0-52.0); Hemoglobin 14.9 g/dl (14.0-18.0); Imm Gran Abs Auto 0.02 X10*3/uL (0.00-0.03); Imm Gran Pct Auto 0.3 % (0.0-0.4); Lymphocytes Absolute Auto 2.3 X10*3/uL (1.2-4.9); Lymphocytes Percent Auto 30.6 % (20-40); MANUAL DIFF FLAG NO; Mean Corpuscular HGB Conc 34.1 g/dl (31.0-36.0); Mean Corpuscular Hemoglobin 30.8 pg (27.0-33.0); Mean Corpuscular Volume 90.3 fL (80.0-98.0); Mean Platelet Volume 9.8 fL (9.4-12.4); Monocytes Absolute Auto 0.6 X10*3/uL (0.1-1.2); Monocytes Percent Auto 7.4 % (2-11); Neutrophils Absolute Auto 4.4 x10*3/uL (2.0-8.3); Neutrophils Percent Auto 59.1 % (45-73); Platelet Count 292 X10*3/uL (160-400); Red Blood Count 4.84 X10*6/uL (4.60-5.80); Red Cell Distribution Width 12.7 % (11.0-16.0); White Blood Count 7.4 X10*3/uL (4.8-10.8)
[2023-11-13 20:32] LABS: Amphetamine Screen Urine Not Detected (Not Detect); Barbiturates, Urine Not Detected (Not Detect); Benzodiazepines Screen Urine Not Detected (Not Detect); Buprenorphine Scr Not Detected (Not Detect); Cannabinoid Screen Urine Not Detected (Not Detect); Cocaine Screen Urine Not Detected (Not Detect); Fentanyl, urine Not Detected (Not Detect); Methadone Screen, Urine Not Detected (Not Detect); Opiate Screen Urine Not Detected (Not Detect); Oxycodone Screen Urine Not Detected (Not Detect); Phencyclidine Screen Urine Not Detected (Not Detect)
[2023-11-13 20:40] LABS: Alanine Aminotransferase 73 U/L (0-40); Albumin Level 4.5 g/dL (3.5-5.0); Alkaline Phosphatase 84 U/L (39-117); Anion Gap 14 (12-20); Aspartate Amino Transferase 34 U/L (5-37); Bilirubin Total 0.3 mg/dL (0.0-1.0); Blood Urea Nitrogen 11 mg/dL (9-16); Calcium 9.4 mg/dL (8.4-10.2); Carbon Dioxide 27 mmol/L (22-29); Chloride 105 mmol/L (96-108); Creatinine Clr Calc Pharmacy 123.6; Estimated Glomerular Filt Rate > 60; Ethanol < 10 mg/dL; Glucose Random 81 mg/dL (60-115); Potassium 3.8 mmol/L (3.3-5.1); Sodium 142 mmol/L (135-145); Total Protein 7.9 g/dL (6.5-8.0)
[2023-11-13 20:41] LABS: Acetaminophen LAB < 3 mcg/mL (<30); Salicylate < 5.0 mg/dL (15-30)
[2023-11-14 00:38] LABS: COVID-19 Test Negative (Negative); IDNOW Serial# 6674DD1D
--- NOTE | 2023-11-14 07:24 | PC.NURSE ---
Assumed care of patient at 0645. Patient is observed resting quietly in their bed. No signs of distress observed and breathing is even and unlabored.
[2023-11-14] MEDS: ARIPiprazole 20 MG TABLET PO (08:47)
[2023-11-14] MEDS: Venlafaxine HCl ER 37.5 MG CAP.ER.24H PO (08:47)
--- NOTE | 2023-11-14 09:26 | PHA.MEDREC ---
Pharmacy Consult ? Medication Reconciliation Pharmacy has completed the medication reconciliation. PHARMACY HAS REVIEWED MED REC DONE BY NURSING. USING SAME LIST THAT NURSE USED FROM [facility] FOUND THAT QUETIAPINE 25 MG DOSE WAS MISTAKENLY ENTERED TID PRN INSTEAD OF BID PRN. PROVIDER NOTIFIED AND DOSING CHANGED WITH PERMISSION OF DR MCLAIN. HOME MED LIST ALSO UPDATED.
[2023-11-14] MEDS: hydrOXYzine HCL 25 MG TABLET PO ×2 (10:04→22:35)
[2023-11-14] MEDS: diphenhydrAMINE HCL 25 MG CAPSULE PO (13:16)
[2023-11-14 13:18] VITALS: BP 126/75; PULSE 65; RESP 18; TEMP 36.9; O2SAT 98
[2023-11-14 14:46] VITALS: BP 131/83; PULSE 65; RESP 16; TEMP 37.1; O2SAT 99
[2023-11-14 15:19] VITALS: BMI 24.2
--- NOTE | 2023-11-14 17:04 | PC.ADMIT ---
Nicole is a 33 y/o male admitted to M3 at 1440 from [facility] on a CV for treatment of suicidal ideation. Per crisis eval and patient report, the patient also has a history of schizoaffective disorder and polysubstance use disorder. The patient self presented at [facility] on 11/13/23 due to increased paranoia/delusions, anxiety, and suicidal ideation. The patient also has a reported history of crack cocaine use, for which he is currently in a [facility] program, [facility] [place]. The last reported use was one month ago. Upon admission, the patient was calm, cooperative, and willing to engage about his mental status and reasons for admission. Eye contact was intermittent, but patient expressed thoughts in a clear and linear fashion. Alert and oriented x 4. The patient stated that he has been having panic attacks due to increased anxiety, with delusions of being followed. The patient also stated that he has been having nightmares and poor sleep. He admitted to passive suicidal ideation, but denied a plan at this time. The patient stated that even though he is medication compliant, the medications are no longer helping. [place], the patient has ongoing cravings for crack cocaine, but has not used in more than a month. Tox screen was negative at admission. Patient denied HI/AH/VH, but admitted to paranoia as stated. Medically, the patient denied any current diagnoses, but does have a diagnosis of glaucoma per crisis evaluation. Skin check performed at admission. Pt has several piercings on body including genitalia, belly button and nasal. Patient was able to contract for safety and denied need or desire to use piercings for self-harm. Patient expresses hope that [facility] will assist with medication adjustment to treat symptoms. Patient placed on 15 minute safety checks at this time.
[2023-11-14 19:45] VITALS: BP 111/60; PULSE 62; RESP 18; TEMP 36.6; O2SAT 98
[2023-11-14] MEDS: Melatonin 3 MG TABLET 9 MG PO (22:32)
[2023-11-14] MEDS: QUEtiapine Fumarate 100 MG TABLET PO (22:33)
[2023-11-15 08:00] VITALS: BP 96/55; PULSE 63; RESP 14; TEMP 36.5; O2SAT 97
[2023-11-15] MEDS: ARIPiprazole 20 MG TABLET PO (08:50)
[2023-11-15] MEDS: Nicotine 21 MG PATCH.TD24 TRANSDERMA (08:50)
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
[2023-11-15] MEDS: OLANZapine 5 MG TABLET PO ×2 (16:21→23:24)
--- NOTE | 2023-11-15 17:24 | P.EN_ITS ---
Event Note Date of Service: 11/15/23 Event Note: Asked to see patient for acute left hypertropia. 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 Thinks he may have injured it as a kid. Denies any acute changes in vision. Denies pain. On exam Left eye with clear prior injury. Pupil on the left is abnormal in shape and not fully reactive to light Right eye extraocular movements intact without any notable deficits A/P Per history, does not appear to be an acute issue. Would recommend follow-up with an rice milling supervisor. Time Spent With Patient Time: Total time managing care of this patient today ____ minutes.
[2023-11-15] MEDS: Nicotine Polacrilex 2 MG GUM 4 MG BUCCAL (17:31)
[2023-11-15] MEDS: Melatonin 3 MG TABLET 9 MG PO (21:17)
[2023-11-15] MEDS: QUEtiapine Fumarate 100 MG TABLET PO (21:18)
[2023-11-15] MEDS: traZODone HCL 50 MG TABLET PO (21:18)
[2023-11-16] MEDS: Nicotine 21 MG PATCH.TD24 TRANSDERMA (08:54)
[2023-11-16] MEDS: ARIPiprazole 20 MG TABLET PO (08:55)
[2023-11-16] MEDS: OLANZapine 5 MG TABLET PO ×2 (10:23→19:27)
[2023-11-16] MEDS: hydrOXYzine HCL 25 MG TABLET PO ×2 (13:47→16:38)
--- NOTE | 2023-11-16 15:12 | HO.PSYCHPN ---
Subjective Subjective Date of Service: 11/16/23 Reason For Visit: SI Interim History: in bed. calm, cooperative. states he was using crack cocaine [employer] and is in withdrawal. feels satisfied being restarted on meds and being allowed to rest and detox. interested in referral to rehab. per collateral with professor of social work judy Samuels already in [facility]. per staff, dep/anx 8. +RIS. +meds. paranoid of people watching and judging him. passive SI. slept 8 hours. Mental Status Exam Mental Status Exam Narrative: Appearance: wearing hospital gown, fair hygiene, in NAD behavior: cooperative Psychomotor: no agitation or retardation noted Speech: clear, soft tone, spontaneous TP: linear TC: feeling anxious and looking for treatment Mood: okay Affect: congruent SI: passive HI: none expressed VH/AH: none expressed Insight/judgment: poor x 2. Memory/cog: alert, oriented x 3. Diagnostics Vital Signs (24Hr): BMI result Body Mass Index 24.2 Labs 11/13/23 20:19 11/13/23 20:19 Medications Medications Current Medications Acetaminophen (Acetaminophen 325 Mg Tablet) 650 mg PO Q6H PRN PRN Reason: Headache/Pain Mild Scale (1-3) Al Hydroxide/Mg Hydroxide (Magnesium Hydrox/Alum Hydrox 30 Ml Oral.Susp) 30 ml PO Q6H PRN PRN Reason: Heartburn/Nausea Aripiprazole (Aripiprazole 20 Mg Tablet) 20 mg PO DAILY [facility] Last Admin: 11/16/23 08:55 Dose: 20 mg Hydroxyzine HCl (Hydroxyzine Hcl 25 Mg Tablet) 25 mg PO TID PRN PRN Reason: Anxiety Last Admin: 11/16/23 13:47 Dose: 25 mg Magnesium Hydroxide (Milk Of Magnesia 30 Ml Oral.Susp) 30 ml PO DAILY PRN PRN Reason: Constipation Melatonin (Melatonin 3 Mg Tablet) 9 mg PO BEDTIME [facility] Last Admin: 11/15/23 21:17 Dose: 9 mg Nicotine (Nicotine 21 Mg Patch.Td24) 21 mg TRANSDERMA DAILY [facility] Last Admin: 11/16/23 08:54 Dose: 21 mg Nicotine Polacrilex (Nicotine Polacrilex 2 Mg Gum) 4 mg BUCCAL Q2H PRN PRN Reason: Nicotine Cravings Last Admin: 11/15/23 17:31 Dose: 4 mg Olanzapine (Olanzapine 5 Mg Tablet) 5 mg PO Q5H PRN PRN Reason: severe anxiety/agitation Last Admin: 11/16/23 10:23 Dose: 5 mg Quetiapine Fumarate (Quetiapine Fumarate 100 Mg Tablet) 100 mg PO BEDTIME [facility] Last Admin: 11/15/23 21:18 Dose: 100 mg Trazodone HCl (Trazodone Hcl 50 Mg Tablet) 50 mg PO BEDTIME [facility] Last Admin: 11/15/23 21:18 Dose: 50 mg Allergies Allergies Allergy/AdvReac Type Severity Reaction Status Date / Time No Known Allergies Allergy Verified 11/13/23 19:57 Assessment & Plan Assessment & Plan (1) PTSD (post-traumatic stress disorder): Status: Acute Code(s): F43.10 - Post-traumatic stress disorder, unspecified (2) MDD (major depressive disorder), recurrent, severe, with psychosis: Status: Acute Code(s): F33.3 - Major depressive disorder, recurrent, severe with psychotic symptoms (3) Polysubstance use disorder: Status: Acute Code(s): F19.90 - Other psychoactive substance use, unspecified, uncomplicated Assessment and Plan: in remission Plan Mr. Camarillo is a 33 year-old male with hx of substance use in remission, who is known to [facility] through previous admission with similar presentation. He has extensive hx of trauma as well and it is unclear if some of psychosis relates more to trauma than primarily psychotic disorder. Utox was negative. He has been at [facility] receiving dual dx residential treatment. We discussed risks, benefits and alternative treatment options. He agrees to continue ability but interested in cross taper to olanzapine. PLAN 1. Admit to , CV, 15 minutes 2. continue current medications 3. obtain collateral information 4. aftercare planning. 11/15: continue restarted meds. allow detox from cocaine (utox was NEG at admission, however). supportive care. planning to discharge back to [facility] when stable. passive SI, +RIS. Reason for continued inpatient stay Substantial Risk for: harm to self, inability to function and rapid decompensation Time Spent With Patient Time: Total time managing care of this patient today __25__ minutes.
[2023-11-16 16:00] VITALS: BP 122/72; PULSE 72; RESP 16; TEMP 37; O2SAT 98
[2023-11-16 20:00] VITALS: RESP 16
[2023-11-16] MEDS: QUEtiapine Fumarate 100 MG TABLET PO (20:25)
[2023-11-16] MEDS: traZODone HCL 50 MG TABLET PO (20:26)
--- NOTE | 2023-11-17 08:24 | PC.NURSE ---
PAtient submitted 3 day note yesterday 11/16/23.
[2023-11-17] MEDS: ARIPiprazole 20 MG TABLET PO (09:13)
[2023-11-17] MEDS: Nicotine 21 MG PATCH.TD24 TRANSDERMA (09:13)
[2023-11-17] MEDS: OLANZapine 5 MG TABLET PO ×2 (09:48→17:27)
--- NOTE | 2023-11-17 11:22 | PC.NURSE ---
Patient retracted 3 day notice.
[2023-11-17 12:35] VITALS: BP 133/92; PULSE 69; RESP 14; TEMP 36.8; O2SAT 100
--- NOTE | 2023-11-17 12:52 | P.PNPSI_ITS ---
Subjective Subjective Date of Service: 11/17/23 Reason For Visit: SI Interim History: calm, cooperative. planning to DC thursday back to [facility]. no complaints or requests. per collateral from DOM Samuels, pt told her he is concerned about thursday discharge, feeling at risk over weekend, and asked for thursday. per staff, 3-day up ; pt rescinded 3-day today, however. no concerns. Mental Status Exam Mental Status Exam Narrative: Appearance: wearing hospital gown, fair hygiene, in NAD behavior: cooperative Psychomotor: no agitation or retardation noted Speech: clear, soft tone, spontaneous TP: linear TC: no delusions or paranoia expressed Mood: okay Affect: congruent SI: none expressed HI: none expressed VH/AH: none expressed Insight/judgment: improving x 2. Memory/cog: alert, oriented x 3. Diagnostics Vital Signs (24Hr): Vital Signs - 24 hr 11/16/23 16:00 11/16/23 20:00 11/17/23 12:35 Temperature 98.6 F 98.3 F Pulse Rate 72 69 Respiratory Rate 16 16 14 Blood Pressure 122/72 133/92 H Pulse Oximetry 98 100 Oxygen Delivery Method Room Air Room Air BMI result Body Mass Index 24.2 Labs 11/13/23 20:19 11/13/23 20:19 Medications Medications Current Medications Acetaminophen (Acetaminophen 325 Mg Tablet) 650 mg PO Q6H PRN PRN Reason: Headache/Pain Mild Scale (1-3) Al Hydroxide/Mg Hydroxide (Magnesium Hydrox/Alum Hydrox 30 Ml Oral.Susp) 30 ml PO Q6H PRN PRN Reason: Heartburn/Nausea Aripiprazole (Aripiprazole 20 Mg Tablet) 20 mg PO DAILY [facility] Last Admin: 11/17/23 09:13 Dose: 20 mg Hydroxyzine HCl (Hydroxyzine Hcl 25 Mg Tablet) 25 mg PO TID PRN PRN Reason: Anxiety Last Admin: 11/16/23 16:38 Dose: 25 mg Magnesium Hydroxide (Milk Of Magnesia 30 Ml Oral.Susp) 30 ml PO DAILY PRN PRN Reason: Constipation Melatonin (Melatonin 3 Mg Tablet) 9 mg PO BEDTIME [facility] Last Admin: 11/16/23 20:28 Dose: Not Given Nicotine (Nicotine 21 Mg Patch.Td24) 21 mg TRANSDERMA DAILY [facility] Last Admin: 11/17/23 09:13 Dose: 21 mg Nicotine Polacrilex (Nicotine Polacrilex 2 Mg Gum) 4 mg BUCCAL Q2H PRN PRN Reason: Nicotine Cravings Last Admin: 11/15/23 17:31 Dose: 4 mg Olanzapine (Olanzapine 5 Mg Tablet) 5 mg PO Q5H PRN PRN Reason: severe anxiety/agitation Last Admin: 11/17/23 09:48 Dose: 5 mg Quetiapine Fumarate (Quetiapine Fumarate 100 Mg Tablet) 100 mg PO BEDTIME [facility] Last Admin: 11/16/23 20:25 Dose: 100 mg Trazodone HCl (Trazodone Hcl 50 Mg Tablet) 50 mg PO BEDTIME [facility] Last Admin: 11/16/23 20:26 Dose: 50 mg Allergies Allergies Allergy/AdvReac Type Severity Reaction Status Date / Time No Known Allergies Allergy Verified 11/13/23 19:57 Assessment & Plan Assessment & Plan (1) PTSD (post-traumatic stress disorder): Status: Acute Code(s): F43.10 - Post-traumatic stress disorder, unspecified (2) MDD (major depressive disorder), recurrent, severe, with psychosis: Status: Acute Code(s): F33.3 - Major depressive disorder, recurrent, severe with psychotic symptoms (3) Polysubstance use disorder: Status: Acute Code(s): F19.90 - Other psychoactive substance use, unspecified, uncomplicated Assessment and Plan: in remission Plan Mr. Camarillo is a 33 year-old male with hx of substance use in remission, who is known to [facility] through previous admission with similar presentation. He has extensive hx of trauma as well and it is unclear if some of psychosis relates more to trauma than primarily psychotic disorder. Utox was negative. He has been at [facility] receiving dual dx residential treatment. We discussed risks, benefits and alternative treatment options. He agrees to continue ability but interested in cross taper to olanzapine. PLAN 1. Admit to M3, CV, 15 minutes 2. continue current medications 3. obtain collateral information 4. aftercare planning. 11/15: continue restarted meds. allow detox from cocaine (utox was NEG at admission, however). supportive care. planning to discharge back to [facility] when stable. passive SI, +RIS. 11/16: no complaints or requests. planning to discharge thursday. rescinded 3-day notice. later said wants to go or thursday rather than thursday. continue current mgmt, but T/C antipsychotic change if pt stays longer as pt's request to DC thursday was based on his assertion that he is bored s and psychotic Sx are worse. Reason for continued inpatient stay Substantial Risk for: inability to function and rapid decompensation Time Spent With Patient Time: Total time managing care of this patient today __25__ minutes.
[2023-11-17 20:00] VITALS: BP 131/79; PULSE 68; RESP 18; TEMP 36.8; O2SAT 99
[2023-11-17] MEDS: QUEtiapine Fumarate 100 MG TABLET PO (20:44)
[2023-11-17] MEDS: traZODone HCL 50 MG TABLET PO (20:44)
[2023-11-17] MEDS: Melatonin 3 MG TABLET 9 MG PO (20:44)
[2023-11-17] MEDS: hydrOXYzine HCL 25 MG TABLET PO (20:52)
[2023-11-18 09:00] VITALS: BP 110/69; PULSE 72; RESP 16; TEMP 36.8; O2SAT 98
[2023-11-18] MEDS: ARIPiprazole 20 MG TABLET PO (09:02)
[2023-11-18] MEDS: Nicotine 21 MG PATCH.TD24 TRANSDERMA (09:02)
[2023-11-18] MEDS: QUEtiapine Fumarate 25 MG TABLET PO (14:38)
[2023-11-18] MEDS: hydrOXYzine HCL 25 MG TABLET PO ×2 (14:38→20:29)
--- NOTE | 2023-11-18 16:27 | P.PNPSI_ITS ---
Subjective Subjective Date of Service: 11/18/23 Reason For Visit: SI Interim History: c/o anx/paranoia. agrees to add seroquel 25 mg at 0900 and 1500 and continue 100 mg at HS. per staff, c/o dep/anx. mild paranoia. +meds. denies AVH. slept 7-8 hours. Mental Status Exam Mental Status Exam Narrative: Appearance: wearing hospital gown, fair hygiene, in NAD behavior: cooperative Psychomotor: no agitation or retardation noted Speech: clear, soft tone, spontaneous TP: linear TC: no delusions or paranoia expressed Mood: okay Affect: congruent SI: none expressed HI: none expressed VH/AH: none expressed Insight/judgment: improving x 2. Memory/cog: alert, oriented x 3. Diagnostics Vital Signs (24Hr): Vital Signs - 24 hr 11/17/23 20:00 11/18/23 09:00 Temperature 98.3 F 98.3 F Pulse Rate 68 72 Respiratory Rate 18 16 Blood Pressure 131/79 110/69 Pulse Oximetry 99 98 Oxygen Delivery Method Room Air Room Air BMI result Body Mass Index 24.2 Labs 11/13/23 20:19 11/13/23 20:19 Medications Medications Current Medications Acetaminophen (Acetaminophen 325 Mg Tablet) 650 mg PO Q6H PRN PRN Reason: Headache/Pain Mild Scale (1-3) Al Hydroxide/Mg Hydroxide (Magnesium Hydrox/Alum Hydrox 30 Ml Oral.Susp) 30 ml PO Q6H PRN PRN Reason: Heartburn/Nausea Aripiprazole (Aripiprazole 20 Mg Tablet) 20 mg PO DAILY [facility] Last Admin: 11/18/23 09:02 Dose: 20 mg Hydroxyzine HCl (Hydroxyzine Hcl 25 Mg Tablet) 25 mg PO TID PRN PRN Reason: Anxiety Last Admin: 11/18/23 14:38 Dose: 25 mg Magnesium Hydroxide (Milk Of Magnesia 30 Ml Oral.Susp) 30 ml PO DAILY PRN PRN Reason: Constipation Melatonin (Melatonin 3 Mg Tablet) 9 mg PO BEDTIME [facility] Last Admin: 11/17/23 20:44 Dose: 9 mg Nicotine (Nicotine 21 Mg Patch.Td24) 21 mg TRANSDERMA DAILY [facility] Last Admin: 11/18/23 09:02 Dose: 21 mg Nicotine Polacrilex (Nicotine Polacrilex 2 Mg Gum) 4 mg BUCCAL Q2H PRN PRN Reason: Nicotine Cravings Last Admin: 11/15/23 17:31 Dose: 4 mg Olanzapine (Olanzapine 5 Mg Tablet) 5 mg PO Q5H PRN PRN Reason: severe anxiety/agitation Last Admin: 11/17/23 17:27 Dose: 5 mg Quetiapine Fumarate (Quetiapine Fumarate 100 Mg Tablet) 100 mg PO BEDTIME [facility] Last Admin: 11/17/23 20:44 Dose: 100 mg Quetiapine Fumarate (Quetiapine Fumarate 25 Mg Tablet) 25 mg PO BID@0900,1500 [facility] Last Admin: 11/18/23 14:38 Dose: 25 mg Trazodone HCl (Trazodone Hcl 50 Mg Tablet) 50 mg PO BEDTIME [facility] Last Admin: 11/17/23 20:44 Dose: 50 mg Allergies Allergies Allergy/AdvReac Type Severity Reaction Status Date / Time No Known Allergies Allergy Verified 11/13/23 19:57 Assessment & Plan Assessment & Plan (1) PTSD (post-traumatic stress disorder): Status: Acute Code(s): F43.10 - Post-traumatic stress disorder, unspecified (2) MDD (major depressive disorder), recurrent, severe, with psychosis: Status: Acute Code(s): F33.3 - Major depressive disorder, recurrent, severe with psychotic symptoms (3) Polysubstance use disorder: Status: Acute Code(s): F19.90 - Other psychoactive substance use, unspecified, uncomplicated Assessment and Plan: in remission Plan Mr. Camarillo is a 33 year-old male with hx of substance use in remission, who is known to [facility] through previous admission with similar presentation. He has extensive hx of trauma as well and it is unclear if some of psychosis relates more to trauma than primarily psychotic disorder. Utox was negative. He has been at [facility] receiving dual dx residential treatment. We discussed risks, benefits and alternative treatment options. He agrees to continue ability but interested in cross taper to olanzapine. PLAN 1. Admit to M3, CV, 15 minutes 2. continue current medications 3. obtain collateral information 4. aftercare planning. 11/15: continue restarted meds. allow detox from cocaine (utox was NEG at admission, however). supportive care. planning to discharge back to [facility] when stable. passive SI, +RIS. 11/16: no complaints or requests. planning to discharge thursday. rescinded 3-day notice. later said wants to go or thursday rather than thursday. continue current mgmt, but T/C antipsychotic change if pt stays longer as pt's request to DC thursday was based on his assertion that he is bored weekends and psychotic Sx are worse. 11/17: add seroquel 25 mg at 0900 and 1500. otherwise continue current mgmt. planning to DC thursday. mod anx/paranoia. Reason for continued inpatient stay Substantial Risk for: inability to function and rapid decompensation Time Spent With Patient Time: Total time managing care of this patient today __25__ minutes.
[2023-11-18 20:20] VITALS: BP 130/84; PULSE 80; RESP 16; TEMP 36.8; O2SAT 97
[2023-11-18] MEDS: QUEtiapine Fumarate 100 MG TABLET PO (20:29)
[2023-11-18] MEDS: traZODone HCL 50 MG TABLET PO (20:30)
[2023-11-18] MEDS: Melatonin 3 MG TABLET 9 MG PO (20:37)
[2023-11-19] MEDS: OLANZapine 5 MG TABLET PO (03:06)
[2023-11-19 07:00] VITALS: BMI 25.1
[2023-11-19 08:00] VITALS: BP 104/63; PULSE 73; RESP 18; TEMP 36.2; O2SAT 98
[2023-11-19] MEDS: Nicotine 21 MG PATCH.TD24 TRANSDERMA (08:58)
[2023-11-19] MEDS: QUEtiapine Fumarate 25 MG TABLET PO ×2 (09:00→14:31)
[2023-11-19] MEDS: ARIPiprazole 20 MG TABLET PO (09:00)
--- NOTE | 2023-11-19 15:54 | HO.PSYCHPN ---
Subjective Subjective Date of Service: 11/19/23 Reason For Visit: SI Interim History: calm, cooperative. c/o nightmares. R/B prazosin discussed, pt agrees to start at 1 mg tonight. per staff, edp/anx 5. isolative. pleasant, polite. feeling a little better. paranoia just comes. slept 7 hours. Mental Status Exam Mental Status Exam Narrative: Appearance: wearing hospital gown, fair hygiene, in NAD behavior: cooperative Psychomotor: no agitation or retardation noted Speech: clear, soft tone, spontaneous TP: linear TC: no delusions or paranoia expressed Mood: okay Affect: congruent SI: none expressed HI: none expressed VH/AH: none expressed Insight/judgment: improving x 2. Memory/cog: alert, oriented x 3. Diagnostics Vital Signs (24Hr): Vital Signs - 24 hr 11/18/23 20:20 11/19/23 08:00 Temperature 98.3 F 97.1 F Pulse Rate 80 73 Respiratory Rate 16 18 Blood Pressure 130/84 104/63 Pulse Oximetry 97 98 Oxygen Delivery Method Room Air Room Air BMI result Body Mass Index 25.1 Labs 11/13/23 20:19 11/13/23 20:19 Medications Medications Current Medications Acetaminophen (Acetaminophen 325 Mg Tablet) 650 mg PO Q6H PRN PRN Reason: Headache/Pain Mild Scale (1-3) Al Hydroxide/Mg Hydroxide (Magnesium Hydrox/Alum Hydrox 30 Ml Oral.Susp) 30 ml PO Q6H PRN PRN Reason: Heartburn/Nausea Aripiprazole (Aripiprazole 20 Mg Tablet) 20 mg PO DAILY [facility] Last Admin: 11/19/23 09:00 Dose: 20 mg Hydroxyzine HCl (Hydroxyzine Hcl 25 Mg Tablet) 25 mg PO TID PRN PRN Reason: Anxiety Last Admin: 11/18/23 20:29 Dose: 25 mg Magnesium Hydroxide (Milk Of Magnesia 30 Ml Oral.Susp) 30 ml PO DAILY PRN PRN Reason: Constipation Melatonin (Melatonin 3 Mg Tablet) 9 mg PO BEDTIME [facility] Last Admin: 11/18/23 20:37 Dose: 9 mg Nicotine (Nicotine 21 Mg Patch.Td24) 21 mg TRANSDERMA DAILY [facility] Last Admin: 11/19/23 08:58 Dose: 21 mg Nicotine Polacrilex (Nicotine Polacrilex 2 Mg Gum) 4 mg BUCCAL Q2H PRN PRN Reason: Nicotine Cravings Last Admin: 11/15/23 17:31 Dose: 4 mg Olanzapine (Olanzapine 5 Mg Tablet) 5 mg PO Q5H PRN PRN Reason: severe anxiety/agitation Last Admin: 11/19/23 03:06 Dose: 5 mg Prazosin HCl (Prazosin Hcl 1 Mg Capsule) 1 mg PO BEDTIME JAKE; Protocol Quetiapine Fumarate (Quetiapine Fumarate 100 Mg Tablet) 100 mg PO BEDTIME JAKE Last Admin: 11/18/23 20:29 Dose: 100 mg Quetiapine Fumarate (Quetiapine Fumarate 25 Mg Tablet) 25 mg PO BID@0900,1500 [facility] Last Admin: 11/19/23 14:31 Dose: 25 mg Trazodone HCl (Trazodone Hcl 50 Mg Tablet) 50 mg PO BEDTIME JAKE Last Admin: 11/18/23 20:30 Dose: 50 mg Allergies Allergies Allergy/AdvReac Type Severity Reaction Status Date / Time No Known Allergies Allergy Verified 11/13/23 19:57 Assessment & Plan Assessment & Plan (1) PTSD (post-traumatic stress disorder): Status: Acute Code(s): F43.10 - Post-traumatic stress disorder, unspecified (2) MDD (major depressive disorder), recurrent, severe, with psychosis: Status: Acute Code(s): F33.3 - Major depressive disorder, recurrent, severe with psychotic symptoms (3) Polysubstance use disorder: Status: Acute Code(s): F19.90 - Other psychoactive substance use, unspecified, uncomplicated Assessment and Plan: in remission Plan Mr. Camarillo is a 33 year-old male with hx of substance use in remission, who is known to [facility] through previous admission with similar presentation. He has extensive hx of trauma as well and it is unclear if some of psychosis relates more to trauma than primarily psychotic disorder. Utox was negative. He has been at [facility] receiving dual dx residential treatment. We discussed risks, benefits and alternative treatment options. He agrees to continue ability but interested in cross taper to olanzapine. PLAN 1. Admit to M3, CV, 15 minutes 2. continue current medications 3. obtain collateral information 4. aftercare planning. 11/15: continue restarted meds. allow detox from cocaine (utox was NEG at admission, however). supportive care. planning to discharge back to [facility] when stable. passive SI, +RIS. 11/16: no complaints or requests. planning to discharge thursday. rescinded 3-day notice. later said wants to go or thursday rather than thursday. continue current mgmt, but T/C antipsychotic change if pt stays longer as pt's request to DC thursday was based on his assertion that he is bored weekends and psychotic Sx are worse. 11/17: add seroquel 25 mg at 0900 and 1500. otherwise continue current mgmt. planning to DC thursday. mod anx/paranoia. 11/18: tolerating seroquel additions adequately. c/o nightmares, prazosin 1 mg QHS started as of tonight. planning for thursday discharge. Reason for continued inpatient stay Substantial Risk for: inability to function and rapid decompensation Time Spent With Patient Time: Total time managing care of this patient today __25__ minutes.
[2023-11-19 20:20] VITALS: BP 134/75; PULSE 83; RESP 16; TEMP 36.6; O2SAT 98
[2023-11-19 20:51] VITALS: BP 134/75
[2023-11-19] MEDS: Prazosin HCL 1 MG CAPSULE PO (20:51)
[2023-11-19] MEDS: hydrOXYzine HCL 25 MG TABLET PO (20:52)
[2023-11-19] MEDS: Melatonin 3 MG TABLET 9 MG PO (20:52)
[2023-11-19] MEDS: QUEtiapine Fumarate 100 MG TABLET PO (20:52)
[2023-11-19] MEDS: traZODone HCL 50 MG TABLET PO (20:52)
[2023-11-20] MEDS: Acetaminophen 325 MG TABLET 650 MG PO (01:13)
[2023-11-20] MEDS: ARIPiprazole 20 MG TABLET PO (09:47)
[2023-11-20] MEDS: QUEtiapine Fumarate 25 MG TABLET PO (09:47)
[2023-11-20] MEDS: Sulfamethox/Trimeth 800/160 TABLET 1 TAB PO (12:28)
--- NOTE | 2023-11-20 15:14 | P.PNPSI_ITS ---
Subjective Subjective Date of Service: 11/20/23 Reason For Visit: SI Interim History: no change in presentation. c/o dental pain, says recently had an extraction, asking for antibx. slept well, no nightmares. would like to keep prazosin where it is. per staff, slept 7-8 hours. asking for antibx. Mental Status Exam Mental Status Exam Narrative: Appearance: wearing hospital gown, fair hygiene, in NAD behavior: cooperative Psychomotor: no agitation or retardation noted Speech: clear, soft tone, spontaneous TP: linear TC: no delusions or paranoia expressed Mood: okay Affect: congruent SI: none expressed HI: none expressed VH/AH: none expressed Insight/judgment: improving x 2. Memory/cog: alert, oriented x 3. Diagnostics Vital Signs (24Hr): Vital Signs - 24 hr 11/19/23 20:20 11/19/23 20:51 Temperature 98 F Pulse Rate 83 Respiratory Rate 16 Blood Pressure 134/75 134/75 Pulse Oximetry 98 Oxygen Delivery Method Room Air BMI result Body Mass Index 25.1 Labs 11/13/23 20:19 11/13/23 20:19 Medications Medications Current Medications Acetaminophen (Acetaminophen 325 Mg Tablet) 650 mg PO Q6H PRN PRN Reason: Headache/Pain Mild Scale (1-3) Last Admin: 11/20/23 01:13 Dose: 650 mg Al Hydroxide/Mg Hydroxide (Magnesium Hydrox/Alum Hydrox 30 Ml Oral.Susp) 30 ml PO Q6H PRN PRN Reason: Heartburn/Nausea Aripiprazole (Aripiprazole 20 Mg Tablet) 20 mg PO DAILY [facility] Last Admin: 11/20/23 09:47 Dose: 20 mg Hydroxyzine HCl (Hydroxyzine Hcl 25 Mg Tablet) 25 mg PO TID PRN PRN Reason: Anxiety Last Admin: 11/19/23 20:52 Dose: 25 mg Magnesium Hydroxide (Milk Of Magnesia 30 Ml Oral.Susp) 30 ml PO DAILY PRN PRN Reason: Constipation Melatonin (Melatonin 3 Mg Tablet) 9 mg PO BEDTIME [facility] Last Admin: 11/19/23 20:52 Dose: 9 mg Nicotine (Nicotine 21 Mg Patch.Td24) 21 mg TRANSDERMA DAILY [facility] Last Admin: 11/20/23 09:50 Dose: Not Given Nicotine Polacrilex (Nicotine Polacrilex 2 Mg Gum) 4 mg BUCCAL Q2H PRN PRN Reason: Nicotine Cravings Last Admin: 11/15/23 17:31 Dose: 4 mg Olanzapine (Olanzapine 5 Mg Tablet) 5 mg PO Q5H PRN PRN Reason: severe anxiety/agitation Last Admin: 11/19/23 03:06 Dose: 5 mg Prazosin HCl (Prazosin Hcl 1 Mg Capsule) 1 mg PO BEDTIME JAKE; Protocol Last Admin: 11/19/23 20:51 Dose: 1 mg Quetiapine Fumarate (Quetiapine Fumarate 100 Mg Tablet) 100 mg PO BEDTIME [facility] Last Admin: 11/19/23 20:52 Dose: 100 mg Quetiapine Fumarate (Quetiapine Fumarate 25 Mg Tablet) 25 mg PO BID@0900,1500 [facility] Last Admin: 11/20/23 09:47 Dose: 25 mg Trazodone HCl (Trazodone Hcl 50 Mg Tablet) 50 mg PO BEDTIME [facility] Last Admin: 11/19/23 20:52 Dose: 50 mg Trimethoprim/Sulfamethoxazole (Sulfamethox/Trimeth 800/160 Tablet) 1 tab PO BID [facility] Last Admin: 11/20/23 12:28 Dose: 1 tab Allergies Allergies Allergy/AdvReac Type Severity Reaction Status Date / Time No Known Allergies Allergy Verified 11/13/23 19:57 Assessment & Plan Assessment & Plan (1) PTSD (post-traumatic stress disorder): Status: Acute Code(s): F43.10 - Post-traumatic stress disorder, unspecified (2) MDD (major depressive disorder), recurrent, severe, with psychosis: Status: Acute Code(s): F33.3 - Major depressive disorder, recurrent, severe with psychotic symptoms (3) Polysubstance use disorder: Status: Acute Code(s): F19.90 - Other psychoactive substance use, unspecified, uncomplicated Assessment and Plan: in remission Plan Mr. Camarillo is a 33 year-old male with hx of substance use in remission, who is known to [facility] through previous admission with similar presentation. He has extensive hx of trauma as well and it is unclear if some of psychosis relates more to trauma than primarily psychotic disorder. Utox was negative. He has been at [facility] receiving dual dx residential treatment. We discussed risks, benefits and alternative treatment options. He agrees to continue ability but interested in cross taper to olanzapine. PLAN 1. Admit to M3, CV, 15 minutes 2. continue current medications 3. obtain collateral information 4. aftercare planning. 11/15: continue restarted meds. allow detox from cocaine (utox was NEG at admission, however). supportive care. planning to discharge back to [facility] when stable. passive SI, +RIS. 11/16: no complaints or requests. planning to discharge thursday. rescinded 3-day notice. later said wants to go or thursday rather than thursday. continue current mgmt, but T/C antipsychotic change if pt stays longer as pt's request to DC thursday was based on his assertion that he is bored weekends and psychotic Sx are worse. 11/17: add seroquel 25 mg at 0900 and 1500. otherwise continue current mgmt. planning to DC thursday. mod anx/paranoia. 11/18: tolerating seroquel additions adequately. c/o nightmares, prazosin 1 mg QHS started as of tonight. planning for thursday discharge. 11/19: slept well, no nightmares. continue prazosin 1 mg QHS. add bactrim DS for 1 week for c/o s/p dental extraction socket pain. planning for thursday discharge but [facility] requiring pt go to respite prior to returning there, so discharge thursday may become more complicated if no respite bed is available. Reason for continued inpatient stay Substantial Risk for: inability to function and rapid decompensation Time Spent With Patient Time: Total time managing care of this patient today __25__ minutes.
[2023-11-20 20:00] VITALS: BP 108/61; PULSE 81; RESP 16; TEMP 36.1; O2SAT 98
[2023-11-20] MEDS: QUEtiapine Fumarate 100 MG TABLET PO (20:24)
[2023-11-20] MEDS: traZODone HCL 50 MG TABLET PO (20:24)
[2023-11-20] MEDS: Melatonin 3 MG TABLET 9 MG PO (20:24)
[2023-11-20] MEDS: Prazosin HCL 1 MG CAPSULE PO (20:24)
[2023-11-21] MEDS: QUEtiapine Fumarate 25 MG TABLET PO ×2 (09:56→15:04)
[2023-11-21] MEDS: ARIPiprazole 20 MG TABLET PO (09:57)
[2023-11-21] MEDS: Nicotine Polacrilex 2 MG GUM 4 MG BUCCAL ×2 (10:00→20:50)
--- NOTE | 2023-11-21 13:41 | P.PNPSI_ITS ---
Subjective Subjective Date of Service: 11/21/23 Reason For Visit: SI Subjective Notes: Conditional Voluntary Interim History: The nursing staff reported the patient had been isolative, he has refused his Bactrim for tooth infection. He slept all well last night. In general the staff noticed that he had been more calm from admission. On interview the patient denies new symptoms content with his current treatment. Mental Status Exam Mental Status Exam Patient Appearance: Appropriate Patient Orientation: Person and Situation Level of Consciousness: Awake and Appropriate Patient Behavior: Guarded and Passive Mood Description: Withdrawn Affect Description: Constricted Patient Cognition Impaired: Yes Ability to Follow Directions: Fair Speech Pattern: Clear Hallucinations: None Delusions: Not Present Thought Process: Distracted and Slowed Thinking Thought Content: positive for Circumstantial Judgement: Fair Diagnostics Vital Signs (24Hr): Vital Signs - 24 hr 11/20/23 20:00 Temperature 96.9 F Pulse Rate 81 Respiratory Rate 16 Blood Pressure 108/61 Pulse Oximetry 98 Oxygen Delivery Method Room Air BMI result Body Mass Index 25.1 Labs 11/13/23 20:19 11/13/23 20:19 Medications Medications Current Medications Acetaminophen (Acetaminophen 325 Mg Tablet) 650 mg PO Q6H PRN PRN Reason: Headache/Pain Mild Scale (1-3) Last Admin: 11/20/23 01:13 Dose: 650 mg Al Hydroxide/Mg Hydroxide (Magnesium Hydrox/Alum Hydrox 30 Ml Oral.Susp) 30 ml PO Q6H PRN PRN Reason: Heartburn/Nausea Aripiprazole (Aripiprazole 20 Mg Tablet) 20 mg PO DAILY [facility] Last Admin: 11/21/23 09:57 Dose: 20 mg Hydroxyzine HCl (Hydroxyzine Hcl 25 Mg Tablet) 25 mg PO TID PRN PRN Reason: Anxiety Last Admin: 11/19/23 20:52 Dose: 25 mg Magnesium Hydroxide (Milk Of Magnesia 30 Ml Oral.Susp) 30 ml PO DAILY PRN PRN Reason: Constipation Melatonin (Melatonin 3 Mg Tablet) 9 mg PO BEDTIME [facility] Last Admin: 11/20/23 20:24 Dose: 9 mg Nicotine (Nicotine 21 Mg Patch.Td24) 21 mg TRANSDERMA DAILY [facility] Last Admin: 11/21/23 09:47 Dose: Not Given Nicotine Polacrilex (Nicotine Polacrilex 2 Mg Gum) 4 mg BUCCAL Q2H PRN PRN Reason: Nicotine Cravings Last Admin: 11/21/23 10:00 Dose: 4 mg Olanzapine (Olanzapine 5 Mg Tablet) 5 mg PO Q5H PRN PRN Reason: severe anxiety/agitation Last Admin: 11/19/23 03:06 Dose: 5 mg Prazosin HCl (Prazosin Hcl 1 Mg Capsule) 1 mg PO BEDTIME JAKE; Protocol Last Admin: 11/20/23 20:24 Dose: 1 mg Quetiapine Fumarate (Quetiapine Fumarate 100 Mg Tablet) 100 mg PO BEDTIME [facility] Last Admin: 11/20/23 20:24 Dose: 100 mg Quetiapine Fumarate (Quetiapine Fumarate 25 Mg Tablet) 25 mg PO BID@0900,1500 JA[facility] Last Admin: 11/21/23 09:56 Dose: 25 mg Trazodone HCl (Trazodone Hcl 50 Mg Tablet) 50 mg PO BEDTIME [facility] Last Admin: 11/20/23 20:24 Dose: 50 mg Trimethoprim/Sulfamethoxazole (Sulfamethox/Trimeth 800/160 Tablet) 1 tab PO BID [facility] Last Admin: 11/21/23 09:47 Dose: Not Given Allergies Allergies Allergy/AdvReac Type Severity Reaction Status Date / Time No Known Allergies Allergy Verified 11/13/23 19:57 Assessment & Plan Assessment & Plan (1) PTSD (post-traumatic stress disorder): Status: Acute Code(s): F43.10 - Post-traumatic stress disorder, unspecified (2) MDD (major depressive disorder), recurrent, severe, with psychosis: Status: Acute Code(s): F33.3 - Major depressive disorder, recurrent, severe with psychotic symptoms (3) Polysubstance use disorder: Status: Acute Code(s): F19.90 - Other psychoactive substance use, unspecified, uncomplicated Assessment and Plan: in remission Plan Mr. Camarillo is a 33 year-old male with hx of substance use in remission, who is known to [facility] through previous admission with similar presentation. He has extensive hx of trauma as well and it is unclear if some of psychosis relates more to trauma than primarily psychotic disorder. Utox was negative. He has been at [facility] receiving dual dx residential treatment. We discussed risks, benefits and alternative treatment options. He agrees to continue ability but interested in cross taper to olanzapine. PLAN 1. Admit to M3, CV, 15 minutes 2. continue current medications 3. obtain collateral information 4. aftercare planning. 11/15: continue restarted meds. allow detox from cocaine (utox was NEG at admission, however). supportive care. planning to discharge back to [facility] when stable. passive SI, +RIS. 11/16: no complaints or requests. planning to discharge thursday. rescinded 3-day notice. later said wants to go or thursday rather than thursday. continue current mgmt, but T/C antipsychotic change if pt stays longer as pt's request to DC thursday was based on his assertion that he is bored weekends and psychotic Sx are worse. 11/17: add seroquel 25 mg at 0900 and 1500. otherwise continue current mgmt. planning to DC thursday. mod anx/paranoia. 11/18: tolerating seroquel additions adequately. c/o nightmares, prazosin 1 mg QHS started as of tonight. planning for thursday discharge. 11/19: slept well, no nightmares. continue prazosin 1 mg QHS. add bactrim DS for 1 week for c/o s/p dental extraction socket pain. planning for thursday discharge but [facility] requiring pt go to respite prior to returning there, so discharge thursday may become more complicated if no respite bed is available. 11/20 keep same treatment Reason for continued inpatient stay Substantial Risk for: inability to function, rapid decompensation and med/psych decompensation Time Spent With Patient Time: Total time managing care of this patient today __20__ minutes.
[2023-11-21 20:00] VITALS: BP 116/60; PULSE 70; RESP 16; TEMP 37.1; O2SAT 98
[2023-11-21] MEDS: Prazosin HCL 1 MG CAPSULE PO (20:39)
[2023-11-21] MEDS: Melatonin 3 MG TABLET 9 MG PO (20:40)
[2023-11-21] MEDS: traZODone HCL 50 MG TABLET PO (20:40)
[2023-11-21] MEDS: QUEtiapine Fumarate 100 MG TABLET PO (20:40)
[2023-11-22 09:45] VITALS: BP 133/77; PULSE 75; TEMP 36.9; O2SAT 98
[2023-11-22] MEDS: Nicotine 21 MG PATCH.TD24 TRANSDERMA (09:47)
[2023-11-22] MEDS: QUEtiapine Fumarate 25 MG TABLET PO ×2 (09:47→15:38)
[2023-11-22] MEDS: ARIPiprazole 20 MG TABLET PO (09:47)
--- NOTE | 2023-11-22 12:57 | HO.PSYCHPN ---
Subjective Subjective Date of Service: 11/22/23 Reason For Visit: SI Subjective Notes: Conditional Voluntary Interim History: The nursing staff reported the patient had been guarded withdrawn isolative but very fully compliant with treatment. He slept well last night. On interview the patient denies new symptoms content with current treatment. Mental Status Exam Mental Status Exam Patient Appearance: Appropriate Patient Orientation: Person and Situation Level of Consciousness: Awake and Appropriate Patient Behavior: Guarded and Passive Mood Description: Withdrawn Affect Description: Constricted Patient Cognition Impaired: No Ability to Follow Directions: Good Speech Pattern: Clear Hallucinations: None Delusions: Not Present Thought Process: Linear Thought Content: positive for Circumstantial Judgement: Fair Diagnostics Vital Signs (24Hr): Vital Signs - 24 hr 11/21/23 20:00 11/22/23 09:45 Temperature 98.7 F 98.5 F Pulse Rate 70 75 Respiratory Rate 16 Blood Pressure 116/60 133/77 Pulse Oximetry 98 98 Oxygen Delivery Method Room Air Room Air BMI result Body Mass Index 25.1 Labs 11/13/23 20:19 11/13/23 20:19 Medications Medications Current Medications Acetaminophen (Acetaminophen 325 Mg Tablet) 650 mg PO Q6H PRN PRN Reason: Headache/Pain Mild Scale (1-3) Last Admin: 11/20/23 01:13 Dose: 650 mg Al Hydroxide/Mg Hydroxide (Magnesium Hydrox/Alum Hydrox 30 Ml Oral.Susp) 30 ml PO Q6H PRN PRN Reason: Heartburn/Nausea Aripiprazole (Aripiprazole 20 Mg Tablet) 20 mg PO DAILY [facility] Last Admin: 11/22/23 09:47 Dose: 20 mg Hydroxyzine HCl (Hydroxyzine Hcl 25 Mg Tablet) 25 mg PO TID PRN PRN Reason: Anxiety Last Admin: 11/19/23 20:52 Dose: 25 mg Magnesium Hydroxide (Milk Of Magnesia 30 Ml Oral.Susp) 30 ml PO DAILY PRN PRN Reason: Constipation Melatonin (Melatonin 3 Mg Tablet) 9 mg PO BEDTIME [facility] Last Admin: 11/21/23 20:40 Dose: 9 mg Nicotine (Nicotine 21 Mg Patch.Td24) 21 mg TRANSDERMA DAILY [facility] Last Admin: 11/22/23 09:47 Dose: 21 mg Nicotine Polacrilex (Nicotine Polacrilex 2 Mg Gum) 4 mg BUCCAL Q2H PRN PRN Reason: Nicotine Cravings Last Admin: 11/21/23 20:50 Dose: 4 mg Olanzapine (Olanzapine 5 Mg Tablet) 5 mg PO Q5H PRN PRN Reason: severe anxiety/agitation Last Admin: 11/19/23 03:06 Dose: 5 mg Prazosin HCl (Prazosin Hcl 1 Mg Capsule) 1 mg PO BEDTIME JAKE; Protocol Last Admin: 11/21/23 20:39 Dose: 1 mg Quetiapine Fumarate (Quetiapine Fumarate 100 Mg Tablet) 100 mg PO BEDTIME [facility] Last Admin: 11/21/23 20:40 Dose: 100 mg Quetiapine Fumarate (Quetiapine Fumarate 25 Mg Tablet) 25 mg PO BID@0900,1500 [facility] Last Admin: 11/22/23 09:47 Dose: 25 mg Trazodone HCl (Trazodone Hcl 50 Mg Tablet) 50 mg PO BEDTIME [facility] Last Admin: 11/21/23 20:40 Dose: 50 mg Trimethoprim/Sulfamethoxazole (Sulfamethox/Trimeth 800/160 Tablet) 1 tab PO BID [facility] Last Admin: 11/22/23 09:50 Dose: Not Given Allergies Allergies Allergy/AdvReac Type Severity Reaction Status Date / Time No Known Allergies Allergy Verified 11/13/23 19:57 Assessment & Plan Assessment & Plan (1) PTSD (post-traumatic stress disorder): Status: Acute Code(s): F43.10 - Post-traumatic stress disorder, unspecified (2) MDD (major depressive disorder), recurrent, severe, with psychosis: Status: Acute Code(s): F33.3 - Major depressive disorder, recurrent, severe with psychotic symptoms (3) Polysubstance use disorder: Status: Acute Code(s): F19.90 - Other psychoactive substance use, unspecified, uncomplicated Assessment and Plan: in remission Plan Mr. Camarillo is a 33 year-old male with hx of substance use in remission, who is known to [facility] through previous admission with similar presentation. He has extensive hx of trauma as well and it is unclear if some of psychosis relates more to trauma than primarily psychotic disorder. Utox was negative. He has been at [facility] receiving dual dx residential treatment. We discussed risks, benefits and alternative treatment options. He agrees to continue ability but interested in cross taper to olanzapine. PLAN 1. Admit to M3, CV, 15 minutes 2. continue current medications 3. obtain collateral information 4. aftercare planning. 11/15: continue restarted meds. allow detox from cocaine (utox was NEG at admission, however). supportive care. planning to discharge back to [facility] when stable. passive SI, +RIS. 11/16: no complaints or requests. planning to discharge thursday. rescinded 3-day notice. later said wants to go or thursday rather than thursday. continue current mgmt, but T/C antipsychotic change if pt stays longer as pt's request to DC thursday was based on his assertion that he is bored weekends and psychotic Sx are worse. 11/17: add seroquel 25 mg at 0900 and 1500. otherwise continue current mgmt. planning to DC thursday. mod anx/paranoia. 11/18: tolerating seroquel additions adequately. c/o nightmares, prazosin 1 mg QHS started as of ton. planning for thursday discharge. 11/19: slept well, no nightmares. continue prazosin 1 mg QHS. add bactrim DS for 1 week for c/o s/p dental extraction socket pain. planning for thursday discharge but [facility] requiring pt go to respite prior to returning there, so discharge thursday may become more complicated if no respite bed is available. 11/20 keep same treatment 11/21 keep same treatment Reason for continued inpatient stay Substantial Risk for: inability to function, rapid decompensation and med/psych decompensation Time Spent With Patient Time: Total time managing care of this patient today __20__ minutes.
[2023-11-22] MEDS: hydrOXYzine HCL 25 MG TABLET PO ×2 (15:44→20:43)
[2023-11-22] MEDS: Nicotine Polacrilex 2 MG GUM 4 MG BUCCAL (16:24)
[2023-11-22 20:30] VITALS: BP 147/88; PULSE 84; RESP 18; TEMP 36.3; O2SAT 99
[2023-11-22 20:41] VITALS: BP 147/88
[2023-11-22] MEDS: traZODone HCL 50 MG TABLET PO (20:41)
[2023-11-22] MEDS: Prazosin HCL 1 MG CAPSULE PO (20:41)
[2023-11-22] MEDS: QUEtiapine Fumarate 100 MG TABLET PO (20:41)
[2023-11-22] MEDS: Melatonin 3 MG TABLET 9 MG PO (20:42)
[2023-11-23 08:00] VITALS: BP 115/56; PULSE 73; RESP 16; TEMP 37.1; O2SAT 96
[2023-11-23] MEDS: QUEtiapine Fumarate 25 MG TABLET PO (09:30)
[2023-11-23] MEDS: ARIPiprazole 20 MG TABLET PO (09:31)
[2023-11-23] MEDS: Nicotine 21 MG PATCH.TD24 TRANSDERMA (09:32)
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
== END 2023-11-23 13:25 | disposition home or self-care (01) | DRG 750 ==
LOC: HO.ED 23:05 → HO.PADLT16 11-14 14:12
PROVIDERS: Physician Assistant Medical; Admitting Provider Social Worker; Emergency Provider Emergency Medicine; Visit Provider Psychiatry & Neurology Psychiatry
DX: F25.9 Schizoaffective disorder, unspecified (principal); R45.851 Suicidal ideations; F43.12 Post-traumatic stress disorder, chronic; F17.210 Nicotine dependence, cigarettes, uncomplicated; H50.22 Vertical strabismus, left eye; F19.90 Other psychoactive substance use, unspecified, uncomplicated; Z20.822 Contact with and (suspected) exposure to COVID-19; Z71.6 Tobacco abuse counseling; Z79.899 Other long term (current) drug therapy
CPT/HCPCS: 80053; 80143; 80179; 80307; 81003; 85025; 87635; 99285; S9485

== ENCOUNTER → 2023-11-14 14:06 | Outpatient (BNV) | payer OTHER, SELFPAY | PROVIDERS: Admitting Provider Social Worker; Emergency Provider Emergency Medicine; Visit Provider Psychiatry & Neurology Psychiatry | DX: F33.3 Major depressive disorder, recurrent, severe with psychotic symptoms (principal); F43.11 Post-traumatic stress disorder, acute; F19.90 Other psychoactive substance use, unspecified, uncomplicated | CPT/HCPCS: 99231; 99232 ==